=== PATIENT | male | born 1960 | race Caucasian/White ===

== ENCOUNTER 2021-03-20 19:30 | Emergency (ER) | payer OTHER, SELFPAY ==
[2021-03-20 19:39] VITALS: BP 155/90; PULSE 63; RESP 16; TEMP 36.5; O2SAT 99
--- NOTE | 2021-03-20 19:53 | ED.SKABFB ---
HPI - Skin/Abscess/Foreign Bdy General Chief complaint: Skin/Abscess/Foreign Body Stated complaint: RAULITO EYE SWELLING Time Seen by Provider: 03/20/21 19:44 Source: patient and RN notes reviewed Mode of arrival: ambulatory Limitations: no limitations History of Present Illness HPI narrative: Patient presents today complaining of swelling to the left upper eyelid that started 30 minutes prior to exam. He is unsure if it is an insect bite or something more. Denies itching or pain. He has tried no [id number]-[id number] interventions prior to arrival. He was sitting outside on his porch prior to onset of symptoms. Related Data Home Medications Medication Instructions Recorded Confirmed No Home Medications 03/20/21 03/20/21 Allergies Allergy/AdvReac Type Severity Reaction Status Date / Time ciprofloxacin Allergy Intermediate Hives / Verified 03/20/21 19:45 Red Face Sulfa (Sulfonamide Allergy Intermediate Itching Verified 03/20/21 19:45 Antibiotics) Review of Systems Review of Systems: Narrative: CONSTITUTIONAL: Denies body aches, fever, chills, or sweats. EYES: Denies visual changes, redness, or discharge. Swelling to left upper eyelid ENT: Denies rhinorrhea, congestion, sore throat, or otalgia. CARDIOVASCULAR: Denies chest pain, palpitations, or edema. RESPIRATORY: Denies cough or dyspnea. GASTROINTESTINAL: Denies abdominal pain, nausea, vomiting, or diarrhea. GENITOURINARY: Denies dysuria or hematuria. SKIN: Denies rash, itching, or wounds. MUSCULOSKELETAL: Denies back pain, joint pain, or myalgia. NEUROLOGIC: Denies headache, numbness, tingling, or weakness. PSYCH: Denies depression or anxiety. PMFSH Comments At time of signature, I have reviewed and agree with nursing past medical, surgical, social and family history unless otherwise noted. Please see nursing chart for further information. There is no relevant family history pertinent to the presenting complaint Exam Narrative: Exam Narrative: GENERAL: Well-appearing, well-nourished, and in no acute distress. HEAD: Normocephalic, atraumatic. EYES: EOMI. PERRL. No redness or drainage. Conjunctivae normal.1cm area of localized erythema and scant edema to the left lateral upper eyelid. Nontender. ENT: Mucous membranes pink and moist. NECK: Normal AROM. Supple. No lymphadenopathy. CHEST: No respiratory distress. EXTREMITIES: Normal range of motion. No edema. SKIN: Warm, dry, no rash. Capillary refill normal. Normal skin turgor. NEURO: No focal deficits. Alert and oriented x3. Gait steady. PSYCH: Normal affect. No signs of depression or anxiety. Course Vital Signs Vital signs: Vital Signs Temperature 97.7 F 03/20/21 19:39 Pulse Rate 63 03/20/21 19:39 Respiratory Rate 16 03/20/21 19:39 Blood Pressure 155/90 H 03/20/21 19:39 Pulse Oximetry 99 03/20/21 19:39 Temperature 97.7 F 03/20/21 19:39 Pulse Rate 63 03/20/21 19:39 Respiratory Rate 16 03/20/21 19:39 Blood Pressure 155/90 H 03/20/21 19:39 Pulse Oximetry 99 03/20/21 19:39 Reviewed. Pt has been instructed to follow up with his PCP regarding his elevated blood pressure today. MDM - Skin/Abscess/Foreign Bdy Differential Diagnosis Differential diagnosis: Likely abscess of skin or subcutaneous tissue, urticaria, cellulitis, insect bites, impetigo and contact dermatitis Critical Care Time Critical Care Time Critical Care Time: No Discharge Plan Discharge Clinical Impression: Insect bite Qualifiers: Encounter type: initial encounter Site of insect bite: unspecified site Qualified Code(s): W57.XXXA - Bitten or stung by nonvenomous insect and other nonvenomous arthropods, initial encounter Patient Disposition: Home, Self-Care Condition: Stable Instructions: Insect Bite or Sting (ED) Additional Instructions: Your eyelid is likely swollen due to an insect bite. If it is not bothering you, leave it alone. If it starts itching, you may apply some jennifer
== END 2021-03-20 20:03 | disposition home or self-care (01) ==
PROVIDERS: Emergency Provider Nurse Practitioner; PCP Family Medicine Adolescent Medicine
DX: S00.262A Insect bite (nonvenomous) of left eyelid and periocular area, initial encounter (principal); W57.XXXA Bitten or stung by nonvenomous insect and other nonvenomous arthropods, initial encounter; C95.90 Leukemia, unspecified not having achieved remission
CPT/HCPCS: 99211; G0463

== ENCOUNTER 2024-05-06 01:51 | Day surgery (SDC) | payer OTHER, SELFPAY ==
[2024-04-30 11:39] VITALS: BMI 24.4
--- NOTE | 2024-04-30 11:45 | PC.NURSE ---
Report to the Outpatient Waiting Room, entrance under the green pavilion located off [facility], at time _1000_ on date _[id number]_. Planned Procedure Time: _1200_.? Time changes happen often and if your time is changed the preop area will call you the afternoon before. - You and your visitor will be asked to self-screen and do not enter if you have any COVID symptoms. Please call surgeon if you need to reschedule. - A mask is optional within the hospital at this time. Patients may have clear liquids (water, carbonated beverages, clear teas, apple juice) until 3 hours prior to surgery with a maximum of 20 ounces. - No food from midnight until time of surgery and no smoking Take only the following medications with a SIP of water on the morning of surgery: __None DO NOT STOP ANY OF YOUR OTHER PRESCRIPTION MEDICATIONS PRIOR TO SURGERY EXCEPT THE FOLLOWING Medications to discontinue per physician ____None Please no make-up, nail afghan, hairspray, perfume, deodorant, or body powder the day of surgery.? No jewelry (including any body piercings) or valuables the day of surgery, leave them at home.? Please take a shower or bath the night before, or the morning of, surgery with an antibacterial soap.? Wear comfortable, loose fitting clothing.? - Jewelry must be removed prior to entering the operating room.? Rings and piercings that are not removed may be cut off. - The hospital will not accept responsibility for valuables.? - Please leave all valuables, including medications, at home the day of surgery. If you are going home after surgery, a licensed construction driver must drive you home.? - NO public transportation without another adult if you receive anesthesia. - We recommend that an adult stay with you for 24 hours following discharge. - We also recommend that you do not drive, make important decision, drink alcoholic beverages, or take any drugs that were not prescribed by your health care provider for at least 24 hours after your discharge time. Follow any additional instructions given to you from your surgeon. Telephone instructions given to __Khai___and asked if any additional questions and then verbalized understanding. Patient advised to call surgeon office or pre surgery nurse liaison [phone] if any additional questions.
--- NOTE | 2024-05-05 17:58 | PM.SD2 ---
Same Day Admit/Disch: HPI History of Present Illness Chief complaint: Port-A-Cath no longer needed Narrative: Khai Winters is a 64 year old male who had a right internal jugular Port-A-Cath placed in 2019 for chemotherapy. He had been diagnosed with chronic lymphocytic leukemia. He is in remission and no further chemotherapy is planned. He is taken to surgery at this time for removal of his Port-A-Cath. [facility] Past Medical History Medical History CLL (chronic lymphoid leukemia) with failed remission Epidermal cyst Surgical History Surgical History History of vascular access device 10/26/2018 - [id number] placement Hx of excision of epidermal inclusion cyst Excision epidermal inclusion cyst of the left neck - 04/12/2021 Family History Family History Mother CLL (chronic lymphocytic leukemia) Sibling CLL (chronic lymphocytic leukemia) Two brothers with hx of CLL Cerebrovascular accident Other Heart disease Hypertension Kidney disease Social History Social History Smoking status: Never smoker Alcohol intake: current Alcohol use details: Social alcohol use Living arrangements: with family Occupation/Education: retired Spiritual care concerns: No Same Day Admit/Disch: Med Pre-admit Medications Home Medications Medication Instructions Recorded Confirmed Type No Home Medications 04/26/21 04/30/24 History Review of Systems Review of Systems All systems reviewed & are unremarkable except as noted in HPI and below (HPI and those items noted below) Constitutional Constitutional: Denies chills and Denies fever(s) Cardiovascular Cardiovascular: Denies chest pain, Denies diaphoresis, Denies dyspnea and Denies paroxysmal nocturnal dyspnea Respiratory Respiratory: Denies chest congestion, Denies cough and Denies dyspnea Integumentary/Breasts Skin/Breast: Denies lesions and Denies rash Exam Const: General: comfortable, no acute distress, alert and awake HENMT: Head: normocephalic and atraumatic Mouth: Yes Normal oral and palatal mucosa present Eyes: Conjunctivae: conjunctivae normal Pupils: Equal, round and reactive pupils present EOM: EOMs intact bilaterally Neck: Neck: normal visual inspection, no lymphadenopathy and nontender Chest: Chest palpation & inspection: abnormal inspection of the chest (Right internal jugular Port-A-Cath noted) scar; no swelling and no erythema, no tenderness and No rash Resp: Effort & Inspection: normal respiratory effort Auscultation: clear to auscultation bilaterally Cardio: Rate: regular rate Rhythm: regular rhythm Heart sounds: no gallops, no murmurs and no rubs GI: Inspection: non-distended GI Palp: Yes Soft to palpation, No Tenderness to palpation present (GI), No Hepatomegaly present and No Splenomegaly present Skin: Lesions: no lesions Rashes: no rashes Neuro: General: no focal motor deficits and CN's II-XI intact bilaterally Cranial nerves: Yes Equal, round and reactive pupils present, Yes Bilaterally intact EOM present, Yes facial symmetry and Yes Midline tongue present Speech: normal speech Motor exam (neuro): 5/5 motor strength present throughout and Motor abnormalities not present Extrem: General: no clubbing, cyanosis or edema and edema Psych: Affect: normal affect Thought process: Normal thought process present Insight: Good insight present (Psych) DS: Summary Time Spent with Patient Time attestation: Total time spent providing and/or coordinating discharge services: DS: Admitting Diagnosis Discharge Date 05/06/2024 Admitting Diagnosis Chronic lymphocytic leukemia in remission Port-A-Cath no longer needed-plan to remove Port-A-Cath under anesthesia. The procedure, risks, alternativ
[2024-05-06] MEDS: LACTATED RINGERS 1,000 ML 30 ML IV CONT ×2 (10:00→12:52)
[2024-05-06] MEDS: KETOROLAC 15 MG/ML VIAL (*BKC) IV PUSH (10:30)
[2024-05-06 10:38] VITALS: BP 132/87; PULSE 57; RESP 18; TEMP 36.8; O2SAT 99
--- NOTE | 2024-05-06 11:42 | P.PNAN_ITS ---
Anes - Initial Pre Proc Eval Procedure: Operation Date: 05/06/24 12:00 Proposed Procedures p Removal Brian Cath - Usama Brock MD Date/Time: 05/06/24 11:42 Surgeon: Usama Brock MD Pre Op Diagnosis: Port-A-Cath no longer needed Patient Data Age: 64 Gender: M Height: 1.85 m Weight: 85.4 kg Last Vital Signs Temp 36.8 C 05/06/24 10:38 Pulse 57 L 05/06/24 10:38 Resp 18 05/06/24 10:38 BP 132/87 05/06/24 10:38 Pulse Ox 99 05/06/24 10:38 O2 Del Method Room Air 05/06/24 10:38 Allergies Allergy/AdvReac Type Severity Reaction Status Date / Time ciprofloxacin Allergy Intermediate Hives / Verified 05/06/24 10:37 Red Face Sulfa (Sulfonamide Allergy Intermediate Itching Verified 05/06/24 10:37 Antibiotics) Home Medications Medication Instructions Recorded Confirmed Type No Home Medications 04/26/21 04/30/24 History Patient hx anesthesia problems: none Family hx anesthesia problems: none Results Review: All pre-operative results and documents have been reviewed as part of the pre- operative evaluation. [facility] Past Medical History Medical History CLL (chronic lymphoid leukemia) with failed remission Epidermal cyst Surgical History Surgical History History of vascular access device 10/26/2018 - [id number] placement Hx of excision of epidermal inclusion cyst Excision epidermal inclusion cyst of the left neck - 04/12/2021 Family History Family History Mother CLL (chronic lymphocytic leukemia) Sibling CLL (chronic lymphocytic leukemia) Two brothers with hx of CLL Cerebrovascular accident Other Heart disease Hypertension Kidney disease Social History Social History Smoking status: Never smoker Alcohol intake: current Alcohol use details: Social alcohol use Living arrangements: with family Occupation/Education: retired Spiritual care concerns: No Anes - Eval Final PreProcedure Day of Procedure 05/06/24 11:42 Patient weight: normal Heart: regular rate and rhythm Lungs: clear to auscultation Airway: Mallampati scale class II Neurological: alert and oriented Last oral intake: >/= 8 hours ASA classification: III Emergent: no Anesthetic plan: proceed Anesthesia type and monitoring: general GIVS and standard monitoring Results Review: All pre-operative results and documents have been reviewed as part of the pre- operative evaluation. Informed Consent: The patient's anesthetic plan and its attendant risks and benefits were discussed with the patient/family/POA. Questions were solicited and answers provided to the satisfaction of the patient/family/POA.
--- NOTE | 2024-05-06 12:06 | WPDHPUPDATE1 ---
History and Physical Update Update Date/Time: 05/06/24 12:06 History and Physical has been reviewed, including an updated exam of the patient. There are NO changes in the patient's condition. Risks, benefits, and alternatives have been discussed and questions answered. Patient agrees to proceed with procedure.
[2024-05-06] MEDS: BUPIVACAINE/EPINEPHRINE 0.5% 10 ML VIAL 30 ML INFILTRATE (12:15)
[2024-05-06] MEDS: ceFAZolin 2 GM/D5W 50 ML 2 GM/50 ML BAG IVPB (12:15)
[2024-05-06 12:52] VITALS: BP 122/72; PULSE 63; RESP 16
--- NOTE | 2024-05-06 12:55 | P.OP_ITS ---
Procedure Note - Detailed Date of Procedure 05/06/24 Pre-op Diagnosis Port-A-Cath no longer needed, chronic lymphocytic leukemia Post-op Diagnosis Same Procedure Performed Removal right internal jugular Port-A-Cath Surgeon Usama Brock MD Drug Enforcement Administration Agent Jamia MAST Anesthesia General (G IV S) and Local Indications Patient is in remission from CLL and no longer needs his right internal jugular Port-A-Cath. He is taken to surgery now for removal. Findings Intact Port-A-Cath Description of Procedure Patient was taken to surgery and anesthesia was introduced. Prep and drape was carried out. Local was infiltrated over the previous incision as well as in the area of the reservoir. Incision was then made and dissection down to the Port-A-Cath hub in tubing was carried out. I then dissected the fibrous sheath around the Port-A-Cath. I cut the suture that were holding it to the pectoralis major fascia. The Port-A-Cath then came out without difficulty. The tubing was intact without any evidence of having broken off. There was back bleeding through the fibrous canal. A 4-0 Vicryl pursestring suture was placed to achieve hemostasis. I then removed some of the loose fibrous sheath. Additional local was infiltrated into the pocket. Josephine's fascia was closed with interrupted 4-0 Vicryl suture. 4-0 Vicryl subcuticular skin sutures were placed to loosely approximate the skin. Finally a running 4-0 Monocryl skin suture was placed to close the skin. Wound was dressed with Exofin surgical adhesive. Patient was awakened and taken to outpatient step down in good c ondition. Sponge needle counts were correct x2. Estimated Blood Loss -5 Drains No Packing No Pathology None sent Complications None Condition Stable Disposition Same day [facility] Billing Surgery - Charge Forward: Surgery Billing (Removal right internal jugular Port-A-Cath)
[2024-05-06 13:05] VITALS: BP 121/84; PULSE 65; RESP 16
[2024-05-06 13:35] VITALS: BP 124/77; PULSE 58; RESP 18
== END 2024-05-06 13:42 | disposition home or self-care (01) ==
PROVIDERS: PCP Family Medicine Adolescent Medicine; Visit Provider Surgery
PROC: (CPT 36589; principal; 2024-05-06 12:00)
DX: Z45.2 Encounter for adjustment and management of vascular access device (principal); C91.11 Chronic lymphocytic leukemia of B-cell type in remission; Z92.21 Personal history of antineoplastic chemotherapy
CPT/HCPCS: 36590; J0690; J1885; J2250; J2405; J2704; J3010; J7120

== ENCOUNTER 2024-12-08 14:00 | Inpatient (IN) | payer MEDICAID, SELFPAY ==
[2024-12-08] VITALS (9 sets, daily range): BP systolic 127–161; BP diastolic 52–99; PULSE 42–70; RESP 15–16; TEMP 36.7–37; O2SAT 97–99; BMI 25.6
--- NOTE | ~2024-12-08 | CT_ITS ---
EXAMINATION: CTA chest abdomen pelvis DATE: 12/08/2024 15:35 INDICATION: Chest pain and numbness in the arms TECHNIQUE: Computed tomographic angiography (CTA) of the chest, abdomen, and pelvis was performed wit h 100 mL Omnipaque-350 intravenous contrast. Additional 3D reconstructions utilizing coronal maximum intensity projection (MIP) were performed. The dose-length product was 826.31 mGy-cm. COMPARISON: None FINDINGS: CHEST: Mild atelectasis in the dependent lower lobes. No pneumonia, pulmonary edema or pleural effusion. Hea rt size is normal. Atherosclerotic coronary artery calcification is. No pericardial effusion. Thoraci c aorta is normal in caliber with no dissection. No pathologically enlarged thoracic lymphadenopathy. Small sliding-type hiatal hernia. Moderate thoracic spondylosis. Abdomen and pelvis: Liver, gallbladder, spleen, pancreas, left kidney and bilateral adrenal glands are normal. There is s mall region of nonenhancing cortex at the lateral interpolar region of the right kidney suspicious fo r infarct which could be relatively recent as it is without appreciable volume loss to suggest chroni c atrophy. Bowels including the appendix are normal. Bladder is normal. Prostatomegaly. Small fat-con taining right inguinal hernia. No free intraperitoneal gas or fluid. No pathologically enlarged abdom inal or pelvic lymphadenopathy. Small amount of nonhemodynamically significant atherosclerotic plaque along the normal caliber abdominal aorta. No hemodynamically significant stenosis evident along the celiac axis, superior mesenteric, inferior mesenteric and left and right renal arteries. There is add itional small accessory right renal artery which supplies the lower pole of the right kidney. Bilater al common, internal and external iliac arteries are normal in caliber with no hemodynamically signifi cant stenosis. There is a small dissection flap along the proximal most left internal iliac artery. M oderate to severe lumbar spondylosis. IMPRESSION: 1. No acute cardiopulmonary disease. 2. Small region of decreased parenchymal enhancement without evident atrophy at the interpolar region of the right kidney suspicious for a relatively recent infarct. 3. Small dissection flap at the proximal most left internal iliac artery. 4. Small sliding-type hiatal hernia. 5. Small fat-containing right inguinal hernia. Reviewed, dictated and finalized at location A. IMPRESSION: 1. No acute cardiopulmonary disease. 2. Small region of decreased parenchymal enhancement without evident atrophy at the interpolar region of the right kidney suspicious for a relatively recent i nfarct. 3. Small dissection flap at the proximal most left internal iliac artery. 4. Small sliding-type hiatal hernia. 5. Small fat-containing right inguinal hernia.
--- NOTE | 2024-12-08 14:03 | ECG_ITS ---
Test Date: 2024-12-08 14:10:19 Measurements Intervals [place] Rate: 55 P: 56 IA: 167 QRS: -14 QRSD: 103 T: 61 QT: 405 QTc: 389 Interpretive Statements SINUS BRADYCARDIA LOW QRS VOLTAGE IN PRECORDIAL LEADS LEFT VENTRICULAR HYPERTROPHY AND ST-T CHANGE BORDERLINE ECG No previous ECG available for comparison Electronically Signed On 12-08-2024 14:45:06 CDT by Johnny Barnes D.O.
--- NOTE | 2024-12-08 14:22 | ED.CHESTPAIN ---
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 He had some sweating with onset of symptoms but then moved into a cooler room and the sweating has improved. He notes that he had a burger and fries about 45 minutes prior to the onset of symptoms and is concerned that maybe something is stuck in his throat. Took some antacids without improvement. Denies odynophagia or dysphagia, shortness of breath, swelling to his lower extremities, cough or congestion, hemoptysis, fever, abdominal pain, numbness or tingling to his lower extremities. He is not on treatment for CLL. GENERAL: Well-appearing, well-nourished, and in no acute distress. HEAD: Normocephalic, atraumatic. CHEST: Clear to auscultation. ?No respiratory distress. HEART: Regular rate and rhythm.? NEURO: ?Alert and oriented x3. Patient screened in triage and initial orders placed.? ?Additional care and disposition to be based upon?diagnostic testing and treatment. <Era Castorena PA-C - Last Filed: 12/08/24 14:26> History of Present Illness HPI narrative: agree with MSE <Cindy Valdes MD - Last Filed: 12/08/24 20:17> Related Data Home Medications: Home Medications ?Medication ?Instructions ?Recorded ?Confirmed ?Last Taken ?Type No Home Medications 04/26/21 04/30/24 Unknown History <Era Castorena PA-C - Last Filed: 12/08/24 14:26> Allergies/Adverse Reactions: Allergies Allergy/AdvReac Type Severity Reaction Status Date / Time ciprofloxacin Allergy Intermediate Hives / Verified 12/08/24 14:01 Red Face Sulfa (Sulfonamide Allergy Intermediate Itching Verified 12/08/24 14:01 Antibiotics) <Era Castorena PA-C - Last Filed: 12/08/24 14:26> Review of Systems Review of Systems: All systems reviewed & are unremarkable except as noted in HPI and below <Cindy Valdes MD - Last Filed: 12/08/24 20:17> [facility] Past Medical History Medical History: Medical History (Updated 12/08/24 @ 20:17 by Cindy Valdes MD) Thrombocytopenia 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 <Era Castorena PA-C - Last Filed: 12/08/24 14:26> Surgical History Surgical History: Surgical History (Updated 12/08/24 @ 20:10 by Ivana Carlson DO) Hx of excision of epidermal inclusion cyst Excision epidermal inclusion cyst of the left neck - 04/12/2021 History of vascular access device 10/26/2018 - [id number] placement with subsequent removal 04/2024 <Era Castorena PA-C - Last Filed: 12/08/24 14:26> Family History Family History: Family History Mother CLL (chronic lymphocytic leukemia) Sibling CLL (chronic lymphocytic leukemia) Two brothers with hx of CLL Cerebrovascular accident Other Heart disease Hypertension Kidney disease <Era Castorena PA-C - Last Filed: 12/08/24 14:26> Social History Social History: Social History Smoking status: Never smoker Alcohol intake: current Alcohol use details: Social alcohol use Living arrangements: with family Occupation/Education: retired Spiritual care concerns: No <Era Castorena PA-C - Last Filed: 12/08/24 14:26> Exam Narrative: EXAMINATION OF ORGAN SYSTEMS/BODY AREAS: Constitutional: Vital signs per nursing GENERAL:[No acute distress, non-toxic appearing.] HEAD: Normal with no signs of head trauma. EYES: EOMI, conjunctiva normal ENT: Hearing grossly intact LUNGS: Nonlabored breathing. HEART: [Regular rate and rhythm]; normal symmetric bilateral radial and DP pulses ABD: [Soft], [nontender to palpation] EXT: Normal range of motion SKIN: [No rashes or lesions.] NEURO: [Alert and oriented x 3. No gross focal sensory or strength deficits.] PSYCH: Normal affect <Cindy Valdes MD - Last Filed: 12/08/24 20:17> Course Vital Signs Vital signs: Vital Signs Temperature 98.6 F 12/08/24 14:04 Pulse Rate 70 12/08/24 14:04 Respiratory Rate 16 12/08/24 14:04 Blood Pressure 158/93 H 12/08/24 14:04 Pulse Oximetry 99 12/08/24 14:04 Temperature 98.6 F 12/08/24 14:04 Pulse Rate 58 L 12/08/24 20:09 Respiratory Rate 16 12/08/24 20:09 Blood Pressure 158/92 H 12/08/24 20:09 Pulse Oximetry 97 12/08/24 20:09 Oxygen Delivery Room Air 12/08/24 15:14 <Era Castorena PA-C - Last Filed: 12/08/24 14:26> Vital Signs Temperature 98.6 F 12/08/24 14:04 Pulse Rate 70 12/08/24 14:04 Respiratory Rate 16 12/08/24 14:04 Blood Pressure 158/93 H 12/08/24 14:04 Pulse Oximetry 99 12/08/24 14:04 Temperature 98.6 F 12/08/24 14:04 Pulse Rate 58 L 12/08/24 20:09 Respiratory Rate 16 12/08/24 20:09 Blood Pressure 158/92 H 12/08/24 20:09 Pulse Oximetry 97 12/08/24 20:09 Oxygen Delivery Room Air 12/08/24 15:14 <Cindy Valdes MD - Last Filed: 12/08/24 20:17> MDM - Chest Pain MDM Narrative Medical decision making narrative: Patient presenting here with chest pain that started after eating a burger. Hartman like it was going to his arms with some numbness and he got very diaphoretic. Initial triage EKG shows sinus bradycardia rate 55, normal AR, QRS, QTC, no ST elevations or depressions or signs of obvious acute arrhythmia or ischemia. CTA dissection protocol obtained; this shows small hiatal hernia, and a small dissection flap L internal iliac artery. Patient has completely normal equal bilateral radial and DP arteries and no sensory or motor deficits in any extremity. His symptoms have also essentially resolved. Repeat EKG on my independent interpretation shows sinus bradycardia rate 50, normal AR, QRS, QTC, no ST elevations depressions or signs of acute ischemia or arrhythmia Dr Marr vascular surgery at [facility] reviewed imaging and did not feel this required any sort of vascular intervention or transfer. D/w Dr Bell [facility] vascular surgeon who was quite reassuring, agrees no intervention necessary, offered followup if patient desires in the vascular clinic. This will be provided. Repeat troponin unfortunately is now 0.194. I did reassess the patient, he states that his symptoms have mostly resolved and is not having any significant chest pain right now. I did update him that he will have to be admitted for cardiology workup; patient agreeable to plan. Repeat EKG shows sinus bradycardia rate 48, normal AR, QRS, QTC, no significant ST elevations depressions on my independent interpretation Discussed with telecommunications consultant, heparin drip ordered, discussed with hospitalist for admission. <Cindy Valdes MD - Last Filed: 12/08/24 20:17> Lab Data Result diagrams: 12/08/24 19:35 12/08/24 14:19 <Era Castorena PA-C - Last Filed: 12/08/24 14:26> Labs: Lab Results 12/08/24 12/08/24 12/08/24 Range/Units 14:19 17:45 19:35 WBC 12.4 H 13.2 H (4.5-10.0) K/mm3 RBC 5.05 4.96 (4.6-6.20) M/mm3 Hgb 15.4 14.8 (14.0-18.0) g/dL Hct 46.7 45.0 (42.0-52.0) % MCV 92.5 90.7 (80-100) fl MCH 30.5 29.8 (26-34) pg MCHC 33.0 32.9 (32-36) g/dl RDW 12.8 12.9 (11.5-14.5) % Plt Count 140 L 122 L (150-375) k/mm3 MPV 10.3 10.1 (7.4-10.4) fl Immature Gran % (Auto) 0.2 Not Reportable (0-0.5) % Neut % (Auto) 41.3 L Not Reportable (45.5-73.1) % Lymph % (Auto) 42.6 Not Reportable (18.3-44.2) % Jefferson % (Auto) 15.4 H Not Reportable (2.6-8.5) % Eos % (Auto) 0.2 Not Reportable (0-4.4) % Baso % (Auto) 0.3 Not Reportable (0.2-1.2) % Lymph # (Auto) 5.28 H Not Reportable (0.9-3.2) K/mm3 Jefferson # (Auto) 1.9 H Not Reportable (0.1-0.6) K/mm3 Eos # (Auto) 0.0 Not Reportable (0-0.3) K/mm3 Baso # (Auto) 0.0 Not Reportable (0.0-0.1) K/mm3 Abs Immat Gran (auto) 0.03 Not Reportable (0.00-0.031) K/mm3 Absolute Neuts (auto) 5.1 Not Reportable (1.3-6.7) K/mm3 Absolute Nucleated RBC 0.000 Not Reportable (0.0-0.012) K/mm3 Total Counted 100 Neutrophils % (Manual) 78 H (46-73) % Band Neutrophils % 1 (0-6) % Lymphocytes % (Manual) 9.0 L (18-44) % Monocytes % (Manual) 12 H (3-9) % Nucleated RBC % 0.0 Not Reportable (0.0-0.2) % Abs Neuts (Manual) 10.42 H (1.3-6.7) K/mm3 Abs Lymphs (Manual) 1.18 (1.1-4.5) K/mm3 Abs Monocytes (Manual) 1.58 H (0.1-0.90) K/mm3 Platelet Estimate Slightly decreased (Adequate) % Immature Plt Fraction 4.3 (0.9-11.2) % Schistocytes None seen PT 13.2 13.5 (11.1-14.7) Seconds INR 1.0 1.0 APTT 25.9 26.2 (22.3-36.8) Seconds Sodium 140 (137-145) mmol/L Potassium 4.4 (3.4-5.0) mmol/L Chloride 104 (98-107) mmol/L Carbon Dioxide 24 (22-30) mmol/L Anion Gap 12 (4-12) mmol/L BUN 19 (9-20) mg/dL Creatinine 1.36 H (0.7-1.3) mg/dL Estim Creat Clear Calc 56 ml/min Estimated GFR 53 L (59 - ) Glucose 125 H (65-110) mg/dL Calcium 9.0 (8.4-10.2) mg/dL Total Bilirubin 0.9 (0.2-1.3) mg/dL AST 28 (17-59) U/L ALT 30 (6-50) U/L Alkaline Phosphatase 66 (38-126) U/L Troponin I 0.014 0.194 H* D (0.000-0.034) ng/mL Total Protein 7.0 (6.3-8.2) g/dL Albumin 4.7 (3.5-5.1) g/dL Lipase 82 (23-300) U/L /16/ Range/Units 20:06 WBC (4.5-10.0) K/mm3 RBC (4.6-6.20) M/mm3 Hgb (14.0-18.0) g/dL Hct (42.0-52.0) % MCV (80-100) fl MCH (26-34) pg MCHC (32-36) g/dl RDW (11.5-14.5) % Plt Count (150-375) k/mm3 MPV (7.4-10.4) fl Immature Gran % (Auto) (0-0.5) % Neut % (Auto) (45.5-73.1) % Lymph % (Auto) (18.3-44.2) % Jefferson % (Auto) (2.6-8.5) % Eos % (Auto) (0-4.4) % Baso % (Auto) (0.2-1.2) % Lymph # (Auto) (0.9-3.2) K/mm3 Jefferson # (Auto) (0.1-0.6) K/mm3 Eos # (Auto) (0-0.3) K/mm3 Baso # (Auto) (0.0-0.1) K/mm3 Abs Immat Gran (auto) (0.00-0.031) K/mm3 Absolute Neuts (auto) (1.3-6.7) K/mm3 Absolute Nucleated RBC (0.0-0.012) K/mm3 Total Counted Neutrophils % (Manual) (46-73) % Band Neutrophils % (0-6) % Lymphocytes % (Manual) (18-44) % Monocytes % (Manual) (3-9) % Nucleated RBC % (0.0-0.2) % Abs Neuts (Manual) (1.3-6.7) K/mm3 Abs Lymphs (Manual) (1.1-4.5) K/mm3 Abs Monocytes (Manual) (0.1-0.90) K/mm3 Platelet Estimate (Adequate) % Immature Plt Fraction (0.9-11.2) % Schistocytes PT (11.1-14.7) Seconds INR APTT (22.3-36.8) Seconds Sodium (137-145) mmol/L Potassium (3.4-5.0) mmol/L Chloride (98-107) mmol/L Carbon Dioxide (22-30) mmol/L Anion Gap (4-12) mmol/L BUN (9-20) mg/dL Creatinine (0.7-1.3) mg/dL Estim Creat Clear Calc ml/min Estimated GFR (59 - ) Glucose (65-110) mg/dL Calcium (8.4-10.2) mg/dL Total Bilirubin (0.2-1.3) mg/dL AST (17-59) U/L ALT (6-50) U/L Alkaline Phosphatase (38-126) U/L Troponin I Pending (0.000-0.034) ng/mL Total Protein (6.3-8.2) g/dL Albumin (3.5-5.1) g/dL Lipase (23-300) U/L <Era Castorena PA-C - Last Filed: 12/08/24 14:26> Lab Results 12/08/24 12/08/24 12/08/24 Range/Units 14:19 17:45 19:35 WBC 12.4 H 13.2 H (4.5-10.0) K/mm3 RBC 5.05 4.96 (4.6-6.20) M/mm3 Hgb 15.4 14.8 (14.0-18.0) g/dL Hct 46.7 45.0 (42.0-52.0) % MCV 92.5 90.7 (80-100) fl MCH 30.5 29.8 (26-34) pg MCHC 33.0 32.9 (32-36) g/dl RDW 12.8 12.9 (11.5-14.5) % Plt Count 140 L 122 L (150-375) k/mm3 MPV 10.3 10.1 (7.4-10.4) fl Immature Gran % (Auto) 0.2 Not Reportable (0-0.5) % Neut % (Auto) 41.3 L Not Reportable (45.5-73.1) % Lymph % (Auto) 42.6 Not Reportable (18.3-44.2) % Jefferson % (Auto) 15.4 H Not Reportable (2.6-8.5) % Eos % (Auto) 0.2 Not Reportable (0-4.4) % Baso % (Auto) 0.3 Not Reportable (0.2-1.2) % Lymph # (Auto) 5.28 H Not Reportable (0.9-3.2) K/mm3 Jefferson # (Auto) 1.9 H Not Reportable (0.1-0.6) K/mm3 Eos # (Auto) 0.0 Not Reportable (0-0.3) K/mm3 Baso # (Auto) 0.0 Not Reportable (0.0-0.1) K/mm3 Abs Immat Gran (auto) 0.03 Not Reportable (0.00-0.031) K/mm3 Absolute Neuts (auto) 5.1 Not Reportable (1.3-6.7) K/mm3 Absolute Nucleated RBC 0.000 Not Reportable (0.0-0.012) K/mm3 Total Counted 100 Neutrophils % (Manual) 78 H (46-73) % Band Neutrophils % 1 (0-6) % Lymphocytes % (Manual) 9.0 L (18-44) % Monocytes % (Manual) 12 H (3-9) % Nucleated RBC % 0.0 Not Reportable (0.0-0.2) % Abs Neuts (Manual) 10.42 H (1.3-6.7) K/mm3 Abs Lymphs (Manual) 1.18 (1.1-4.5) K/mm3 Abs Monocytes (Manual) 1.58 H (0.1-0.90) K/mm3 Platelet Estimate Slightly decreased (Adequate) % Immature Plt Fraction 4.3 (0.9-11.2) % Schistocytes None seen PT 13.2 13.5 (11.1-14.7) Seconds INR 1.0 1.0 APTT 25.9 26.2 (22.3-36.8) Seconds Sodium 140 (137-145) mmol/L Potassium 4.4 (3.4-5.0) mmol/L Chloride 104 (98-107) mmol/L Carbon Dioxide 24 (22-30) mmol/L Anion Gap 12 (4-12) mmol/L BUN 19 (9-20) mg/dL Creatinine 1.36 H (0.7-1.3) mg/dL Estim Creat Clear Calc 56 ml/min Estimated GFR 53 L (59 - ) Glucose 125 H (65-110) mg/dL Calcium 9.0 (8.4-10.2) mg/dL Total Bilirubin 0.9 (0.2-1.3) mg/dL AST 28 (17-59) U/L ALT 30 (6-50) U/L Alkaline Phosphatase 66 (38-126) U/L Troponin I 0.014 0.194 H* D (0.000-0.034) ng/mL Total Protein 7.0 (6.3-8.2) g/dL Albumin 4.7 (3.5-5.1) g/dL Lipase 82 (23-300) U/L /16/ Range/Units 20:06 WBC (4.5-10.0) K/mm3 RBC (4.6-6.20) M/mm3 Hgb (14.0-18.0) g/dL Hct (42.0-52.0) % MCV (80-100) fl MCH (26-34) pg MCHC (32-36) g/dl RDW (11.5-14.5) % Plt Count (150-375) k/mm3 MPV (7.4-10.4) fl Immature Gran % (Auto) (0-0.5) % Neut % (Auto) (45.5-73.1) % Lymph % (Auto) (18.3-44.2) % Jefferson % (Auto) (2.6-8.5) % Eos % (Auto) (0-4.4) % Baso % (Auto) (0.2-1.2) % Lymph # (Auto) (0.9-3.2) K/mm3 Jefferson # (Auto) (0.1-0.6) K/mm3 Eos # (Auto) (0-0.3) K/mm3 Baso # (Auto) (0.0-0.1) K/mm3 Abs Immat Gran (auto) (0.00-0.031) K/mm3 Absolute Neuts (auto) (1.3-6.7) K/mm3 Absolute Nucleated RBC (0.0-0.012) K/mm3 Total Counted Neutrophils % (Manual) (46-73) % Band Neutrophils % (0-6) % Lymphocytes % (Manual) (18-44) % Monocytes % (Manual) (3-9) % Nucleated RBC % (0.0-0.2) % Abs Neuts (Manual) (1.3-6.7) K/mm3 Abs Lymphs (Manual) (1.1-4.5) K/mm3 Abs Monocytes (Manual) (0.1-0.90) K/mm3 Platelet Estimate (Adequate) % Immature Plt Fraction (0.9-11.2) % Schistocytes PT (11.1-14.7) Seconds INR APTT (22.3-36.8) Seconds Sodium (137-145) mmol/L Potassium (3.4-5.0) mmol/L Chloride (98-107) mmol/L Carbon Dioxide (22-30) mmol/L Anion Gap (4-12) mmol/L BUN (9-20) mg/dL Creatinine (0.7-1.3) mg/dL Estim Creat Clear Calc ml/min Estimated GFR (59 - ) Glucose (65-110) mg/dL Calcium (8.4-10.2) mg/dL Total Bilirubin (0.2-1.3) mg/dL AST (17-59) U/L ALT (6-50) U/L Alkaline Phosphatase (38-126) U/L Troponin I Pending (0.000-0.034) ng/mL Total Protein (6.3-8.2) g/dL Albumin (3.5-5.1) g/dL Lipase (23-300) U/L <Cindy Valdes MD - Last Filed: 12/08/24 20:17> Discharge Plan Discharge Clinical Impression: Non-STEMI (non-ST elevated myocardial infarction), Chest pain <Era Castorena PA-C - Last Filed: 12/08/24 14:26> Patient Disposition: Still a Patient <Era Castorena PA-C - Last Filed: 12/08/24 14:26> Condition: Serious <Era Castorena PA-C - Last Filed: 12/08/24 14:26> Additional Instructions: You can follow up with [facility] Vascular Clinic [phone]. <Era Castorena PA-C - Last Filed: 12/08/24 14:26> Patient Language: Divehi <Era Castorena PA-C - Last Filed: 12/08/24 14:26> Prescriptions: No Action No Home Medications <Era Castorena PA-C - Last Filed: 12/08/24 14:26> Follow-up/Referrals: Guillermo Painting MD [Primary Care Provider] - <Era Castorena PA-C - Last Filed: 12/08/24 14:26>
[2024-12-08 14:27] LABS: Basophils Percent Auto 0.3 % (0.2-1.2); Eosinophils Percent Auto 0.2 % (0-4.4); Hematocrit 46.7 % (42.0-52.0); Hemoglobin 15.4 g/dL (14.0-18.0); Immature Granulocyte Absolute 0.03 K/mm3 (0.00-0.031); Immature Granulocyte Percent A 0.2 % (0-0.5); Immature Platelet Fraction Pct 4.3 % (0.9-11.2); Lymphocytes Absolute Auto 5.28 K/mm3 (0.9-3.2); Lymphocytes Percent Auto 42.6 % (18.3-44.2); Mean Corpuscular Hemoglobin 30.5 pg (26-34); Mean Corpuscular Volume 92.5 fl (80-100); Mean Platelet Volume 10.3 fl (7.4-10.4); Monocytes Absolute Auto 1.9 K/mm3 (0.1-0.6); Monocytes Percent Auto 15.4 % (2.6-8.5); Neutrophils Absolute Auto 5.1 K/mm3 (1.3-6.7); Neutrophils Percent Auto 41.3 % (45.5-73.1); Platelet Count Result 140 k/mm3 (150-375); Red Blood Count 5.05 M/mm3 (4.6-6.20); Red Cell Distribution Width 12.8 % (11.5-14.5); White Blood Count 12.4 K/mm3 (4.5-10.0)
[2024-12-08 14:36] LABS: Alanine Aminotransferase 30 U/L (6-50); Albumin Level 4.7 g/dL (3.5-5.1); Alkaline Phosphatase 66 U/L (38-126); Anion Gap 12 mmol/L (4-12); Aspartate Amino Transferase 28 U/L (17-59); Bilirubin,Total 0.9 mg/dL (0.2-1.3); Blood Urea Nitrogen 19 mg/dL (9-20); Carbon Dioxide 24 mmol/L (22-30); Chloride 104 mmol/L (98-107); Estimated CRCL calculation 56 ml/min; Estimated Glomerular Filt Rate 53; Glucose 125 mg/dL (65-110); Lipase 82 U/L (23-300); Potassium 4.4 mmol/L (3.4-5.0); Sodium 140 mmol/L (137-145)
[2024-12-08 14:40] LABS: Prothrombin Time 13.2 Seconds (11.1-14.7)
[2024-12-08 14:41] LABS: Partial Thromboplastin Time 25.9 Seconds (22.3-36.8)
[2024-12-08 14:48] LABS: Troponin I 0.014 ng/mL (0.000-0.034)
--- OUTSIDE RECORDS SUMMARY | 2024-12-08 15:15 | XMS_ITS | Encounter Summary ---
Author Organization [facility] Address [address] [place] [address] Care Team Providers Care Battery Assembler Dry Cell Name Role Phone Guillermo Painting MD Primary Care Provider [phone]- [phone] Encounter Details Date Type Department Care Team (Late st Contact Info) Description 12/07/2024 External Device Data [facility]CTION Provider, Abstract NO ADDRESS ON FILE Social History Tobacco Use Types Packs/Day Years Used Date Smoking Tobacco: Never Smokeless Tobacco: Never Alcohol Use Standard Drinks/Week Comments No 0 (1 standard drink = 0.6 oz pur e alcohol) Sex and Gender Information Value Date Recorded Sex Assigned at Not on file 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
--- OUTSIDE RECORDS SUMMARY | 2024-12-08 15:15 | XMS_ITS | Clinical Summary ---
Author Organization [facility] Address [address] [place] [address] Care Team Providers Care Forepart Rounder Name Role Phone Guillermo Painting MD Primary Care Provider [phone]- [phone] Allergies No known active allergies Medications No known medications Active Problems Problem Noted Date Diagnosed Date CLL (chronic lymphocytic leukemia) 10/07/2018 Encounters Date Type Department Care Team Description 12/07/2024 External Device Data [facility] ABSTRACTION Provider, Abstract 11/10/2024 External Device Data [facility]CTION Provider, Abstract 10/30/2024 External Device Data [facility]CTION Provider, Abstract 10/29/2024 External Device Data [facility] Provider, Abstract 10/12/2024 External Device Data [facility] Provider, Abstract 09/28/2024 External Device Data [facility] Provider, Abstract 09/21/2024 External Device Data [facility] Provider, Abstract 09/21/2024 External Device Data [facility] Provider, Abstract from Last 3 Months Family History Medical History Relation Name Comments Leukemia Brother 1 Leukemia Brother 2 Leukemia Mother Relation Name Status Comments Brother 1 Alive Brother 2 Alive Father Alive Mother Alive Social History Tobacco Use Types Packs/Day Years Used Date Smoking Tobacco: Never Smokeless Tobacco: Never Tobacco Cessation:Counseling Given: Not Answered Alcohol Use Standard Drinks/Week Comments No 0 (1 standard drink = 0.6 oz pur e alcohol) Sex and Gender Information Value Date Recorded Sex Assigned at Not on file 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 Gender Identity Not on file Sexual Orientation Not on file Last Filed Vital Signs Vital Sign Reading Time Taken Comments Blood Pressure 139/89 07/26/2024 9:12 AM DIVISION MANAGER Pulse 64 07/26/2024 9:12 AM DIVISION MANAGER Temperature 36.5 C (97.7 F) 07/26/2024 9:12 AM DIVISION MANAGER Respiratory Rate 14 07/26/2024 9:12 AM DIVISION MANAGER Oxygen Saturation 98% 07/26/2024 9:12 AM DIVISION MANAGER Inhaled Oxygen Concentration - - Weight 88 kg (194 lb) 07/26/2024 9:12 AM DIVISION MANAGER Height 188 cm (6' 2 ) 01/03/2022 8:52 AM CDT Body Mass Index 24.91 01/03/2022 8:52 AM CDT Plan of Treatment Health Maintenance Due Date Last Done Comments DTAP/TDAP/TD VACCINES (1 - Tdap) 02/15/1979 ZOSTER VACCINE (1 of 2) 02/15/1979 COLORECTAL SCREENING 02/15/2005 Colorectal Cancer Screening 02/15/2005 FIT-DNA Q 3 years 02/15/2005 FIT/FOBT Q 1 year 02/15/2005 Flex Sig/CT Colonography Q 5 years 02/15/2005 RSV VACCINE (60+ or ) (1 - Risk 60-74 years 1-dose series) 2020 INFLUENZA VACCINE (#1) 2024 8, 07/09/2017, 05/29/2016 Insurance Care Teams Forepart Rounder Relationship Specialty Start Date End Date Guillermo Painting MD PCP - General Family Practice 10/07/18
--- OUTSIDE RECORDS SUMMARY | 2024-12-08 15:15 | XMS_ITS | Clinical Summary ---
Author Organization [facility] Address [address] [place] [address] Phone Care Team Providers Care Veneer Department Manager Name Role Phone Guillermo Mcnamara MD Primary Care Provider [phone] Allergies No known active allergies Medications cetirizine (ZyrTEC) 10 MG tablet Take 10 mg by mouth daily. 11/26/2018 Active Patiromer Sorbitex Calcium 8.4 g pack Take 8.4 g by mouth. 09/10/2018 Active raNITIdine (ZANTAC) 150 MG tablet Take 150 mg by mouth 2 times daily. Active aspirin EC 81 MG EC tablet Take 81 mg by mouth daily. Active chlorproMAZINE (THORAZINE) 25 MG tablet Take 25 mg by mouth every 8 hours as needed. 01/07/2019 Active Active Problems Problem Noted Date Diagnosed Date Chronic lymphoid leukemia, disease 10/07/2018 Chronic lymphoid leukemia, disease Hyperkalemia Chronic kidney disease Family History Medical History Relation Comments Leukemia Brother Leukemia Mother Relation Status Comments Brother Mother Social History Tobacco Use Types Packs/Day Years Used Date Smoking Tobacco: Never Smokeless Tobacco: Never Alcohol Use Standard Drinks/Week Comments No 0 (1 standard drink = 0.6 oz pur e alcohol) AUDIT-C Answer Date Recorded Frequency of Alcohol Consumption Never 11/29/2018 Average Number of Drinks Not on file 019 Frequency of Binge Drinking Not on file 02/2019 Sex and Gender Information Value Date Recorded Sex Assigned at Not on file Legal Sex Male 7:52 PM MST Gender Identity Not on file Sexual Orientation Not on file Last Filed Vital Signs Vital Sign Reading Time Taken Comments Blood Pressure 126/70 01/11/2019 10:29 AM CDT Pulse - - Temperature 35.9 C (96.7 F) 01/11/2019 10:29 AM CDT Respiratory Rate - - Oxygen Saturation - - Inhaled Oxygen Concentration - - Weight 93.4 kg (206 lb) 01/11/2019 10:29 AM CDT Height 188 cm (6' 2 ) 01/11/2019 10:29 AM CDT Body Mass Index 26.45 01/11/2019 10:29 AM CDT Plan of Treatment Health Maintenance Due Date Last Done Comments Influenza Vaccine (Season Ended) 2025 Insurance [employer] Care Teams Veneer Department Manager Relationship Specialty Start Date End Date Guillermo Mcnamara MD [address] [address] PCP - General Family Medicine 11/29/18
[2024-12-08] MEDS: ASPIRIN 81 MG CHEWABLE TABLET 324 MG PO (15:21)
[2024-12-08] MEDS: FAMOTIDINE 20 MG/2 ML VIAL IV PUSH (15:21)
[2024-12-08] MEDS: BELLADONNA ALK/PHENOB ELIX 10 ML, MAG HYDROX/ALUMINUM HYD/SIMETH 30 ML, LIDOCAINE 2% VI... PO (15:22)
--- OUTSIDE RECORDS SUMMARY | 2024-12-08 15:49 | XMS_ITS | Clinical Summary ---
Author Organization [facility] Address [address] [place] [address] Care Team Providers Care Business Systems Manager Name Role Phone Guillermo Painting MD Primary Care Provider [phone]- [phone] Allergies No known active allergies Medications No [...] on file Legal Sex Male 10:04 AM CHILD PSYCHOMETRIST Gender Identity Not on file Sexual Orientation Not on file Last Filed Vital Signs Vital Sign Reading Time Taken Comments Blood Pressure 139/89 07/26/2024 9:12 AM CHILD PSYCHOMETRIST Pulse 64 07/26/2024 9:12 AM CHILD PSYCHOMETRIST Temperature 36.5 C (97.7 F) 07/26/2024 9:12 AM CHILD PSYCHOMETRIST Respiratory Rate 14 07/26/2024 9:12 AM CHILD PSYCHOMETRIST Oxygen Saturation 98% 07/26/2024 9:12 AM CHILD PSYCHOMETRIST Inhaled Oxygen Concentration - - Weight 88 kg (194 lb) 07/26/2024 9:12 AM CHILD PSYCHOMETRIST Height 188 cm (6' 2 ) 01/03/2022 [...] 2024 8, 07/09/2017, 05/29/2016 Insurance Care Teams Business Systems Manager Relationship Specialty Start Date End Date Guillermo Painting MD PCP - General Family Practice 10/07/18
--- OUTSIDE RECORDS SUMMARY | 2024-12-08 15:49 | XMS_ITS | Clinical Summary ---
Author Organization [facility] Address [address] [place] [address] Phone Care Team Providers Care Vp Of Product Name Role Phone Guillermo Mcnamara MD Primary Care Provider [phone] Allergies No known active allergies Medications cetirizine [...] Ended) 2025 Insurance [employer] Care Teams Vp Of Product Relationship Specialty Start Date End Date Guillermo Mcnamara MD [address] [address] PCP - General Family Medicine 11/29/18
--- OUTSIDE RECORDS SUMMARY | 2024-12-08 15:49 | XMS_ITS | Encounter Summary ---
Author Organization [facility] Address [address] [place] [address] Care Team Providers Care Apparel Stock Checker Name Role Phone Guillermo Painting MD Primary Care Provider [phone]- [phone] Encounter Details Date Type Department Care Team [...] on file Legal Sex Male 10:04 AM METAL PATTERNMAKER APPRENTICE Gender Identity Not on file Sexual Orientation Not on file documented as of this encounter Plan of Treatment Not on file documented as of this encounter Visit Diagnoses Not on filedocumented in this encounter Care Teams Apparel Stock Checker Relationship Specialty Start Date End Date Guillermo Painting MD PCP - General Family Practice 10/07/18 documented as of this encounter
--- NOTE | 2024-12-08 16:31 | PC.NURSE ---
Dr. Valdes at bedside speaking with pt. and pt. brother in room.
--- NOTE | 2024-12-08 17:17 | ECG_ITS ---
Test Date: 2024-12-08 17:36:15 Measurements Intervals [place] Rate: 50 P: 59 MD: 170 QRS: -4 QRSD: 98 T: 40 QT: 424 QTc: 389 Interpretive Statements SINUS BRADYCARDIA WITH SINUS ARRHYTHMIA CANNOT R/O SEPTAL INFARCT, AGE INDETERMINATE BASELINE ARTIFACT- V3 ABNORMAL ECG Compared to ECG 12/08/2024 14:10:19 NO SIGNIFICANT CHANGE Electronically Signed On 12-08-2024 19:55:25 CDT by Johnny Barnes D.O.
[2024-12-08 18:26] LABS: Troponin I 0.194 ng/mL (0.000-0.034)
--- NOTE | 2024-12-08 18:40 | PC.NURSE ---
Dr. Valdes at bedside updating pt.
[2024-12-08 19:40] LABS: Hemoglobin 14.8 g/dL (14.0-18.0); Mean Corpuscular HGB Conc 32.9 g/dl (32-36); Mean Corpuscular Hemoglobin 29.8 pg (26-34); Mean Corpuscular Volume 90.7 fl (80-100); Mean Platelet Volume 10.1 fl (7.4-10.4); Platelet Count Result 122 k/mm3 (150-375); Red Blood Count 4.96 M/mm3 (4.6-6.20); Red Cell Distribution Width 12.9 % (11.5-14.5); White Blood Count 13.2 K/mm3 (4.5-10.0)
--- NOTE | 2024-12-08 20:04 | ECG_ITS ---
Test Date: 2024-12-08 20:10:39 Measurements Intervals [place] Rate: 48 P: 55 [place]: 165 QRS: -4 QRSD: 95 T: 44 QT: 439 QTc: 393 Interpretive Statements SINUS BRADYCARDIA CANNOT R/O SEPTAL INFARCT, AGE INDETERMINATE ABNORMAL ECG Compared to ECG 12/08/2024 17:36:15 HEART RATE HAS DECREASED Electronically Signed On 12-08-2024 21:45:47 CDT by Johnny Barnes D.O.
[2024-12-08 20:05] LABS: Prothrombin Time 13.5 Seconds (11.1-14.7)
[2024-12-08 20:06] LABS: Partial Thromboplastin Time 26.2 Seconds (22.3-36.8)
--- NOTE | 2024-12-08 20:07 | P.HP_ITS ---
H&P: HPI History of Present Illness Date/Time: 12/08/24 20:07 Chief Complaint: Chest pain Narrative: 64-year-old male with a past medical history of CLL in remission since 1999, chronic thrombocytopenia and chronic kidney disease stage 3 with baseline creatinine of 1.4 who presented to the ER with chest pain. The patient reports that he was helping install some shelves S part of a volunteer project. When he noticed he had some substernal chest pressure fullness. He also had some radiation of the discomfort to the back of his arms in the felt slightly number heavy. He did not have any radiation to his jaw. He did have some associated diaphoresis. He thought that this was due to the temperature in the room and went into the other part of the facility to cool down. However his chest pain did not improve. He did admit to eating a burger and fries about 45 minutes prior to onset of symptoms. He denied any improvement in his discomfort with aspirin. Pain was a 2 or 3/10 in intensity at its worst. He reports that the pain is still present at the same level. His initial troponin was negative but repeat troponin the ER was positive at 0.194. Repeat EKG did demonstrate possible septal changes. However subsequent repeat troponin demonstrated resolution of these changes. Patient was noted to have some moderate elevation in blood pressures and was mildly bradycardic. He denied any dyspnea on exertion orthopnea or paroxysmal nocturnal dyspnea. He does report his used complained of him snoring. He denies any difficulty with sleep and has been for 4 years she was unsure if he still snores. He has lost 35 lb since he was last told that he snored. He states that he has been on a low carb diet. Code status: DNR/DNI (the patient reports that he is willing to suspend is DNR an order to have cardiac catheterization procedure if needed) Review of Systems 2 Review of Systems: 12 systems were reviewed with pertinent positives and negatives per HPI. Except as documented in the HPI, all other systems were reviewed and are negative. 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 Surgical History Surgical History (Updated 12/08/24 @ 20:10 by Ivana Carlson DO) Hx of excision of epidermal inclusion cyst Excision epidermal inclusion cyst of the left neck - 04/12/2021 History of vascular access device 10/26/2018 - [id number]-[id number] placement with subsequent removal 04/2024 Family History Family History Mother CLL (chronic lymphocytic leukemia) Sibling CLL (chronic lymphocytic leukemia) Two brothers with hx of CLL Cerebrovascular accident Other Heart disease Hypertension Kidney disease Social History Social History (Updated 12/09/24 @ 01:31 by Ivana Carlson DO) Social History: The patient has been since 2020. He and his raised 2 daughters. One of his daughters lives locally. 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 Balance tears to stay busy. She he is independent in all activities of daily living. Code status: DNR/DNI (the patient reports that he is willing to suspend is DNR an order to have cardiac catheterization procedure if needed) Surrogate decision maker: Juanita (daughter) however he states his other daughter can not make decisions if lower was unavailable. Smoking status: Never smoker Alcohol intake: never Alcohol use details: Social alcohol use Substance use: never Substance use type: does not use Do You Feel Safe in your Home?: Yes Lack of Transportation: No Lack of Food: Never True Current Housing: I Have Housing Concerned About Future Housing: No Difficulty Paying Gas/Electric Bills: No Difficulty Paying for Meds: No Currently Unemployed: No Education: Decline to Answer Difficulty w/ Childcare or Family Care: No Living arrangements: with family Occupation/Education: retired Spiritual care concerns: No Meds Home Medications and Allergies Home Medications ?Medication ?Instructions ?Recorded ?Confirmed ?Type No Home Medications 04/26/21 12/08/24 History Allergies Allergy/AdvReac Type Severity Reaction Status Date / Time ciprofloxacin Allergy Intermediate Hives / Verified 12/08/24 14:01 Red Face Sulfa (Sulfonamide Allergy Intermediate Itching Verified 12/08/24 14:01 Antibiotics) Vital Signs Vital Signs - 24 hr 12/08/24 14:04 12/08/24 15:14 12/08/24 15:15 Temperature 98.6 F Pulse Rate 70 63 Respiratory Rate 16 15 Blood Pressure 158/93 H 154/99 H Pulse Oximetry 99 99 Oxygen Delivery Room Air 12/08/24 15:59 12/08/24 16:54 12/08/24 19:09 Temperature Pulse Rate 54 L 59 L 48 L Respiratory Rate 16 16 16 Blood Pressure 153/80 H 141/52 H 155/94 H Pulse Oximetry 99 98 99 Oxygen Delivery Exam 2 Narrative: Weight 88.2 kg BMI 25.7 Const: Other: No acute distress, well-developed well-nourished, appears stated age HENMT: Other: Mucous membranes are tacky, no oral pharyngeal erythema, head is normocephalic atraumatic Eyes: Other: Pupils are equal and reactive, no conjunctival pallor, no scleral icterus Neck: Other: No JVD, no lymphadenopathy Resp: Other: Clear to auscultation bilaterally, no increased work of breathing Cardio: Other: Sinus bradycardia, 2+ bilateral radial and pedal pulses, no JVD, no murmur GI: Other: Soft, nontender, nondistended, normoactive bowel sounds Skin: Other: No jaundice, no pallor, no petechia Neuro: Other: Alert oriented, speech is clear, no facial asymmetry, no localizing neurologic deficits noted during the course of conversation Extrem: Other: No clubbing, cyanosis or edema Psych: Other: Appropriate mood and affect, pleasant and cooperative, judgment and insight intact H&P: Results Labs Labs: Laboratory Tests 12/08/24 19:35 12/08/24 14:19 12/08/24 12/08/24 12/08/24 14:19 17:45 19:35 WBC 12.4 H 13.2 H RBC 5.05 4.96 Hgb 15.4 14.8 Hct 46.7 45.0 MCV 92.5 90.7 MCH 30.5 29.8 MCHC 33.0 32.9 RDW 12.8 12.9 Plt Count 140 L 122 L MPV 10.3 10.1 Immature Gran % (Auto) 0.2 Not Reportable Neut % (Auto) 41.3 L Not Reportable Lymph % (Auto) 42.6 Not Reportable Fergus % (Auto) 15.4 H Not Reportable Eos % (Auto) 0.2 Not Reportable Baso % (Auto) 0.3 Not Reportable Lymph # (Auto) 5.28 H Not Reportable Fergus # (Auto) 1.9 H Not Reportable Eos # (Auto) 0.0 Not Reportable Baso # (Auto) 0.0 Not Reportable Abs Immat Gran (auto) 0.03 Not Reportable Absolute Neuts (auto) 5.1 Not Reportable Absolute Nucleated RBC 0.000 Not Reportable Total Counted 100 Neutrophils % (Manual) 78 H Band Neutrophils % 1 Lymphocytes % (Manual) 9.0 L Monocytes % (Manual) 12 H Nucleated RBC % 0.0 Not Reportable Abs Neuts (Manual) 10.42 H Abs Lymphs (Manual) 1.18 Abs Monocytes (Manual) 1.58 H Platelet Estimate Slightly decreased % Immature Plt Fraction 4.3 Schistocytes None seen PT 13.2 13.5 INR 1.0 1.0 APTT 25.9 26.2 Sodium 140 Potassium 4.4 Chloride 104 Carbon Dioxide 24 Anion Gap 12 BUN 19 Creatinine 1.36 H Estim Creat Clear Calc 56 Estimated GFR 53 L Glucose 125 H Calcium 9.0 Total Bilirubin 0.9 AST 28 ALT 30 Alkaline Phosphatase 66 Troponin I 0.014 0.194 H* D Total Protein 7.0 Albumin 4.7 Lipase 82 12/08/24 20:06 WBC RBC Hgb Hct MCV MCH MCHC RDW Plt Count MPV Immature Gran % (Auto) Neut % (Auto) Lymph % (Auto) Fergus % (Auto) Eos % (Auto) Baso % (Auto) Lymph # (Auto) Fergus # (Auto) Eos # (Auto) Baso # (Auto) Abs Immat Gran (auto) Absolute Neuts (auto) Absolute Nucleated RBC Total Counted Neutrophils % (Manual) Band Neutrophils % Lymphocytes % (Manual) Monocytes % (Manual) Nucleated RBC % Abs Neuts (Manual) Abs Lymphs (Manual) Abs Monocytes (Manual) Platelet Estimate % Immature Plt Fraction Schistocytes PT INR APTT Sodium Potassium Chloride Carbon Dioxide Anion Gap BUN Creatinine Estim Creat Clear Calc Estimated GFR Glucose Calcium Total Bilirubin AST ALT Alkaline Phosphatase Troponin I Pending Total Protein Albumin Lipase Impressions Chest/Abdomen/Pelvis CTA 12/08/24 15:40 IMPRESSION: 1. No acute cardiopulmonary disease. 2. Small region of decreased parenchymal enhancement without evident atrophy at the interpolar region of the right kidney suspicious for a relatively recent infarct. 3. Small dissection flap at the proximal most left internal iliac artery. 4. Small sliding-type hiatal hernia. 5. Small fat-containing right inguinal hernia. EK EKGs reviewed all demonstrating sinus bradycardia with rates between 48 and 56 initial EKG demonstrated possible LVH and ST T-wave changes but not redemonstrated on other EKGs. Second EKG demonstrated possible septal infarct age indeterminate with low-voltage QRS possible Q-waves in be [address] depression in be 4. Thirty EKG demonstrated was lesion of these findings but persistent bradycardia All imaging and EKGs personally reviewed and interpreted. And unless stated otherwise agree with radiologic and cardiology interpretation. Assessment and Plan Assessment and plan (1) Non-STEMI (non-ST elevated myocardial infarction): Code(s): I21.4 - Non-ST elevation (NSTEMI) myocardial infarction Status: Acute (2) Thrombocytopenia: Code(s): D69.6 - Thrombocytopenia, unspecified Status: Acute (3) Nonsustained ventricular tachycardia: Code(s): I47.29 - Other ventricular tachycardia Status: Acute Plan Patient presented with somewhat atypical to chest pain but 2nd troponin increased and findings consistent with non STEMI. The patient has been started on heparin drip per protocol for non STEMI. He received full-dose aspirin in the ER. Cardiology has been consulted. Will check lipid panel with a.m. labs. Will need to monitor CBC closely given use of heparin given the patient's baseline chronic thrombocytopenia but platelet count appears stable. Patient also has mild chronic kidney disease and creatinine is around his baseline. Will provide IV fluid hydration as the patient received contrast for CT of the chest abdomen pelvis and may need contrast for cardiac catheterization. Cardiology has been consulted. Patient will be made NPO at midnight. Will provide nitroglycerin as needed for recurrent chest pain. Blood pressures are also moderately elevated. Patient has no documented history of essential hypertension. His blood pressures in April were normal with systolics in the 120s. Could be due to acute stress or newly developing essential hypertension. Will monitor blood pressures closely and provide p.r.n. antihypertensives if systolic blood pressures greater than 160. The patient was still lying having some chest pressure at the time of my evaluation sublingual nitroglycerin did not seem to help this. I did order for 1 in of nitropaste given the patient's elevated blood pressure and relatively significant increase in troponin compared to 3 hour troponin. Repeat troponin is been ordered for a.m.. The patient did have an episode of nonsustained V-tach of only 6 or 7 beats of V-tach while I was evaluating him was asymptomatic. Will continue to monitor on telemetry. Will check BMP and magnesium with a.m. labs. Otherwise the patient has been mildly bradycardic. Will check TSH to rule out underlying metabolic related cause. But also patient is asymptomatic from this as well P Quality VTE Prophylaxis VTE prophylaxis: pharmacologic ordered (Heparin GGT per protocol) Hospitalist MIPS Advance Care Plan I have confirmed that the patient's Advanced Care Plan is present, code status is documented, or surrogate decision maker is listed in patient medical record.: Yes Medication Reconciliation I have utilized all available resources to obtain, update and review the patients current medications (includes all prescriptions, OTC, herbals, cannabis, and nutritional supplements).: Yes
[2024-12-08 20:08] LABS: Band Neutrophils Percent 1 % (0-6); Lymphocytes Absolute Manual 1.18 K/mm3 (1.1-4.5); Monocytes Absolute Manual 1.58 K/mm3 (0.1-0.90); Monocytes Percent Manual 12 % (3-9); Neutrophils Absolute Manual 10.42 K/mm3 (1.3-6.7); Neutrophils Percent Manual 78 % (46-73); Platelet Estimate Slightly Decreased (Adequate); Schistocytes None Seen; Total Cells Counted 100
[2024-12-08] MEDS: HEPARIN SODIUM 5,000 UNITS/ML VIAL 4000 UNITS IV PUSH (20:11)
[2024-12-08] MEDS: HEPARIN SOD/D5W 100 UNITS/ML 25,000 UNITS/250 ML BAG 10 UNITS IV CONT (20:11)
--- NOTE | 2024-12-08 21:24 | ADMGEN ---
2024: This patient, Khai Winters, was admitted to IMU Room 210-01. Patient/family oriented to hospital policies and general routines including ID bracelet, bed and alarms, visiting hours, pain management, procedures, bathroom and other care routines, personal items, smoking policy, room service/diet, and visiting hours. Information on how to activate the Rapid Response Team has been discussed. Patient/Family are encouraged to report perceived risks to care and to ask questions if they do not understand what they are told or what they should do.
[2024-12-08] MEDS: SODIUM CHLORIDE 0.9% IV 1,000 ML 100 ML IV CONT (21:54)
[2024-12-08] MEDS: NITROGLYCERIN SL 0.4 MG TABLET SUBLINGUAL (21:54)
[2024-12-09] VITALS (26 sets, daily range): BP systolic 111–161; BP diastolic 68–92; PULSE 42–62; RESP 14–20; TEMP 36.7–37.2; O2SAT 96–100
[2024-12-09 02:10] LABS: Basophils Percent Auto 0.3 % (0.2-1.2); Eosinophils Percent Auto 0.1 % (0-4.4); Hematocrit 41.8 % (42.0-52.0); Hemoglobin 13.8 g/dL (14.0-18.0); Immature Granulocyte Absolute 0.04 K/mm3 (0.00-0.031); Immature Granulocyte Percent A 0.3 % (0-0.5); Immature Platelet Fraction Pct 4.6 % (0.9-11.2); Lymphocytes Absolute Auto 3.99 K/mm3 (0.9-3.2); Lymphocytes Percent Auto 31.8 % (18.3-44.2); Mean Corpuscular Hemoglobin 30.3 pg (26-34); Mean Corpuscular Volume 91.9 fl (80-100); Mean Platelet Volume 10.8 fl (7.4-10.4); Monocytes Absolute Auto 1.3 K/mm3 (0.1-0.6); Monocytes Percent Auto 10.1 % (2.6-8.5); Neutrophils Absolute Auto 7.2 K/mm3 (1.3-6.7); Neutrophils Percent Auto 57.4 % (45.5-73.1); Platelet Count Result 117 k/mm3 (150-375); Red Blood Count 4.55 M/mm3 (4.6-6.20); Red Cell Distribution Width 12.9 % (11.5-14.5); White Blood Count 12.6 K/mm3 (4.5-10.0)
[2024-12-09 02:28] LABS: Anion Gap 10 mmol/L (4-12); Blood Urea Nitrogen 17 mg/dL (9-20); Calcium 9.2 mg/dL (8.4-10.2); Carbon Dioxide 19 mmol/L (22-30); Chloride 106 mmol/L (98-107); Cholesterol 231 mg/dL (0-200); Estimated CRCL calculation 68 ml/min; Estimated Glomerular Filt Rate > 60; Glucose 120 mg/dL (65-110); HDL Direct 43 mg/dL; Magnesium 2.1 mg/dL (1.6-2.3); Potassium 4.4 mmol/L (3.4-5.0); Sodium 135 mmol/L (137-145); Triglycerides 121 mg/dL (<150)
[2024-12-09] MEDS: HEPARIN SODIUM 5,000 UNITS/ML VIAL 3500 UNITS IV PUSH (02:38)
[2024-12-09 02:39] LABS: LDL Cholesterol Direct 129 mg/dL
--- NOTE | 2024-12-09 02:47 | ECG_ITS ---
Test Date: 2024-12-09 02:58:33 Measurements Intervals [place] Rate: 45 P: 58 NC: 168 QRS: -19 QRSD: 85 T: 11 QT: 470 QTc: 410 Interpretive Statements SINUS BRADYCARDIA CANNOT R/O SEPTAL INFARCT, AGE INDETERMINATE BASELINE WANDER- V2 ABNORMAL ECG Compared to ECG 12/08/2024 20:10:39 No significant changes Electronically Signed On 12-09-2024 06:04:30 CDT by Johnny Barnes D.O.
--- NOTE | 2024-12-09 02:50 | ECG_ITS ---
Test Date: 2024-12-09 03:00:44 Measurements Intervals [place] Rate: 47 P: 58 MO: 168 QRS: -17 QRSD: 83 T: 19 QT: 466 QTc: 412 Interpretive Statements SINUS BRADYCARDIA CANNOT R/O SEPTAL INFARCT, AGE INDETERMINATE ABNORMAL ECG Compared to ECG 12/09/2024 02:58:33 No significant changes Electronically Signed On 12-09-2024 06:04:47 CDT by Johnny Barnes D.O.
[2024-12-09 03:12] LABS: Thyroid Stimulating Hormone Reflex 0.607 uIU/mL (0.465-4.68)
[2024-12-09] MEDS: NITROGLYCERIN OINTMENT 1 INCH DOSE TRANSDERM ×2 (06:33)
[2024-12-09] MEDS: SODIUM CHLORIDE 0.9% IV 1,000 ML 100 ML IV CONT (06:33)
--- NOTE | 2024-12-09 07:12 | PM.CNCAR ---
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 Troponin increased to 12. EKG shows sinus bradycardia with nonspecific T-wave changes in lead 3, possible septal infarct-age indeterminate NSTEMI: -continue aspirin 81 mg daily -continue heparin drip -start atorvastatin 80 mg daily -cardiac catheterization today. 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 His pressure like pain started yesterday afternoon around 2pm with sudden onset after lunch, is located in the left chest with radiation to both his arms, and lasted until he received nitro in the ER. He has some pain of intensity 2/10 this morning. No associated shortness of breath, diaphoresis. No palpitations, dizziness, lightheadedness, presyncope, syncope, leg swelling, recent weight gain, orthopnea, or PND. He is very active and has not had a sister of a heart problem in her 30s. Troponin is elevated from 0.014 to 12. Workup: Creatinine: 1.3 at admission, 1.1 today Hemoglobin: 13.8 WBC: 12.6 Platelet: [id number] Troponin: 0.014--0.194--1.180--12 EKGs: Sinus bradycardia with heart rate of 47, nonspecific T-wave changes in lead III, possible septal infarct-age indeterminate CTA chest/abdomen/pelvis: IMPRESSION: 1. No acute cardiopulmonary disease. 2. Small region of decreased parenchymal enhancement without evident atrophy at the interpolar region of the right kidney suspicious for a relatively recent infarct. 3. Small dissection flap at the proximal most left internal iliac artery. 4. Small sliding-type hiatal hernia. 5. Small fat-containing right inguinal hernia. 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 Surgical History Surgical History (Updated 12/08/24 @ 20:10 by Ivana Carlson DO) Hx of excision of epidermal inclusion cyst Excision epidermal inclusion cyst of the left neck - 04/12/2021 History of vascular access device 10/26/2018 - [id number] placement with subsequent removal 04/2024 Family History Family History Mother CLL (chronic lymphocytic leukemia) Sibling CLL (chronic lymphocytic leukemia) Two brothers with hx of CLL Cerebrovascular accident Other Heart disease Hypertension Kidney disease Social History Social History (Updated 12/09/24 @ 01:31 by Ivana Carlson DO) Social History: The patient has been since 2020. He and his raised 2 daughters. One of his daughters lives locally. 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 Balance tears to stay busy. She he is independent in all activities of daily living. Code status: DNR/DNI (the patient reports that he is willing to suspend is DNR an order to have cardiac catheterization procedure if needed) Surrogate decision maker: Juanita (daughter) however he states his other daughter can not make decisions if lower was unavailable. Smoking status: Never smoker Alcohol intake: never Alcohol use details: Social alcohol use Substance use: never Substance use type: does not use Do You Feel Safe in your Home?: Yes Lack of Transportation: No Lack of Food: Never True Current Housing: I Have Housing Concerned About Future Housing: No Difficulty Paying Gas/Electric Bills: No Difficulty Paying for Meds: No Currently Unemployed: No Education: Decline to Answer Difficulty w/ Childcare or Family Care: No Living arrangements: with family Occupation/Education: retired Spiritual care concerns: No Meds Home Medications and Allergies Home Medications ?Medication ?Instructions ?Recorded ?Confirmed ?Type No Home Medications 04/26/21 12/08/24 History Allergies Allergy/AdvReac Type Severity Reaction Status Date / Time ciprofloxacin Allergy Intermediate Hives / Verified 12/08/24 14:01 Red Face Sulfa (Sulfonamide Allergy Intermediate Itching Verified 12/08/24 14:01 Antibiotics) Vital Signs Vital Signs - 24 hr 12/08/24 14:04 12/08/24 15:14 12/08/24 15:15 Temperature 37.0 C Pulse Rate 70 63 Respiratory Rate 16 15 Blood Pressure 158/93 H 154/99 H Pulse Oximetry 99 99 Oxygen Delivery Room Air 12/08/24 15:59 12/08/24 16:54 12/08/24 19:09 Temperature Pulse Rate 54 L 59 L 48 L Respiratory Rate 16 16 16 Blood Pressure 153/80 H 141/52 H 155/94 H Pulse Oximetry 99 98 99 Oxygen Delivery 12/08/24 20:09 12/08/24 22:00 12/08/24 22:00 Temperature Pulse Rate 58 L 57 L Respiratory Rate 16 Blood Pressure 158/92 H Pulse Oximetry 97 Oxygen Delivery Room Air 12/08/24 22:06 12/08/24 23:26 12/09/24 00:00 Temperature 36.8 C 36.7 C Pulse Rate 55 L 42 L Respiratory Rate 16 16 Blood Pressure 161/98 H 127/75 Pulse Oximetry 99 99 Oxygen Delivery Room Air 12/09/24 00:00 12/09/24 02:00 12/09/24 03:02 Temperature Pulse Rate 44 L 42 L Respiratory Rate Blood Pressure Pulse Oximetry Oxygen Delivery Room Air 12/09/24 03:35 12/09/24 04:00 12/09/24 06:00 Temperature 36.8 C Pulse Rate 49 L 43 L 42 L Respiratory Rate 16 Blood Pressure 115/68 Pulse Oximetry 100 Oxygen Delivery Exam Narrative: General: Alert oriented x3, no acute distress Neck: Supple, no JVD Chest: Bilaterally clear to auscultation, no rales or rhonchi Cardiac: S1, S2 +, regular rate, regular rhythm, no murmurs or rubs Extremities: No pedal edema, no skin rash Neurologic: Alert and oriented x3, no focal neurological deficits Results Labs and Meds 12/09/24 02:00 12/09/24 02:00 Lab results: Cardiac Enzymes 12/08/24 12/08/24 12/08/24 Range/Units 14:19 17:45 20:06 AST 28 (17-59) U/L Troponin I 0.014 0.194 H* D 1.180 H* D (0.000-0.034) ng/mL 12/09/24 Range/Units 02:00 AST (17-59) U/L Troponin I 12.000 H* D (0.000-0.034) ng/mL Coagulation 12/08/24 12/08/24 12/09/24 Range/Units 14:19 19:35 02:00 PT 13.2 13.5 (11.1-14.7) Seconds APTT 25.9 26.2 63.0 H (22.3-36.8) Seconds Lipids 12/09/24 Range/Units 02:00 Triglycerides 121 (<150) mg/dL Cholesterol 231 H (0-200) mg/dL CBC 12/08/24 12/08/24 12/09/24 Range/Units 14:19 19:35 02:00 WBC 12.4 H 13.2 H 12.6 H (4.5-10.0) K/mm3 RBC 5.05 4.96 4.55 L (4.6-6.20) M/mm3 Hgb 15.4 14.8 13.8 L (14.0-18.0) g/dL Hct 46.7 45.0 41.8 L (42.0-52.0) % Plt Count 140 L 122 L 117 L (150-375) k/mm3 Lymph # (Auto) 5.28 H Not Reportable 3.99 H (0.9-3.2) K/mm3 [place] # (Auto) 1.9 H Not Reportable 1.3 H (0.1-0.6) K/mm3 Eos # (Auto) 0.0 Not Reportable 0.0 (0-0.3) K/mm3 Baso # (Auto) 0.0 Not Reportable 0.0 (0.0-0.1) K/mm3 Comprehensive Metabolic Panel 12/08/24 12/09/24 Range/Units 14:19 02:00 Sodium 140 135 L (137-145) mmol/L Potassium 4.4 4.4 (3.4-5.0) mmol/L Chloride 104 106 (98-107) mmol/L Carbon Dioxide 24 19 L (22-30) mmol/L BUN 19 17 (9-20) mg/dL Creatinine 1.36 H 1.10 (0.7-1.3) mg/dL Glucose 125 H 120 H (65-110) mg/dL Calcium 9.0 9.2 (8.4-10.2) mg/dL AST 28 (17-59) U/L ALT 30 (6-50) U/L Alkaline Phosphatase 66 (38-126) U/L Total Protein 7.0 (6.3-8.2) g/dL Albumin 4.7 (3.5-5.1) g/dL Intake and Output 12/08/24 12/08/24 12/09/24 15:59 23:59 07:59 Intake Total 929.3 Balance 929.3 Intake: IV 929.3 Heparin Sod/D5w 100 Units/ml 25 64.3 ,000 units In 250 ml @ 1,200 UNITS/HR 12 mls/hr IV CONT . [id number] [facility] Rx#:[id number] Sodium Chloride 0.9% IV 1,000 865 ml @ 100 mls/hr IV CONT .Q10H [facility] Rx#:[id number] Other: Intake, Other Source NPO Patient Weight 12/09/24 23:59 Weight 88.2 kg
[2024-12-09] MEDS: ASPIRIN 81 MG ENTERIC TABLET PO (08:19)
[2024-12-09] MEDS: ACETAMINOPHEN 325 MG TABLET 650 MG PO (08:19)
--- NOTE | 2024-12-09 09:00 | WPDMODSED ---
Moderate Sedation Note-Pt Data Patient Data Allergies Allergy/AdvReac Type Severity Reaction Status Date / Time ciprofloxacin Allergy Intermediate Hives / Verified 12/08/24 14:01 Red Face Sulfa (Sulfonamide Allergy Intermediate Itching Verified 12/08/24 14:01 Antibiotics) Home Medications ?Medication ?Instructions ?Recorded ?Confirmed ?Type No Home Medications 04/26/21 12/08/24 History Current Medications: Active Medications Acetaminophen (Acetaminophen 325 Mg Tablet) 650 mg PO Q6H PRN PRN Reason: Mild Pain (1-3) or Fever Last Admin: 12/09/24 08:19 Dose: 650 mg Aspirin (Aspirin 81 Mg Enteric Tablet) 81 mg PO QAM [facility] Last Admin: 12/09/24 08:19 Dose: 81 mg Heparin Sodium (Porcine) (Heparin Sodium 5,000 Units/Ml Vial) 4,000 units IV PUSH PRN PRN PRN Reason: aPTT less than 55 seconds Heparin Sodium (Porcine) (Heparin Sodium 5,000 Units/Ml Vial) 3,500 units IV PUSH PRN PRN PRN Reason: aPTT 55 - 70 seconds Last Admin: 12/09/24 02:38 Dose: 3,500 units Hydralazine HCl (Hydralazine Hcl 20 Mg/Ml Vial) 10 mg IV PUSH Q4H PRN PRN Reason: SBP greater than 160 Heparin Sodium/Dextrose (Heparin Sodium/D5w 100 Units/Ml) 25,000 units in 250 mls @ 12 mls/hr IV CONT .[id number] [facility]; Protocol Last Titration: 12/09/24 02:37 Dose: 1,200 units/hr, 12 mls/hr Sodium Chloride (Normal Saline Iv) 1,000 mls @ 100 mls/hr IV CONT .Q10H [facility] Last Admin: 12/09/24 06:33 Dose: 100 mls/hr Nitroglycerin (Nitroglycerin Sl 0.4 Mg Tablet) 0.4 mg SUBLINGUAL Q5MIN PRN PRN Reason: Chest Pain Nitroglycerin (Nitroglycerin Ointment 1 Inch Dose) 1 inch TRANSDERM Q6HR [facility] Last Admin: 12/09/24 06:33 Dose: 1 inch Sedation/Anesthesia: No previous sedation/anesthesia problems (including family history). 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 Surgical History Surgical History (Updated 12/08/24 @ 20:10 by Ivana Carlson DO) Hx of excision of epidermal inclusion cyst Excision epidermal inclusion cyst of the left neck - 04/12/2021 History of vascular access device 10/26/2018 - [id number]-[id number] placement with subsequent removal 04/2024 Family History Family History Mother CLL (chronic lymphocytic leukemia) Sibling CLL (chronic lymphocytic leukemia) Two brothers with hx of CLL Cerebrovascular accident Other Heart disease Hypertension Kidney disease Social History Social History (Updated 12/09/24 @ 01:31 by Ivana Carlson DO) Social History: The patient has been since 2020. He and his raised 2 daughters. One of his daughters lives locally. 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 Balance tears to stay busy. She he is independent in all activities of daily living. Code status: DNR/DNI (the patient reports that he is willing to suspend is DNR an order to have cardiac catheterization procedure if needed) Surrogate decision maker: Juanita (daughter) however he states his other daughter can not make decisions if lower was unavailable. Smoking status: Never smoker Alcohol intake: never Alcohol use details: Social alcohol use Substance use: never Substance use type: does not use Do You Feel Safe in your Home?: Yes Lack of Transportation: No Lack of Food: Never True Current Housing: I Have Housing Concerned About Future Housing: No Difficulty Paying Gas/Electric Bills: No Difficulty Paying for Meds: No Currently Unemployed: No Education: Decline to Answer Difficulty w/ Childcare or Family Care: No Living arrangements: with family Occupation/Education: retired Spiritual care concerns: No Mod Sed Physical Exam Physical Exam Pre Procedural Exam: Normal: Lungs, Heart Rate and Heart Rhythm Hours since solid foods: 12 Hours since liquid intake: 12 Mallampati Classification: class II Internal Medicine - PN: Obj Da Vital Signs Vital Signs: Vital Signs - 24 hr 12/08/24 14:04 12/08/24 15:14 12/08/24 15:15 Temperature 37.0 C Pulse Rate 70 63 Respiratory Rate 16 15 Blood Pressure 158/93 H 154/99 H Pulse Oximetry 99 99 Oxygen Delivery Room Air 12/08/24 15:59 12/08/24 16:54 12/08/24 19:09 Temperature Pulse Rate 54 L 59 L 48 L Respiratory Rate 16 16 16 Blood Pressure 153/80 H 141/52 H 155/94 H Pulse Oximetry 99 98 99 Oxygen Delivery 12/08/24 20:09 12/08/24 22:00 12/08/24 22:00 Temperature Pulse Rate 58 L 57 L Respiratory Rate 16 Blood Pressure 158/92 H Pulse Oximetry 97 Oxygen Delivery Room Air 12/08/24 22:06 12/08/24 23:26 12/09/24 00:00 Temperature 36.8 C 36.7 C Pulse Rate 55 L 42 L Respiratory Rate 16 16 Blood Pressure 161/98 H 127/75 Pulse Oximetry 99 99 Oxygen Delivery Room Air 12/09/24 00:00 12/09/24 02:00 12/09/24 03:02 Temperature Pulse Rate 44 L 42 L Respiratory Rate Blood Pressure Pulse Oximetry Oxygen Delivery Room Air 12/09/24 03:35 12/09/24 04:00 12/09/24 06:00 Temperature 36.8 C Pulse Rate 49 L 43 L 42 L Respiratory Rate 16 Blood Pressure 115/68 Pulse Oximetry 100 Oxygen Delivery 12/09/24 07:58 Temperature 37.0 C Pulse Rate 46 L Respiratory Rate 20 Blood Pressure 114/75 Pulse Oximetry 97 Oxygen Delivery Intake/Output Intake/Output: Intake & Output 12/06/24 12/07/24 12/08/24 12/09/24 23:59 23:59 23:59 23:59 Intake Total 929.3 Output Total 200 Balance 729.3 Meds/Results Medications: Active Medications Generic Name Dose Route Start Last Admin Trade Name Freq PRN Reason Stop Dose Admin Acetaminophen 650 mg 12/08/24 22:29 12/09/24 08:19 Acetaminophen 325 Mg Tablet PO 650 mg Q6H PRN Administration Mild Pain (1-3) or Fever Aspirin 81 mg 12/09/24 09:00 12/09/24 08:19 Aspirin 81 Mg Enteric Tablet PO 81 mg QAM GREGG Administration Heparin Sodium (Porcine) 4,000 units 12/08/24 19:18 Heparin Sodium 5,000 Units/Ml Vial IV PUSH PRN PRN aPTT less than 55 seconds Heparin Sodium (Porcine) 3,500 units 12/08/24 19:18 12/09/24 02:38 Heparin Sodium 5,000 Units/Ml Vial IV PUSH 3,500 units PRN PRN Administration aPTT 55 - 70 seconds Hydralazine HCl 10 mg 12/08/24 20:30 Hydralazine Hcl 20 Mg/Ml Vial IV PUSH Q4H PRN SBP greater than 160 Heparin Sodium/Dextrose 25,000 units in 250 mls @ 12 mls/hr 12/08/24 19:20 12/09/24 02:37 Heparin Sodium/D5w 100 Units/Ml IV CONT 1,200 units/hr .[id number] GREGG 12 mls/hr Titration Protocol 1,200 UNITS/HR Sodium Chloride 1,000 mls @ 100 mls/hr 12/08/24 20:30 12/09/24 06:33 Normal Saline Iv IV CONT 100 mls/hr .Q10H GREGG Administration Nitroglycerin 0.4 mg 12/08/24 21:48 Nitroglycerin Sl 0.4 Mg Tablet SUBLINGUAL Q5MIN PRN Chest Pain Nitroglycerin 1 inch 12/09/24 00:00 12/09/24 06:33 Nitroglycerin Ointment 1 Inch Dose TRANSDERM 1 inch Q6HR GREGG Administration Radiology Results: ITS Impressions Chest/Abdomen/Pelvis CTA 12/08/24 15:40 IMPRESSION: 1. No acute cardiopulmonary disease. 2. Small region of decreased parenchymal enhancement without evident atrophy at the interpolar region of the right kidney suspicious for a relatively recent infarct. 3. Small dissection flap at the proximal most left internal iliac artery. 4. Small sliding-type hiatal hernia. 5. Small fat-containing right inguinal hernia. Labs 12/09/24 02:00 12/09/24 02:00 Labs: Laboratory Results - last 24 hr 12/08/24 12/08/24 12/08/24 14:19 17:45 19:35 WBC 12.4 H 13.2 H RBC 5.05 4.96 Hgb 15.4 14.8 Hct 46.7 45.0 MCV 92.5 90.7 MCH 30.5 29.8 MCHC 33.0 32.9 RDW 12.8 12.9 Plt Count 140 L 122 L MPV 10.3 10.1 Immature Gran % (Auto) 0.2 Not Reportable Neut % (Auto) 41.3 L Not Reportable Lymph % (Auto) 42.6 Not Reportable [place] % (Auto) 15.4 H Not Reportable Eos % (Auto) 0.2 Not Reportable Baso % (Auto) 0.3 Not Reportable Lymph # (Auto) 5.28 H Not Reportable [place] # (Auto) 1.9 H Not Reportable Eos # (Auto) 0.0 Not Reportable Baso # (Auto) 0.0 Not Reportable Abs Immat Gran (auto) 0.03 Not Reportable Absolute Neuts (auto) 5.1 Not Reportable Absolute Nucleated RBC 0.000 Not Reportable Total Counted 100 Neutrophils % (Manual) 78 H Band Neutrophils % 1 Lymphocytes % (Manual) 9.0 L Monocytes % (Manual) 12 H Nucleated RBC % 0.0 Not Reportable Abs Neuts (Manual) 10.42 H Abs Lymphs (Manual) 1.18 Abs Monocytes (Manual) 1.58 H Platelet Estimate Slightly decreased % Immature Plt Fraction 4.3 Schistocytes None seen PT 13.2 13.5 INR 1.0 1.0 APTT 25.9 26.2 Sodium 140 Potassium 4.4 Chloride 104 Carbon Dioxide 24 Anion Gap 12 BUN 19 Creatinine 1.36 H Estim Creat Clear Calc 56 Estimated GFR 53 L Glucose 125 H Calcium 9.0 Magnesium Total Bilirubin 0.9 AST 28 ALT 30 Alkaline Phosphatase 66 Troponin I 0.014 0.194 H* D Total Protein 7.0 Albumin 4.7 Triglycerides Cholesterol LDL Cholesterol Direct HDL Direct Lipase 82 TSH (Reflex) 12/08/24 12/09/24 20:06 02:00 WBC 12.6 H RBC 4.55 L Hgb 13.8 L Hct 41.8 L MCV 91.9 MCH 30.3 MCHC 33.0 RDW 12.9 Plt Count 117 L MPV 10.8 H Immature Gran % (Auto) 0.3 Neut % (Auto) 57.4 Lymph % (Auto) 31.8 [place] % (Auto) 10.1 H Eos % (Auto) 0.1 Baso % (Auto) 0.3 Lymph # (Auto) 3.99 H [place] # (Auto) 1.3 H Eos # (Auto) 0.0 Baso # (Auto) 0.0 Abs Immat Gran (auto) 0.04 H Absolute Neuts (auto) 7.2 H Absolute Nucleated RBC 0.000 Total Counted Neutrophils % (Manual) Band Neutrophils % Lymphocytes % (Manual) Monocytes % (Manual) Nucleated RBC % 0.0 Abs Neuts (Manual) Abs Lymphs (Manual) Abs Monocytes (Manual) Platelet Estimate % Immature Plt Fraction 4.6 Schistocytes PT INR APTT 63.0 H Sodium 135 L Potassium 4.4 Chloride 106 Carbon Dioxide 19 L Anion Gap 10 BUN 17 Creatinine 1.10 Estim Creat Clear Calc 68 Estimated GFR > 60 Glucose 120 H Calcium 9.2 Magnesium 2.1 Total Bilirubin AST ALT Alkaline Phosphatase Troponin I 1.180 H* D 12.000 H* D Total Protein Albumin Triglycerides 121 Cholesterol 231 H LDL Cholesterol Direct 129 HDL Direct 43 Lipase TSH (Reflex) 0.607 ASA Classification/Sedation ASA Classification/Sedation ASA Class: III Emergent: No Risks: Risks, benefits and alternatives explained and patient/family accepted plan for sedation. Patient re-evaluated immediately prior to sedation.
--- NOTE | 2024-12-09 09:00 | WPDHPUPDATE1 ---
History and Physical Update Update Date/Time: 12/09/24 09:00 History and Physical has been reviewed, including an updated exam of the patient. There are NO changes in the patient's condition. Risks, benefits, and alternatives have been discussed and questions answered. Patient agrees to proceed with procedure.
[2024-12-09 09:25] LABS: Partial Thromboplastin Time 88.6 Seconds (22.3-36.8)
--- NOTE | 2024-12-09 10:15 | PC.NURSE ---
On 12/09/24, the student, [Kip Jimenez], provided care and completed [facility] documentation on this patient. I have reviewed the student's documentation and agree with the findings.
[2024-12-09 10:45] LABS: Activated Clotting Time 279 SEC (74-137)
--- NOTE | 2024-12-09 11:19 | P.PCNCC_ITS ---
Cardiac Cath Procedure Note Date of procedure:: 12/09/24 Performing physician:: Peggy Huitron MD Indication:: NSTEMI Brief clinical history:: 64-year-old male with history of CLL in remission presented with chief complaints of chest pain and noted to have troponin elevation to 12. Procedure Procedure performed:: 1. Right radial access 2. Left heart catheterization 3. Selective left and right coronary angiography 4. IVUS of left main coronary artery Sedation/Medication given:: Versed and Fentanyl were ordered and given in my presence at 9:52 a.m., procedure ended at 10:36 a.m. Supervision of nurse monitored moderate sedation with Versed and Fentanyl was provided for 44 minutes. Fentanyl: 100 mcg Versed: 1 mg Access site:: Right radial artery Hemostasis: TR band Estimated blood loss:: 20 mL Procedure note:: All risks, benefits and alternatives to left heart catheterization with or without percutaneous coronary intervention was discussed at length with the patient. Risk of complications including but not limited to bleeding, infection, arrhythmia, stroke, worsening kidney function, blood loss, groin hematoma, limb loss, emergency coronary artery bypass grafting, and even were discussed with the patient and all questions were answered. The patient understood and wished to proceed. Time out called, patient name, date of , medical record number, allergies, procedure performed, identify Laser Beam Trim Operator, patient and staff member concurred with accurate data, procedure carried on. Informed consent signed and placed in the chart. Patient transferred to biology laboratory assistant room. Prepped and draped in usual sterile fashion. 2% lidocaine injected subcutaneously in right wrist area. 22-gauge venipuncture catheter used to access the right radial artery with the Seldinger technique. 6-FR slender sheath placed in right radial artery. Nitroglycerin 200mcg and Heparin 5000U was given intraarterial through the sheath. J wire advanced under fluoroscopy 5 Fijian JL 3.5 diagnostic catheter engaged Left Main Coronary Artery. 5 Fijian JR4 diagnostic catheter engaged Right Coronary Artery Multiple orthogonal angiogram obtained and reviewed 5 Fijian JR4 diagnostic catheter crossed aortic valve to obtain LVEDP, LV angiogram deferred. Findings: LM: The left main is short with 40% ostial and distal stenosis. It trifurcates into LAD, RI, and LCX. LAD: The proximal LAD has 50% diffuse stenosis. There are two serial 50% mid LAD stenoses. There is proximal 70% stenosis in a large 1st diagonal. The 2nd diagonal is a small vessel and is angiographically free of disease. RI: There is a large ramus intermedius with 40-50% diffuse proximal stenosis. LCX: The proximal LCX has 40% stenosis. The AV groove LCX is a tiny vessel. There is a large OM 1 with 90% proximal stenosis and staining with PAXTON 1-2 flow. This is the culprit lesion. Decision was made to proceed with IVUS of LM to evaluate MLA. Procedure Description for PCI: Heparin was used for anticoagulation (ACT maintained above 250) Patient loaded with heparin at 70 units/kg. 6 F EBU 3.5 guide catheter was used to intubate the left main coronary artery 0.014 runthrough coronary wire was passed in to the ramus intermedius artery A 2nd 0.014 runthrough coronary wire was passed in to the OM1 artery IVUS was advanced over the runthrough wire in ramus intermedius and pullback was performed. MLA of ramus intermedius <4 mm, and MLA of distal LM 4.7 mm2 Patient did not have any chest pain, vitals were stable, there was no electrical instability, and pt has significant obstructive CAD including distal LM and proximal RCA stenosis. Decision was made to transfer patient for CABG surgery. IVUS, coronary wire and guide-catheter were removed No angiographic complications identified. Patient transferred to recovery in stable condition. Post Operative Condition: Stable Disposition: Floor Findings:: LM: The left main is short with 40% ostial and distal stenosis. It trifurcates into LAD, RI, and LCX. LAD: The proximal LAD has 50% diffuse stenosis. There are two serial 50% mid LAD stenoses. There is proximal 70% stenosis in a large 1st diagonal. The 2nd diagonal is a small vessel and is angiographically free of disease. RI: There is a large ramus intermedius with 40-50% diffuse proximal stenosis. LCX: The proximal LCX has 40% stenosis. The AV groove LCX is a tiny vessel. There is a large OM 1 with 90% proximal stenosis and staining with PAXTON 1-2 flow. This is the culprit lesion. Opening aortic pressure: 112/76/93 mm Hg Closing aortic pressure: 118/66/85 mm Hg Elevated left-sided pressures with LVEDP: 28 mm Hg IVUS of LM: MLA of distal LM lesion 4.7mm2 Conclusion:: -Multivessel obstructive CAD with 90% stenosis of proximal RCA, 50% stenosis of distal left main with MLA 4.7mm2, 90% stenosis of OM1 with PAXTON 2 flow (culprit vessel), 50% stenosis of proximal ramus intermedius with MLA <4mm2, diffuse 50% stenosis of proximal LAD, 50% serial stenosis of mid LAD, 70% stenosis of proximal large diagonal -Transfer initiated to [facility] for CABG; CT surgery informed Assessment and Plan Assessment and plan (1) Non-STEMI (non-ST elevated myocardial infarction): Code(s): I21.4 - Non-ST elevation (NSTEMI) myocardial infarction Status: Acute (2) Chronic lymphocytic leukemia remission: Code(s): C91.11 - Chronic lymphocytic leukemia of B-cell type in remission Status: Acute (3) Thrombocytopenia: Code(s): D69.6 - Thrombocytopenia, unspecified Status: Acute Plan -transfer initiated to [facility] for CABG -IV fluids normal saline 1 L at 125 cc/hour -TR band removal per protocol -monitor on telemetry -continue aspirin 81 mg daily -atorvastatin 80 mg daily -resume heparin drip 30 minutes after TR band removal -p.r.n. sublingual nitro for chest pain -continue aggressive risk factor modification -no 2nd antiplatelet agent given patient going for CABG
--- NOTE | 2024-12-09 15:30 | PM.TDS ---
Transfer Discharge Sum: Prov Provider Date of admission: 12/08/24 20:02 Primary care physician: Guillermo Painting MD Admitting clinician: Gómez José MD Consults: 12/08/24 20:04 Consult to Physician Routine Comment: Consulting Provider: Gregg Lopez Reason for consultation: elevated trop, chest pain Has provider been notified: Yes DS: Admitting Diagnosis Discharge Date 12/09/24 Admitting Diagnosis Chest pain DS: Discharge Diagnosis Discharge Diagnosis (1) Non-STEMI (non-ST elevated myocardial infarction): Code(s): I21.4 - Non-ST elevation (NSTEMI) myocardial infarction Status: Acute (2) Thrombocytopenia: Code(s): D69.6 - Thrombocytopenia, unspecified Status: Acute (3) Nonsustained ventricular tachycardia: Code(s): I47.29 - Other ventricular tachycardia Status: Acute Plan Patient presented with somewhat atypical to chest pain but 2nd troponin increased and findings consistent with non STEMI. The patient has been started on heparin drip per protocol for non STEMI. He received full-dose aspirin in the ER. Cardiology has been consulted. Will check lipid panel with a.m. labs. Will need to monitor CBC closely given use of heparin given the patient's baseline chronic thrombocytopenia but platelet count appears stable. Patient also has mild chronic kidney disease and creatinine is around his baseline. Will provide IV fluid hydration as the patient received contrast for CT of the chest abdomen pelvis and may need contrast for cardiac catheterization. Cardiology has been consulted. Patient will be made NPO at midnight. Will provide nitroglycerin as needed for recurrent chest pain. Blood pressures are also moderately elevated. Patient has no documented history of essential hypertension. His blood pressures in April were normal with systolics in the 120s. Could be due to acute stress or newly developing essential hypertension. Will monitor blood pressures closely and provide p.r.n. antihypertensives if systolic blood pressures greater than 160. The patient was still lying having some chest pressure at the time of my evaluation sublingual nitroglycerin did not seem to help this. I did order for 1 in of nitropaste given the patient's elevated blood pressure and relatively significant increase in troponin compared to 3 hour troponin. Repeat troponin is been ordered for a.m.. The patient did have an episode of nonsustained V-tach of only 6 or 7 beats of V-tach while I was evaluating him was asymptomatic. Will continue to monitor on telemetry. Will check BMP and magnesium with a.m. labs. Otherwise the patient has been mildly bradycardic. Will check TSH to rule out underlying metabolic related cause. But also patient is asymptomatic from this as well P Transfer Discharge Sum: Med Medications Active and Home Medications: Home Medications No Home Medications 04/26/21 [History Confirmed 12/08/24] Active Medications Acetaminophen (Acetaminophen 325 Mg Tablet) 650 mg PO Q6H PRN PRN Reason: Mild Pain (1-3) or Fever Last Admin: 12/09/24 08:19 Dose: 650 mg Aspirin (Aspirin 81 Mg Enteric Tablet) 81 mg PO QAM [facility] Last Admin: 12/09/24 08:19 Dose: 81 mg Heparin Sodium (Porcine) (Heparin Sodium 5,000 Units/Ml Vial) 4,000 units IV PUSH PRN PRN PRN Reason: aPTT less than 55 seconds Heparin Sodium (Porcine) (Heparin Sodium 5,000 Units/Ml Vial) 3,500 units IV PUSH PRN PRN PRN Reason: aPTT 55 - 70 seconds Last Admin: 12/09/24 02:38 Dose: 3,500 units Hydralazine HCl (Hydralazine Hcl 20 Mg/Ml Vial) 10 mg IV PUSH Q4H PRN PRN Reason: SBP greater than 160 Heparin Sodium/Dextrose (Heparin Sodium/D5w 100 Units/Ml) 25,000 units in 250 mls @ 12 mls/hr IV CONT .[id number] [facility]; Protocol Last Titration: 12/09/24 15:21 Dose: 1,200 units/hr, 12 mls/hr Sodium Chloride (Normal Saline Iv) 1,000 mls @ 100 mls/hr IV CONT .Q10H [facility] Last Admin: 12/09/24 06:33 Dose: 100 mls/hr Nitroglycerin (Nitroglycerin Sl 0.4 Mg Tablet) 0.4 mg SUBLINGUAL Q5MIN PRN PRN Reason: Chest Pain Nitroglycerin (Nitroglycerin Ointment 1 Inch Dose) 1 inch TRANSDERM Q6HR [facility] Last Admin: 12/09/24 06:33 Dose: 1 inch Transfer Discharge Sum: Hosp Hospital Course Hospital course: Khai Winters is a 64 year old male 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 waiting for the bed, patient is clinically stable at the time of the discharge. Time Spent with Patient Time attestation: Total time spent providing and/or coordinating transfer services: Exam Narrative: Patient is comfortable, NAD HEENT: eyes are clear and none icteric LUNGS:CTA HEART: RR S1S2 ABD: BS+, Soft and nontender Lower extremities: no edema SKIN: nonjaundiced Neuro: grossly intact. DS: Data Data Completed and Pending Labs on day of discharge: Labs from last 24 hours 12/09/24 12/09/24 12/09/24 10:28 08:39 02:00 WBC 12.6 H RBC 4.55 L Hgb 13.8 L Hct 41.8 L MCV 91.9 MCH 30.3 MCHC 33.0 RDW 12.9 Plt Count 117 L MPV 10.8 H Immature Gran % (Auto) 0.3 Neut % (Auto) 57.4 Lymph % (Auto) 31.8 [place] % (Auto) 10.1 H Eos % (Auto) 0.1 Baso % (Auto) 0.3 Lymph # (Auto) 3.99 H [place] # (Auto) 1.3 H Eos # (Auto) 0.0 Baso # (Auto) 0.0 Abs Immat Gran (auto) 0.04 H Absolute Neuts (auto) 7.2 H Absolute Nucleated RBC 0.000 Total Counted Neutrophils % (Manual) Band Neutrophils % Lymphocytes % (Manual) Monocytes % (Manual) Nucleated RBC % 0.0 Abs Neuts (Manual) Abs Lymphs (Manual) Abs Monocytes (Manual) Platelet Estimate % Immature Plt Fraction 4.6 Schistocytes PT INR APTT 88.6 H 63.0 H Activ Coag Time Kaolin 279 H Sodium 135 L Potassium 4.4 Chloride 106 Carbon Dioxide 19 L Anion Gap 10 BUN 17 Creatinine 1.10 Estim Creat Clear Calc 68 Estimated GFR > 60 Glucose 120 H Calcium 9.2 Magnesium 2.1 Troponin I 12.000 H* D Triglycerides 121 Cholesterol 231 H LDL Cholesterol Direct 129 HDL Direct 43 TSH (Reflex) 0.607 12/08/24 12/08/24 12/08/24 20:06 19:35 17:45 WBC 13.2 H RBC 4.96 Hgb 14.8 Hct 45.0 MCV 90.7 MCH 29.8 MCHC 32.9 RDW 12.9 Plt Count 122 L MPV 10.1 Immature Gran % (Auto) Not Reportable Neut % (Auto) Not Reportable Lymph % (Auto) Not Reportable [place] % (Auto) Not Reportable Eos % (Auto) Not Reportable Baso % (Auto) Not Reportable Lymph # (Auto) Not Reportable [place] # (Auto) Not Reportable Eos # (Auto) Not Reportable Baso # (Auto) Not Reportable Abs Immat Gran (auto) Not Reportable Absolute Neuts (auto) Not Reportable Absolute Nucleated RBC Not Reportable Total Counted 100 Neutrophils % (Manual) 78 H Band Neutrophils % 1 Lymphocytes % (Manual) 9.0 L Monocytes % (Manual) 12 H Nucleated RBC % Not Reportable Abs Neuts (Manual) 10.42 H Abs Lymphs (Manual) 1.18 Abs Monocytes (Manual) 1.58 H Platelet Estimate Slightly decreased % Immature Plt Fraction Schistocytes None seen PT 13.5 INR 1.0 APTT 26.2 Activ Coag Time Kaolin Sodium Potassium Chloride Carbon Dioxide Anion Gap BUN Creatinine Estim Creat Clear Calc Estimated GFR Glucose Calcium Magnesium Troponin I 1.180 H* D 0.194 H* D Triglycerides Cholesterol LDL Cholesterol Direct HDL Direct TSH (Reflex)
== END 2024-12-09 17:05 | disposition short-term general hospital (02) | DRG 190 ==
LOC: ANHED 20:17 → ANHIMU 20:35
PROVIDERS: Internal Medicine; Internal Medicine Interventional Cardiology; Admitting Provider Family Medicine; Emergency Provider Emergency Medicine; PCP Family Medicine Adolescent Medicine; Visit Provider Family Medicine
PROC: 4A023N7 Measurement of Cardiac Sampling and Pressure, Left Heart, Percutaneous Approach (ICD-10-PCS; CPT 93452; principal; 2024-12-09 08:15)
PROC: 4A023N7 Measurement of Cardiac Sampling and Pressure, Left Heart, Percutaneous Approach (ICD-10-PCS; 2024-12-09 08:15)
DX: I21.4 Non-ST elevation (NSTEMI) myocardial infarction (principal); I47.29 Other ventricular tachycardia; D69.6 Thrombocytopenia, unspecified; I25.10 Atherosclerotic heart disease of native coronary artery without angina pectoris; C91.11 Chronic lymphocytic leukemia of B-cell type in remission; N18.30 Chronic kidney disease, stage 3 unspecified
CPT/HCPCS: 36415; 71275; 74174; 80048; 80053; 80061; 83690; 83735; 84443; 84484; 85025; 85055; 85610; 85730; 92978; 93005; 93458; 96374; 96375; 99285; A9270; C1753; C1769; C1887; C1894; J1644; J2003; J2250; J2305; J3010; J7030; J7040; Q9967

== ENCOUNTER 2025-01-30 18:28 | Emergency (ER) | payer MEDICARE, SELFPAY ==
[2025-01-30] VITALS (7 sets, daily range): BP systolic 112–134; BP diastolic 79–85; PULSE 65–84; RESP 14–17; TEMP 36.9–37.6; O2SAT 97–100
--- NOTE | ~2025-01-30 | XR_ITS ---
EXAMINATION: XR chest 1V portable Exam Date/Time: 01/30/2025 21:01 CDT HISTORY: FEVER Comparison: 06/09/2019. RESULT: Lines, tubes, and devices: Intact sternotomy wires and sternal screw and plate fixation. Mediastinal surgical clips and ostial marker. Lungs and pleura: Clear. Cardiomediastinal silhouette: Stable. Other: No acute osseous or upper abdominal finding. IMPRESSION: No acute cardiopulmonary process. Reviewed, dictated and finalized at location K.
--- OUTSIDE RECORDS SUMMARY | 2025-01-30 18:29 | XMS_ITS | Clinical Summary ---
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 Name Role Phone Guillermo Painting MD Primary Care Provider [phone] Allergies No known active allergies Medications No known medications Active Problems Problem Noted Date Diagnosed Date CLL (chronic lymphocytic leukemia) 10/07/2018 Encounters Date Type Department Care Team Description 01/18/2025 External Device Data [facility] ABSTRACTION Provider, Abstract 01/13/2025 External Device Data [facility]STRACTION Provider, Abstract 12/21/2024 External Device Data [facility]STRACTION Provider, Abstract 12/07/2024 External Device Data [facility]STRACTION Provider, [...] on file Legal Sex Male 10:04 AM ONCOLOGY ADMIN Gender Identity Not on file Sexual Orientation Not on file Last Filed Vital Signs Vital Sign Reading Time Taken Comments Blood Pressure 139/89 07/26/2024 9:12 AM ONCOLOGY ADMIN Pulse 64 07/26/2024 9:12 AM ONCOLOGY ADMIN Temperature 36.5 C (97.7 F) 07/26/2024 9:12 AM ONCOLOGY ADMIN Respiratory Rate 14 07/26/2024 9:12 AM ONCOLOGY ADMIN Oxygen Saturation 98% 07/26/2024 9:12 AM ONCOLOGY ADMIN Inhaled Oxygen Concentration - - Weight 88 kg (194 lb) 07/26/2024 9:12 AM ONCOLOGY ADMIN Height 188 cm (6' 2) 01/03/2022 8:52 AM CDT Body Mass Index [...] 2024 8, 07/09/2017, 05/29/2016 Insurance Care Teams Planting Machine Crewman Relationship Specialty Start Date End Date Guillermo Painting MD PCP - General Family Practice 10/07/18
--- OUTSIDE RECORDS SUMMARY | 2025-01-30 18:29 | XMS_ITS | Encounter Summary ---
Author Organization [facility] Healthcare Address [address] [place] [address] Care Team Providers Care Clinical Engineer Name Role Phone Guillermo Painting MD Primary Care Prov ider Cj Holloway MD Unavailable [phone] Paula Reno MD Unavailable [phone] Miscellaneous, Not In File Unavailable Unava ilable Encounter Details Date Type Department Care Team (Late st Contact Info) Description 12/28/2024 [facility] Post Discharge Follow up phone call [facility] [address] [place] [address] Nafisa Patterson Social History Tobacco Use Types Packs/Day Years Used Date Smoking Tobacco: Never Smokeless Tobacco: Never Alcohol Use Standard Drinks/Week Comments No 0 (1 standard drink = 0.6 oz pur e alcohol) OASIS D0700: Social Isolation Answer Da te Recorded Frequency of experiencing loneliness or isolatio n Never 12/17/2024 OASIS A1250: Transportation Answer Date Recorded Lack of Transportation (Medical) No 12/17/2024 Lack of Transportation (Non-Medical) No 12/17/2024 Patient Unable or Declines to Respond No 12/17/2024 OASIS B1300: Health Literacy Answer Israel e Recorded Frequency of needing help to read materials from doctor or pharmacy Never 12/17/2024 [facility] Utilities Answer Date Recorded In the past 12 months has th e electric, gas, oil, or water company threatened to shut off services in your home? No 12/14/2024 Social Connection and Isolat ion Panel [NHANES] Answer Date Recorded In a typical week, how many times do you talk on the phone with family, friends, or neighbors? More than three times a week 12/14/2024 How often do you get togethe r with friends or relatives? More than three times a week 12/14/2024 How often do you attend chur ch or worship services? Never 12/14/2024 Do you belong to any clubs o r organizations such as episcopalian groups, unions, fraternal or athletic groups, or school groups? No 12/14/2024 How often do you attend meet ings of the clubs or organizations you belong to? Never 12/14/2024 Are you , , di vorced, , never , or living with a partner? 12/14/2024 AUDIT-C Answer Date Recorded Q1: How often do you have a drink containing alc ohol? Monthly or less 12/09/2024 Average Number of Drinks Not on file 025 Frequency of Binge Drinking Not on file 11/23 Overall Financial Resource Strain (CARDIA) Answe r Date Recorded How hard is it for you to pa y for the very basics like food, housing, medical care, and heating? Not hard at all 12/14/2024 Hunger Vital Sign Answer Date Recorded Within the past 12 months, y ou worried that your food would run out before you got the money to buy more. Never true 12/15/19 25 Within the past 12 months, t he food you bought just didn't last and you didn't have money to get more. Never true 12/14/2024 PRAPARE - Transportation Answer Date Re corded In the past 12 months, has l ack of transportation kept you from medical appointments or from getting medications? No 11/24 In the past 12 months, has l ack of transportation kept you from meetings, work, or from getting things needed for daily living? No 12/14/2024 Housing Stability Vital Sign Answer Israel e Recorded In the last 12 months, was t here a time when you were not able to pay the mortgage or rent on time? No 12/14/2024 In the past 12 months, how m any times have you moved where you were living? 0 12/14/2024 At any time in the past 12 m [facility], were you homeless or living in a senior care (including now)? No 12/14/2024 Personal Safety Answer Date Recorded Have you ever been in or are you currently in a harmful physical or emotional relationship or is someone making you feel afraid or unsafe? 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 Gender Identity Male 06/24/2018 12:51 PM CDT Sexual Orientation Not on file documented as of this encounter Plan of Treatment Not on file documented as of this encounter Visit Diagnoses Not on filedocumented in this encounter Care Teams Clinical Engineer Relationship Specialty Start Date End Date Guillermo Painting MD [address] [place] [address] PCP - General 11/05/17 Cj Holloway MD [address] [place] [address] Medical Oncologist/Hematologis t Hematology and Oncology 04/17/18 Paula eRno MD [id number] [place] [address] Surgeon Cardiothoracic Surgery 12/15/24 Miscellaneous, Not In File 12/15/24 documented as of this encounter
--- OUTSIDE RECORDS SUMMARY | 2025-01-30 18:29 | XMS_ITS | Referral Summary ---
Author Organization [facility] Address [address] [place] [address] Care Team Providers Care Aircraft Mechanic Name Role Phone Guillermo Painting MD Primary Care Prov ider Cj Holloway MD Unavailable [phone] Paula Reno MD Unavailable [phone] Miscellaneous, Not In File Unavailable Unava ilable Encounters Date Type Department Care Team Description 01/14/2025 4:00 PM CDT Home Care Visit [address] [address] [address] [place] [address] Leonora Borjas RN SN OASIS DISCHARGE 01/13/2025 11:30 AM CDT Office Visit [facility] Surgery [address] [facility] [address] [place] [address] Paula Reno MD Coronary artery disease involving [place] coronary artery of [place] heart with unstable angina pectoris (HCC) (Primary Dx) 01/11/2025 Telephone [facility] Medical [facility] Cardiology [address] [place] [address] Cookie Sykes NP 01/07/2025 1:00 PM CDT Home Care Visit [address] [place] [address] Kayleigh Gay RN SN HOME VISIT 01/07/2025 10:30 AM CDT Office Visit [facility] Cardiology [address] [place] [phone] Cookie Sykes NP Postoperative atrial fibrillation (HCC) (Primary Dx); Coronary artery disease involving [place] coronary artery of [place] heart without angina pectoris; Hx of CABG; Hospital discharge follow-up 01/03/2025 12:00 PM CDT Home Care Visit [address] [place] [address] Kayleigh Gay RN SN HOME VISIT 12/30/2024 12:15 PM CDT Home Care Visit [address] [place] [address] Noris Hicks RN SN HOME VISIT 12/28/2024 [facility] Post Discharge Follow up phone call [facility] [address] [place] [address] Nafisa Patterson 12/27/2024 10:00 AM CDT Home Care Visit [address] [place] [address] Kayleigh Gay RN SN HOME VISIT 12/24/2024 11:00 AM CDT Home Care Visit [address] [place] [address] Kayleigh Gay RN SN HOME VISIT 12/22/2024 Home Care Visit [address] [place] [address] Kayleigh Gay RN CARE CONFERENCE 12/21/2024 Documentation [facility] Surgery [address] [facility] [address] [place] [address] Rai Reddy NP 12/21/2024 11:38 AM CDT - 12/21/2024 11:59 PM CDT Hospital Encounter [facility] [address] [place] [address] Discharge Disposition: Discharge to home or self care 12/21/2024 12:00 PM CDT Home Care Visit [address] [place] [address] Kayleigh Gay RN SN HOME VISIT 12/20/2024 Home Care Visit [address] [place] [address] Nicky Brown RN SN TRIAGE ENCOUNTER 12/19/2024 Plan of Care Documentation [address] [place] [address] 12/17/2024 10:00 AM CDT Home Care Visit [address] [place] [address] Tori Gee RN SN OASIS START OF CARE 12/15/2024 Telephone [facility] Home Care Services [address] [place] [address] Gene Hayden MA 12/15/2024 Telephone [facility] Cardiology [address] [facility] [address], [place] [phone] Shazia Amaya NP 12/15/2024 Orders Only [facility] Cardiology [address] [place] [phone] Peggy Huitron MD 12/09/2024 5:41 PM CDT - 12/15/2024 5:02 PM CDT Hospital Encounter [address] [address] Isra Romero MD Myla, Lathamanjari, MD Ray, Shuddhadeb, MD CAD, multiple vessel (Primary Dx); Coronary artery disease involving [place] coronary artery of [place] heart without angina pectoris Discharge Disposition: Discharge to home, home health skilled care 12/10/2024 9:15 AM CDT Anesthesia Event [facility] Operating Room [address] [place] [address] Primitivo Horne MD 12/10/2024 8:30 AM CDT - 12/10/2024 2:40 PM CDT Surgery [facility] Operating Room [address] [place] [address] Paula Reno MD CORONARY ARTERY BYPASS GRAFT x 4, [place], MARTINEZ AND LEFT RADIAL EVH from Last 3 Months Allergies Active Allergy Reactions Criticality Noted Date Comments Ciprofloxacin Hives Medium 12/09/2024 Sulfa Itching Low 12/09/2024 Medications acetaminophen 500 mg capsuleIndicatio ns:Pain Take 2 capsules (1,000 mg total) by mouth every 6 (six) hours 56 tablet 12/16/19 Active Additional Information Patient not taking.Reported on 01/13/2025 amiodarone (PACERONE) 200 mg tablet Take 2 tablets (400 mg total) by mouth 3 (three) times a day for 5 days, THEN 2 tablets (400 mg total) daily. 90 tablet 12/16/19 Active Additional Information Patient not taking.Reason: therapy completed, Reported on 01/13/2025 apixaban (ELIQUIS) 5 mg tabletIndication s:atrial fibrillation Take 1 tablet (5 mg total) by mouth every 12 (twelve) hours 60 tablet 12/16/19 Active Additional Information Patient not taking.Reason: therapy completed, Reported on 01/13/2025 methocarbamoL (ROBAXIN) 500 mg tablet Take 1 tablet (500 mg total) by mouth 3 (three) times a day as needed for muscle spasms 21 tablet 12/16/19 Active Additional Information Patient not taking.Reason: therapy completed, Reported on 01/13/2025 polyethylene glycol (MIRALAX) 17 gram/dose bulk powderIndication s:constipation Take 17 g by mouth daily 116 g 12/16/19 Active Additional Information Patient not taking.Reason: therapy completed, Reported on 01/13/2025 clopidogreL (PLAVIX) 75 mg tablet Take 1 tablet (75 mg total) by mouth daily 30 tablet 01/12/20 026 Active atorvastatin (LIPITOR) 20 mg tablet Take 1 tablet (20 mg total) by mouth nightly 30 tablet 01/12/20 026 Active metoprolol tartrate (LOPRESSOR) 25 mg immediate release tabletIndication s:hypertension Take 0.5 tablets (12.5 mg total) by mouth 2 (two) times a day 30 tablet 11 01/12/20 25 026 Active atorvastatin (LIPITOR) 20 mg tablet Take 1 tablet (20 mg total) by mouth nightly 30 tablet 12/16/19 25 025 Discontin ued(Reord er) clopidogreL (PLAVIX) 75 mg tablet Take 1 tablet (75 mg total) by mouth daily 30 tablet 12/17/19 25 025 Discontin ued(Reord er) furosemide (LASIX) 40 mg tablet Take 1 tablet (40 mg total) by mouth daily for 5 days 5 tablet 12/17/19 25 025 Discontin ued(Thera py completed ) metoprolol tartrate (LOPRESSOR) 25 mg immediate release tablet Take 0.5 tablets (12.5 mg total) by mouth 2 (two) times a day 30 tablet 12/16/19 25 025 Discontin ued(Reord er) potassium chloride ER (KLOR-CON) 20 mEq CR tablet Take 1 tablet (20 mEq total) by mouth daily for 5 days With Lasix 5 tablet 12/17/19 25 025 Discontin ued(Thera py completed ) Active Problems Problem Noted Date Diagnosed Date Coronary artery disease invo lving [place] coronary artery of [place] heart without angina pectoris 12/10/2024 CAD, multiple vessel 12/09/2024 CKD stage 3a, GFR 45-59 ml/min 12/09/2024 Renal infarct 12/09/2024 Septal myocardial infarction 12/09/2024 Chronic lymphocytic leukemia 04/20/2018 Hyperkalemia 03/18/2018 Resolved Problems Problem Noted Date Diagnosed Date Resolved Date Chronic kidney disease, stage 2 (mild) 03/18/2018 12/09/2024 Immunizations Immunization Administration Dates Next Due Influenza, Quadrivalent, Frances l Culture-based MDCK, Preservative Free, Antibiotic Free, Intramuscular 06/24/2018 Influenza, Trivalent, Preservative Free, Intramu scular 07/09/2017,05/29/2016 Social History Tobacco Use Types Packs/Day Years Used Date Smoking Tobacco: Never Smokeless Tobacco: Never Tobacco Cessation:Counseling Given: Not Answered Alcohol Use Standard Drinks/Week Comments No 0 (1 standard drink = 0.6 oz pur e alcohol) OASIS D0700: Social Isolation Answer Da te Recorded Frequency of experiencing loneliness or isolatio n Never 01/14/2025 OASIS A1250: Transportation Answer Date Recorded Lack of Transportation (Medical) No 01/14/2025 Lack of Transportation (Non-Medical) No 01/14/2025 Patient Unable or Declines to Respond No 01/14/2025 OASIS B1300: Health Literacy Answer Israel e Recorded Frequency of needing help to read materials from doctor or pharmacy Never 01/14/2025 [facility] Utilities Answer Date Recorded In the past 12 months has th e [employer], gas, oil, or water [employer] threatened to shut off services in your [...] often do you attend chur ch or baptism services? Never 12/14/2024 Do you belong to any clubs o r organizations such as holiness groups, unions, fraternal or athletic groups, or [...] any time in the past 12 m [facility], were you homeless or living in a intermediate (including now)? No 12/14/2024 Personal Safety Answer Date Recorded Have you ever been in or are you currently in a harmful physical or emotional relationship or is someone making you feel afraid or unsafe? Denies 12/09/2024 Sex and Gender Information Value Date Recorded Sex Assigned at Not on file Legal Sex Male 8:38 AM [employer] Gender Identity Male 06/24/2018 12:51 PM CDT Sexual Orientation Not on file Last Filed Vital Signs Vital Sign Reading Time Taken Comments Blood Pressure 120/70 01/14/2025 6:09 PM CDT Pulse 60 01/14/2025 6:09 PM CDT Temperature 36.5 C (97.7 F) 01/14/2025 6:09 PM CDT Respiratory Rate 18 01/14/2025 6:09 PM CDT Oxygen Saturation 97% 01/14/2025 6:09 PM CDT Inhaled Oxygen Concentration - - Weight 83 kg (183 lb) 01/14/2025 6:09 PM CDT Height 185.4 cm (6' 1) 01/13/2025 12:45 PM CDT Body Mass Index 24.14 01/13/2025 12:45 PM CDT Plan of Treatment Not on file Medical Devices Implanted Type Area Bobbin Doffer Device Identifier Shelf Expiration Date Model / Serial / Lot [employer] Plate Bone Low Profile 6 Hole O Shape Sternum Ti 115.104.06 - [id number] Implanted:Qty: 1 on 12/10/2024 by Paula Reno MD at [facility] N/A: Chest Wall [employer] 115.104.06 / / [employer] Plate Bone Low Profile 4 Hole Box Sternum Ti 115.103.04 - [id number] Implanted:Qty: 1 on 12/10/2024 by Paula Reno MD at [facility] N/A: Chest Wall [employer] 115.103.04 / / [employer] Plate Bone Low Profile 6 Hole H Shape Sternum Ti 115.102.06 - [id number] Implanted:Qty: 1 on 12/10/2024 by Paula Reno MD at [facility] N/A: Chest Wall [employer] 115.102.06 / / [employer] Screw Bone Slf Drl Full Thread Locking 3.5x20mm Ti 100.035.20 - [id number] Implanted:Qty: 6 on 12/10/2024 by Paula Reno MD at [facility] N/A: Chest Wall [employer] 100.035.20 / / [employer] Screw Bone Slf Drl Full Thread Locking 3.5x18mm Ti 100.035.18 - [id number] Implanted:Qty: 10 on 12/10/2024 by Paula Reno MD at [facility] N/A: Chest Wall [employer] 100.035.18 / / Procedures Procedure Name Priority Date/Time Associated Diagnosis Comments MANUAL DIFFERENTIAL Routine 12/21/2024 1 1:38 AM CDT EGFR Routine 12/21/2024 11:38 AM CDT CBC WITH AUTO DIFFERENTIAL Routine 12/21/2024 11:38 AM CDT COMPREHENSIVE METABOLIC PANEL Routine 12/21/2024 11:38 AM CDT XR CHEST 1 VIEW IP Routine 12/15/2024 8:55 AM CDT EGFR Routine 12/15/2024 5:53 AM CDT HEPATIC FUNCTION PANEL Routine 12/15/2024 5:53 AM CDT CBC WITHOUT DIFFERENTIAL Routine 12/15/2024 5:53 AM CDT BASIC METABOLIC PANEL Routine 12/15/2024 5:53 AM CDT XR CHEST PA LATERAL 2 VIEWS IP Routine 12/14/2024 8:28 AM CDT EGFR Routine 12/14/2024 4:36 AM CDT APTT Routine 12/14/2024 4:36 AM CDT PROTIME-INR Routine 12/14/2024 4:36 AM CDT CBC WITHOUT DIFFERENTIAL Routine 12/14/2024 4:36 AM CDT BASIC METABOLIC PANEL Routine 12/14/2024 4:36 AM CDT POCT GLUCOSE DEVICE Routine 12/13/2024 7 :37 AM CDT EGFR Routine 12/13/2024 7:27 AM CDT CBC WITHOUT DIFFERENTIAL Routine 12/13/2024 7:27 AM CDT BASIC METABOLIC PANEL Routine 12/13/2024 7:27 AM CDT XR CHEST 1 VIEW IP Routine 12/13/2024 6:13 AM CDT POCT GLUCOSE DEVICE Routine 12/12/2024 8 :37 PM CDT POCT GLUCOSE DEVICE Routine 12/12/2024 5 :10 PM CDT POCT GLUCOSE DEVICE Routine 12/12/2024 1 2:56 PM CDT POCT GLUCOSE DEVICE Routine 12/12/2024 7 :48 AM CDT XR CHEST 1 VIEW IP Routine 12/12/2024 5:54 AM CDT EGFR Routine 12/12/2024 3:10 AM CDT OXYHEMOGLOBIN, CENTRAL VENOUS Timed 12/12/2024 3:10 AM CDT CALCIUM,IONIZED, WHOLE BLOOD Routine 12/12/2024 3:10 AM CDT CBC WITHOUT DIFFERENTIAL Routine 12/12/2024 3:10 AM CDT BASIC METABOLIC PANEL Routine 12/12/2024 3:10 AM CDT MAGNESIUM Routine 12/12/2024 3:10 AM CDT POCT GLUCOSE DEVICE Routine 12/12/2024 3 :09 AM CDT POCT GLUCOSE DEVICE Routine 12/11/2024 1 1:09 PM CDT POCT GLUCOSE DEVICE Routine 12/11/2024 8 :34 PM CDT POCT GLUCOSE DEVICE Routine 12/11/2024 5 :08 PM CDT EGFR Timed 12/11/2024 2:30 PM CDT CALCIUM,IONIZED, WHOLE BLOOD Timed 12/11/2024 2:30 PM CDT CBC WITHOUT DIFFERENTIAL Timed 12/11/2024 2:30 PM CDT MAGNESIUM Timed 12/11/2024 2:30 PM CDT BASIC METABOLIC PANEL Timed 12/11/2024 2:30 PM CDT POCT GLUCOSE DEVICE Routine 12/11/2024 1 1:42 AM CDT ECG 12-LEAD Routine 12/11/2024 9:31 AM CDT CRITICAL CARE Routine 12/11/2024 8:33 AM CDT CAD, multiple vessel Coronary artery disease involving [place] coronary artery of [place] heart without angina pectoris POCT GLUCOSE DEVICE Routine 12/11/2024 7 :32 AM CDT XR CHEST 1 VIEW IP Routine 12/11/2024 6:10 AM CDT EGFR Routine 12/11/2024 3:21 AM CDT DIFFERENTIAL AUTO Routine 12/11/2024 3:2 1 AM CDT MAGNESIUM Routine 12/11/2024 3:21 AM CDT BASIC METABOLIC PANEL Routine 12/11/2024 3:21 AM CDT CBC WITH AUTO DIFFERENTIAL Routine 12/11/2024 3:21 AM CDT CALCIUM,IONIZED, WHOLE BLOOD Routine 12/11/2024 3:20 AM CDT TRANSFUSE PLATELETS Timed 12/11/2024 1 2:15 AM CDT BLOOD GAS, ARTERIAL STAT 12/11/2024 1 2:06 AM CDT TRANSFUSE PLATELETS Timed 12/10/2024 1 0:40 PM CDT PREPARE PLATELETS STAT 12/10/2024 8:2 9 PM CDT POCT GLUCOSE DEVICE Routine 12/10/2024 8 :01 PM CDT POCT GLUCOSE DEVICE Routine 12/10/2024 7 :02 PM CDT EGFR STAT 12/10/2024 6:58 PM CDT DIFFERENTIAL AUTO STAT 12/10/2024 6:5 8 PM CDT MAGNESIUM STAT 12/10/2024 6:58 PM CDT BLOOD GAS, ARTERIAL STAT 12/10/2024 6 :58 PM CDT CALCIUM,IONIZED, WHOLE BLOOD STAT 12/10/2024 6:58 PM CDT BASIC METABOLIC PANEL STAT 12/10/2024 6:58 PM CDT CBC WITH AUTO DIFFERENTIAL STAT 12/10/2024 6:58 PM CDT POCT GLUCOSE DEVICE Routine 12/10/2024 5 :55 PM CDT TRANSFUSE PLATELETS Timed 12/10/2024 5 :05 PM CDT POCT GLUCOSE DEVICE Routine 12/10/2024 4 :50 PM CDT XR CHEST 1 VIEW Critical/Life-T hreatening 12/10/2024 3:51 PM CDT EGFR STAT 12/10/2024 3:38 PM CDT MAGNESIUM STAT 12/10/2024 3:38 PM CDT CALCIUM,IONIZED, WHOLE BLOOD STAT 12/10/2024 3:38 PM CDT APTT STAT 12/10/2024 3:38 PM CDT PROTIME-INR STAT 12/10/2024 3:38 PM CDT CBC WITHOUT DIFFERENTIAL Timed 12/10/2024 3:38 PM CDT BLOOD GAS, ARTERIAL Timed 12/10/2024 3 :38 PM CDT BASIC METABOLIC PANEL STAT 12/10/2024 3:38 PM CDT CRITICAL CARE Routine 12/10/2024 3:30 PM CDT Coronary artery disease involving [place] coronary artery of [place] heart without angina pectoris POCT GLUCOSE DEVICE Routine 12/10/2024 3 :14 PM CDT POC BLOOD GAS AND CHEMISTRIES, ARTERIAL Routine 12/10/2024 2:13 PM CDT POCT ACTIVATED CLOTTING TIME, HIGH RANGE Routine 12/10/2024 2:10 PM CDT TRANSFUSE PLATELETS Routine 12/10/2024 2 :00 PM CDT PLATELET COUNT STAT 12/10/2024 1:23 PM CDT POC BLOOD GAS AND CHEMISTRIES, ARTERIAL Routine 12/10/2024 1:13 PM CDT POCT ACTIVATED CLOTTING TIME, HIGH RANGE Routine 12/10/2024 1:11 PM CDT POC BLOOD GAS AND CHEMISTRIES, ARTERIAL Routine 12/10/2024 12:23 PM CDT POCT ACTIVATED CLOTTING TIME, HIGH RANGE Routine 12/10/2024 12:20 PM CDT POCT ACTIVATED CLOTTING TIME, HIGH RANGE Routine 12/10/2024 11:29 AM CDT ANESTHESIA CENTRAL VENOUS LINE PLACEMENT Routine 12/10/2024 9:59 AM CDT ANESTHESIA CENTRAL VENOUS LINE PLACEMENT Routine 12/10/2024 9:59 AM CDT PERIPHERAL LINE Routine 12/10/2024 9:59 AM CDT ANESTHESIA ARTERIAL LINE PLACEMENT Routine 12/10/2024 9:56 AM CDT MN AN ELECTIVE ENDOTRACHEAL AIRWAY Routine 12/10/2024 9:55 AM CDT ANESTHESIA CAROL Routine 12/10/2024 9:54 AM CDT POC BLOOD GAS AND CHEMISTRIES, ARTERIAL Routine 12/10/2024 9:51 AM CDT POCT ACTIVATED CLOTTING TIME, HIGH RANGE Routine 12/10/2024 9:48 AM CDT CORONARY ARTERY BYPASS GRAFT - INTERNAL MAMMARY ARTERY/RADIAL ARTERY 12/10/2024 9:15 AM CDT Coronary artery disease involving [place] coronary artery of [place] heart without angina pectoris CORONARY ARTERY BYPASS GRAFT 12/10/2024 9:15 AM CDT Coronary artery disease involving [place] coronary artery of [place] heart without angina pectoris TRANSTHORACIC ECHO (TTE) COMPLETE W DOPPLER/CF WO CONTRAST STAT 12/10/2024 9:08 AM CDT TYPE AND SCREEN STAT 12/10/2024 8:18 AM CDT XR CHEST 1 VIEW Critical/Life-T hreatening 12/10/2024 8:15 AM CDT PREPARE PLATELETS STAT 12/10/2024 8:0 0 AM CDT PREPARE RBC STAT 12/10/2024 8:00 AM CDT APTT Timed 12/10/2024 6:40 AM CDT EGFR Routine 12/10/2024 12:12 AM CDT DIFFERENTIAL AUTO Routine 12/10/2024 12: 12 AM CDT HEMOGLOBIN A1C Routine 12/10/2024 12:12 AM CDT APTT Timed 12/10/2024 12:12 AM CDT BASIC METABOLIC PANEL Routine 12/10/2024 12:12 AM CDT MAGNESIUM Routine 12/10/2024 12:12 AM CDT CBC WITH AUTO DIFFERENTIAL Routine 12/10/2024 12:12 AM CDT PROTIME-INR Routine 12/09/2024 6:40 PM CDT EGFR STAT 12/09/2024 6:03 PM CDT DIFFERENTIAL AUTO STAT 12/09/2024 6:0 3 PM CDT APTT Routine 12/09/2024 6:03 PM CDT CBC WITH AUTO DIFFERENTIAL STAT 12/09/2024 6:03 PM CDT MAGNESIUM STAT 12/09/2024 6:03 PM CDT COMPREHENSIVE METABOLIC PANEL STAT 12/09/2024 6:03 PM CDT PROTIME-INR STAT 12/09/2024 6:03 PM CDT CALCIUM,IONIZED, WHOLE BLOOD Routine 12/09/2024 5:57 PM CDT CARDIOLOGY DOCUMENT SCAN Routine 12/09/2024 11:37 AM CDT CARDIOLOGY DOCUMENT SCAN Routine 12/09/2024 11:31 AM CDT from Last 3 Months Results * (ABNORMAL) eGFR (12/21/2024 11:38 AM CDT) [facility] Signature eGFR 50(L) >=60 mL/min/1. 73 m2 Comment: Interpretive Data Reference Interval Normal >/= 90 mL/min/1.73m2 Mildly decreased* 60 - 89 mL/min/1.73m2 Mildly to moderately decreased 45 - 59 mL/min/1.73m2 Moderately to severely decreased 30 - 44 mL/min/1.73m2 Severely decreased 15 - 29 mL/min/1.73m2 Kidney Failure < 15 mL/min/1.73m2 *Relative to young adult level Estimated glomerular filtration rate is determined by the 2020 CKD-EPI equation recommended by the National Kidney Foundation (A Unifying Approach to GFR Estimation: Recommendations of the NKF-ASK Task Force on Reassessing the Inclusion of Race in Diagnosing Kidney Disease, JASN 2020). The CKD-EPI equation should not be used for patients with unstable renal function and has not been validated in children and those over 70. Current interpretive data was last reviewed 2021. Blood 12/21/2024 11:3 8 AM CDT 12/21/2024 1:00 PM CDT Paula Reno MD LAB BLOOD ORDERABLES Final Res ult Performing Organization Address [facility]/ZIP Co de Phone Number [facility] Department [place] [address] * (ABNORMAL) CBC with auto differential (12/21/2024 11:38 AM CDT) WBC 10.95(H) 3.80 - 9.90 K/cumm Hgb 12.1(L) 13.0 - 17.5 g/dL [facility] Hct 35.8(L) 38.9 - 50.3 % [facility] Plt 310 150 - 400 K/cumm [facility] MPV 9.9 9.1 - 12.3 fL [facility] RBC 4.01(L) 4.30 - 5.80 M/cumm [facility] MCV 89.3 81.3 - 96.4 fL [facility] MCH 30.2 27.1 - 33.3 pg [facility] MCHC 33.8 32.3 - 35.7 g/dL [facility] RDW CV 13.2 11.1 - 14.9 % [facility] RDW SD 43.3 35.7 - 48.1 fL [facility] NRBC abs 0.00 0.00 - 0.01 K/cumm [facility] Morphologic Screen Results confirmed by manual morphology review. [facility] Blood 12/21/2024 11:3 8 AM CDT 12/21/2024 12:54 PM CDT Paula Reno MD LAB BLOOD ORDERABLES Edited Re sult - Final Performing Organization Address City/[facility]/ZIP Co de Phone Number [facility] Department [place] [address] * (ABNORMAL) Manual Differential (12/21/2024 11:38 AM CDT) Differential Manual Cells Counted 120 [facility] Neutrophil abs 7.12(H) 1.50 - 6.50 K/cumm [facility] Imm gran abs 0.19(H) 0.00 - 0.10 K/cumm [facility] Lymphocyte abs 3.29 0.80 - 3.30 K/cumm [facility] Monocyte abs 0.36 0.20 - 0.80 K/cumm [facility] Neutrophil pct 65.0 % [facility] Comment: Interpretive Data Percent cell count reference ranges are not reported, since discordance with absolute values may lead to misinterpretation of CBC data. Current Interpretive Data was last revised on 2017. Lymphocyte pct 29.2 % [facility] Comment: Interpretive Data Percent cell count reference ranges are not reported, since discordance with absolute values may lead to misinterpretation of CBC data. Current Interpretive Data was last revised on 2017. Monocyte pct 3.3 % [facility] Comment: Interpretive Data Percent cell count reference ranges are not reported, since discordance with absolute values may lead to misinterpretation of CBC data. Current Interpretive Data was last revised on 2017. Myelocyte pct 1.7(H) 0.0 - 0.0 % [facility] Variant lymph pct 0.8(H) 0.0 - 0.0 % [facility] Blood 12/21/2024 11:3 8 AM CDT 12/21/2024 1:05 PM CDT us Paula Reno MD LAB BLOOD ORDERABLES Final Res ult [facility] Department [place] [address] * (ABNORMAL) Comprehensive metabolic panel (12/21/2024 11:38 AM CDT) Pathologist [facility] Sodium 137 135 - 145 mmol/L Potassium, pl 4.1 3.3 - 4.9 mmol/L [facility] Chloride 101 97 - 110 mmol/L [facility] CO2 23 22 - 32 mmol/L [facility] Anion gap 13 2 - 15 mmol/L [facility] BUN 38(H) 6 - 25 mg/dL [facility] Creatinine 1.54(H) 0.80 - 1.30 mg/dL [facility] Glucose 100 70 - 199 mg/dL [facility] Comment: Interpretive Data Fasting glucose >/= 126 mg/dl is diagnostic for diabetes. Fasting is defined as no caloric intake for at least 8 hours. Fasting glucose between 100 mg/dl to 125 mg/dl is diagnostic of prediabetes. In a patient with classic symptoms of hyperglycemia or hyperglycemic crisis, a random glucose >/= 200 mg/dl is diagnostic for diabetes. In the absence of unequivocal hyperglycemia, results should be confirmed by repeat testing. The classification and Diagnosis of Diabetes Diabetes Care 2021; 46: S19-S40. Current interpretive data was last revised 2022. Calcium 9.4 8.5 - 10.3 mg/dL [facility] Bilirubin, total 0.3 0.1 - 1.2 mg/dL [facility] Protein, pl 7.3 6.5 - 8.5 g/dL [facility] Albumin 4.1 3.5 - 5.0 g/dL [facility] Alk phos 123 40 - 130 Units/L [facility] ALT 22 7 - 55 Units/L [facility] AST 20 10 - 50 Units/L [facility] Blood 12/21/2024 11:3 8 AM CDT 12/21/2024 12:54 PM CDT us Paula Reno MD LAB BLOOD ORDERABLES Final Res ult [facility] [place] [address] * XR Chest 1 View (12/15/2024 8:55 AM CDT) Anatomical Region Laterality Modality Body, Chest N/A Computed Radiogr aphy 12/15/2024 8:56 AM CDT Impressions 12/15/2024 8:56 AM CDT No active disease. Electronically signed by: Christian Ann M.D. Narrative 12/15/2024 8:56 AM CDT EXAMINATION: XR CHEST 1 VIEW HISTORY: The patient is a 64-year-old male who has had bypass surgery. Comparison is made with the previous study dated 12/14/2024. TECHNIQUE: AP portable view of the chest. FINDINGS: Lungs clear. Cardiovascular structures unremarkable. Procedure Note Christian Ann MD - 12/15/2024 EXAMINATION: XR CHEST 1 VIEW HISTORY: The patient is a 64-year-old male who has had bypass surgery. Comparison is made with the previous study dated 12/14/2024. TECHNIQUE: AP portable view of the chest. FINDINGS: Lungs clear. Cardiovascular structures unremarkable. IMPRESSION: No active disease. Electronically signed by: Christian Ann M.D. Nicolle Oswald FORGE HELPER IMG XR PROCEDURES Final Re sult * eGFR (12/15/2024 5:53 AM CDT) eGFR 64 >=60 mL/min/1. 73 m2 Comment: Interpretive Data Reference Interval Normal >/= 90 mL/min/1.73m2 Mildly decreased* 60 - 89 mL/min/1.73m2 Mildly to moderately decreased 45 - 59 mL/min/1.73m2 Moderately to severely decreased 30 - 44 mL/min/1.73m2 Severely decreased 15 - 29 mL/min/1.73m2 Kidney Failure < 15 mL/min/1.73m2 *Relative to young adult level Estimated glomerular filtration rate is determined by the 2020 CKD-EPI equation recommended by the National Kidney Foundation (A Unifying Approach to GFR Estimation: Recommendations of the NKF-ASK Task Force on Reassessing the Inclusion of Race in Diagnosing Kidney Disease, JASN 2020). The CKD-EPI equation should not be used for patients with unstable renal function and has not been validated in children and those over 70. Current interpretive data was last reviewed 2021. Blood 12/15/2024 5:53 AM CDT 12/15/2024 6:27 AM CDT Rai Reddy FORGE HELPER LAB BLOOD ORDERABLES Final Result Performing Organization Address [facility] Co de Phone Number CLARA GRAJEDA [address] Department [place] [facility] [address] * (ABNORMAL) CBC without differential (12/15/2024 5:53 AM CDT) WBC 9.79 3.80 - 9.90 K/cumm Hgb 11.4(L) 13.0 - 17.5 g/dL [facility] Hct 34.5(L) 38.9 - 50.3 % [facility] Plt 155 150 - 400 K/cumm [facility] MPV 10.5 9.1 - 12.3 fL [facility] RBC 3.80(L) 4.30 - 5.80 M/cumm [facility] MCV 90.8 81.3 - 96.4 fL [facility] MCH 30.0 27.1 - 33.3 pg [facility] MCHC 33.0 32.3 - 35.7 g/dL [facility] RDW CV 13.1 11.1 - 14.9 % [facility] RDW SD 43.6 35.7 - 48.1 fL [facility] NRBC abs 0.00 0.00 - 0.01 K/cumm [facility] Blood 12/15/2024 5:53 AM CDT 12/15/2024 6:28 AM CDT Rai Reddy FORGE HELPER LAB BLOOD ORDERABLES Final Result Performing Organization Address City/[facility]/ZIP Co de Phone Number LCARA GRAJEDA [address] Department [place] [address] * (ABNORMAL) Hepatic function panel (12/15/2024 5:53 AM CDT) Bilirubin, total 0.5 0.1 - 1.2 mg/dL Bilirubin, direct 0.1 0.1 - 0.3 mg/dL [facility] Protein, pl 6.4(L) 6.5 - 8.5 g/dL [facility] Albumin 3.5 3.5 - 5.0 g/dL [facility] Alk phos 108 40 - 130 Units/L [facility] ALT 36 7 - 55 Units/L [facility] AST 26 10 - 50 Units/L [facility] Blood 12/15/2024 5:53 AM CDT 12/15/2024 6:27 AM CDT Narrative [facility] - 12/15/2024 7:06 AM CDT Baseline prior to apixaban initiation. us Rai Reddy NP LAB [place]LOOD [place] [address] Department [place] [address] * (ABNORMAL) Basic metabolic panel (12/15/2024 5:53 AM CDT) Sodium 137 135 - 145 mmol/L Potassium, pl 4.0 3.3 - 4.9 mmol/L [facility] Chloride 102 97 - 110 mmol/L [facility] CO2 23 22 - 32 mmol/L [facility] Anion gap 12 2 - 15 mmol/L [facility] BUN 26(H) 6 - 25 mg/dL [facility] Creatinine 1.25 0.80 - 1.30 mg/dL [facility] Glucose 104 70 - 199 mg/dL [facility] Comment: Interpretive Data Fasting glucose >/= 126 mg/dl is diagnostic for diabetes. Fasting is defined as no caloric intake for at least 8 hours. Fasting glucose between 100 mg/dl to 125 mg/dl is diagnostic of prediabetes. In a patient with classic symptoms of hyperglycemia or hyperglycemic crisis, a random glucose >/= 200 mg/dl is diagnostic for diabetes. In the absence of unequivocal hyperglycemia, results should be confirmed by repeat testing. The classification and Diagnosis of Diabetes Diabetes Care 2021; 46: S19-S40. Current interpretive data was last revised 2022. Calcium 8.9 8.5 - 10.3 mg/dL [facility] Blood 12/15/2024 5:53 AM CDT 12/15/2024 6:27 AM CDT Rai Reddy NP LAB BLOOD ORDERABLES Final Result CLARA GRAJEDA [address] [facility] Department [place] [address] * XR Chest PA Lateral 2 Views (12/14/2024 8:28 AM CDT) Anatomical Region Laterality Modality Body, Chest N/A Computed Radiogr aphy 12/14/2024 8:32 AM CDT Impressions 12/14/2024 8:32 AM CDT SMALL EFFUSIONS. ATELECTASIS RIGHT BASE. NO FAILURE OR PNEUMOTHORAX Electronically signed by: Todd Falcon M.D. Narrative 12/14/2024 8:32 AM CDT EXAMINATION: XR CHEST PA LATERAL 2 VIEWS HISTORY: Cardiac surgery follow-up FINDINGS: Compared with study of the prior day, postsurgical changes in the heart and mediastinum. Normal heart size without failure or infiltrates. Lateral views demonstrate small effusions posteriorly. Atelectasis right base. Procedure Note Todd Falcon MD - 12/14/2024 EXAMINATION: XR CHEST PA LATERAL 2 VIEWS HISTORY: Cardiac surgery follow-up FINDINGS: Compared with study of the prior day, postsurgical changes in the heart and mediastinum. Normal heart size without failure or infiltrates. Lateral views demonstrate small effusions posteriorly. Atelectasis right base. IMPRESSION: SMALL EFFUSIONS. ATELECTASIS RIGHT BASE. NO FAILURE OR PNEUMOTHORAX Electronically signed by: Todd Falcon M.D. Rai Reddy FORGE HELPER IMG XR PROCEDURES Final Res ult * eGFR (12/14/2024 4:36 AM CDT) eGFR 70 >=60 mL/min/1. 73 m2 Comment: Interpretive Data Reference Interval Normal >/= 90 mL/min/1.73m2 Mildly decreased* 60 - 89 mL/min/1.73m2 Mildly to moderately decreased 45 - 59 mL/min/1.73m2 Moderately to severely decreased 30 - 44 mL/min/1.73m2 Severely decreased 15 - 29 mL/min/1.73m2 Kidney Failure < 15 mL/min/1.73m2 *Relative to young adult level Estimated glomerular filtration rate is determined by the 2020 CKD-EPI equation recommended by the National Kidney Foundation (A Unifying Approach to GFR Estimation: Recommendations of the NKF-ASK Task Force on Reassessing the Inclusion of Race in Diagnosing Kidney Disease, JASN 2020). The CKD-EPI equation should not be used for patients with unstable renal function and has not been validated in children and those over 70. Current interpretive data was last reviewed 2021. Blood 12/14/2024 4:36 AM CDT 12/14/2024 5:14 AM CDT Rai Reddy NP LAB BLOOD ORDERABLES Final Result Performing Organization Address [facility] Co de Phone Number CLARA [address] [place], [place] [id number] * (ABNORMAL) aPTT (12/14/2024 4:36 AM CDT) aPTT 26(L) 28 - 38 sec Comment: Interpretive Data Heparin therapeutic range: 66.0 - 100.0 seconds. Range based on correlation with therapeutic heparin activity range of 0.3 - 0.7 Units/mL. Current interpretive data was last revised on 2023. Blood 12/14/2024 4:36 AM CDT 12/14/2024 5:10 AM CDT Rai Reddy NP LAB BLOOD ORDERABLES Final Result Performing Organization Address [facility] Co de Phone Number CLARA [address] Department [facility] [place], [place] [id number] * Protime-INR (12/14/2024 4:36 AM CDT) PT 12.0 9.7 - 13.0 sec INR 1.11 0.90 - 1.20 CLARA GRAJEDA Comment: Interpretive data Oral anticoagulant therapeutic ranges: Venous thromboembolism prophylaxis or treatment: 2.0-3.0 CARDIOLOGY Standard range: 2.0-3.0 High-intensity range: 2.5-3.5 Refer to indication-specific guidelines for appropriate target ranges for prosthetic heart valve replacement. Current interpretive data was last revised on 2019. Blood 12/14/2024 4:36 AM CDT 12/14/2024 5:10 AM CDT Rai eRddy FORGE HELPER LAB BLOOD ORDERABLES Final Result Performing Organization Address City/[facility]/ZIP Co de Phone Number CLARA GRAJEDA [address] [place] [address] * (ABNORMAL) CBC without differential (12/14/2024 4:36 AM CDT) WBC 9.99(H) 3.80 - 9.90 K/cumm Hgb 11.3(L) 13.0 - 17.5 g/dL [facility] Hct 34.7(L) 38.9 - 50.3 % [facility] Plt 130(L) 150 - 400 K/cumm [facility] MPV 11.1 9.1 - 12.3 fL [facility] RBC 3.78(L) 4.30 - 5.80 M/cumm [facility] MCV 91.8 81.3 - 96.4 fL [facility] MCH 29.9 27.1 - 33.3 pg [facility] MCHC 32.6 32.3 - 35.7 g/dL [facility] RDW CV 13.3 11.1 - 14.9 % [facility] RDW SD 45.1 35.7 - 48.1 fL [facility] NRBC abs 0.00 0.00 - 0.01 K/cumm [facility] Blood 12/14/2024 4:36 AM CDT 12/14/2024 5:10 AM CDT Rai Reddy NP LAB BLOOD ORDERABLES Final Result Performing Organization Address City/[facility]/ZIP Co de Phone Number CLARA GRAJEDA [address] [place] [address] * Basic metabolic panel (12/14/2024 4:36 AM CDT) Sodium 137 135 - 145 mmol/L Potassium, pl 3.9 3.3 - 4.9 mmol/L [facility] Chloride 102 97 - 110 mmol/L [facility] CO2 23 22 - 32 mmol/L [facility] Anion gap 12 2 - 15 mmol/L [facility] BUN 24 6 - 25 mg/dL [facility] Creatinine 1.16 0.80 - 1.30 mg/dL [facility] Glucose 109 70 - 199 mg/dL [facility] Comment: Interpretive Data Fasting glucose >/= 126 mg/dl is diagnostic for diabetes. Fasting is defined as no caloric intake for at least 8 hours. Fasting glucose between 100 mg/dl to 125 mg/dl is diagnostic of prediabetes. In a patient with classic symptoms of hyperglycemia or hyperglycemic crisis, a random glucose >/= 200 mg/dl is diagnostic for diabetes. In the absence of unequivocal hyperglycemia, results should be confirmed by repeat testing. The classification and Diagnosis of Diabetes Diabetes Care 2021; 46: S19-S40. Current interpretive data was last revised 2022. Calcium 9.1 8.5 - 10.3 mg/dL [facility] Blood 12/14/2024 4:36 AM CDT 12/14/2024 5:14 AM CDT us Rai Reddy FORGE HELPER LAB BLOOD ORDERABLES Final Result Performing Organization Address City/[facility]/ZIP Co de Phone Number [facility] [address] Department [place] [address] * POCT glucose (12/13/2024 7:37 AM CDT) Glucose, POC 114 70 - 199 mg/dL POC Performer [id number] [facility] Blood 12/13/2024 7:37 AM CDT 12/13/2024 7:37 AM CDT Paula Reno MD LAB POCT ORDERABLES - DEVICE F inal Result CLARA GRAJEDA [address] Department [place] [address] * eGFR (12/13/2024 7:27 AM CDT) Pathologist [facility] eGFR 81 >=60 mL/min/1. 73 m2 Comment: Interpretive Data Reference Interval Normal >/= 90 mL/min/1.73m2 Mildly decreased* 60 - 89 mL/min/1.73m2 Mildly to moderately decreased 45 - 59 mL/min/1.73m2 Moderately to severely decreased 30 - 44 mL/min/1.73m2 Severely decreased 15 - 29 mL/min/1.73m2 Kidney Failure < 15 mL/min/1.73m2 *Relative to young adult level Estimated glomerular filtration rate is determined by the 2020 CKD-EPI equation recommended by the National Kidney Foundation (A Unifying Approach to GFR Estimation: Recommendations of the NKF-ASK Task Force on Reassessing the Inclusion of Race in Diagnosing Kidney Disease, JASN 2020). The CKD-EPI equation should not be used for patients with unstable renal function and has not been validated in children and those over 70. Current interpretive data was last reviewed 2021. Blood 12/13/2024 7:27 AM CDT 12/13/2024 7:48 AM CDT Rai Reddy NP LAB BLOOD ORDERABLES Final Result CLARA GRAJEDA [address] Department [place] [address] * (ABNORMAL) CBC without differential (12/13/2024 7:27 AM CDT) Pathologist [facility] WBC 9.11 3.80 - 9.90 K/cumm Hgb 10.6(L) 13.0 - 17.5 g/dL [facility] Hct 31.5(L) 38.9 - 50.3 % [facility] Plt 96(L) 150 - 400 K/cumm [facility] MPV 11.4 9.1 - 12.3 fL [facility] RBC 3.41(L) 4.30 - 5.80 M/cumm [facility] MCV 92.4 81.3 - 96.4 fL [facility] MCH 31.1 27.1 - 33.3 pg [facility] MCHC 33.7 32.3 - 35.7 g/dL [facility] RDW CV 13.1 11.1 - 14.9 % [facility] RDW SD 43.4 35.7 - 48.1 fL [facility] NRBC abs 0.00 0.00 - 0.01 K/cumm [facility] Blood 12/13/2024 7:27 AM CDT 12/13/2024 7:48 AM CDT us Rai Reddy NP LAB BLOOD ORDERABLES Final Result [facility] [address] Department [place] [address] * Basic metabolic panel (12/13/2024 7:27 AM CDT) Sodium 139 135 - 145 mmol/L Potassium, pl 4.1 3.3 - 4.9 mmol/L [facility] Chloride 103 97 - 110 mmol/L [facility] CO2 24 22 - 32 mmol/L [facility] Anion gap 12 2 - 15 mmol/L [facility] BUN 18 6 - 25 mg/dL [facility] Creatinine 1.03 0.80 - 1.30 mg/dL [facility] Glucose 102 70 - 199 mg/dL [facility] Comment: Interpretive Data Fasting glucose >/= 126 mg/dl is diagnostic for diabetes. Fasting is defined as no caloric intake for at least 8 hours. Fasting glucose between 100 mg/dl to 125 mg/dl is diagnostic of prediabetes. In a patient with classic symptoms of hyperglycemia or hyperglycemic crisis, a random glucose >/= 200 mg/dl is diagnostic for diabetes. In the absence of unequivocal hyperglycemia, results should be confirmed by repeat testing. The classification and Diagnosis of Diabetes Diabetes Care 2021; 46: S19-S40. Current interpretive data was last revised 2022. Calcium 8.7 8.5 - 10.3 mg/dL [facility] Blood 12/13/2024 7:27 AM CDT 12/13/2024 7:48 AM CDT Rai Reddy FORGE HELPER LAB BLOOD ORDERABLES Final Result CLARA GRAJEDA [address] Department [place] [address] * XR Chest 1 View - Portable - in AM (12/13/2024 6:13 AM CDT) Anatomical Region Laterality Modality Body, Chest N/A Computed Radiogr aphy 12/13/2024 6:15 AM CDT Impressions 12/13/2024 6:15 AM CDT No failure Electronically signed by: Christian Ann M.D. Narrative 12/13/2024 6:15 AM CDT EXAMINATION: XR CHEST 1 VIEW HISTORY: The patient is a 64-year-old male who has had cardiac surgery. Comparison made with the previous study dated 12/12/2024 TECHNIQUE: AP portable view of the chest. FINDINGS: Cardiomegaly with aortic atherosclerosis. No failure. No active infiltrate. The tip of a retracted [place]-Diane catheter is at the cavoatrial junction. Procedure Note Christian Ann MD - 12/13/2024 EXAMINATION: XR CHEST 1 VIEW HISTORY: The patient is a 64-year-old male who has had cardiac surgery. Comparison made with the previous study dated 12/12/2024 TECHNIQUE: AP portable view of the chest. FINDINGS: Cardiomegaly with aortic atherosclerosis. No failure. No active infiltrate. The tip of a retracted [place]-Diane catheter is at the cavoatrial junction. IMPRESSION: No failure Electronically signed by: Christian Ann M.D. Paula Reno MD IMG XR PROCEDURES Final Result * POCT glucose (12/12/2024 8:37 PM CDT) Glucose, POC 142 70 - 199 mg/dL POC Performer [id number] CLARA GRAJEDA Blood 12/12/2024 8:37 PM CDT 12/12/2024 8:37 PM CDT Paula Reno MD LAB POCT ORDERABLES - DEVICE F inal Result Performing Organization Address [facility] Co de Phone Number CLARA GRAJEDA [address] [facility] [place] [address] * POCT glucose (12/12/2024 5:10 PM CDT) Glucose, POC 135 70 - 199 mg/dL POC Performer [id number] [facility] Blood 12/12/2024 5:10 PM CDT 12/12/2024 5:10 PM CDT Paula Reno MD LAB POCT ORDERABLES - DEVICE F inal Result Performing Organization Address [facility] Co de Phone Number CLARA GRAJEDA [address] [facility] [place] [address] * POCT glucose (12/12/2024 12:56 PM CDT) Glucose, POC 134 70 - 199 mg/dL POC Performer [id number] [facility] Blood 12/12/2024 12:5 6 PM CDT 12/12/2024 12:56 PM CDT Paula Reno MD LAB POCT ORDERABLES - DEVICE F inal Result Performing Organization Address [facility] Co de Phone Number CLARA GRAJEDA [address] [facility] [place] [address] * POCT glucose (12/12/2024 7:48 AM CDT) Glucose, POC 136 70 - 199 mg/dL POC Performer [id number] [facility] Blood 12/12/2024 7:48 AM CDT 12/12/2024 7:48 AM CDT Paula Reno MD LAB POCT ORDERABLES - DEVICE F inal Result CLARA [address] Department [place] [address] * XR Chest 1 View - Portable - in AM (12/12/2024 5:54 AM CDT) Anatomical Region Laterality Modality Body, Chest N/A Computed Radiogr aphy 12/12/2024 7:48 AM CDT Impressions 12/12/2024 7:48 AM CDT [place]-Diane tip location is difficult to assess secondary to multiple wires superimpose in the patient. Left thoracotomy tube and right thoracotomy tube again seen. Median sternotomy wires. Mild cardiomegaly, pulmonary vascular congestion, bilateral basilar infiltrates versus atelectasis. No pleural effusion or pneumothorax. Bony structures are unremarkable. Electronically signed by: Ofelia Roland M.D. Narrative 12/12/2024 7:48 AM CDT EXAMINATION: XR CHEST 1 VIEW DATE: 12/12/2024 5:15 AM HISTORY: s/p cardiac surg COMPARISON: 12/11/2024. Procedure Note Ofelia Roland MD - 12/12/2024 EXAMINATION: XR CHEST 1 VIEW DATE: 12/12/2024 5:15 AM HISTORY: s/p cardiac surg COMPARISON: 12/11/2024. IMPRESSION: [place]-Diane tip location is difficult to assess secondary to multiple wires superimpose in the patient. Left thoracotomy tube and right thoracotomy tube again seen. Median sternotomy wires. Mild cardiomegaly, pulmonary vascular congestion, bilateral basilar infiltrates versus atelectasis. No pleural effusion or pneumothorax. Bony structures are unremarkable. Electronically signed by: Ofelia Roland M.D. Paula Reno MD IMG XR PROCEDURES Final Result * Oxyhemoglobin, central venous (12/12/2024 3:10 AM CDT) Oxyhemoglobin, CV 56.0 % Comment: Interpretive Data No reference range established. Current interpretive data was last revised 2019. Blood 12/12/2024 3:10 AM CDT 12/12/2024 3:15 AM CDT Paula Reno MD LAB BLOOD ORDERABLES Final Res ult Performing Organization Address City/[facility]/ZIP Co de Phone Number CLARA GRAJEDA [address] Department [place] [address] * Calcium, ionized, whole blood (12/12/2024 3:10 AM CDT) Ca, ionized, bld 4.77 4.50 - 5.10 mg/dL Blood 12/12/2024 3:10 AM CDT 12/12/2024 3:15 AM CDT Rai Reddy NP LAB BLOOD ORDERABLES Final Result Performing Organization Address [facility] Co de Phone Number CLARA GRAJEDA [address] Department [place] [address] * eGFR (12/12/2024 3:10 AM CDT) eGFR 82 >=60 mL/min/1. 73 m2 Comment: Interpretive Data Reference Interval Normal >/= 90 mL/min/1.73m2 Mildly decreased* 60 - 89 mL/min/1.73m2 Mildly to moderately decreased 45 - 59 mL/min/1.73m2 Moderately to severely decreased 30 - 44 mL/min/1.73m2 Severely decreased 15 - 29 mL/min/1.73m2 Kidney Failure < 15 mL/min/1.73m2 *Relative to young adult level Estimated glomerular filtration rate is determined by the 2020 CKD-EPI equation recommended by the National Kidney Foundation (A Unifying Approach to GFR Estimation: Recommendations of the NKF-ASK Task Force on Reassessing the Inclusion of Race in Diagnosing Kidney Disease, JASN 2020). The CKD-EPI equation should not be used for patients with unstable renal function and has not been validated in children and those over 70. Current interpretive data was last reviewed 2021. Blood 12/12/2024 3:10 AM CDT 12/12/2024 3:17 AM CDT Rai Reddy FORGE HELPER LAB BLOOD ORDERABLES Final Result Performing Organization Address City/[facility]/ZIP Co de Phone Number CLARA [address] Department [place] [address] * (ABNORMAL) CBC without differential (12/12/2024 3:10 AM CDT) WBC 7.65 3.80 - 9.90 K/cumm Hgb 9.9(L) 13.0 - 17.5 g/dL [facility] Hct 30.2(L) 38.9 - 50.3 % [facility] Plt 74(L) 150 - 400 K/cumm [facility] MPV 10.6 9.1 - 12.3 fL [facility] RBC 3.26(L) 4.30 - 5.80 M/cumm [facility] MCV 92.6 81.3 - 96.4 fL [facility] MCH 30.4 27.1 - 33.3 pg [facility] MCHC 32.8 32.3 - 35.7 g/dL [facility] RDW CV 13.2 11.1 - 14.9 % [facility] RDW SD 44.9 35.7 - 48.1 fL [facility] NRBC abs 0.00 0.00 - 0.01 K/cumm [facility] Blood 12/12/2024 3:10 AM CDT 12/12/2024 3:17 AM CDT Rai Reddy FORGE HELPER LAB BLOOD ORDERABLES Final Result CLARA GRAJEDA [address] Department [place] [address] * Magnesium (12/12/2024 3:10 AM CDT) Magnesium 2.0 1.4 - 2.5 mg/dL Blood 12/12/2024 3:10 AM CDT 12/12/2024 3:17 AM CDT us Fred Kaur MD LAB BLOOD ORDERABLES Fin al Result CLARA GRAJEDA [address] Department [place] [address] * (ABNORMAL) Basic metabolic panel (12/12/2024 3:10 AM CDT) Sodium 138 135 - 145 mmol/L Potassium, pl 3.8 3.3 - 4.9 mmol/L [facility] Chloride 104 97 - 110 mmol/L [facility] CO2 24 22 - 32 mmol/L [facility] Anion gap 10 2 - 15 mmol/L [facility] BUN 16 6 - 25 mg/dL [facility] Creatinine 1.02 0.80 - 1.30 mg/dL [facility] Glucose 138 70 - 199 mg/dL [facility] Comment: Interpretive Data Fasting glucose >/= 126 mg/dl is diagnostic for diabetes. Fasting is defined as no caloric intake for at least 8 hours. Fasting glucose between 100 mg/dl to 125 mg/dl is diagnostic of prediabetes. In a patient with classic symptoms of hyperglycemia or hyperglycemic crisis, a random glucose >/= 200 mg/dl is diagnostic for diabetes. In the absence of unequivocal hyperglycemia, results should be confirmed by repeat testing. The classification and Diagnosis of Diabetes Diabetes Care 2021; 46: S19-S40. Current interpretive data was last revised 2022. Calcium 8.4(L) 8.5 - 10.3 mg/dL [facility] Blood 12/12/2024 3:10 AM CDT 12/12/2024 3:17 AM CDT us Rai Reddy NP LAB BLOOD ORDERABLES Final Result CLARA GRJAEDA [address] Department [place] [address] * POCT glucose (12/12/2024 3:09 AM CDT) Glucose, POC 136 70 - 199 mg/dL POC Performer [id number] [facility] Blood 12/12/2024 3:09 AM CDT 12/12/2024 3:09 AM CDT Paula Reno MD LAB POCT ORDERABLES - DEVICE F inal Result Performing Organization Address City/[facility]/ZIP Co de Phone Number DONALDODEYSI GRAJEDA [address] [facility] [place], [place] [id number] * POCT glucose (12/11/2024 11:09 PM CDT) Glucose, POC 149 70 - 199 mg/dL POC Performer [id number] [facility] Blood 12/11/2024 11:0 9 PM CDT 12/11/2024 11:09 PM CDT Paula Reno MD LAB POCT ORDERABLES - DEVICE F inal Result Performing Organization Address [facility] Co de Phone Number DONALDODEYSI GRAJEDA [address] Department [place] [address] * POCT glucose (12/11/2024 8:34 PM CDT) Glucose, POC 142 70 - 199 mg/dL POC Performer [id number] [facility] Blood 12/11/2024 8:34 PM CDT 12/11/2024 8:34 PM CDT Paula Reno MD LAB POCT ORDERABLES - DEVICE F inal Result Performing Organization Address City/[facility]/ZIP Co de Phone Number DONALDODEYSI GRAJEDA [address] [facility] [place], [place] [id number] * Transfuse platelets (12/11/2024 6:05 PM CDT) Blood Paula Reno MD BLOOD TRANSFUSION ORDERABLES F inal Result Performing Organization Address City/[facility]/ZIP Co de Phone Number CLARA TARAS [address] [place] [address] * POCT glucose (12/11/2024 5:08 PM CDT) Glucose, POC 132 70 - 199 mg/dL POC Performer [id number] CLARA GRAJEDA Blood 12/11/2024 5:08 PM CDT 12/11/2024 5:08 PM CDT Paula Reno MD LAB POCT ORDERABLES - DEVICE F inal Result [facility] [address] Department [place] [address] * Calcium, ionized, whole blood (12/11/2024 2:30 PM CDT) Ca, ionized, bld 4.51 4.50 - 5.10 mg/dL Blood 12/11/2024 2:30 PM CDT 12/11/2024 2:47 PM CDT Rai Reddy NP LAB BLOOD ORDERABLES Final Result [facility] [address] [facility] [place] [address] * eGFR (12/11/2024 2:30 PM CDT) eGFR 79 >=60 mL/min/1. 73 m2 Comment: Interpretive Data Reference Interval Normal >/= 90 mL/min/1.73m2 Mildly decreased* 60 - 89 mL/min/1.73m2 Mildly to moderately decreased 45 - 59 mL/min/1.73m2 Moderately to severely decreased 30 - 44 mL/min/1.73m2 Severely decreased 15 - 29 mL/min/1.73m2 Kidney Failure < 15 mL/min/1.73m2 *Relative to young adult level Estimated glomerular filtration rate is determined by the 2020 CKD-EPI equation recommended by the National Kidney Foundation (A Unifying Approach to GFR Estimation: Recommendations of the NKF-ASK Task Force on Reassessing the Inclusion of Race in Diagnosing Kidney Disease, JESUSSMukul 2020). The CKD-EPI equation should not be used for patients with unstable renal function and has not been validated in children and those over 70. Current interpretive data was last reviewed 2021. Blood 12/11/2024 2:30 PM CDT 12/11/2024 3:42 PM CDT Rai Reddy FORGE HELPER LAB BLOOD ORDERABLES Final Result Performing Organization Address City/[facility] Co de Phone Number CLARA GRAJEDA [address] [place] [address] * (ABNORMAL) CBC without differential (12/11/2024 2:30 PM CDT) WBC 8.61 3.80 - 9.90 K/cumm Hgb 10.4(L) 13.0 - 17.5 g/dL [facility] Hct 31.1(L) 38.9 - 50.3 % [facility] Plt 94(L) 150 - 400 K/cumm [facility] MPV 10.7 9.1 - 12.3 fL [facility] RBC 3.44(L) 4.30 - 5.80 M/cumm [facility] MCV 90.4 81.3 - 96.4 fL [facility] MCH 30.2 27.1 - 33.3 pg [facility] MCHC 33.4 32.3 - 35.7 g/dL [facility] RDW CV 13.2 11.1 - 14.9 % [facility] RDW SD 43.2 35.7 - 48.1 fL [facility] NRBC abs 0.00 0.00 - 0.01 K/cumm [facility] Blood 12/11/2024 2:30 PM CDT 12/11/2024 2:40 PM CDT Rai Reddy NP LAB BLOOD ORDERABLES Final Result Performing Organization Address [facility]/ZIP Co de Phone Number CLARA TARAS [address] [place] [address] * Magnesium (12/11/2024 2:30 PM CDT) Magnesium 2.1 1.4 - 2.5 mg/dL Blood 12/11/2024 2:30 PM CDT 12/11/2024 3:42 PM CDT Rai Reddy NP LAB BLOOD ORDERABLES Final Result [facility] [address] Department [place] [address] * (ABNORMAL) Basic metabolic panel (12/11/2024 2:30 PM CDT) Sodium 137 135 - 145 mmol/L Potassium, pl 3.9 3.3 - 4.9 mmol/L [facility] Chloride 104 97 - 110 mmol/L [facility] CO2 24 22 - 32 mmol/L [facility] Anion gap 9 2 - 15 mmol/L [facility] BUN 20 6 - 25 mg/dL [facility] Creatinine 1.05 0.80 - 1.30 mg/dL [facility] Glucose 149 70 - 199 mg/dL [facility] Comment: Interpretive Data Fasting glucose >/= 126 mg/dl is diagnostic for diabetes. Fasting is defined as no caloric intake for at least 8 hours. Fasting glucose between 100 mg/dl to 125 mg/dl is diagnostic of prediabetes. In a patient with classic symptoms of hyperglycemia or hyperglycemic crisis, a random glucose >/= 200 mg/dl is diagnostic for diabetes. In the absence of unequivocal hyperglycemia, results should be confirmed by repeat testing. The classification and Diagnosis of Diabetes Diabetes Care 2021; 46: S19-S40. Current interpretive data was last revised 2022. Calcium 8.4(L) 8.5 - 10.3 mg/dL [facility] Blood 12/11/2024 2:30 PM CDT 12/11/2024 3:42 PM CDT Rai Reddy NP LAB BLOOD ORDERABLES Final Result Performing Organization Address City/[facility]/ZIP Co de Phone Number [facility] [address] [place] [address] * POCT glucose (12/11/2024 11:42 AM CDT) Glucose, POC 135 70 - 199 mg/dL POC Performer [id number] CLARA GRAJEDA Blood 12/11/2024 11:4 2 AM CDT 12/11/2024 11:42 AM CDT Paula Reno MD LAB POCT ORDERABLES - DEVICE F inal Result Performing Organization Address [facility] de Phone Number [facility] [address] [place] [address] * ECG 12 lead (12/11/2024 9:31 AM CDT) 12/11/2024 9:31 AM CDT Narrative [facility] - 12/12/2024 10:11 AM CDT Vent Rate: 78 bpm RR Interval: 765 msec MN Interval: 163 msec QRS Duration: 91 msec QT Interval: 374 msec QTC Interval: 407 msec P-R-T [place]: 36 - -10 - -52 degrees IMPRESSION: SINUS RHYTHM MODERATE T-WAVE ABNORMALITY, CONSIDER INFERIOR ISCHEMIA [-0.1+ mV T-WAVE IN II/aVF] ABNORMAL ECG Electronically Signed By: Elke Sosa MD Paula Reno MD ECG ORDERABLES Final Result Performing Organization Address [facility] de Phone Number [facility] [employer] [facility] * Critical Care (12/11/2024 8:33 AM CDT) Narrative Rita Ta MD - 12/11/2024 8:33 AM CDT Rita Ta MD 12/11/2024 3:23 PM Critical Care Performed by: Rita Ta MD Authorized by: Rita Ta MD CRITICAL CARE: Team: LOCO Shift: AM Level of Billing: Critical Care My time spent with this patient was 35 minutes: Critical Provider Statement: I have seen and examined the patient on this day of service. I have reviewed and confirmed the history, physical exam, laboratory and radiologic data as documented in the signed ICU note. I have reviewed and discussed my treatment plan with the ICU team and other medical/behavioral health consultant staff, making frequent assessments and decisions regarding this patient's complex medical care. Critical Care time was exclusive of time spent performing separately billed procedures, treating other patients, and teaching. This time was in addition to and separate from critical care provided by other practitioners in my group on this day of service. Critical Care was necessary to treat or prevent imminent or life-threatening deterioration of the following conditions: Acute pain/acute postoperative pain S/p CABG Acute respiratory insufficiency This time was spent by me doing the following: Acute pain control Active and frequent reassessment of respiratory status and oxygen requirements Active and frequent monitoring of intake/output and volumen status and Glycemic control I spent time reviewing and interpreting data from bedside monitors, laboratory results, and imaging, I spent time discussing the management of this critically ill patient with consultants and the medical staff and I spent time documenting in the medical record Rita Ta MD IN CLINIC/BEDSIDE ORDERAB LES Final Result * POCT glucose (12/11/2024 7:32 AM CDT) Glucose, POC 134 70 - 199 mg/dL POC Performer [id number] CLARA GRAJEDA Blood 12/11/2024 7:32 AM CDT 12/11/2024 7:32 AM CDT Paula Reno MD LAB POCT ORDERABLES - DEVICE F inal Result CLARA [address] Department [place] [address] * XR Chest 1 View - Portable - in AM (12/11/2024 6:10 AM CDT) Anatomical Region Laterality Modality Body, Chest N/A Computed Radiogr aphy 12/11/2024 7:05 AM CDT Impressions 12/11/2024 7:05 AM CDT The heart is normal in size. There are median sternotomy wires. Left thoracotomy tube. [place]Diane catheter tip is in the right main pulmonary artery region. Tubing superimposing the lower right hemithorax may represent a thoracostomy tube versus mediastinal drain. There is mild pulmonary vascular congestion. Right basilar infiltrate versus atelectasis. Electronically signed by: Ofelia Roland M.D. Narrative 12/11/2024 7:05 AM CDT EXAMINATION: XR CHEST 1 VIEW DATE: 12/11/2024 5:40 AM HISTORY: s/p cardiac surg COMPARISON: 12/10/2024. Procedure Note Ofelia Roland MD - 12/11/2024 EXAMINATION: XR CHEST 1 VIEW DATE: 12/11/2024 5:40 AM HISTORY: s/p cardiac surg COMPARISON: 12/10/2024. IMPRESSION: The heart is normal in size. There are median sternotomy wires. Left thoracotomy tube. [place]-Diane catheter tip is in the right main pulmonary artery region. Tubing superimposing the lower right hemithorax may represent a thoracostomy tube versus mediastinal drain. There is mild pulmonary vascular congestion. Right basilar infiltrate versus atelectasis. Electronically signed by: Ofelia Roland M.D. Paula Reno MD IMG XR PROCEDURES Final Result * eGFR (12/11/2024 3:21 AM CDT) eGFR 76 >=60 mL/min/1. 73 m2 Comment: Interpretive Data Reference Interval Normal >/= 90 mL/min/1.73m2 Mildly decreased* 60 - 89 mL/min/1.73m2 Mildly to moderately decreased 45 - 59 mL/min/1.73m2 Moderately to severely decreased 30 - 44 mL/min/1.73m2 Severely decreased 15 - 29 mL/min/1.73m2 Kidney Failure < 15 mL/min/1.73m2 *Relative to young adult level Estimated glomerular filtration rate is determined by the 2020 CKD-EPI equation recommended by the National Kidney Foundation (A Unifying Approach to GFR Estimation: Recommendations of the NKF-ASK Task Force on Reassessing the Inclusion of Race in Diagnosing Kidney Disease, JASN 2020). The CKD-EPI equation should not be used for patients with unstable renal function and has not been validated in children and those over 70. Current interpretive data was last reviewed 2021. Blood 12/11/2024 3:21 AM CDT 12/11/2024 3:41 AM CDT us Paula Reno MD LAB BLOOD ORDERABLES Final Res ult [facility] [address] Department [place] [address] * (ABNORMAL) Differential, auto (12/11/2024 3:21 AM CDT) Neutrophil abs 6.47 1.50 - 6.50 K/cumm Imm gran abs 0.02 0.00 - 0.10 K/cumm [facility] Lymphocyte abs 2.27 0.80 - 3.30 K/cumm [facility] Monocyte abs 0.83(H) 0.20 - 0.80 K/cumm [facility] Eosinophil abs 0.00 0.00 - 0.50 K/cumm [facility] Basophil abs 0.01 0.00 - 0.10 K/cumm [facility] Neutrophil pct 67.5 % [facility] Comment: Interpretive Data Percent cell count reference ranges are not reported, since discordance with absolute values may lead to misinterpretation of CBC data. Current Interpretive Data was last revised on 2017. Imm gran pct 0.2 % [facility] Comment: Interpretive Data Percent cell count reference ranges are not reported, since discordance with absolute values may lead to misinterpretation of CBC data. Current Interpretive Data was last revised on 2017. Lymphocyte pct 23.6 % [facility] Comment: Interpretive Data Percent cell count reference ranges are not reported, since discordance with absolute values may lead to misinterpretation of CBC data. Current Interpretive Data was last revised on 2017. Monocyte pct 8.6 % [facility] Comment: Interpretive Data Percent cell count reference ranges are not reported, since discordance with absolute values may lead to misinterpretation of CBC data. Current Interpretive Data was last revised on 2017. Eosinophil pct 0.0 % [facility] Comment: Interpretive Data Percent cell count reference ranges are not reported, since discordance with absolute values may lead to misinterpretation of CBC data. Current Interpretive Data was last revised on 2017. Basophil pct 0.1 % [facility] Comment: Interpretive Data Percent cell count reference ranges are not reported, since discordance with absolute values may lead to misinterpretation of CBC data. Current Interpretive Data was last revised on 2017. Blood 12/11/2024 3:21 AM CDT 12/11/2024 3:27 AM CDT Paula Reno MD LAB BLOOD ORDERABLES Final Res ult CLARA GRAJEDA [address] Department [place] [address] * (ABNORMAL) CBC with auto differential (12/11/2024 3:21 AM CDT) WBC 9.60 3.80 - 9.90 K/cumm Hgb 10.5(L) 13.0 - 17.5 g/dL [facility] Hct 31.6(L) 38.9 - 50.3 % [facility] Plt 103(L) 150 - 400 K/cumm [facility] MPV 10.8 9.1 - 12.3 fL [facility] RBC 3.46(L) 4.30 - 5.80 M/cumm [facility] MCV 91.3 81.3 - 96.4 fL [facility] MCH 30.3 27.1 - 33.3 pg [facility] MCHC 33.2 32.3 - 35.7 g/dL [facility] RDW CV 13.2 11.1 - 14.9 % [facility] RDW SD 42.7 35.7 - 48.1 fL [facility] NRBC abs 0.00 0.00 - 0.01 K/cumm [facility] Blood 12/11/2024 3:21 AM CDT 12/11/2024 3:27 AM CDT Paula Reno MD LAB BLOOD ORDERABLES Final Res ult CLARA GRAJEDA [address] Department [place] [address] * Magnesium (12/11/2024 3:21 AM CDT) Magnesium 2.2 1.4 - 2.5 mg/dL Blood 12/11/2024 3:21 AM CDT 12/11/2024 3:27 AM CDT Fred Kaur MD LAB BLOOD ORDERABLES Fin al Result CLARA GRAJEDA [address] [place] [address] * (ABNORMAL) Basic metabolic panel (12/11/2024 3:21 AM CDT) Pathologist [facility] Sodium 137 135 - 145 mmol/L Potassium, pl 4.2 3.3 - 4.9 mmol/L [facility] Chloride 105 97 - 110 mmol/L [facility] CO2 22 22 - 32 mmol/L [facility] Anion gap 10 2 - 15 mmol/L [facility] BUN 14 6 - 25 mg/dL [facility] Creatinine 1.09 0.80 - 1.30 mg/dL [facility] Glucose 143 70 - 199 mg/dL [facility] Comment: Interpretive Data Fasting glucose >/= 126 mg/dl is diagnostic for diabetes. Fasting is defined as no caloric intake for at least 8 hours. Fasting glucose between 100 mg/dl to 125 mg/dl is diagnostic of prediabetes. In a patient with classic symptoms of hyperglycemia or hyperglycemic crisis, a random glucose >/= 200 mg/dl is diagnostic for diabetes. In the absence of unequivocal hyperglycemia, results should be confirmed by repeat testing. The classification and Diagnosis of Diabetes Diabetes Care 2021; 46: S19-S40. Current interpretive data was last revised 2022. Calcium 8.0(L) 8.5 - 10.3 mg/dL [facility] Blood 12/11/2024 3:21 AM CDT 12/11/2024 3:27 AM CDT Paula Reno MD LAB BLOOD ORDERABLES Final Res ult Performing Organization Address [facility] Co de Phone Number CLARA GRAJEDA [address] [place] [address] * (ABNORMAL) Calcium, ionized, whole blood (12/11/2024 3:20 AM CDT) Ca, ionized, bld 4.47(L) 4.50 - 5.10 mg/dL Blood 12/11/2024 3:20 AM CDT 12/11/2024 3:34 AM CDT us Paula Reno MD LAB BLOOD ORDERABLES Final Res ult Performing Organization Address [facility] Co de Phone Number CLARA GRAJEDA [address] [facility] [place] [address] * Transfuse platelets (12/11/2024 1:25 AM CDT) Blood Ronaldo Nguyen MD BLOOD TRANSFUSION ORDERABLES Final Result Performing Organization Address [facility] Co de Phone Number DONALDODEYSI [address] Department [place] [address] * Transfuse platelets (12/11/2024 12:16 AM CDT) Blood Ronaldo Nguyen MD BLOOD TRANSFUSION ORDERABLES Final Result Performing Organization Address [facility] Co de Phone Number CLARA GRAJEDA [address] [place] [address] * (ABNORMAL) Blood gas, arterial (12/11/2024 12:06 AM CDT) pH, Art 7.42 7.35 - 7.45 PCO2, Arterial 38 35 - 45 mmHg [facility] PO2, Arterial 170(H) 83 - 108 mmHg [facility] HCO3 Art (Calculated) 25 20 - 30 mmol/L [facility] BE, art 0 mmol/L [facility] Comment: Interpretive Data No Reference Range Established Current Interpretive Data was last revised on 2017 O2 Sat Art (Measured) 97(H) 90 - 95 % [facility] Blood 12/11/2024 12:0 6 AM CDT 12/11/2024 12:17 AM CDT Paula Reno MD LAB BLOOD ORDERABLES Final Res ult Performing Organization Address [facility] Co de Phone Number CLARA GRAJEDA [address] [place] [address] * Prepare platelets: 2 Units (12/10/2024 8:29 PM CDT) Product code [id number] Unit Number [id number] [facility] Product Blood Type OPOS [facility] Dispense Status PRESUMED TRANSFUSED [facility] Product code [id number] [facility] Unit Number [id number] [facility] Product Blood Type OPOS [facility] Dispense Status PRESUMED TRANSFUSED [facility] Blood Venous blood specimen / Unknown 12/10/2024 8:29 PM CDT Narrative [facility] - 12/12/2024 10:15 AM CDT 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 (all products are leukoreduced)->No Date required:-[id number] PLT # of Units:-2-Units Reasons:-Other (Specify)} Ronaldo Nguyen MD BLOOD BANK PRODUCT ORDERABLE S Final Result Performing Organization Address [facility] Co de Phone Number CLARA GRAJEDA [address] Department [place] [address] * POCT glucose (12/10/2024 8:01 PM CDT) Glucose, POC 110 70 - 199 mg/dL POC Performer [id number] [facility] Blood 12/10/2024 8:01 PM CDT 12/10/2024 8:01 PM CDT Paula Reno MD LAB POCT ORDERABLES - DEVICE F inal Result Performing Organization Address [facility] Co de Phone Number CLARA GRAJEDA [address] [facility] [place], [place] [address] * POCT glucose (12/10/2024 7:02 PM CDT) Glucose, POC 124 70 - 199 mg/dL POC Performer [id number] [facility] Blood 12/10/2024 7:02 PM CDT 12/10/2024 7:02 PM CDT Paula Reno MD LAB POCT ORDERABLES - DEVICE F inal Result Performing Organization Address [facility] Co de Phone Number CLARA [address] [place] [address] * (ABNORMAL) Calcium, ionized, whole blood (12/10/2024 6:58 PM CDT) Pathologist [facility] Ca, ionized, bld 4.48(L) 4.50 - 5.10 mg/dL Blood 12/10/2024 6:58 PM CDT 12/10/2024 7:22 PM CDT Paula Reno MD LAB BLOOD ORDERABLES Final Res ult Performing Organization Address [facility] Co de Phone Number CLARA GRAJEDA [address] Department of [facility] [place], [place] [id number] * eGFR (12/10/2024 6:58 PM CDT) eGFR 87 >=60 mL/min/1. 73 m2 Comment: Interpretive Data Reference Interval Normal >/= 90 mL/min/1.73m2 Mildly decreased* 60 - 89 mL/min/1.73m2 Mildly to moderately decreased 45 - 59 mL/min/1.73m2 Moderately to severely decreased 30 - 44 mL/min/1.73m2 Severely decreased 15 - 29 mL/min/1.73m2 Kidney Failure < 15 mL/min/1.73m2 *Relative to young adult level Estimated glomerular filtration rate is determined by the 2020 CKD-EPI equation recommended by the National Kidney Foundation (A Unifying Approach to GFR Estimation: Recommendations of the NKF-ASK Task Force on Reassessing the Inclusion of Race in Diagnosing Kidney Disease, JASN 2020). The CKD-EPI equation should not be used for patients with unstable renal function and has not been validated in children and those over 70. Current interpretive data was last reviewed 2021. Blood 12/10/2024 6:58 PM CDT 12/10/2024 7:25 PM CDT us Paula Reno MD LAB BLOOD ORDERABLES Final Res ult [facility] [address] Department [place] [address] * (ABNORMAL) Differential, auto (12/10/2024 6:58 PM CDT) Neutrophil abs 6.73(H) 1.50 - 6.50 K/cumm Imm gran abs 0.05 0.00 - 0.10 K/cumm [facility] Lymphocyte abs 2.48 0.80 - 3.30 K/cumm [facility] Monocyte abs 0.81(H) 0.20 - 0.80 K/cumm [facility] Eosinophil abs 0.00 0.00 - 0.50 K/cumm [facility] Basophil abs 0.01 0.00 - 0.10 K/cumm [facility] Neutrophil pct 66.8 % [facility] Comment: Interpretive Data Percent cell count reference ranges are not reported, since discordance with absolute values may lead to misinterpretation of CBC data. Current Interpretive Data was last revised on 2017. Imm gran pct 0.5 % CLARA Comment: Interpretive Data Percent cell count reference ranges are not reported, since discordance with absolute values may lead to misinterpretation of CBC data. Current Interpretive Data was last revised on 2017. Lymphocyte pct 24.6 % [facility] Comment: Interpretive Data Percent cell count reference ranges are not reported, since discordance with absolute values may lead to misinterpretation of CBC data. Current Interpretive Data was last revised on 2017. Monocyte pct 8.0 % [facility] Comment: Interpretive Data Percent cell count reference ranges are not reported, since discordance with absolute values may lead to misinterpretation of CBC data. Current Interpretive Data was last revised on 2017. Eosinophil pct 0.0 % [facility] Comment: Interpretive Data Percent cell count reference ranges are not reported, since discordance with absolute values may lead to misinterpretation of CBC data. Current Interpretive Data was last revised on 2017. Basophil pct 0.1 % [facility] Comment: Interpretive Data Percent cell count reference ranges are not reported, since discordance with absolute values may lead to misinterpretation of CBC data. Current Interpretive Data was last revised on 2017. Blood 12/10/2024 6:58 PM CDT 12/10/2024 7:23 PM CDT Paula Reno MD LAB BLOOD ORDERABLES Final Res ult [facility] [address] Department [place] [address] * (ABNORMAL) CBC with auto differential (12/10/2024 6:58 PM CDT) WBC 10.08(H) 3.80 - 9.90 K/cumm Hgb 10.8(L) 13.0 - 17.5 g/dL [facility] Hct 32.8(L) 38.9 - 50.3 % [facility] Plt 77(L) 150 - 400 K/cumm [facility] Comment:No clot detected in sample. MPV 11.5 9.1 - 12.3 fL [facility] RBC 3.64(L) 4.30 - 5.80 M/cumm [facility] MCV 90.1 81.3 - 96.4 fL [facility] MCH 29.7 27.1 - 33.3 pg [facility] MCHC 32.9 32.3 - 35.7 g/dL [facility] RDW CV 12.9 11.1 - 14.9 % [facility] RDW SD 42.3 35.7 - 48.1 fL [facility] NRBC abs 0.00 0.00 - 0.01 K/cumm [facility] Blood 12/10/2024 6:58 PM CDT 12/10/2024 7:23 PM CDT Paula Reno MD LAB BLOOD ORDERABLES Final Res ult Performing Organization Address [facility] de Phone Number DONALDODEYSI GRAJEDA [address] [facility] [place] [address] * Magnesium (12/10/2024 6:58 PM CDT) Magnesium 2.2 1.4 - 2.5 mg/dL Blood 12/10/2024 6:58 PM CDT 12/10/2024 7:21 PM CDT Paula Reno MD LAB BLOOD ORDERABLES Final Res ult Performing Organization Address [facility] de Phone Number DONALDODEYSI GRAJEDA [address] [place] [address] * (ABNORMAL) Blood gas, arterial (12/10/2024 6:58 PM CDT) pH, Art 7.38 7.35 - 7.45 PCO2, Arterial 41 35 - 45 mmHg [facility] PO2, Arterial 139(H) 83 - 108 mmHg [facility] HCO3 Art (Calculated) 24 20 - 30 mmol/L [facility] BE, art -1 mmol/L [facility] Comment: Interpretive Data No Reference Range Established Current Interpretive Data was last revised on 2017 O2 Sat Art (Measured) 98(H) 90 - 95 % [facility] Blood 12/10/2024 6:58 PM CDT 12/10/2024 7:22 PM CDT Paula Reno MD LAB BLOOD ORDERABLES Final Res ult Performing Organization Address [facility] Co de Phone Number DONALDODEYSI GRAJEDA [address] [facility] [place] [address] * (ABNORMAL) Basic metabolic panel (12/10/2024 6:58 PM CDT) Sodium 137 135 - 145 mmol/L Potassium, pl 4.4 3.3 - 4.9 mmol/L [facility] Chloride 104 97 - 110 mmol/L [facility] CO2 22 22 - 32 mmol/L [facility] Anion gap 11 2 - 15 mmol/L [facility] BUN 13 6 - 25 mg/dL [facility] Creatinine 0.97 0.80 - 1.30 mg/dL [facility] Glucose 121 70 - 199 mg/dL [facility] Comment: Interpretive Data Fasting glucose >/= 126 mg/dl is diagnostic for diabetes. Fasting is defined as no caloric intake for at least 8 hours. Fasting glucose between 100 mg/dl to 125 mg/dl is diagnostic of prediabetes. In a patient with classic symptoms of hyperglycemia or hyperglycemic crisis, a random glucose >/= 200 mg/dl is diagnostic for diabetes. In the absence of unequivocal hyperglycemia, results should be confirmed by repeat testing. The classification and Diagnosis of Diabetes Diabetes Care 2021; 46: S19-S40. Current interpretive data was last revised 2022. Calcium 8.1(L) 8.5 - 10.3 mg/dL [facility] Blood 12/10/2024 6:58 PM CDT 12/10/2024 7:21 PM CDT Paula Reno MD LAB BLOOD ORDERABLES Final Res ult CLARA [address] Department [place] [address] * POCT glucose (12/10/2024 5:55 PM CDT) Glucose, POC 89 70 - 199 mg/dL POC Performer [id number] [facility] Blood 12/10/2024 5:55 PM CDT 12/10/2024 5:55 PM CDT Paula Reno MD LAB POCT ORDERABLES - DEVICE F inal Result Performing Organization Address City/[facility] Co de Phone Number CLARA GRAJEDA [address] Department [place] [address] * POCT glucose (12/10/2024 4:50 PM CDT) Glucose, POC 97 70 - 199 mg/dL POC Performer [id number] CLARA Blood 12/10/2024 4:50 PM CDT 12/10/2024 4:50 PM CDT [facility] LAB POCT ORDERABLES - DEVICE F inal Result Performing Organization Address [facility] Co de Phone Number CLARA GRAJEDA [address] Department [place] [address] * XR Chest 1 View - Portable (12/10/2024 3:51 PM CDT) Anatomical Region Laterality Modality Body, Chest N/A Computed Radiogr aphy 12/10/2024 3:59 PM CDT Impressions 12/10/2024 3:59 PM CDT Findings as described above. Electronically signed by: Christian Ann M.D. Narrative 12/10/2024 3:59 PM CDT EXAMINATION: XR CHEST 1 VIEW HISTORY: The patient is a 64-year-old male who has had cardiac surgery. Comparison made with the previous study done earlier in the day. TECHNIQUE: AP portable view of the chest. FINDINGS: Bilateral thoracostomy tubes and mediastinal drain in place. The tip of the Attica-Diane catheter is in the proximal right main pulmonary artery. The distal tip of the endotracheal tube is approximately 5 cm above the level of rukhsana. Cardiomegaly with aortic atherosclerosis. No failure. No active infiltrate. Procedure Note Christian Ann MD - 12/10/2024 EXAMINATION: XR CHEST 1 VIEW HISTORY: The patient is a 64-year-old male who has had cardiac surgery. Comparison made with the previous study done earlier in the day. TECHNIQUE: AP portable view of the chest. FINDINGS: Bilateral thoracostomy tubes and mediastinal drain in place. The tip of the Attica-Diane catheter is in the proximal right main pulmonary artery. The distal tip of the endotracheal tube is approximately 5 cm above the level of rukhsana. Cardiomegaly with aortic atherosclerosis. No failure. No active infiltrate. IMPRESSION: Findings as described above. Electronically signed by: Christian Ann M.D. Paula Reno MD IMG XR PROCEDURES Final Result * Calcium, ionized, whole blood (12/10/2024 3:38 PM CDT) Ca, ionized, bld 4.65 4.50 - 5.10 mg/dL Blood 12/10/2024 3:38 PM CDT 12/10/2024 3:44 PM CDT Paula Reno MD LAB BLOOD ORDERABLES Final Res ult CLARA [address] [facility] Department [place] [address] * eGFR (12/10/2024 3:38 PM CDT) eGFR 85 >=60 mL/min/1. 73 m2 Comment: Interpretive Data Reference Interval Normal >/= 90 mL/min/1.73m2 Mildly decreased* 60 - 89 mL/min/1.73m2 Mildly to moderately decreased 45 - 59 mL/min/1.73m2 Moderately to severely decreased 30 - 44 mL/min/1.73m2 Severely decreased 15 - 29 mL/min/1.73m2 Kidney Failure < 15 mL/min/1.73m2 *Relative to young adult level Estimated glomerular filtration rate is determined by the 2020 CKD-EPI equation recommended by the National Kid[employer] (A Unifying Approach to GFR Estimation: Recommendations of the NKF-ASK Task Force on Reassessing the Inclusion of Race in Diagnosing Kidney Disease, JASN 2020). The CKD-EPI equation should not be used for patients with unstable renal function and has not been validated in children and those over 70. Current interpretive data was last reviewed 2021. Blood 12/10/2024 3:38 PM CDT 12/10/2024 3:44 PM CDT Paula Reno MD LAB BLOOD ORDERABLES Final Res ult Performing Organization Address [facility] Co de Phone Number CLARA [address] [facility] [place] [address] * (ABNORMAL) aPTT (12/10/2024 3:38 PM CDT) aPTT 23(L) 28 - 38 sec Comment: Interpretive Data Heparin therapeutic range: 66.0 - 100.0 seconds. Range based on correlation with therapeutic heparin activity range of 0.3 - 0.7 Units/mL. Current interpretive data was last revised on 2023. Blood 12/10/2024 3:38 PM CDT 12/10/2024 3:46 PM CDT Paula Reno MD LAB BLOOD ORDERABLES Final Res ult Performing Organization Address [facility] de Phone Number CLARA [phone] [facility] [place] [address] * (ABNORMAL) Protime-INR (12/10/2024 3:38 PM CDT) PT 13.6(H) 9.7 - 13.0 sec INR 1.25(H) 0.90 - 1.20 CLARA Comment: Interpretive data Oral anticoagulant therapeutic ranges: Venous thromboembolism prophylaxis or treatment: 2.0-3.0 CARDIOLOGY Standard range: 2.0-3.0 High-intensity range: 2.5-3.5 Refer to indication-specific guidelines for appropriate target ranges for prosthetic heart valve replacement. Current interpretive data was last revised on 2019. Blood 12/10/2024 3:38 PM CDT 12/10/2024 3:46 PM CDT Paula Reno MD LAB BLOOD ORDERABLES Final Res ult Performing Organization Address [facility] Co de Phone Number CLARA GRAJEDA [address] Department of Laboratories [place], [place] [id number] * (ABNORMAL) CBC without differential (12/10/2024 3:38 PM CDT) WBC 12.69(H) 3.80 - 9.90 K/cumm Hgb 11.6(L) 13.0 - 17.5 g/dL [facility] Hct 34.7(L) 38.9 - 50.3 % [facility] Plt 71(L) 150 - 400 K/cumm [facility] Comment:No clot detected in sample. MPV 10.9 9.1 - 12.3 fL [facility] RBC 3.87(L) 4.30 - 5.80 M/cumm [facility] MCV 89.7 81.3 - 96.4 fL [facility] MCH 30.0 27.1 - 33.3 pg [facility] MCHC 33.4 32.3 - 35.7 g/dL [facility] RDW CV 12.8 11.1 - 14.9 % [facility] RDW SD 42.0 35.7 - 48.1 fL [facility] NRBC abs 0.00 0.00 - 0.01 K/cumm [facility] Blood 12/10/2024 3:38 PM CDT 12/10/2024 3:46 PM CDT us Paula Reno MD LAB BLOOD ORDERABLES Final Res ult Performing Organization Address [facility] Co de Phone Number CLARA GRAJEDA [address] Department [place] [address] * Magnesium (12/10/2024 3:38 PM CDT) Magnesium 2.4 1.4 - 2.5 mg/dL Blood 12/10/2024 3:38 PM CDT 12/10/2024 3:44 PM CDT Paula Reno MD LAB BLOOD ORDERABLES Final Res ult Performing Organization Address [facility] de Phone Number CLARA GRAJEDA [address] Department [place] [address] * (ABNORMAL) Blood gas, arterial (12/10/2024 3:38 PM CDT) pH, Art 7.39 7.35 - 7.45 PCO2, Arterial 37 35 - 45 mmHg [facility] PO2, Arterial 275(H) 83 - 108 mmHg [facility] HCO3 Art (Calculated) 22 20 - 30 mmol/L [facility] BE, art -2 mmol/L [facility] Comment: Interpretive Data No Reference Range Established Current Interpretive Data was last revised on 2017 O2 Sat Art (Measured) 100(H) 90 - 95 % [facility] Blood 12/10/2024 3:38 PM CDT 12/10/2024 3:44 PM CDT Paula Reno MD LAB BLOOD ORDERABLES Final Res ult Performing Organization Address [facility] de Phone Number CLRAA GRAJEDA [address] Department [place] [address] * (ABNORMAL) Basic metabolic panel (12/10/2024 3:38 PM CDT) Pathologist [facility] Sodium 138 135 - 145 mmol/L Potassium, pl 4.2 3.3 - 4.9 mmol/L [facility] Chloride 106 97 - 110 mmol/L [facility] CO2 22 22 - 32 mmol/L [facility] Anion gap 10 2 - 15 mmol/L [facility] BUN 14 6 - 25 mg/dL [facility] Creatinine 0.99 0.80 - 1.30 mg/dL [facility] Glucose 129 70 - 199 mg/dL [facility] Comment: Interpretive Data Fasting glucose >/= 126 mg/dl is diagnostic for diabetes. Fasting is defined as no caloric intake for at least 8 hours. Fasting glucose between 100 mg/dl to 125 mg/dl is diagnostic of prediabetes. In a patient with classic symptoms of hyperglycemia or hyperglycemic crisis, a random glucose >/= 200 mg/dl is diagnostic for diabetes. In the absence of unequivocal hyperglycemia, results should be confirmed by repeat testing. The classification and Diagnosis of Diabetes Diabetes Care 2021; 46: S19-S40. Current interpretive data was last revised 2022. Calcium 8.3(L) 8.5 - 10.3 mg/dL CLARA GRAJEDA Blood 12/10/2024 3:38 PM CDT 12/10/2024 3:44 PM CDT Paula Reno MD LAB BLOOD ORDERABLES Final Res ult CLARA GRAJEDA [address] Department [place] [address] * Critical Care (12/10/2024 3:30 PM CDT) Narrative Fred Kaur MD - 12/10/2024 3:30 PM CDT Fred Kaur MD 12/11/2024 6:14 AM Critical Care Performed by: Fred Kaur MD Authorized by: Fred Kaur MD CRITICAL CARE: Team: LOCO Shift: AM Level of Billing: Critical Care My time spent with this patient was 60 minutes: Critical Provider Statement: I have seen and examined the patient on this day of service. I have reviewed and confirmed the history, physical exam, laboratory and radiologic data as documented in the signed ICU note. I have reviewed and discussed my treatment plan with the ICU team and other medical/behavioral health consultant staff, making frequent assessments and decisions regarding this patient's complex medical care. Critical Care time was exclusive of time spent performing separately billed procedures, treating other patients, and teaching. This time was in addition to and separate from critical care provided by other practitioners in my group on this day of service. Critical Care was necessary to treat or prevent imminent or life-threatening deterioration of the following conditions: CABG This time was spent by me doing the following: Serial bedside patient exams Active titration of continuous sedation Initiation/active titration of vasoactive medications Active and frequent reassessment of respiratory status and oxygen requirements and Invasive ventilator management, reassessment, and titration Active and frequent monitoring of intake/output and volumen status and Glycemic control I spent time reviewing and interpreting data from bedside monitors, laboratory results, and imaging, I spent time discussing the management of this critically ill patient with consultants and the medical staff and I spent time documenting in the medical record Fred Kaur MD IN CLINIC/BEDSIDE ORDERA BLES Final Result * POCT glucose (12/10/2024 3:14 PM CDT) Glucose, POC 129 70 - 199 mg/dL POC Performer [id number] [facility] Blood 12/10/2024 3:14 PM CDT 12/10/2024 3:14 PM CDT Paula Reno MD LAB POCT ORDERABLES - [place] [address] [address] Department [place] [address] * (ABNORMAL) POC Blood Gas and Chemistries, Arterial - (12/10/2024 2:13 PM CDT) pH, Art POC 7.44 7.35 - 7.45 pCO2, Art POC 32(L) 35 - 45 mmHg [facility] pO2, Art POC 219(H) 83 - 108 mmHg [facility] Na, POC 135 135 - 145 mmol/L [facility] K POC 4.8 3.3 - 4.9 mmol/L [facility] Comment: Interpretive Data This method is not able to assess for hemolysis, which may falsely increase potassium concentrations. If further testing is needed to evaluate this result, consider in-laboratory plasma potassium. Current Interpretive Data was last revised on 2022. Ionized Ca, POC 5.21(H) 4.50 - 5.10 mg/dL [facility] Glucose, POC 158 70 - 199 mg/dL [facility] Lactate POC 1.8 0.7 - 2.0 mmol/L [facility] O2Hb, Art POC 97.7(H) 90.0 - 95.0 % [facility] SO2 (jony) arterial 100(H) 90 - 95 % [facility] Total CO2, Art POC 23 21 - 30 mmol/L [facility] BE, art, POC -2 mmol/L [facility] Hct, POC 28.0(L) 38.9 - 50.3 % [facility] Total Hb, POC 9.4(L) 13.0 - 17.5 g/dL [facility] Blood 12/10/2024 2:13 PM CDT 12/10/2024 2:13 PM CDT Keyla Basurto MD LAB POCT ORDERABLES - DEVIC E Final Result Performing Organization Address [facility] Co de Phone Number CLARA GRAJEDA [address] Department [place] [address] * POC Activated Clotting Time, High Range (12/10/2024 2:10 PM CDT) ACT 137 87 - 138 sec POC Performer [id number] [facility] Blood 12/10/2024 2:10 PM CDT 12/10/2024 2:10 PM CDT Keyla Basurto MD LAB BLOOD ORDERABLES Final Result Performing Organization Address [facility] Co de Phone Number CLARA [address] Department of [facility] [place], [place] [id number] * Transfuse platelets (12/10/2024 2:00 PM CDT) Blood Primitivo Horne MD BLOOD TRANSFUSION ORDERABLES Fin al Result Performing Organization Address [facility] Co de Phone Number CLARA [address] [address] Department [place] [address] * (ABNORMAL) Platelet count (12/10/2024 1:23 PM CDT) Plt 131(L) 150 - 400 K/cumm Blood 12/10/2024 1:23 PM CDT 12/10/2024 1:30 PM CDT Narrative CLARA - 12/10/2024 1:38 PM CDT Please call ext. [phone] with results Paula Reno MD LAB BLOOD ORDERABLES Final Res ult Performing Organization Address City/[facility]/ZIP Co de Phone Number CLARA GRAJEDA [address] Department [place] [address] * (ABNORMAL) POC Blood Gas and Chemistries, Arterial - (12/10/2024 1:13 PM CDT) pH, Art POC 7.36 7.35 - 7.45 pCO2, Art POC 38 35 - 45 mmHg [facility] pO2, Art POC 269(H) 83 - 108 mmHg [facility] Na, POC 131(L) 135 - 145 mmol/L [facility] K POC 5.2(H) 3.3 - 4.9 mmol/L [facility] Comment: Interpretive Data This method is not able to assess for hemolysis, which may falsely increase potassium concentrations. If further testing is needed to evaluate this result, consider in-laboratory plasma potassium. Current Interpretive Data was last revised on 2022. Ionized Ca, POC 4.47(L) 4.50 - 5.10 mg/dL [facility] Glucose, POC 198 70 - 199 mg/dL [facility] Lactate POC 1.3 0.7 - 2.0 mmol/L [facility] O2Hb, Art POC 97.7(H) 90.0 - 95.0 % [facility] SO2 (jony) arterial 100(H) 90 - 95 % [facility] Total CO2, Art POC 23 21 - 30 mmol/L [facility] BE, art, POC -4 mmol/L [facility] Hct, POC 32.0(L) 38.9 - 50.3 % [facility] Total Hb, POC 10.5(L) 13.0 - 17.5 g/dL [facility] Blood 12/10/2024 1:13 PM CDT 12/10/2024 1:13 PM CDT Keyla Basurto MD LAB POCT ORDERABLES - DEVIC E Final Result CLARA GRAJEDA [address] Department [place] [address] * (ABNORMAL) POC Activated Clotting Time, High Range (12/10/2024 1:11 PM CDT) ACT 475(H) 87 - 138 sec POC Performer [id number] [facility] Blood 12/10/2024 1:11 PM CDT 12/10/2024 1:11 PM CDT Keyla Basurto MD LAB [place]LOOD [place] [address] [address] Department [place] [address] * (ABNORMAL) POC Blood Gas and Chemistries, Arterial - (12/10/2024 12:23 PM CDT) pH, Art POC 7.39 7.35 - 7.45 pCO2, Art POC 38 35 - 45 mmHg [facility] pO2, Art POC 251(H) 83 - 108 mmHg [facility] Na, POC 133(L) 135 - 145 mmol/L [facility] K POC 5.1(H) 3.3 - 4.9 mmol/L [facility] Comment: Interpretive Data This method is not able to assess for hemolysis, which may falsely increase potassium concentrations. If further testing is needed to evaluate this result, consider in-laboratory plasma potassium. Current Interpretive Data was last revised on 2022. Ionized Ca, POC 4.40(L) 4.50 - 5.10 mg/dL [facility] Glucose, POC 122 70 - 199 mg/dL [facility] Lactate POC 0.9 0.7 - 2.0 mmol/L [facility] O2Hb, Art POC 98.0(H) 90.0 - 95.0 % [facility] SO2 (jony) arterial 100(H) 90 - 95 % [facility] Total CO2, Art POC 24 21 - 30 mmol/L [facility] BE, art, POC -2 mmol/L [facility] Hct, POC 32.0(L) 38.9 - 50.3 % [facility] Total Hb, POC 10.6(L) 13.0 - 17.5 g/dL [facility] Blood 12/10/2024 12:2 3 PM CDT 12/10/2024 12:23 PM CDT Keyla Basurto MD LAB POCT ORDERABLES - DEVIC E Final Result Performing Organization Address [facility] Co de Phone Number CLARA GRAJEDA [address] [facility] [place] [address] * (ABNORMAL) POC Activated Clotting Time, High Range (12/10/2024 12:20 PM CDT) ACT 530(H) 87 - 138 sec POC Performer [id number] [facility] Blood 12/10/2024 12:2 0 PM CDT 12/10/2024 12:20 PM CDT Keyla Basurto MD LAB BLOOD ORDERABLES Final Result Performing Organization Address [facility] de Phone Number CLARA GRAJEDA [address] [address] Department [place] [address] * (ABNORMAL) POC Activated Clotting Time, High Range (12/10/2024 11:29 AM CDT) ACT 579(H) 87 - 138 sec POC Performer [id number] [facility] Blood 12/10/2024 11:2 9 AM CDT 12/10/2024 11:29 AM CDT Keyla Basurto MD LAB BLOOD ORDERABLES Final Result Performing Organization Address [facility] Co de Phone Number CLARA GRAJEDA [address] [place] [address] * BW AN SHEATH INTRODUCER PERFORMABLE, PULMONARY ARTERY CATH (12/10/2024 9:59 AM CDT) Narrative Vivek Arce AA - 12/10/2024 9:59 AM CDT Vivek Arce AA 12/10/2024 10:00 AM Central Venous Line Patient location: OR Indication: central venous access and CVP monitoring Staff: Supervising provider: Primitivo Horne MD Placed by: AA: Vivek Arce AA Procedure prep: Patient position: Trendelenburg. PPE: provider hat/mask, sterile gloves, sterile gown, provider hand hygiene and full body drape. Prep solution: chlorhexadine/alcohol was applied to area. Ultrasound Evaluation: Ultrasound was used prior to prep and prepped into field. Ultrasound image(s) saved to archive. Prior to the procedure, the cannulated vein was evaluated by ultrasound and deemed suitably patent for access.This vessel was accessed using real-time ultrasound guidance and an image was placed in the patient's medical record Central line: Laterality: right Site: internal jugular Catheter type: multi-lumen access catheter (MAC) Oximetric catheter: yes Catheter size: 9 Fr. Catheter length: 11.5 cm Additional catheter placed through introducer: double lumen infusion catheter (DLIC) Catheter length at skin: 12 cm Technique: anatomy identified with ultrasound, vein located with finder needle, Seldinger technique, wire threaded easily and wire removed intact Venous verification: pressure transduced Post insertion: all ports aspirated, all ports flushed easily, line sutured in place and occlusive dressing applied Chlorhexidine patch applied: yes Number of attempts: 1 PA catheter placement: PA catheter type: oximetric PA catheter size: 8 Fr PA catheter laterality: right PA catheter site: internal jugular Placement guided by: pressure tracing changes and verified by CAROL PA catheter depth 48 cmNo Assessment: Events: patient tolerated procedure well with no complications us Primitivo Horne MD ANESTHESIA ORDERABLES Final Resu lt * Peripheral IV Catheter (12/10/2024 9:59 AM CDT) Narrative Vivek Arce AA - 12/10/2024 9:59 AM CDT Vivek Arce AA 12/10/2024 9:59 AM Peripheral IV Catheter Patient location: OR Staff: Placed by: Anesthesiologist: Primitivo Horne MD Preprocedure prep: Prep solution: alcohol PPE: gloves and provider hat/mask PIV line: Laterality: right Site: hand Catheter size: 20 g Technique: anatomical landmarks and direct visualization Procedure details: good blood return Number of attempts: 1 Assessment: Events: patient tolerated procedure well with no complications us Primitivo Horne MD ANESTHESIA ORDERABLES Final Resu lt * Arterial Line (12/10/2024 9:56 AM CDT) Narrative Vivek Arce AA - 12/10/2024 9:56 AM CDT Vivek Arce AA 12/10/2024 9:56 AM Arterial Line Patient location: pre-op holding Indication: continuous blood pressure monitoring and blood sampling needed Staff: Supervising provider: Primitivo Horne MD Placed by: AA: Vivek Arce AA Procedure prep: Prep solution: chlorhexadine/alcohol Prep: provider hat/mask and sterile gloves Skin infiltrated with lidocaine 1%: yes Arterial line: Catheter size: 20 gauge Catheter length: 1 and 3/4 inch Catheter type: wire-guided catheter Seldinger technique: yes Laterality: right Site: radial artery Line secured: Tegaderm and tape Results: good waveform and good blood return Number of attempts: 1 Assessment: Events: patient tolerated procedure well with no complications us Primitivo Horne MD ANESTHESIA ORDERABLES Final Resu lt * MN AN ELECTIVE ENDOTRACHEAL AIRWAY (12/10/2024 9:55 AM CDT) Narrative Vivek Arce AA - 12/10/2024 9:55 AM CDT Vivek Arce AA 12/10/2024 9:56 AM Airway Patient location: OR Urgency: elective Date/time: 12/10/2024 9:27 AM Indications for airway management: anesthesia Difficult airway: no Staff: Supervising provider: Primitivo Horne MD Placed by: AA: Vivek Arce AA Emergent airway documentation: Risks and benefits discussed: yes Consent obtained: yes Consent given by: patient Airway prep: Preoxygenated: yes Patient position: sniffing Mask difficulty assessment: 2 - vent by mask + OA or adjuvant Spontaneous ventilation during airway: absent Sedation level during airway: GA Final airway details: Final airway type: endotracheal airway Tube type: ETT ETT size: 8.0 mm Cuffed: yes Technique used for successful ETT placement: video laryngoscopy Insertion site: oral Blade type: Terrance Video blade type: Flowers Blade size: 4 Cormack-Lehane (video): grade I - full view of glottis Cuff inflated with: air ETT to lips: 22 cm Placement verified by: auscultation and CO2 detection Airway secured with: silk tape Number of attempts: 1 Additional comments: Atraumatic. Teeth as before. us Primitivo Horne MD ANESTHESIA ORDERABLES Final Resu lt * CAROL (12/10/2024 9:54 AM CDT) Anatomical Region Laterality Modality Other Narrative 12/10/2024 9:54 AM CDT Primitivo Horne MD 12/10/2024 2:01 PM CAROL Date/time: 12/10/2024 9:54 AM Staff: Supervising anesthesiologist: Primitivo Horne MD Performed by: Anesthesiologist: Primitivo Horne MD Preprocedure checklist: patient identified, procedure contraindications assessed and CAROL probe inserted into esophagus using lubricating jelly General procedure Information: Reason for procedure/indications: assessment of surgical repair and hemodynamic monitoring Procedure performed at surgeon's request: yes Results discussed with surgeon: yes Images submitted to archive: no Patient location: OR Intubated: yes Bite blocked placed: yes Probe Insertion: easy Complications: no Probe type: adult Modalities: 2D imaging, continuous wave Doppler, pulsed wave Doppler and color Doppler Echocardiographic and doppler measurements: Ventricles: Left ventricle: Cavity size: normal Hypertrophy: No Thrombus: No Global function: normal LVEF%: 50-60 Right ventricle: Cavity size: normal Hypertrophy: no Thrombus: No Global function: normal RVEF%: normal Interventricular septum: normal Regional function: 1- Basal anteroseptal: normal 2- Basal anterior: normal 3- Basal anterolateral: normal 4- Basal inferolateral: normal 5- Basal inferior: normal 6- Basal inferoseptal: normal 7- Mid anteroseptal: normal 8- Mid anterior: normal 9- Mid anterolateral: normal 10- Mid inferolateral: normal 11- Mid inferior: normal 12- Mid inferoseptal: normal 13- Apical anterior: normal 14- Apical lateral: normal 15- Apical inferior: normal 16- Apical septal: normal 17- Duncan: normal Valves: Aortic Valve: Annulus: normal Leaflet morphology: normal Leaflet motion: normal Stenosis: none Regurgitation: none Mitral valve: Annulus: normal Leaflet morphology anterior: normal Leaflet morphology posterior: normal Leaflet motion anterior: normal Leaflet motion posterior: normal Stenosis: none Regurgitation: mild Tricuspid valve: Annulus: normal Leaflet morphology: normal Leaflet motion: normal Stenosis: none Regurgitation: trace Aorta: Ascending aorta: Size: normal Dissection: no Plaque mobile: no Descending aorta: Size: normal Dissection: no Plaque mobile: no Atria: Right atrium: Size: normal Spontaneous echo contrast: No Thrombus: no Mass: No Left atrium: Size: normal (normal) Spontaneous echo contrast: No Thrombus: no Mass: No Left atrial appendage: normal Interatrial septum: normal Diastolic function and other findings: Diastolic function: normal Pericardium: normal Left pleural effusion: none Right pleural effusion: normal Pulmonary venous flow: normal Postprocedure (follow-up) CAROL exam: LV: unchanged RV: unchanged Interventricular septum: unchanged Aortic valve: unchanged Mitral valve: unchanged Pulmonic valve: unchanged Tricuspid valve: unchanged Atria: unchanged Aorta: unchanged Pericardium: unchanged Left pleural: unchanged Right pleural: unchanged Attestation Statement: By signing this report the attending anesthesiologist certifies that he or she has personally reviewed and interpreted the echocardiogram and has reviewed and or edited and agrees with the written comments contained within the report. us Primitivo Horne MD ANESTHESIA ORDERABLES Edited Res ult - Final * (ABNORMAL) POC Blood Gas and Chemistries, Arterial - (12/10/2024 9:51 AM CDT) pH, Art POC 7.47(H) 7.35 - 7.45 pCO2, Art POC 34(L) 35 - 45 mmHg [facility]ER CH pO2, Art POC 368(H) 83 - 108 mmHg [facility]ERNER CH Na, POC 132(L) 135 - 145 mmol/L [facility] K POC 4.4 3.3 - 4.9 mmol/L [facility] Comment: Interpretive Data This method is not able to assess for hemolysis, which may falsely increase potassium concentrations. If further testing is needed to evaluate this result, consider in-laboratory plasma potassium. Current Interpretive Data was last revised on 2022. Ionized Ca, POC 4.80 4.50 - 5.10 mg/dL [facility] Glucose, POC 109 70 - 199 mg/dL [facility] Lactate POC 1.2 0.7 - 2.0 mmol/L [facility] O2Hb, Art POC 96.8(H) 90.0 - 95.0 % [facility] SO2 (jony) arterial 100(H) 90 - 95 % [facility] Total CO2, Art POC 26 21 - 30 mmol/L [facility] BE, art, POC 2 mmol/L [facility] Hct, POC 41.0 38.9 - 50.3 % [facility] Total Hb, POC 13.7 13.0 - 17.5 g/dL [facility] Blood 12/10/2024 9:51 AM CDT 12/10/2024 9:51 AM CDT Keyla Basurto MD LAB POCT ORDERABLES - DEVIC E Final Result Performing Organization Address City/[facility]/ZIP Co de Phone Number DONALDODEYSI TARAS [address] [address] Department of Laboratories [place] [phone] * POC Activated Clotting Time, High Range (12/10/2024 9:48 AM CDT) ACT 98 87 - 138 sec POC Performer [id number] [facility] Blood 12/10/2024 9:48 AM CDT 12/10/2024 9:48 AM CDT Keyla Basurto MD LAB BLOOD ORDERABLES Final Result Performing Organization Address [facility] Co de Phone Number CLARA GRAJEDA [address] [address] Department of Laboratories [place] [phone] * TRANSTHORACIC ECHO (TTE) COMPLETE W DOPPLER/CF WO CONTRAST (12/10/2024 9:08 AM CDT) Pathologist [facility] LV EF 60 % CONS SCIMAGE Anatomical Region Laterality Modality Ultrasound 12/10/2024 8:26 AM CDT Narrative 12/10/2024 12:32 PM CDT [facility] [id number] [place] [id number] Echocardiogram Report Patient Name: KHAI MONAE : 1960 Study Date: 12/10/2024 8:26:19 AM Gender: M Tech: Location: [facility] Ref Provider: RAI REDDY Height(Cm): 188 BSA: 2.14 Weight(Kg): 88 Heart Rate: 64 BP: 137 / 84 Quality: Good Order Provider: RAI REDDY PROCEDURES: Echocardiographic Report: Transthoracic echocardiogram with complete 2D, M-Mode, and color Doppler examination. INDICATIONS: Pre Op Evaluation. MEASUREMENTS: 2D/MM Value Range Doppler Value Range Estimated EF 60 % ALIDA Vmax 2.84 cm2 LVIDd 2D 4.67 cm [ 4.20 - 5.80 ] AV Mean PG 2 mmHg LVIDs 2D 3.40 cm [ 2.50 - 4.00 ] AV Peak Matt 1.09 m/s [ 1.00 - 1.70 ] LVPWd 2D 1.03 cm [ 0.60 - 1.00 ] AV VTI 23.37 cm IVSd 2D 1.05 cm [ 0.60 - 1.00 ] LVOT Diam 2.13 cm LA Dimension 2D 2.79 cm [ 3.00 - 4.00 ] LVOT Peak Matt 0.87 m/s [ 0.70 - 1.10 ] LA Dimension MM 3.78 cm [ 3.00 - 4.00 ] LVOT VTI 18.78 cm AoR Diam 2D 3.76 cm [ 3.10 - 3.70 ] SI LVOT 31.1 ml/m2 [ >= 35.0 ] AoR Diam MM 3.11 cm [ 3.10 - 3.70 ] MV E Peak Matt 0.66 m/s [ 0.60 - 1.30 ] LA Volume Index 17.21 cc/m2 [ 16.00 - 34.00 ] MV A Peak Matt 0.78 m/s [ 1.00 - 1.20 ] ACS MM 1.96 cm [ 1.50 - 2.60 ] MV Mean PG 1 mmHg MV Decel Time 196 msec [ 104 - 258 ] PV Peak Matt 0.81 m/s [ 0.40 - 0.80 ] TR Peak Matt 1.32 m/s [ 1.00 - 2.80 ] TR Peak PG 7 mmHg E` 0.08 m/s E/E` 8.12 2D/MM Value Range Doppler Value Range - FINDINGS: Atrial Septum: Normal atrial septum. Left Ventricle: Impaired diastolic relaxation Grade I. Ejection Fraction is visually estimated to be 60 %. Left Atrium: The left atrium is normal in size. Right Ventricle: Normal right ventricular size. Normal right ventricular systolic function. Right Atrium: The right atrium is normal in size. Aortic Valve: Normal structure of the aortic valve. Mitral Valve: Normal structure of the mitral valve. Pulmonic Valve: Normal structure of the pulmonic valve. Tricuspid Valve: Estimated peak RVSP is 15 mmHg. Trivial regurgitation in the tricuspid valve. Pericardium: Normal pericardium with no significant pericardial effusion. Aorta: Ascending aorta is dilated. Ascending Aorta 3.8 cm. IVC: Normal size and normal respiratory collapse consistent with normal right atrial pressure (<5 mmHg). Pulmonary Artery: Normal pulmonary artery size. CONCLUSIONS: Impaired diastolic relaxation Grade I. Ejection Fraction is visually estimated to be 60 %. Estimated peak RVSP is 15 mmHg. Trivial regurgitation in the tricuspid valve. Ascending aorta is dilated. Ascending Aorta 3.8 cm. Electronically Signed By: Jaquan Rahman MD 12/10/2024 12:31:21 PM CDT Procedure Note Jaida Rahman MD - 12/10/2024 [place] [address] Echocardiogram Report Patient Name: KHAI MONAE : 1960 Study Date: 12/10/2024 8:26:19 AM Gender: M Tech: Location: [facility] Provider: RAI REDDY Height(Cm): 188 BSA: 2.14 Weight(Kg): 88 Heart Rate: 64 BP: 137 / 84 Quality: Good Order Provider: RAI REDDY PROCEDURES: Echocardiographic Report: Transthoracic echocardiogram with complete 2D, M-Mode, and color Dopplerexamination. INDICATIONS: Pre Op Evaluation. MEASUREMENTS: 2D/MM Value Range DopplerValue Range Estimated EF 60 % ALIDA Vmax2.84 cm2 LVIDd 2D 4.67 cm [ 4.20 - 5.80 ] AV Mean PG 2mmHg LVIDs 2D 3.40 cm [ 2.50 - 4.00 ] AV Peak Vel1.09 m/s [ 1.00 - 1.70 ] LVPWd 2D 1.03 cm [ 0.60 - 1.00 ] AV VTI23.37 cm IVSd 2D 1.05 cm [ 0.60 - 1.00 ] LVOT Diam2.13 cm LA Dimension 2D 2.79 cm [ 3.00 - 4.00 ] LVOT Peak Vel0.87 m/s [ 0.70 - 1.10 ] LA Dimension MM 3.78 cm [ 3.00 - 4.00 ] LVOT VTI18.78 cm AoR Diam 2D 3.76 cm [ 3.10 - 3.70 ] SI LVOT31.1 ml/m2 [ >= 35.0 ] AoR Diam MM 3.11 cm [ 3.10 - 3.70 ] MV E Peak Vel0.66 m/s [ 0.60 - 1.30 ] LA Volume Index 17.21 cc/m2 [ 16.00 - 34.00 ] MV A Peak Vel0.78 m/s [ 1.00 - 1.20 ] ACS MM 1.96 cm [ 1.50 - 2.60 ] MV Mean PG 1mmHg MV Decel Time 196 msec [ 104 - 258 ] PV Peak Matt 0.81 m/s [ 0.40 - 0.80 ] TR Peak Matt 1.32 m/s [ 1.00 - 2.80 ] TR Peak PG 7 mmHg E` 0.08 m/s E/E` 8.12 2D/MM Value Range DopplerValue Range - FINDINGS: Atrial Septum: Normal atrial septum. Left Ventricle: Impaired diastolic relaxation Grade I. Ejection Fraction is visuallyestimated to be 60 %. Left Atrium: The left atrium is normal in size. Right Ventricle: Normal right ventricular size. Normal right ventricular systolicfunction. Right Atrium: The right atrium is normal in size. Aortic Valve: Normal structure of the aortic valve. Mitral Valve: Normal structure of the mitral valve. Pulmonic Valve: Normal structure of the pulmonic valve. Tricuspid Valve: Estimated peak RVSP is 15 mmHg. Trivial regurgitation in the tricuspidvalve. Pericardium: Normal pericardium with no significant pericardial effusion. Aorta: Ascending aorta is dilated. Ascending Aorta 3.8 cm. IVC: Normal size and normal respiratory collapse consistent with normal rightatrial pressure (<5 mmHg). Pulmonary Artery: Normal pulmonary artery size. CONCLUSIONS: Impaired diastolic relaxation Grade I. Ejection Fraction is visuallyestimated to be 60 %. Estimated peak RVSP is 15 mmHg. Trivial regurgitation in the tricuspidvalve. Ascending aorta is dilated. Ascending Aorta 3.8 cm. Electronically Signed By: Jaquan Rahman MD 12/10/2024 12:31:21 PM CDT Rai Reddy NP CV ECHO PROCEDURES Final Re sult * Type and screen (12/10/2024 8:18 AM CDT) ABO Rh O Positive Raegan, indirect Negative CLARA GRAJEDA Blood 12/10/2024 8:18 AM CDT 12/10/2024 8:26 AM CDT Narrative CLARA GRAJEDA - 12/10/2024 9:07 AM CDT Has the patient had Daratumumab or Isatuximab in the past 6 months?->Unknown Rai Reddy NP LAB BLOOD BANK TEST ORDERAB LES Final Result CLARA GRAJEDA [address] [address] Department [place] [address] * XR Chest 1 Vw Portable (12/10/2024 8:15 AM CDT) Anatomical Region Laterality Modality Body, Chest N/A Computed Radiogr aphy 12/10/2024 9:05 AM CDT Impressions 12/10/2024 9:05 AM CDT No active disease. Electronically signed by: Christian Ann M.D. Narrative 12/10/2024 9:05 AM CDT EXAMINATION: XR CHEST 1 VIEW HISTORY: The patient is a 64-year-old male who has had bypass surgery. TECHNIQUE: AP portable view of the chest. FINDINGS: Lungs clear. Cardiovascular structures unremarkable. Procedure Note Christian Ann MD - 12/10/2024 EXAMINATION: XR CHEST 1 VIEW HISTORY: The patient is a 64-year-old male who has had bypass surgery. TECHNIQUE: AP portable view of the chest. FINDINGS: Lungs clear. Cardiovascular structures unremarkable. IMPRESSION: No active disease. Electronically signed by: Christian Ann M.D. us Rai Reddy NP IMG XR PROCEDURES Final Res ult * Prepare platelets: 4 Units (12/10/2024 8:00 AM CDT) Product code [id number] CERNER CH Unit Number [id number] [facility]ER CH Product Blood Type OPOS CERNER CH Dispense Status PRESUMED TRANSFUSED [facility]ERNER CH Product code [id number] Unit Number [id number] [facility]ERNER CH Product Blood Type OPOS CERNER CH Dispense Status RETURNED [facility]ERNER CH Product code [id number] CERNER CH Unit Number [id number] [facility]ER CH Product Blood Type OPOS CERNER CH Dispense Status PRESUMED TRANSFUSED [facility] Blood Venous blood specimen / Unknown 12/10/2024 8:00 AM CDT Narrative [facility]ERNER CH - 12/12/2024 10:15 AM CDT Specify Procedure:->CABG Are special requirements needed? (all products are leukoreduced)->No Date required:-[id number] PLT # of Units:-4-Units Reasons:-Hold for procedure (specify procedure)} Rai Reddy NP BLOOD BANK PRODUCT ORDERABL ES Final Result CLARA GRAJEDA [address] [address] Department [place] [address] * Prepare RBC: 4 Units (12/10/2024 8:00 AM CDT) Product code [id number] [facility]ERNER CH Unit Number [id number] 2-7 [facility]ERNER CH Product Blood Type OPOS CERNER CH Dispense Status RETURNED [facility]ERNER CH Product code [id number] CERNER CH Unit Number [id number] 2-B CERNER CH Product Blood Type OPOS CERNER CH Dispense Status RETURNED CERNER CH Product code [id number] Unit Number [id number] 1-2 CERNER CH Product Blood Type OPOS CERNER CH Dispense Status RETURNED [facility]ERNER CH Product code [id number] CERNER CH Unit Number [id number] 2-F [facility]ERNER CH Product Blood Type OPOS CERNER CH Dispense Status RETURNED [facility]ERN[facility] CH Blood 12/10/2024 8:00 AM CDT [facility]ative [facility] - 12/14/2024 12:29 AM CDT Specify Procedure:->CABG Are special requirements needed? (All products are leukoreduced and CMV- safe)- >No Date required:-[id number] LRRBC # of [id number] Reasons:-Hold for procedure (specify procedure)} Rai Reddy NP BLOOD BANK PRODUCT ORDERABL ES Final Result [facility] [address] [address] Department [place] [address] * (ABNORMAL) aPTT (12/10/2024 6:40 AM CDT) Pathologist [facility] aPTT 71(H) 28 - 38 sec Comment: Interpretive Data Heparin therapeutic range: 66.0 - 100.0 seconds. Range based on correlation with therapeutic heparin activity range of 0.3 - 0.7 Units/mL. Current interpretive data was last revised on 2023. Blood 12/10/2024 6:40 AM CDT 12/10/2024 6:47 AM CDT Isra Romero MD LAB BLOOD ORDERABLES Final R esult Performing Organization Address [facility] Co de Phone Number CLARA GRAJEDA [address] Department [place] [address] * eGFR (12/10/2024 12:12 AM CDT) eGFR 65 >=60 mL/min/1. 73 m2 Comment: Interpretive Data Reference Interval Normal >/= 90 mL/min/1.73m2 Mildly decreased* 60 - 89 mL/min/1.73m2 Mildly to moderately decreased 45 - 59 mL/min/1.73m2 Moderately to severely decreased 30 - 44 mL/min/1.73m2 Severely decreased 15 - 29 mL/min/1.73m2 Kidney Failure < 15 mL/min/1.73m2 *Relative to young adult level Estimated glomerular filtration rate is determined by the 2020 CKD-EPI equation recommended by the National Kidney Foundation (A Unifying Approach to GFR Estimation: Recommendations of the NKF-ASK Task Force on Reassessing the Inclusion of Race in Diagnosing Kidney Disease, JASN 2020). The CKD-EPI equation should not be used for patients with unstable renal function and has not been validated in children and those over 70. Current interpretive data was last reviewed 2021. Blood 12/10/2024 12:1 2 AM CDT 12/10/2024 12:22 AM CDT us Shannan Segundo NP LAB BLOOD ORDERABLES Final Res ult Performing Organization Address [facility] Co de Phone Number CLARA GRAJEDA [address] Department [place] [address] * (ABNORMAL) Differential, auto (12/10/2024 12:12 AM CDT) Neutrophil abs 4.77 1.50 - 6.50 K/cumm Imm gran abs 0.02 0.00 - 0.10 K/cumm CERNER Lymphocyte abs 3.28 0.80 - 3.30 K/cumm [facility] Monocyte abs 1.38(H) 0.20 - 0.80 K/cumm [facility] Eosinophil abs 0.03 0.00 - 0.50 K/cumm [facility] Basophil abs 0.03 0.00 - 0.10 K/cumm [facility] Neutrophil pct 50.2 % [facility] Comment: Interpretive Data Percent cell count reference ranges are not reported, since discordance with absolute values may lead to misinterpretation of CBC data. Current Interpretive Data was last revised on 2017. Imm gran pct 0.2 % CLARA Comment: Interpretive Data Percent cell count reference ranges are not reported, since discordance with absolute values may lead to misinterpretation of CBC data. Current Interpretive Data was last revised on 2017. Lymphocyte pct 34.5 % [facility] Comment: Interpretive Data Percent cell count reference ranges are not reported, since discordance with absolute values may lead to misinterpretation of CBC data. Current Interpretive Data was last revised on 2017. Monocyte pct 14.5 % [facility] Comment: Interpretive Data Percent cell count reference ranges are not reported, since discordance with absolute values may lead to misinterpretation of CBC data. Current Interpretive Data was last revised on 2017. Eosinophil pct 0.3 % [facility] Comment: Interpretive Data Percent cell count reference ranges are not reported, since discordance with absolute values may lead to misinterpretation of CBC data. Current Interpretive Data was last revised on 2017. Basophil pct 0.3 % [facility] Comment: Interpretive Data Percent cell count reference ranges are not reported, since discordance with absolute values may lead to misinterpretation of CBC data. Current Interpretive Data was last revised on 2017. Blood 12/10/2024 12:1 2 AM CDT 12/10/2024 12:22 AM CDT us Shannan Segundo NP LAB BLOOD ORDERABLES Final Res ult CLARA GRAJEDA [address] [address] Department [place] [address] * (ABNORMAL) CBC with auto differential (12/10/2024 12:12 AM CDT) WBC 9.51 3.80 - 9.90 K/cumm Hgb 13.4 13.0 - 17.5 g/dL [facility] Hct 40.9 38.9 - 50.3 % [facility] Plt 89(L) 150 - 400 K/cumm [facility] MPV 10.8 9.1 - 12.3 fL [facility] RBC 4.52 4.30 - 5.80 M/cumm [facility] MCV 90.5 81.3 - 96.4 fL [facility] MCH 29.6 27.1 - 33.3 pg [facility] MCHC 32.8 32.3 - 35.7 g/dL [facility] RDW CV 13.0 11.1 - 14.9 % [facility] RDW SD 42.6 35.7 - 48.1 fL [facility] NRBC abs 0.00 0.00 - 0.01 K/cumm [facility] Morphologic Screen Results confirmed by manual morphology review. [facility] Blood 12/10/2024 12:1 2 AM CDT 12/10/2024 12:22 AM CDT Shannan Segundo NP LAB BLOOD ORDERABLES Final Res ult Performing Organization Address [facility] de Phone Number CLARA GRAJEDA [address] [place] [address] * (ABNORMAL) aPTT (12/10/2024 12:12 AM CDT) aPTT 70(H) 28 - 38 sec Comment: Interpretive Data Heparin therapeutic range: 66.0 - 100.0 seconds. Range based on correlation with therapeutic heparin activity range of 0.3 - 0.7 Units/mL. Current interpretive data was last revised on 2023. Blood 12/10/2024 12:1 2 AM CDT 12/10/2024 12:22 AM CDT Isra Romero MD LAB BLOOD ORDERABLES Final R esult Performing Organization Address [facility] Co de Phone Number CLARA GRAJEDA [address] Department [place] [address] * Magnesium (12/10/2024 12:12 AM CDT) Magnesium 2.0 1.4 - 2.5 mg/dL Blood 12/10/2024 12:1 2 AM CDT 12/10/2024 12:22 AM CDT Shannan Segundo NP LAB BLOOD ORDERABLES Final Res ult Performing Organization Address [facility] de Phone Number [facility] [address] [address] Department [place] [address] * Hemoglobin A1c (12/10/2024 12:12 AM CDT) Hgb A1C 5.4 4.0 - 5.6 % Estimated Average Glucose 108 mg/dL [facility] Comment: The ADA recommends reporting an estimated Average Glucose (eAG) with all Hemoglobin A1c results using the equation derived from a study of 507 normal and diabetic adults. Minority populations were underrepresented and children were not included. (Diabetes Care 31:1132-5202, 2008). The eAG is not equivalent to a fasting glucose. Blood 12/10/2024 12:1 2 AM CDT 12/10/2024 12:22 AM CDT Paula Reno MD LAB BLOOD ORDERABLES Final Res ult Performing Organization Address [facility] de Phone Number CLARA TARAS [address] [address] Department [place] [address] * Basic metabolic panel (12/10/2024 12:12 AM CDT) Sodium 139 135 - 145 mmol/L Potassium, pl 4.4 3.3 - 4.9 mmol/L [facility] Chloride 106 97 - 110 mmol/L [facility] CO2 23 22 - 32 mmol/L [facility] Anion gap 10 2 - 15 mmol/L [facility] BUN 18 6 - 25 mg/dL [facility] Creatinine 1.24 0.80 - 1.30 mg/dL [facility] Glucose 115 70 - 199 mg/dL [facility] Comment: Interpretive Data Fasting glucose >/= 126 mg/dl is diagnostic for diabetes. Fasting is defined as no caloric intake for at least 8 hours. Fasting glucose between 100 mg/dl to 125 mg/dl is diagnostic of prediabetes. In a patient with classic symptoms of hyperglycemia or hyperglycemic crisis, a random glucose >/= 200 mg/dl is diagnostic for diabetes. In the absence of unequivocal hyperglycemia, results should be confirmed by repeat testing. The classification and Diagnosis of Diabetes Diabetes Care 2021; 46: S19-S40. Current interpretive data was last revised 2022. Calcium 9.2 8.5 - 10.3 mg/dL [facility] Blood 12/10/2024 12:1 2 AM CDT 12/10/2024 12:22 AM CDT Shannan Segundo NP LAB BLOOD ORDERABLES Final Res ult Performing Organization Address [facility] de Phone Number [facility] [address] [place] [address] * Protime-INR (12/09/2024 6:40 PM CDT) PT 11.5 9.7 - 13.0 sec INR 1.06 0.90 - 1.20 [facility] Comment: Interpretive data Oral anticoagulant therapeutic ranges: Venous thromboembolism prophylaxis or treatment: 2.0-3.0 CARDIOLOGY Standard range: 2.0-3.0 High-intensity range: 2.5-3.5 Refer to indication-specific guidelines for appropriate target ranges for prosthetic heart valve replacement. Current interpretive data was last revised on 2019. Blood 12/09/2024 6:40 PM CDT 12/09/2024 6:40 PM CDT Shannan Segundo NP LAB BLOOD ORDERABLES Final Res ult Performing Organization Address [facility] de Phone Number [facility] [address] [facility] [place], [place] [id number] * eGFR (12/09/2024 6:03 PM CDT) eGFR 68 >=60 mL/min/1. 73 m2 Comment: Interpretive Data Reference Interval Normal >/= 90 mL/min/1.73m2 Mildly decreased* 60 - 89 mL/min/1.73m2 Mildly to moderately decreased 45 - 59 mL/min/1.73m2 Moderately to severely decreased 30 - 44 mL/min/1.73m2 Severely decreased 15 - 29 mL/min/1.73m2 Kidney Failure < 15 mL/min/1.73m2 *Relative to young adult level Estimated glomerular filtration rate is determined by the 2020 CKD-EPI equation recommended by the National Kidney Foundation (A Unifying Approach to GFR Estimation: Recommendations of the NKF-ASK Task Force on Reassessing the Inclusion of Race in Diagnosing Kidney Disease, JASN 2020). The CKD-EPI equation should not be used for patients with unstable renal function and has not been validated in children and those over 70. Current interpretive data was last reviewed 2021. Blood 12/09/2024 6:03 PM CDT 12/09/2024 6:40 PM CDT us Shannan Segundo NP LAB BLOOD ORDERABLES Final Res ult [facility] [address] [address] Department [place] [address] * (ABNORMAL) Differential, auto (12/09/2024 6:03 PM CDT) Neutrophil abs 5.76 1.50 - 6.50 K/cumm Imm gran abs 0.02 0.00 - 0.10 K/cumm [facility] Lymphocyte abs 4.92(H) 0.80 - 3.30 K/cumm [facility] Monocyte abs 1.76(H) 0.20 - 0.80 K/cumm [facility] Eosinophil abs 0.05 0.00 - 0.50 K/cumm [facility] Basophil abs 0.03 0.00 - 0.10 K/cumm [facility] Neutrophil pct 46.0 % [facility] Comment: Interpretive Data Percent cell count reference ranges are not reported, since discordance with absolute values may lead to misinterpretation of CBC data. Current Interpretive Data was last revised on 2017. Imm gran pct 0.2 % [facility] Comment: Interpretive Data Percent cell count reference ranges are not reported, since discordance with absolute values may lead to misinterpretation of CBC data. Current Interpretive Data was last revised on 2017. Lymphocyte pct 39.2 % [facility] Comment: Interpretive Data Percent cell count reference ranges are not reported, since discordance with absolute values may lead to misinterpretation of CBC data. Current Interpretive Data was last revised on 2017. Monocyte pct 14.0 % [facility] Comment: Interpretive Data Percent cell count reference ranges are not reported, since discordance with absolute values may lead to misinterpretation of CBC data. Current Interpretive Data was last revised on 2017. Eosinophil pct 0.4 % [facility] Comment: Interpretive Data Percent cell count reference ranges are not reported, since discordance with absolute values may lead to misinterpretation of CBC data. Current Interpretive Data was last revised on 2017. Basophil pct 0.2 % [facility] Comment: Interpretive Data Percent cell count reference ranges are not reported, since discordance with absolute values may lead to misinterpretation of CBC data. Current Interpretive Data was last revised on 2017. Blood 12/09/2024 6:03 PM CDT 12/09/2024 6:41 PM CDT us Shannan Segundo [employer] LAB BLOOD ORDERABLES Final Res ult [facility] [id number] Department [place] [address] * (ABNORMAL) CBC with auto differential (12/09/2024 6:03 PM CDT) WBC 12.54(H) 3.80 - 9.90 K/cumm Hgb 13.9 13.0 - 17.5 g/dL [facility] Hct 41.5 38.9 - 50.3 % [facility] Plt 101(L) 150 - 400 K/cumm [facility] Comment:No clot detected in sample. MPV 11.1 9.1 - 12.3 fL [facility] RBC 4.58 4.30 - 5.80 M/cumm [facility] MCV 90.6 81.3 - 96.4 fL [facility] MCH 30.3 27.1 - 33.3 pg [facility] MCHC 33.5 32.3 - 35.7 g/dL [facility] RDW CV 13.2 11.1 - 14.9 % [facility] RDW SD 43.7 35.7 - 48.1 fL [facility] NRBC abs 0.00 0.00 - 0.01 K/cumm [facility] Morphologic Screen Results confirmed by manual morphology review. [facility] Blood 12/09/2024 6:03 PM CDT 12/09/2024 6:41 PM CDT Shannan Segundo [employer] LAB BLOOD ORDERABLES Final Res ult Performing Organization Address [facility] de Phone Number [facility] [address] [place] [address] * (ABNORMAL) aPTT (12/09/2024 6:03 PM CDT) aPTT 53(H) 28 - 38 sec Comment: Interpretive Data Heparin therapeutic range: 66.0 - 100.0 seconds. Range based on correlation with therapeutic heparin activity range of 0.3 - 0.7 Units/mL. Current interpretive data was last revised on 2023. Blood 12/09/2024 6:03 PM CDT 12/09/2024 6:40 PM CDT us Shannan Segundo [employer] LAB BLOOD ORDERABLES Final Res ult Performing Organization Address [facility] de Phone Number [facility] [address] [facility] [place] [address] * Protime-INR (12/09/2024 6:03 PM CDT) PT 11.6 9.7 - 13.0 sec INR 1.07 0.90 - 1.20 [facility] Comment: Interpretive data Oral anticoagulant therapeutic ranges: Venous thromboembolism prophylaxis or treatment: 2.0-3.0 CARDIOLOGY Standard range: 2.0-3.0 High-intensity range: 2.5-3.5 Refer to indication-specific guidelines for appropriate target ranges for prosthetic heart valve replacement. Current interpretive data was last revised on 2019. Blood 12/09/2024 6:03 PM CDT 12/09/2024 6:40 PM CDT Narrative [facility] - 12/09/2024 6:54 PM CDT Baseline prior to heparin initiation Shannan Segundo [employer] LAB BLOOD ORDERABLES Final Res ult Performing Organization Address [facility] de Phone Number DONALDODEYSI GRAJEDA [address] [facility] [place], [place] [id number] * Magnesium (12/09/2024 6:03 PM CDT) Pathologist [facility] Magnesium 2.0 1.4 - 2.5 mg/dL Blood 12/09/2024 6:03 PM CDT 12/09/2024 6:40 PM CDT Shannan Segundo [employer] LAB BLOOD ORDERABLES Final Res ult Performing Organization Address [facility] de Phone Number [facility] [address] [place], [place] [id number] * (ABNORMAL) Comprehensive metabolic panel (12/09/2024 6:03 PM CDT) Pathologist [facility] Sodium 137 135 - 145 mmol/L Potassium, pl 4.4 3.3 - 4.9 mmol/L [facility] Chloride 104 97 - 110 mmol/L [facility] CO2 21(L) 22 - 32 mmol/L [facility] Anion gap 12 2 - 15 mmol/L [facility] BUN 15 6 - 25 mg/dL [facility] Creatinine 1.20 0.80 - 1.30 mg/dL [facility] Glucose 99 70 - 199 mg/dL [facility] Comment: Interpretive Data Fasting glucose >/= 126 mg/dl is diagnostic for diabetes. Fasting is defined as no caloric intake for at least 8 hours. Fasting glucose between 100 mg/dl to 125 mg/dl is diagnostic of prediabetes. In a patient with classic symptoms of hyperglycemia or hyperglycemic crisis, a random glucose >/= 200 mg/dl is diagnostic for diabetes. In the absence of unequivocal hyperglycemia, results should be confirmed by repeat testing. The classification and Diagnosis of Diabetes Diabetes Care 2021; 46: S19-S40. Current interpretive data was last revised 2022. Calcium 9.1 8.5 - 10.3 mg/dL [facility] Bilirubin, total 0.6 0.1 - 1.2 mg/dL [facility] Protein, pl 6.5 6.5 - 8.5 g/dL [facility] Albumin 4.2 3.5 - 5.0 g/dL [facility] Alk phos 77 40 - 130 Units/L [facility] ALT 37 7 - 55 Units/L [facility] AST 171(H) 10 - 50 Units/L [facility] Blood 12/09/2024 6:03 PM CDT 12/09/2024 6:40 PM CDT Shannan Segundo NP LAB BLOOD ORDERABLES Final Res ult Performing Organization Address City/[facility]/ZIP Co de Phone Number CLARA GRAJEDA [address] [place], [place] [phone] * Calcium, ionized, whole blood (12/09/2024 5:57 PM CDT) Ca, ionized, bld 4.64 4.50 - 5.10 mg/dL Blood 12/09/2024 5:57 PM CDT 12/09/2024 6:52 PM CDT Shannan Segundo NP LAB BLOOD ORDERABLES Final Res ult Performing Organization Address City/[facility]/ZIP Co de Phone Number CLARA GRAJEDA [address] [place], [place] [phone] * Cardiology Document Scan (12/09/2024 11:37 AM CDT) Anatomical Region Laterality Modality Other Peggy Huitron MD [facility] PROCEDU RES Final Result * Cardiology Document Scan (12/09/2024 11:31 AM CDT) Anatomical Region Laterality Modality Other Peggy Huitron MD CV CARDIAC SERVICES PROCEDU RES Final Result from Last 3 Months Insurance [facility] MEDICAID [facility] Advance Directives For more information, please contact: [phone] * Full Code (Latest Code Status on File) Date Activated Date Inactivated Comments 12/09/2024 5:47 PM 12/15/2024 9:07 PM Care Teams Aircraft Mechanic Relationship Specialty Start Date End Date Guillermo Painting MD [facility] [place] [address] PCP - General 11/05/17 Cj Holloway MD [address] [place] [address] Medical Oncologist/Hematologis t Hematology and Oncology 04/17/18 Paula Reno MD [address] [facility] [id number] [place] [address] Surgeon Cardiothoracic Surgery 12/15/24 Miscellaneous, Not In File 12/15/24
--- OUTSIDE RECORDS SUMMARY | 2025-01-30 18:30 | XMS_ITS | Clinical Summary ---
Author Organization [facility] Address [address] [place] [address] Care Team Providers Care Curriculum Manager Name Role Phone Guillermo Painting MD Primary Care Prov ider Cj Holloway MD Unavailable [phone] Paula Reno MD Unavailable [phone] Miscellaneous, Not In File Unavailable Unava ilable Allergies Active Allergy Reactions Criticality Noted Date Comments Ciprofloxacin Hives Medium 12/09/2024 Sulfa Itching Low 12/09/2024 Medications acetaminophen 500 mg capsuleIndicatio ns:Pain Take 2 capsules (1,000 mg total) by mouth every 6 (six) hours 56 tablet 12/16/19 25 Active Additional Information Patient not taking.Reported on 01/13/2025 amiodarone (PACERONE) 200 mg tablet Take 2 tablets (400 mg total) by mouth 3 (three) times a day for 5 days, THEN 2 tablets (400 mg total) daily. 90 tablet 12/16/19 25 Active Additional Information Patient not taking.Reason: therapy completed, Reported on 01/13/2025 apixaban (ELIQUIS) 5 mg tabletIndication s:atrial fibrillation Take 1 tablet (5 mg total) by mouth every 12 (twelve) hours 60 tablet 12/16/19 25 Active Additional Information Patient not taking.Reason: therapy [...] mg total) by mouth daily 30 tablet 11 01/12/20 026 Active atorvastatin (LIPITOR) 20 mg tablet Take 1 tablet (20 mg total) by mouth nightly 30 tablet 01/12/20 026 Active metoprolol tartrate (LOPRESSOR) 25 mg immediate release tabletIndication s:hypertension Take 0.5 tablets (12.5 mg total) by mouth 2 (two) times a day 30 tablet 01/12/20 026 Active atorvastatin (LIPITOR) 20 mg tablet Take 1 tablet (20 mg total) by mouth nightly 30 tablet 12/16/19 025 Discontin ued(Reord er) clopidogreL (PLAVIX) 75 mg tablet Take 1 tablet (75 mg total) by mouth daily 30 tablet 12/17/19 025 Discontin ued(Reord er) furosemide (LASIX) 40 mg tablet Take 1 tablet (40 mg total) by mouth daily for 5 days 5 tablet 12/17/19 025 Discontin ued(Thera py completed ) metoprolol tartrate (LOPRESSOR) 25 mg immediate release tablet Take 0.5 tablets (12.5 mg total) by mouth 2 (two) times a day 30 tablet 12/16/19 025 Discontin ued(Reord er) potassium chloride ER (KLOR-CON) 20 mEq CR tablet Take 1 tablet (20 mEq total) by mouth daily for 5 days With Lasix 5 tablet 12/17/19 25 025 Discontin ued(Thera py completed ) Active Problems Problem Noted Date Diagnosed Date Coronary artery disease invo lving cocopah coronary artery of cocopah heart without angina pectoris 12/10/2024 CAD, multiple vessel 12/09/2024 CKD stage 3a, GFR 45-59 ml/min 12/09/2024 Renal infarct 12/09/2024 Septal myocardial infarction 12/09/2024 Chronic lymphocytic leukemia 04/20/2018 Hyperkalemia 03/18/2018 Resolved Problems Problem Noted Date Diagnosed Date Resolved Date Chronic kidney disease, stage 2 (mild) 03/18/2018 12/09/2024 Encounters Date Type Department Care Team Description 01/14/2025 4:00 PM CDT Home Care Visit [address] [address] [address] [place] [address] Leonora Borjas RN SN OASIS DISCHARGE 01/13/2025 11:30 AM CDT Office Visit [facility] [address] [place] [phone] Paula Reno MD Coronary artery disease involving cocopah coronary artery of cocopah heart with unstable angina pectoris (HCC) (Primary Dx) 01/11/[address] [facility] Cardiology [address] [place] [address] [place] [phone] Cookie Sykes NP 01/07/2025 1:00 PM CDT Home Care Visit [address] [address] [address] [place] [address] Kayleigh Gay RN SN HOME VISIT 01/07/2025 10:30 AM CDT Office Visit [facility] Cardiology [address] [place] [address] [place] [phone] Cookie Sykes NP Postoperative atrial fibrillation (HCC) (Primary Dx); Coronary artery disease involving cocopah coronary artery of cocopah heart without angina pectoris; Hx of CABG; Hospital discharge follow-up 01/03/2025 12:00 PM CDT Home Care Visit [address] [place] [address] Kayleigh Gay RN SN HOME VISIT 12/30/2024 12:15 PM CDT Home Care Visit [address] [place] [address] Noris Hicks RN SN HOME VISIT 12/28/2024 [facility] Post Discharge Follow up phone call [facility] [address] [place] [address] Leonardo Nafisafrancia Tate 12/27/2024 10:00 AM CDT Home Care Visit [address] [place] [address] Kayleigh Gay RN SN HOME VISIT 12/24/2024 11:00 AM CDT Home Care Visit [address] [place] [address] Kayleigh Gay RN SN HOME VISIT 12/22/2024 Home Care Visit [address] [place] [address] Kayleigh Gay RN CARE CONFERENCE 12/21/2024 12:00 PM CDT Home Care Visit [address] [place] [address] Kayleigh Gay RN SN HOME VISIT 12/21/2024 11:38 AM CDT - 12/21/2024 11:59 PM CDT Hospital Encounter [facility] [address] [place], [place] [id number] Discharge Disposition: Discharge to home or self care 12/21/2024 Documentation [facility] [address] [facility] [address] [place] [phone] Rai Reddy NP 12/20/2024 Home Care Visit [address] [place] [address] Nicky Brown, NILES SN TRIAGE ENCOUNTER 12/19/2024 Plan of Care Documentation [address] [place] [address] 12/17/2024 10:00 AM CDT Home Care Visit [address] [place] [address] Tori Gee RN SN OASIS START OF CARE 12/15/[address] [facility] Home Care Services [address] [place] [address] Gene Hayden MA 12/15/[address] [facility] Medical Group Cardiology [address] [facility] [address] [place] [address] Shazia Amaya NP 12/15/[address] [facility] Cardiology [address] [place] [address] Peggy Huitron MD 12/10/2024 9:15 AM CDT Anesthesia Event [facility] Operating Room [address] [place] [address] Primitivo Horne MD 12/10/2024 8:30 AM CDT - 12/10/2024 2:40 PM CDT Surgery [facility] Operating Room [id number] [place] [address] Paula Reno MD CORONARY ARTERY BYPASS GRAFT x 4, HIG[place]OTH[place], MARTINEZ AND LEFT RADIAL EVH 12/09/2024 5:41 PM CDT - 12/15/2024 5:02 PM CDT Hospital Encounter [address] [address] Isra Romero MD Myla, Lathamanjari, MD Ray, Shuddhadeb, MD CAD, multiple vessel (Primary Dx); Coronary artery disease involving cocopah coronary artery of cocopah heart without angina pectoris Discharge Disposition: Discharge to home, home health skilled care from Last 3 Months Immunizations Immunization Administration Dates Next Due Influenza, Quadrivalent, Frances l Culture-based MDCK, Preservative Free, Antibiotic Free, Intramuscular 06/24/2018 Influenza, Trivalent, Preservative Free, Intramu scular 07/09/2017,05/29/2016 Surgical History Surgery Date Site/Laterality Comments CYST REMOVAL 04/12/2021 epidermal PORTACATH PLACEMENT 10/26/2018 removed 04/2024 Medical History Medical History Date Comments CLL (chronic lymphocytic leukemia) (HCC) 2019 Chronic idiopathic thrombocytopenia (HCC) CKD (chronic kidney disease) stage 3, GFR 30-59 ml/min (HCC) Family History Medical History Relation Name Comments Cancer Brother 1 cll Brother 1 Cancer Brother 2 chronic lymphocytic leukemia Brother 2 Heart disease Father Family history of cardiac disorder - (Added by TW Conv) Valvular heart disease Father Cancer Mother Family history of malignant neoplasm - (Added by TW Conv) Kidney disease Mother Family histor y of kidney disease - (Added by TW Conv) cll Mother Heart disease Other Hypertension Other Kidney disease Other Relation Name Status Comments Brother 1 Brother 2 Alive Father Mother Other Social History Tobacco Use Types Packs/Day Years [...] materials from doctor or pharmacy Never 01/14/2025 [facility] Utilities Answer Date Recorded In the past 12 months has th e DGSE, gas, oil, or water [employer] threatened to shut off services in your [...] often do you attend chur ch or rastafarian services? Never 12/14/2024 Do you belong to any clubs o r organizations such as gnosticism groups, unions, fraternal or athletic groups, or [...] any time in the past [address] [facility], were you homeless or living in a fpc (including now)? No 12/14/2024 Personal Safety Answer Date Recorded Have you ever been in or are you currently in a harmful physical or emotional relationship or is someone making you feel afraid or unsafe? Denies 12/09/2024 Sex and Gender Information Value Date Recorded Sex Assigned at Not on file Legal Sex Male 8:38 AM [employer] Gender Identity Male 06/24/2018 12:51 PM CDT Sexual Orientation Not on file Obstetrics History Last Filed Vital Signs Vital Sign Reading [...] 01/13/2025 12:45 PM CDT Plan of Treatment Health Maintenance Due Date Last Done Comments Colon Cancer Screening-Colonoscopy 1960 Depression Screening 1960 Hepatitis C Screening 1960 Prostate Cancer Screening-PSA 1960 DTaP/Tdap/Td Vaccine (1 - Tdap) 02/15/1971 Hepatitis B Screening 02/15/1978 Regular Well Visit/Exam 18-64 02/15/1978 Pneumococcal vaccine <65 (1 of 2 - PCV) 02/15/1979 Covid-19 Vaccine (4 - 2023-2 5 season) 2024 08/15/2021, 11/15/2020, 10/24/2020 Influenza Vaccine (Season Ended) 2025 08/28/2023, 10/18/2022, 06/24/2018, Additional history exists Zoster Vaccine Completed 05/25/2021, 03/14/2021 Medical Devices Implanted Type Area [employer] Finisher Device Identifier Shelf Expiration Date Model / Serial / Lot [employer] Plate Bone Low Profile 6 Hole O Shape Sternum Ti 115.104.06 - [id number] Implanted:Qty: 1 on 12/10/2024 by Paula Reno MD at [facility] N/A: Chest Wall [employer] 115.104.06 / / [employer] Plate Bone Low Profile 4 Hole Box Sternum Ti 115.103.04 - [id number] Implanted:Qty: 1 on 12/10/2024 by Paula Reno MD at [facility] N/A: Chest Wall [employer] 115.103.04 / / [employer] Plate Bone Low Profile 6 Hole H Shape Sternum Ti 115.102.06 - [id number] Implanted:Qty: 1 on 12/10/2024 by Paula Reno MD at [facility] N/A: Chest Wall [employer] 115.102.06 / / [employer] Screw Bone Slf Drl Full Thread Locking 3.5x20mm Ti 100.035.20 - [id number] Implanted:Qty: 6 on 12/10/2024 by Paula Reno MD at [facility] N/A: Chest Wall [employer] 100.035.20 / / [employer] Screw Bone Slf Drl Full Thread Locking 3.5x18mm Ti 100.035.18 - [id number] Implanted:Qty: 10 on 12/10/2024 by Paula Reno MD at [facility] N/A: Chest Wall [employer] 100.035.18 [...] CAD, multiple vessel Coronary artery disease involving cocopah coronary artery of cocopah heart without angina pectoris POCT GLUCOSE DEVICE [...] 3:30 PM CDT Coronary artery disease involving cocopah coronary artery of cocopah heart without angina pectoris POCT GLUCOSE DEVICE [...] LINE PLACEMENT Routine 12/10/2024 9:56 AM CDT OR AN ELECTIVE ENDOTRACHEAL AIRWAY Routine 12/10/2024 9:55 AM CDT ANESTHESIA CAROL Routine 12/10/2024 9:54 AM CDT POC BLOOD GAS AND CHEMISTRIES, ARTERIAL Routine 12/10/2024 9:51 AM CDT POCT ACTIVATED CLOTTING TIME, HIGH RANGE Routine 12/10/2024 9:48 AM CDT CORONARY ARTERY BYPASS GRAFT - INTERNAL MAMMARY ARTERY/RADIAL ARTERY 12/10/2024 9:15 AM CDT Coronary artery disease involving cocopah coronary artery of cocopah heart without angina pectoris CORONARY ARTERY BYPASS GRAFT 12/10/2024 9:15 AM CDT Coronary artery disease involving cocopah coronary artery of cocopah heart without angina pectoris TRANSTHORACIC ECHO (TTE) [...] * (ABNORMAL) eGFR (12/21/2024 11:38 AM CDT) eGFR 50(L) >=60 mL/min/1. 73 m2 Comment: [...] 8 AM CDT 12/21/2024 1:00 PM CDT us Paula Reno MD LAB BLOOD ORDERABLES Final Res ult [facility]ARA [facility] Department [place] [address] * (ABNORMAL) CBC with auto differential (12/21/2024 11:38 AM CDT) Pathologist [facility] WBC 10.95(H) 3.80 - 9.90 K/cumm Hgb 12.1(L) 13.0 - 17.5 g/dL [facility] Hct 35.8(L) 38.9 - 50.3 % [facility] Plt 310 150 - 400 K/cumm [facility] MPV 9.9 9.1 - 12.3 fL [facility] RBC 4.01(L) 4.30 - 5.80 M/cumm [facility] MCV 89.3 81.3 - 96.4 fL [facility] MCH 30.2 27.1 - 33.3 pg [facility] MCHC 33.8 32.3 - 35.7 g/dL [facility] RDW CV 13.2 11.1 - 14.9 % [facility] RDW SD 43.3 35.7 - 48.1 fL [facility] NRBC abs 0.00 0.00 - 0.01 K/cumm [facility] Morphologic Screen Results confirmed by manual morphology review. [facility] Blood 12/21/2024 11:3 8 AM CDT 12/21/2024 12:54 PM CDT us Paula Reno MD LAB BLOOD ORDERABLES Edited Re sult - Final [facility] Department [place] [address] * (ABNORMAL) Manual Differential (12/21/2024 11:38 AM CDT) Pathologist [facility] Differential Manual Cells Counted 120 [facility] Neutrophil abs 7.12(H) 1.50 - 6.50 K/cumm [facility] Imm gran abs 0.19(H) 0.00 - 0.10 K/cumm [facility] Lymphocyte abs 3.29 0.80 - 3.30 K/cumm [facility] Monocyte abs 0.36 0.20 - 0.80 K/cumm [facility] Neutrophil pct 65.0 % [facility] Comment: Interpretive Data Percent cell count reference ranges are not reported, since discordance with absolute values may lead to misinterpretation of CBC data. Current Interpretive Data was last revised on 2017. Lymphocyte pct 29.2 % [facility] Comment: Interpretive Data Percent cell count reference ranges are not reported, since discordance with absolute values may lead to misinterpretation of CBC data. Current Interpretive Data was last revised on 2017. Monocyte pct 3.3 % [facility] Comment: Interpretive Data Percent cell count reference ranges are not reported, since discordance with absolute values may lead to misinterpretation of CBC data. Current Interpretive Data was last revised on 2017. Myelocyte pct 1.7(H) 0.0 - 0.0 % [facility] Variant lymph pct 0.8(H) 0.0 - 0.0 % [facility] Blood 12/21/2024 11:3 8 AM CDT 12/21/2024 1:05 PM CDT us Paula Reno MD LAB BLOOD ORDERABLES Final Res ult [facility] Department [place] [address] * (ABNORMAL) Comprehensive metabolic panel (12/21/2024 11:38 AM CDT) Sodium 137 135 - 145 mmol/L Potassium, pl 4.1 3.3 - 4.9 mmol/L [facility] Chloride 101 97 - 110 mmol/L [facility] CO2 23 22 - 32 mmol/L [facility] Anion gap 13 2 - 15 mmol/L [facility] BUN 38(H) 6 - 25 mg/dL [facility] Creatinine 1.54(H) 0.80 - 1.30 mg/dL [facility] Glucose 100 70 - 199 mg/dL [facility] Comment: Interpretive Data Fasting glucose >/= 126 [...] 2022. Calcium 9.4 8.5 - 10.3 mg/dL [facility] Bilirubin, total 0.3 0.1 - 1.2 mg/dL [facility] Protein, pl 7.3 6.5 - 8.5 g/dL [facility] Albumin 4.1 3.5 - 5.0 g/dL [facility] Alk phos 123 40 - 130 Units/L [facility] ALT 22 7 - 55 Units/L [facility] AST 20 10 - 50 Units/L [facility] Blood 12/21/2024 11:3 8 AM CDT 12/21/2024 12:54 PM CDT us Paula Reno MD LAB BLOOD ORDERABLES Final Res ult [facility] Department [place] [address] * XR Chest 1 View (12/15/2024 8:55 [...] Electronically signed by: Christian Ann M.D. us Nicolle Oswald MACHINE CONTAINER WASHER IMG XR PROCEDURES Final Re sult * [...] 5:53 AM CDT 12/15/2024 6:27 AM CDT us Rai Reddy MACHINE CONTAINER WASHER LAB BLOOD ORDERABLES Final Result [facility] [address] Department [place] [address] * (ABNORMAL) CBC without differential [...] 0.00 - 0.01 K/cumm [facility] Blood 12/15/2024 5:53 AM CDT 12/15/2024 6:28 AM CDT Rai Reddy MACHINE CONTAINER WASHER LAB BLOOD ORDERABLES Final Result [facility] [address] [address] Department of Laboratories [place] [phone] * (ABNORMAL) Hepatic function panel (12/15/2024 5:53 AM CDT) Bilirubin, total 0.5 0.1 - 1.2 mg/dL Bilirubin, direct 0.1 0.1 - 0.3 mg/dL [facility] Protein, pl 6.4(L) 6.5 - 8.5 g/dL [...] AM CDT Baseline prior to apixaban initiation. Rai Reddy NP LAB BLOOD ORDERABLES Final Result [facility] [address] [address] [address] Department [place] [address] * (ABNORMAL) Basic metabolic panel (12/15/2024 5:53 AM CDT) Sodium 137 135 - 145 mmol/L Potassium, pl 4.0 3.3 - 4.9 mmol/L [facility] Chloride 102 97 - 110 mmol/L [facility] [...] 2022. Calcium 8.9 8.5 - 10.3 mg/dL [facility] Blood 12/15/2024 5:53 AM CDT 12/15/2024 6:27 AM CDT Rai Reddy NP LAB BLOOD ORDERABLES Final Result [facility] [place] [address] [address] Department [place] [address] * XR Chest PA Lateral 2 Views [...] Electronically signed by: Todd Falcon M.D. Rai eRddy MACHINE CONTAINER WASHER IMG XR PROCEDURES Final Res ult * [...] CDT 12/14/2024 5:14 AM CDT Rai Reddy MACHINE CONTAINER WASHER LAB BLOOD ORDERABLES Final Result Performing Organization Address [facility] Co de Phone Number [facility] [place] [address] [address] [facility] [place] [address] * (ABNORMAL) aPTT (12/14/2024 4:36 AM CDT) aPTT 26(L) 28 - 38 sec Comment: Interpretive Data Heparin therapeutic range: 66.0 - 100.0 seconds. Range based on correlation with therapeutic heparin activity range of 0.3 - 0.7 Units/mL. Current interpretive data was last revised on 2023. Blood 12/14/2024 4:36 AM CDT 12/14/2024 5:10 AM CDT Rai Reddy MACHINE CONTAINER WASHER LAB BLOOD ORDERABLES Final Result Performing Organization Address [facility] de Phone Number [facility] [place] [address] [address] [facility] [place] [address] * Protime-INR (12/14/2024 4:36 AM CDT) PT 12.0 9.7 - 13.0 sec INR 1.11 0.90 - 1.20 [facility]ARA Comment: Interpretive data [...] BLOOD ORDERABLES Final Result Performing Organization Address [facility] Co de Phone Number [facility] [place] [address] [place] [address] * (ABNORMAL) CBC without differential (12/14/2024 4:36 AM CDT) Pathologist [facility] WBC 9.99(H) 3.80 - 9.90 K/cumm Hgb 11.3(L) 13.0 - 17.5 g/dL [facility] Hct 34.7(L) 38.9 - 50.3 % [facility] Plt 130(L) 150 - 400 K/cumm [facility] MPV 11.1 9.1 - 12.3 fL [facility] RBC 3.78(L) 4.30 - 5.80 M/cumm [facility] MCV 91.8 81.3 - 96.4 fL [facility] MCH 29.9 27.1 - 33.3 pg [facility] MCHC 32.6 32.3 - 35.7 g/dL [facility] RDW CV 13.3 11.1 - 14.9 % [facility] CH RDW SD 45.1 35.7 - 48.1 fL [facility] NRBC abs 0.00 0.00 - 0.01 K/cumm [facility] Blood 12/14/2024 4:36 AM CDT 12/14/2024 5:10 AM CDT Rai Reddy NP LAB BLOOD ORDERABLES Final Result [facility] [address] [address] Department [place] [address] * Basic metabolic panel (12/14/2024 4:36 AM CDT) Pathologist [facility] Sodium 137 135 - 145 mmol/L Potassium, pl 3.9 3.3 - 4.9 mmol/L [facility] Chloride 102 97 - 110 mmol/L [facility] CO2 23 22 - 32 mmol/L [facility] Anion gap 12 2 - 15 mmol/L [facility] BUN 24 6 - 25 mg/dL [facility] Creatinine 1.16 0.80 - 1.30 mg/dL [facility] Glucose 109 70 - 199 mg/dL [facility] Comment: Interpretive Data Fasting glucose >/= 126 [...] 2022. Calcium 9.1 8.5 - 10.3 mg/dL [facility] Blood 12/14/2024 4:36 AM CDT 12/14/2024 5:14 AM CDT Rai Reddy NP LAB BLOOD ORDERABLES Final Result Performing Organization Address [facility] Co de Phone Number [facility]ARA [place] [address] [address] Department [employer] [place] [address] * POCT glucose (12/13/2024 7:37 AM CDT) Glucose, POC 114 70 - 199 mg/dL POC Performer [id number] [facility] Blood 12/13/2024 7:37 AM CDT 12/13/2024 7:37 AM CDT Paula Reno MD LAB POCT ORDERABLES - DEVICE F inal Result Performing Organization Address City/[facility] Co de Phone Number [facility] [address] [address] Department [employer] [place] [address] * eGFR (12/13/2024 7:27 AM CDT) eGFR 81 >=60 mL/min/1. 73 m2 Comment: [...] Reddy NP LAB BLOOD ORDERABLES Final Result [facility] [address] [address] Department [place] [address] * (ABNORMAL) CBC without differential (12/13/2024 7:27 AM CDT) WBC 9.11 3.80 - 9.90 K/cumm Hgb 10.6(L) 13.0 - 17.5 g/dL [facility] Hct 31.5(L) 38.9 - 50.3 % [facility] Plt 96(L) 150 - 400 K/cumm [facility] MPV 11.4 9.1 - 12.3 fL [facility] RBC 3.41(L) 4.30 - 5.80 M/cumm [facility] MCV 92.4 81.3 - 96.4 fL [facility] MCH 31.1 27.1 - 33.3 pg [facility] MCHC 33.7 32.3 - 35.7 g/dL [facility] RDW CV 13.1 11.1 - 14.9 % [facility] RDW SD 43.4 35.7 - 48.1 fL [facility] NRBC abs 0.00 0.00 - 0.01 K/cumm [facility] Blood 12/13/2024 7:27 AM CDT 12/13/2024 7:48 AM CDT Rai Reddy MACHINE CONTAINER WASHER LAB BLOOD ORDERABLES Final Result [facility] [address] [address] Department [place] [address] * Basic metabolic panel (12/13/2024 7:27 AM CDT) Sodium 139 135 - 145 mmol/L Potassium, pl 4.1 3.3 - 4.9 mmol/L [facility] Chloride 103 97 - 110 mmol/L [facility] CO2 24 22 - 32 mmol/L [facility] Anion gap 12 2 - 15 mmol/L [facility] BUN 18 6 - 25 mg/dL [facility] Creatinine 1.03 0.80 - 1.30 mg/dL [facility] Glucose 102 70 - 199 mg/dL [facility] Comment: Interpretive Data Fasting glucose >/= 126 [...] classification and Diagnosis of Diabetes Diabetes Care 202; 46: S19-S40. Current interpretive data was last revised 2022. Calcium 8.7 8.5 - 10.3 mg/dL [facility] Blood 12/13/2024 7:27 AM CDT 12/13/2024 7:48 AM CDT us Rai Reddy NP LAB BLOOD ORDERABLES Final Result [facility] [address] Department [place] [address] * XR Chest 1 View - Portable [...] active infiltrate. The tip of a retracted Hastings-Diane catheter is at the cavoatrial junction. Procedure Note Christian Ann MD - 12/13/2024 EXAMINATION: XR CHEST 1 VIEW HISTORY: The patient is a 64-year-old male who has had cardiac surgery. Comparison made with the previous study dated 12/12/2024 TECHNIQUE: AP portable view of the chest. FINDINGS: Cardiomegaly with aortic atherosclerosis. No failure. No active infiltrate. The tip of a retracted Hastings-Diane catheter is at the cavoatrial junction. IMPRESSION: No failure Electronically signed by: Christian Ann M.D. Paula Reno MD IMG XR PROCEDURES Final Result * POCT glucose (12/12/2024 8:37 PM CDT) Glucose, POC 142 70 - 199 mg/dL POC Performer [id number] [facility] Blood 12/12/2024 8:37 PM CDT 12/12/2024 8:37 PM CDT Paula Reno MD LAB POCT ORDERABLES - DEVICE F inal Result [facility] [address] [address] Department [place] [address] * POCT glucose (12/12/2024 5:10 PM CDT) Glucose, POC 135 70 - 199 mg/dL POC Performer [id number] [facility] Blood 12/12/2024 5:10 PM CDT 12/12/2024 5:10 PM CDT Paula Reno MD LAB POCT ORDERABLES - DEVICE F inal Result Performing Organization Address [facility] Co de Phone Number CLARA GRAJEDA [address] [facility] [place] [address] * POCT glucose (12/12/2024 12:56 PM CDT) Glucose, POC 134 70 - 199 mg/dL POC Performer [id number] [facility] Blood 12/12/2024 12:5 6 PM CDT 12/12/2024 12:56 PM CDT Paula Reno MD LAB POCT ORDERABLES - DEVICE F inal Result Performing Organization Address [facility] Co de Phone Number CLARA GRAJEDA [address] Department [place] [address] * POCT glucose (12/12/2024 7:48 AM CDT) Glucose, POC 136 70 - 199 mg/dL POC Performer [phone] [facility] Blood 12/12/2024 7:48 AM CDT 12/12/2024 7:48 AM CDT Paula Reno MD LAB POCT ORDERABLES - DEVICE F inal Result Performing Organization Address [facility] Co de Phone Number CLARA GRAJEDA [address] [address] [facility] [place] [address] * XR Chest 1 View - Portable - in AM (12/12/2024 5:54 AM CDT) Anatomical Region Laterality Modality Body, Chest N/A Computed Radiogr aphy 12/12/2024 7:48 AM CDT Impressions 12/12/2024 7:48 AM CDT [place]-Diane tip location is difficult to assess secondary [...] HISTORY: s/p cardiac surg COMPARISON: 12/11/2024. IMPRESSION: [place] tip location is difficult to assess secondary [...] BLOOD ORDERABLES Final Res ult CLARA GRAJEDA [address] [place] [address] * Calcium, ionized, whole blood (12/12/2024 3:10 AM CDT) Ca, ionized, bld 4.77 4.50 - 5.10 mg/dL Blood 12/12/2024 3:10 AM CDT 12/12/2024 3:15 AM CDT Rai Reddy MACHINE CONTAINER WASHER LAB BLOOD ORDERABLES Final Result Performing Organization Address City/[facility] Co de Phone Number CLARA GRAJEDA [address] Department [place] [address] * eGFR (12/12/2024 3:10 AM CDT) eGFR [...] CDT 12/12/2024 3:17 AM CDT Rai Reddy MACHINE CONTAINER WASHER LAB BLOOD ORDERABLES Final Result Performing Organization Address City/[facility]/ZIP Co de Phone Number CLARA GRAJEDA [address] Department of Facile System [place], [place] [id number] * (ABNORMAL) CBC without differential (12/12/2024 3:10 AM CDT) WBC 7.65 3.80 - 9.90 K/cumm Hgb 9.9(L) 13.0 - 17.5 g/dL [facility] Hct 30.2(L) 38.9 - 50.3 % [facility] CH Plt 74(L) 150 - 400 K/cumm [facility] MPV 10.6 9.1 - 12.3 fL [facility] RBC 3.26(L) 4.30 - 5.80 M/cumm [facility] MCV 92.6 81.3 - 96.4 fL [facility] MCH 30.4 27.1 - 33.3 pg [facility] MCHC 32.8 32.3 - 35.7 g/dL [facility] RDW CV 13.2 11.1 - 14.9 % [facility] RDW SD 44.9 35.7 - 48.1 fL [facility] NRBC abs 0.00 0.00 - 0.01 K/cumm [facility] Blood 12/12/2024 3:10 AM CDT 12/12/2024 3:17 AM CDT Rai Reddy NP LAB BLOOD ORDERABLES Final Result Performing Organization Address [facility] Co de Phone Number [facility] [address] Department [employer] [place], [place] [id number] * Magnesium (12/12/2024 3:10 AM CDT) [facility] Magnesium 2.0 1.4 - 2.5 mg/dL Blood 12/12/2024 3:10 AM CDT 12/12/2024 3:17 AM CDT Fred Kaur MD LAB BLOOD ORDERABLES Fin al Result Performing Organization Address City/[facility]/ZIP Co de Phone Number [facility] [address] Department of [employer]ile System [place], [place] [id number] * (ABNORMAL) Basic metabolic panel (12/12/2024 3:10 AM CDT) Sodium 138 135 - 145 mmol/L Potassium, pl 3.8 3.3 - 4.9 mmol/L [facility] Chloride 104 97 - 110 mmol/L [facility] CO2 24 22 - 32 mmol/L [facility] Anion gap 10 2 - 15 mmol/L [facility] BUN 16 6 - 25 mg/dL [facility] Creatinine 1.02 0.80 - 1.30 mg/dL [facility] Glucose 138 70 - 199 mg/dL [facility] Comment: Interpretive Data Fasting glucose >/= 126 [...] 2022. Calcium 8.4(L) 8.5 - 10.3 mg/dL [facility] Blood 12/12/2024 3:10 AM CDT 12/12/2024 3:17 AM CDT Rai Reddy MACHINE CONTAINER WASHER LAB BLOOD ORDERABLES Final Result Performing Organization Address City/[facility]/ZIP Co de Phone Number CLARA GRAJEDA [address] Department [employer] [place], [place] [id number] * POCT glucose (12/12/2024 3:09 AM CDT) Glucose, POC 136 70 - 199 mg/dL POC Performer [phone] [facility] Blood 12/12/2024 3:09 AM CDT 12/12/2024 3:09 AM CDT Paula Reno MD LAB POCT ORDERABLES - DEVICE F inal Result Performing Organization Address City/[facility]/ZIP Co de Phone Number CLARA GRAJEDA [address] Department [place] [address] * POCT glucose (12/11/2024 11:09 PM CDT) Glucose, POC 149 70 - 199 mg/dL POC Performer [phone] CLARA Blood 12/11/2024 11:0 9 PM CDT 12/11/2024 11:09 PM CDT Paula Reno MD LAB POCT ORDERABLES - DEVICE F inal Result Performing Organization Address [facility]/ZIP Co de Phone Number DONALDODEYSI [address] Department [place] [address] * POCT glucose (12/11/2024 8:34 PM CDT) Glucose, POC 142 70 - 199 mg/dL POC Performer [phone] [facility] Blood 12/11/2024 8:34 PM CDT 12/11/2024 8:34 PM CDT Paula Reno MD LAB POCT ORDERABLES - DEVICE F inal Result Performing Organization Address [facility] Co de Phone Number DONALDODEYSI [address] Department [place] [address] * Transfuse platelets (12/11/2024 6:05 PM CDT) Blood Paula Reno MD BLOOD TRANSFUSION ORDERABLES F inal Result Performing Organization Address [facility] Co de Phone Number DONALDODEYSI [address] [address] Department [place] [address] * POCT glucose (12/11/2024 5:08 PM CDT) Glucose, POC 132 70 - 199 mg/dL POC Performer [id number] [facility] Blood 12/11/2024 5:08 PM CDT 12/11/2024 5:08 PM CDT Paula Reno MD LAB POCT ORDERABLES - DEVICE F inal Result Performing Organization Address City/[facility]/ZIP Co de Phone Number CLARA GRAJEDA [address] Department [employer] [place] [address] * Calcium, ionized, whole blood (12/11/2024 2:30 PM CDT) Ca, ionized, bld 4.51 4.50 - 5.10 mg/dL Blood 12/11/2024 2:30 PM CDT 12/11/2024 2:47 PM CDT Rai Reddy NP LAB BLOOD ORDERABLES Final Result Performing Organization Address [facility] Co de Phone Number CLARA GRAJEDA [address] [facility] [place] [address] * eGFR (12/11/2024 2:30 PM CDT) eGFR [...] BLOOD ORDERABLES Final Result Performing Organization Address City/[facility]/ZIP Co de Phone Number CLARA GRAJEDA [address] Department [place] [address] * (ABNORMAL) CBC without differential (12/11/2024 2:30 PM CDT) Pathologist [facility] WBC 8.61 3.80 - 9.90 K/cumm Hgb 10.4(L) 13.0 - 17.5 g/dL [facility] Hct 31.1(L) 38.9 - 50.3 % [facility] Plt 94(L) 150 - 400 K/cumm [facility] CH MPV 10.7 9.1 - 12.3 fL [facility] RBC 3.44(L) 4.30 - 5.80 M/cumm [facility] CH MCV 90.4 81.3 - 96.4 fL [facility] CH MCH 30.2 27.1 - 33.3 pg [facility] MCHC 33.4 32.3 - 35.7 g/dL [facility] CH RDW CV 13.2 11.1 - 14.9 % [facility] RDW SD 43.2 35.7 - 48.1 fL [facility] NRBC abs 0.00 0.00 - 0.01 K/cumm [facility] CH Blood 12/11/2024 2:30 PM CDT 12/11/2024 2:40 PM CDT Rai Reddy NP LAB BLOOD ORDERABLES Final Result Performing Organization Address [facility] Co de Phone Number [facility] [address] [facility] [place] [address] * Magnesium (12/11/2024 2:30 PM CDT) [facility] Magnesium 2.1 1.4 - 2.5 mg/dL Blood 12/11/2024 2:30 PM CDT 12/11/2024 3:42 PM CDT Rai Reddy NP LAB BLOOD ORDERABLES Final Result Performing Organization Address [facility] Co de Phone Number [facility] [address] [address] [facility] [place] [address] * (ABNORMAL) Basic metabolic panel (12/11/2024 2:30 PM CDT) Sodium 137 135 - 145 mmol/L Potassium, pl 3.9 3.3 - 4.9 mmol/L [facility] Chloride 104 97 - 110 mmol/L [facility] CO2 24 22 - 32 mmol/L [facility] Anion gap 9 2 - 15 mmol/L [facility] BUN 20 6 - 25 mg/dL [facility] Creatinine 1.05 0.80 - 1.30 mg/dL [facility] Glucose 149 70 - 199 mg/dL [facility] Comment: [...] 2022. Calcium 8.4(L) 8.5 - 10.3 mg/dL [facility] Blood 12/11/2024 2:30 PM CDT 12/11/2024 3:42 PM CDT us Rai Reddy MACHINE CONTAINER WASHER LAB BLOOD ORDERABLES Final Result Performing Organization Address [facility]/ZIP Co de Phone Number [facility] [address] [address] Department [place] [address] * POCT glucose (12/11/2024 11:42 AM CDT) Glucose, POC 135 70 - 199 mg/dL POC Performer [phone] [facility] Blood 12/11/2024 11:4 2 AM CDT 12/11/2024 11:42 AM CDT Paula Reno MD LAB POCT ORDERABLES - DEVICE F inal Result Performing Organization Address City/[facility] Co de Phone Number CLARA GRAJEDA [address] Department [place] [address] * ECG 12 lead (12/11/2024 9:31 AM CDT) 12/11/2024 9:31 AM CDT Narrative [facility] - 12/12/2024 10:11 AM CDT Vent Rate: 78 bpm RR Interval: 765 msec OR Interval: 163 msec QRS Duration: 91 msec QT Interval: 374 msec QTC Interval: 407 msec P-R-T [place]: 36 - -10 - -52 degrees IMPRESSION: SINUS RHYTHM MODERATE T-WAVE ABNORMALITY, CONSIDER INFERIOR ISCHEMIA [-0.1+ mV T-WAVE IN II/aVF] ABNORMAL ECG Electronically Signed By: Elke Sosa MD us Paula Reno MD ECG ORDERABLES Final Result [facility] * Critical Care (12/11/2024 8:33 AM CDT) [...] plan with the ICU team and other medical/taxation consultant staff, making frequent assessments and decisions [...] spent time documenting in the medical record us Rita Ta MD IN CLINIC/BEDSIDE ORDERAB LES Final Result * POCT glucose (12/11/2024 7:32 AM CDT) Glucose, POC 134 70 - 199 mg/dL POC Performer [phone] CLARA GRAJEDA Blood 12/11/2024 7:32 AM CDT 12/11/2024 7:32 AM CDT us Paula Reno MD LAB POCT ORDERABLES - DEVICE F inal Result CLARA [address] [address] Department [place] [address] * XR Chest 1 View - Portable - in AM (12/11/2024 6:10 AM CDT) Anatomical Region Laterality Modality Body, Chest N/A Computed Radiogr aphy 12/11/2024 7:05 AM CDT Impressions 12/11/2024 7:05 AM CDT The heart is normal in size. There are median sternotomy wires. Left thoracotomy tube. Hastings-Diane catheter tip is in the right main [...] are median sternotomy wires. Left thoracotomy tube. Hastings-Diane catheter tip is in the right main [...] 3:21 AM CDT 12/11/2024 3:41 AM CDT Paula Reno MD LAB BLOOD ORDERABLES Final Res ult CLARA GRAJEDA [address] [address] Department [place] [address] * (ABNORMAL) Differential, auto (12/11/2024 3:21 AM CDT) Neutrophil abs 6.47 1.50 - 6.50 K/cumm Imm gran abs 0.02 0.00 - 0.10 K/cumm [facility] Lymphocyte abs 2.27 0.80 - 3.30 K/cumm [facility] Monocyte abs 0.83(H) 0.20 - 0.80 K/cumm [facility] Eosinophil abs 0.00 0.00 - 0.50 K/cumm [facility] Basophil abs 0.01 0.00 - 0.10 K/cumm [facility] Neutrophil pct 67.5 % [facility] Comment: Interpretive Data Percent cell count reference ranges are not reported, since discordance with absolute values may lead to misinterpretation of CBC data. Current Interpretive Data was last revised on 2017. Imm gran pct 0.2 % [facility] Comment: Interpretive Data Percent cell count reference ranges are not reported, since discordance with absolute values may lead to misinterpretation of CBC data. Current Interpretive Data was last revised on 2017. Lymphocyte pct 23.6 % [facility] Comment: Interpretive Data Percent cell count reference ranges are not reported, since discordance with absolute values may lead to misinterpretation of CBC data. Current Interpretive Data was last revised on 2017. Monocyte pct 8.6 % [facility] Comment: Interpretive Data Percent cell count reference ranges are not reported, since discordance with absolute values may lead to misinterpretation of CBC data. Current Interpretive Data was last revised on 2017. Eosinophil pct 0.0 % [facility] Comment: Interpretive Data Percent cell count reference ranges are not reported, since discordance with absolute values may lead to misinterpretation of CBC data. Current Interpretive Data was last revised on 2017. Basophil pct 0.1 % [facility] Comment: Interpretive Data Percent cell count reference ranges are not reported, since discordance with absolute values may lead to misinterpretation of CBC data. Current Interpretive Data was last revised on 2017. Blood 12/11/2024 3:21 AM CDT 12/11/2024 3:27 AM CDT us Paula Reno MD LAB BLOOD ORDERABLES Final Res ult Performing Organization Address [facility] Co de Phone Number CLARA GRAJEDA [address] [address] Department [place] [address] * (ABNORMAL) CBC with auto differential (12/11/2024 3:21 AM CDT) WBC 9.60 3.80 - 9.90 K/cumm Hgb 10.5(L) 13.0 - 17.5 g/dL [facility] Hct 31.6(L) 38.9 - 50.3 % [facility] Plt 103(L) 150 - 400 K/cumm [facility] MPV 10.8 9.1 - 12.3 fL [facility] RBC 3.46(L) 4.30 - 5.80 M/cumm [facility] MCV 91.3 81.3 - 96.4 fL [facility] MCH 30.3 27.1 - 33.3 pg [facility] MCHC 33.2 32.3 - 35.7 g/dL [facility] RDW CV 13.2 11.1 - 14.9 % [facility] RDW SD 42.7 35.7 - 48.1 fL [facility] NRBC abs 0.00 0.00 - 0.01 K/cumm [facility] Blood 12/11/2024 3:21 AM CDT 12/11/2024 3:27 AM CDT us Paula Reno MD LAB BLOOD ORDERABLES Final Res ult Performing Organization Address [facility] Co de Phone Number CLARA GRAJEDA [address] [address] Department [place] [address] * Magnesium (12/11/2024 3:21 AM CDT) Magnesium 2.2 1.4 - 2.5 mg/dL Blood 12/11/2024 3:21 AM CDT 12/11/2024 3:27 AM CDT Fred Kaur MD LAB BLOOD ORDERABLES Fin al Result Performing Organization Address [facility] Co de Phone Number CLARA GRAJEDA [address] [address] Department [place] [address] * (ABNORMAL) Basic metabolic panel (12/11/2024 3:21 AM CDT) Sodium 137 135 - 145 mmol/L Potassium, pl 4.2 3.3 - 4.9 mmol/L [facility] Chloride 105 97 - 110 mmol/L [facility] CO2 22 22 - 32 mmol/L [facility] Anion gap 10 2 - 15 mmol/L [facility] BUN 14 6 - 25 mg/dL [facility] Creatinine 1.09 0.80 - 1.30 mg/dL [facility] Glucose 143 70 - 199 mg/dL [facility] Comment: Interpretive Data Fasting glucose >/= 126 [...] 2022. Calcium 8.0(L) 8.5 - 10.3 mg/dL [facility] Blood 12/11/2024 3:21 AM CDT 12/11/2024 3:27 AM CDT Paula Reno MD LAB BLOOD ORDERABLES Final Res ult CLARA GRAJEDA [address] Department [place] [address] * (ABNORMAL) Calcium, ionized, whole blood (12/11/2024 3:20 AM CDT) Pathologist [facility] Ca, ionized, bld 4.47(L) 4.50 - 5.10 mg/dL Blood 12/11/2024 3:20 AM CDT 12/11/2024 3:34 AM CDT Paula Reno MD LAB BLOOD ORDERABLES Final Res ult Performing Organization Address [facility] Co de Phone Number CLARA GRAJEDA [address] [address] [facility] [place] [address] * Transfuse platelets (12/11/2024 1:25 AM CDT) Blood Ronaldo Nguyen MD BLOOD TRANSFUSION ORDERABLES Final Result Performing Organization Address [facility] de Phone Number DONALDODEYSI GRAJEDA [address] [address] [facility] [place] [address] * Transfuse platelets (12/11/2024 12:16 AM CDT) Blood Ronaldo Nguyen MD BLOOD TRANSFUSION ORDERABLES Final Result Performing Organization Address [facility] Phone Number CLARA TARAS [address] [address] Department [place] [address] * (ABNORMAL) Blood gas, arterial (12/11/2024 12:06 AM CDT) pH, Art 7.42 7.35 - 7.45 PCO2, Arterial 38 35 - 45 mmHg [facility] PO2, Arterial 170(H) 83 - 108 mmHg [facility] HCO3 Art (Calculated) 25 20 - 30 mmol/L [facility] BE, art 0 mmol/L [facility] Comment: Interpretive Data No Reference Range Established Current Interpretive Data was last revised on 2017 O2 Sat Art (Measured) 97(H) 90 - 95 % [facility] Blood 12/11/2024 12:0 6 AM CDT 12/11/2024 12:17 AM CDT Paula Reno MD LAB BLOOD ORDERABLES Final Res ult Performing Organization Address [facility] Co de Phone Number DONALDODEYSI GRAJEDA [address] [address] [facility] [place] [address] * Prepare platelets: 2 Units (12/10/2024 8:29 PM CDT) Product code [id number] Unit Number [id number] [facility] Product Blood Type OPOS [facility] Dispense Status PRESUMED TRANSFUSED [facility] Product code [id number] [facility] Unit Number [id number] [facility] Product Blood Type OPOS [facility] Dispense Status PRESUMED TRANSFUSED [facility] Blood Venous blood specimen / Unknown 12/10/2024 8:29 PM CDT Narrative [facility] - 12/12/2024 10:15 AM CDT 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 (all products are leukoreduced)->No Date required:-[id number] PLT # of Units:-2-Units Reasons:-Other (Specify)} Ronaldo Nguyen MD BLOOD BANK PRODUCT ORDERABLE S Final Result Performing Organization Address [facility]/ZIP Co de Phone Number CLARA GRAJEDA [address] [employer] [place], [place] [id number] * POCT glucose (12/10/2024 8:01 PM CDT) Glucose, POC 110 70 - 199 mg/dL POC Performer [id number] [facility] CH Blood 12/10/2024 8:01 PM CDT 12/10/2024 8:01 PM CDT us Paula Reno MD LAB POCT ORDERABLES - DEVICE F inal Result CLARA [address] Department [employer] [place], [place] [id number] * POCT glucose (12/10/2024 7:02 PM CDT) Glucose, POC 124 70 - 199 mg/dL POC Performer [id number] [facility] Blood 12/10/2024 7:02 PM CDT 12/10/2024 7:02 PM CDT Paula Reno MD LAB POCT ORDERABLES - DEVICE F inal Result Performing Organization Address City/[facility]/ZIP Co de Phone Number CLARA GRAJEDA [address] Department [place] [address] * (ABNORMAL) Calcium, ionized, whole blood (12/10/2024 6:58 PM CDT) Ca, ionized, bld 4.48(L) 4.50 - 5.10 mg/dL Blood 12/10/2024 6:58 PM CDT 12/10/2024 7:22 PM CDT Paula Reno MD LAB BLOOD ORDERABLES Final Res ult Performing Organization Address [facility] de Phone Number CLARA GRAJEDA [address] [address] Department [place] [address] * eGFR (12/10/2024 6:58 PM CDT) eGFR [...] MD LAB BLOOD ORDERABLES Final Res ult [facility] [address] Department [place] [address] * (ABNORMAL) Differential, auto (12/10/2024 6:58 PM CDT) Neutrophil abs 6.73(H) 1.50 - 6.50 K/cumm Imm gran abs 0.05 0.00 - 0.10 K/cumm [facility] Lymphocyte abs 2.48 0.80 - 3.30 K/cumm [facility] Monocyte abs 0.81(H) 0.20 - 0.80 K/cumm [facility] Eosinophil abs 0.00 0.00 - 0.50 K/cumm [facility] Basophil abs 0.01 0.00 - 0.10 K/cumm [facility] Neutrophil pct 66.8 % [facility] Comment: Interpretive Data Percent cell count reference ranges are not reported, since discordance with absolute values may lead to misinterpretation of CBC data. Current Interpretive Data was last revised on 2017. Imm gran pct 0.5 % [facility] Comment: Interpretive Data Percent cell count reference ranges are not reported, since discordance with absolute values may lead to misinterpretation of CBC data. Current Interpretive Data was last revised on 2017. Lymphocyte pct 24.6 % [facility] Comment: Interpretive Data Percent cell count reference ranges are not reported, since discordance with absolute values may lead to misinterpretation of CBC data. Current Interpretive Data was last revised on 2017. Monocyte pct 8.0 % [facility] Comment: Interpretive Data Percent cell count reference ranges are not reported, since discordance with absolute values may lead to misinterpretation of CBC data. Current Interpretive Data was last revised on 2017. Eosinophil pct 0.0 % [facility] Comment: Interpretive Data Percent cell count reference ranges are not reported, since discordance with absolute values may lead to misinterpretation of CBC data. Current Interpretive Data was last revised on 2017. Basophil pct 0.1 % [facility] Comment: Interpretive Data Percent cell count reference ranges are not reported, since discordance with absolute values may lead to misinterpretation of CBC data. Current Interpretive Data was last revised on 2017. Blood 12/10/2024 6:58 PM CDT 12/10/2024 7:23 PM CDT Paula Reno MD LAB BLOOD ORDERABLES Final Res ult Performing Organization Address [facility]/ZIP Co de Phone Number CLARA GRAJEDA [address] [place] [address] * (ABNORMAL) CBC with auto differential (12/10/2024 6:58 PM CDT) WBC 10.08(H) 3.80 - 9.90 K/cumm Hgb 10.8(L) 13.0 - 17.5 g/dL [facility] Hct 32.8(L) 38.9 - 50.3 % [facility] Plt 77(L) 150 - 400 K/cumm [facility] Comment:No clot detected in sample. MPV 11.5 9.1 - 12.3 fL [facility] RBC 3.64(L) 4.30 - 5.80 M/cumm [facility] MCV 90.1 81.3 - 96.4 fL [facility] MCH 29.7 27.1 - 33.3 pg [facility] MCHC 32.9 32.3 - 35.7 g/dL [facility] RDW CV 12.9 11.1 - 14.9 % [facility] RDW SD 42.3 35.7 - 48.1 fL [facility] NRBC abs 0.00 0.00 - 0.01 K/cumm [facility] Blood 12/10/2024 6:58 PM CDT 12/10/2024 7:23 PM CDT Paula Reno MD LAB BLOOD ORDERABLES Final Res ult Performing Organization Address City/[facility]/ZIP Co de Phone Number CLARA GRAJEDA [address] Department [place] [address] * Magnesium (12/10/2024 6:58 PM CDT) Magnesium 2.2 1.4 - 2.5 mg/dL Blood 12/10/2024 6:58 PM CDT 12/10/2024 7:21 PM CDT Paula Reno MD LAB BLOOD ORDERABLES Final Res ult Performing Organization Address [facility] de Phone Number CLARA [address] [address] Department [place] [address] * (ABNORMAL) Blood gas, arterial (12/10/2024 6:58 [...] ORDERABLES Final Res ult Performing Organization Address [facility] de Phone Number CLARA [address] [address] [place] Department [employer] [place] [address] * (ABNORMAL) Basic metabolic panel (12/10/2024 6:58 PM CDT) Sodium 137 135 - 145 mmol/L Potassium, pl 4.4 3.3 - 4.9 mmol/L [facility] Chloride 104 97 - 110 mmol/L CERNER [...] 2022. Calcium 8.1(L) 8.5 - 10.3 mg/dL [facility] Blood 12/10/2024 6:58 PM CDT 12/10/2024 7:21 PM CDT Paula Reno MD LAB BLOOD ORDERABLES Final Res ult Performing Organization Address [facility] Co de Phone Number DONALDODEYSI [address] [address] Department [employer] [place] [address] * POCT glucose (12/10/2024 5:55 PM CDT) Glucose, POC 89 70 - 199 mg/dL POC Performer [id number] [facility] Blood 12/10/2024 5:55 PM CDT 12/10/2024 5:55 PM CDT Paula Rneo MD LAB POCT ORDERABLES - DEVICE F inal Result Performing Organization Address City/[facility] Co de Phone Number [facility] [address] [address] Department [place] [address] * POCT glucose (12/10/2024 4:50 PM CDT) Glucose, POC 97 70 - 199 mg/dL POC Performer [id number] [facility] Blood 12/10/2024 4:50 PM CDT 12/10/2024 4:50 PM CDT Paula Reno MD LAB POCT ORDERABLES - DEVICE F inal Result CLARA [address] [facility] Department [place] [address] * XR Chest 1 View - Portable [...] drain in place. The tip of the Hastings-Diane catheter is in the proximal right main [...] drain in place. The tip of the Hastings-Diane catheter is in the proximal right main [...] BLOOD ORDERABLES Final Res ult CLARA GRAJEDA [address] [place] [address] * eGFR (12/10/2024 3:38 PM [...] BLOOD ORDERABLES Final Res ult CLARA GRAJEDA [address] [address] Department [employer] [place], [place] [id number] * (ABNORMAL) aPTT (12/10/2024 3:38 PM CDT) [...] ORDERABLES Final Res ult Performing Organization Address City/[facility] Co de Phone Number [facility] [address] [address] Department [place] [address] * (ABNORMAL) Protime-INR (12/10/2024 3:38 PM CDT) [...] ORDERABLES Final Res ult Performing Organization Address City/[facility]/ZIP Co de Phone Number CLARA [address] [address] Department [place] [address] * (ABNORMAL) CBC without differential (12/10/2024 3:38 PM CDT) WBC 12.69(H) 3.80 - 9.90 K/cumm Hgb 11.6(L) 13.0 - 17.5 g/dL CLARA Hct 34.7(L) 38.9 - 50.3 % CLARA Plt 71(L) 150 - 400 K/cumm [facility] CH Comment:No clot detected in sample. MPV 10.9 9.1 - 12.3 fL CERNER RBC 3.87(L) 4.30 - 5.80 M/cumm [facility] CH MCV 89.7 81.3 - 96.4 fL [facility]ERNER CH MCH 30.0 27.1 - 33.3 pg CERNER MCHC 33.4 32.3 - 35.7 g/dL [facility] CH RDW CV 12.8 11.1 - 14.9 % [facility]ERNER CH RDW SD 42.0 35.7 - 48.1 fL [facility] NRBC abs 0.00 0.00 - 0.01 K/cumm [facility] Blood 12/10/2024 3:38 PM CDT 12/10/2024 3:46 PM CDT Paula Reno MD LAB BLOOD ORDERABLES Final Res ult Performing Organization Address [facility] de Phone Number [facility] [address] [address] Department [employer] [place] [address] * Magnesium (12/10/2024 3:38 PM CDT) Pathologist [facility] Magnesium 2.4 1.4 - 2.5 mg/dL Blood 12/10/2024 3:38 PM CDT 12/10/2024 3:44 PM CDT Paula Reno MD LAB BLOOD ORDERABLES Final Res ult Performing Organization Address [facility] de Phone Number [facility] [address] [address] Department [employer] [place] [address] * (ABNORMAL) Blood gas, arterial (12/10/2024 3:38 PM CDT) pH, Art 7.39 7.35 - 7.45 PCO2, Arterial 37 35 - 45 mmHg [facility] PO2, Arterial 275(H) 83 - 108 mmHg [facility] HCO3 Art (Calculated) 22 20 - 30 mmol/L [facility] BE, art -2 mmol/L [facility] Comment: Interpretive Data No Reference Range Established Current Interpretive Data was last revised on 2017 O2 Sat Art (Measured) 100(H) 90 - 95 % [facility] Blood 12/10/2024 3:38 PM CDT 12/10/2024 3:44 PM CDT Paula Reno MD LAB BLOOD ORDERABLES Final Res ult Performing Organization Address City/[facility] Co de Phone Number [facility] [address] [address] Department [place] [address] * (ABNORMAL) Basic metabolic panel (12/10/2024 3:38 PM CDT) Sodium 138 135 - 145 mmol/L Potassium, pl 4.2 3.3 - 4.9 mmol/L [facility] Chloride 106 97 - 110 mmol/L [facility] CO2 22 22 - 32 mmol/L [facility] Anion gap 10 2 - 15 mmol/L [facility] BUN 14 6 - 25 mg/dL CERNER Creatinine 0.99 0.80 - 1.30 mg/dL [facility] CH Glucose 129 70 - 199 mg/dL CERNER Comment: Interpretive [...] 2022. Calcium 8.3(L) 8.5 - 10.3 mg/dL [facility] Blood 12/10/2024 3:38 PM CDT 12/10/2024 3:44 PM CDT Paula Reno MD LAB BLOOD ORDERABLES Final Res ult Performing Organization Address City/[facility]/ZIP Co de Phone Number [facility] [address] [address] Department [place] [address] * Critical Care (12/10/2024 3:30 PM CDT) Narrative Fred Kaur MD - 12/10/2024 3:30 PM CDT Fred Kaur MD 12/11/2024 6:14 AM Critical Care Performed by: Fred Kaur MD Authorized by: Fred Kaur MD CRITICAL CARE: Team: NE Shift: AM Level of Billing: Critical Care [...] plan with the ICU team and other medical/taxation consultant staff, making frequent assessments and decisions [...] spent time documenting in the medical record us Fred Kaur MD IN CLINIC/BEDSIDE ORDERA BLES Final Result * POCT glucose (12/10/2024 3:14 PM CDT) [facility] Glucose, POC 129 70 - 199 mg/dL POC Performer [id number] [facility] Blood 12/10/2024 3:14 PM CDT 12/10/2024 3:14 PM CDT us Paula Reno MD LAB POCT ORDERABLES - DEVICE F inal Result Performing Organization Address City/[facility]/ZIP Co de Phone Number CLARA GRAJEDA [address] [address] Department [place] [address] * (ABNORMAL) POC Blood Gas and Chemistries, [...] Hb, POC 9.4(L) 13.0 - 17.5 g/dL [facility] Blood 12/10/2024 2:13 PM CDT 12/10/2024 2:13 PM CDT Keyla Basurto MD LAB POCT ORDERABLES - DEVIC E Final Result Performing Organization Address City/[facility]/ZIP Co de Phone Number CLARA GRAJEDA [address] [address] [place] Department [place] [address] * POC Activated Clotting Time, High Range (12/10/2024 2:10 PM CDT) ACT 137 87 - 138 sec POC Performer [id number] CERNER Blood 12/10/2024 2:10 PM CDT 12/10/2024 2:10 PM CDT Keyla Basurto MD LAB BLOOD ORDERABLES Final Result Performing Organization Address [facility] Co de Phone Number [facility] [address] [address] Department [place] [address] * Transfuse platelets (12/10/2024 2:00 PM CDT) Blood Primitivo Horne MD BLOOD TRANSFUSION ORDERABLES Fin al Result Performing Organization Address [facility] Co de Phone Number [facility] [address] [address] Department [place] [address] * (ABNORMAL) Platelet count (12/10/2024 1:23 PM CDT) Pathologist [facility] Plt 131(L) 150 - 400 K/cumm Blood 12/10/2024 1:23 PM CDT 12/10/2024 1:30 PM CDT Narrative [facility] - 12/10/2024 1:38 PM CDT Please call ext. [phone] with results Paula Reno MD LAB BLOOD ORDERABLES Final Res ult Performing Organization Address [facility] Co de Phone Number [facility] [address] [address] Department [place] [address] * (ABNORMAL) POC Blood Gas and Chemistries, [...] DEVIC E Final Result Performing Organization Address City/[facility]/ZIP Co de Phone Number CLARA GRAJEDA [address] [place] [address] * (ABNORMAL) POC Activated Clotting Time, High Range (12/10/2024 1:11 PM CDT) ACT 475(H) 87 - 138 sec POC Performer [id number] [facility] Blood 12/10/2024 1:11 PM CDT 12/10/2024 1:11 PM CDT Keyla Basurto MD LAB BLOOD ORDERABLES Final Result CLARA GRAJEDA [address] [address] [place] Department [employer] [place] [address] * (ABNORMAL) POC Blood Gas and Chemistries, [...] 3 PM CDT 12/10/2024 12:23 PM CDT us Keyla Basurto MD LAB POCT ORDERABLES - DEVIC E Final Result CLARA GRAJEDA [address] [address] Department [place] [address] * (ABNORMAL) POC Activated Clotting Time, High Range (12/10/2024 12:20 PM CDT) ACT 530(H) 87 - 138 sec POC Performer [id number] [facility] Blood 12/10/2024 12:2 0 PM CDT 12/10/2024 12:20 PM CDT Keyla Basurto MD LAB BLOOD ORDERABLES Final Result Performing Organization Address [facility] Co de Phone Number CLARA GRAJEDA [address] [address] [facility] [place] [address] * (ABNORMAL) POC Activated Clotting Time, High Range (12/10/2024 11:29 AM CDT) ACT 579(H) 87 - 138 sec POC Performer [id number] [facility] Blood 12/10/2024 11:2 9 AM CDT 12/10/2024 11:29 AM CDT Result [facility] Keyla Basurto MD LAB BLOOD ORDERABLES Final Result Performing Organization Address [facility] de Phone Number CLARA [address] [address] [facility] [place] [address] * BW AN SHEATH INTRODUCER PERFORMABLE, PULMONARY [...] Peripheral IV Catheter (12/10/2024 9:59 AM CDT) Vivek Eldridge AA - 12/10/2024 9:59 AM CDT Vivek [...] patient tolerated procedure well with no complications Primitivo Horne MD ANESTHESIA ORDERABLES Final Resu lt * Arterial Line (12/10/2024 9:56 AM CDT) Vivek Eldridge AA - 12/10/2024 9:56 AM CDT Vivek [...] MD ANESTHESIA ORDERABLES Final Resu lt * OR AN ELECTIVE ENDOTRACHEAL AIRWAY (12/10/2024 9:55 AM [...] inferior: normal 16- Apical septal: normal 17- [place]: normal Valves: Aortic Valve: Annulus: normal Leaflet [...] Hct, POC 41.0 38.9 - 50.3 % [facility] Total Hb, POC 13.7 13.0 - 17.5 g/dL [facility] Blood 12/10/2024 9:51 AM CDT 12/10/2024 9:51 AM CDT Keyla Basurto MD LAB POCT ORDERABLES - [place] [address] [address] [place] [address] * POC Activated Clotting Time, High Range (12/10/2024 9:48 AM CDT) ACT 98 87 - 138 sec POC Performer [id number] CLARA TARAS Blood 12/10/2024 9:48 AM CDT 12/10/2024 9:48 AM CDT us Keyla Basurto MD LAB BLOOD ORDERABLES Final Result CLARA GRAJEDA [id number] [place] [address] [place] [address] * TRANSTHORACIC ECHO (TTE) COMPLETE W DOPPLER/CF WO CONTRAST (12/10/2024 9:08 AM CDT) Pathologist [facility] LV EF 60 % CONS SCIMAGE Anatomical Region Laterality Modality Ultrasound 12/10/2024 8:26 AM CDT Narrative 12/10/2024 12:32 PM CDT [place] [id number] Echocardiogram Report Patient Name: KHAI MONAE : 1960 Study Date: 12/10/2024 8:26:19 AM Gender: M Tech: Location: 3527 Ref Provider: RAI REDDY Height(Cm): 188 BSA: [...] Procedure Note Jaida Rahman MD - 12/10/2024 [place] [address] Echocardiogram Report Patient Name: KHAI MONAE : 1960 Study Date: 12/10/2024 8:26:19 AM Gender: M Tech: RF Location: 3527 Ref Provider: RAI REDDY Height(Cm): 188 BSA: [...] ABO Rh O Positive Raegan, indirect Negative [facility] Blood 12/10/2024 8:18 AM CDT 12/10/2024 8:26 AM CDT Narrative CLARA CH - 12/10/2024 9:07 AM CDT Has the patient had Daratumumab or Isatuximab in the past 6 months?->Unknown Rai Reddy NP LAB BLOOD BANK TEST ORDERAB LES Final Result [facility] [address] [address] Department of Laboratories [place] [phone] * XR Chest 1 Vw Portable (12/10/2024 [...] Units (12/10/2024 8:00 AM CDT) Product code [id number] [facility] Unit Number [id number] [facility] Product Blood Type OPOS [facility]ER CH Dispense Status PRESUMED TRANSFUSED [facility] Product code C1238D74 Unit Number [id number] [facility] CH Product Blood Type OPOS CERNER CH Dispense Status RETURNED [facility] CH Product code [id number] [facility] CH Unit Number [id number] [facility] CH Product Blood Type OPOS CERNER CH Dispense Status PRESUMED TRANSFUSED [facility] CH Blood Venous blood specimen / Unknown 12/10/2024 8:00 AM CDT Narrative [facility] - 12/12/2024 10:15 AM CDT Specify Procedure:->CABG Are special requirements needed? (all products are leukoreduced)->No Date required:-20241210 PLT # of Units:-4-Units Reasons:-Hold for procedure (specify procedure)} us Rai Reddy NP BLOOD BANK PRODUCT ORDERABL ES Final Result [facility] [address] [address] Department [place] [address] * Prepare RBC: 4 Units (12/10/2024 8:00 AM CDT) Product code [id number] [facility] CH Unit Number [id number] 2-7 [facility] CH Product Blood Type OPOS [facility]ER CH Dispense Status RETURNED [facility]ER CH Product code [id number] [facility]ER CH Unit Number [id number] 2-B [facility]ER CH Product Blood Type OPOS CERNER CH Dispense Status RETURNED [facility]ERNER CH Product code M0144R12 Unit Number [id number] 1-2 [facility]ER CH Product Blood Type OPOS CERNER CH Dispense Status RETURNED [facility]ERNER CH Product code H4759P11 [facility]ER CH Unit Number [id number] 2-F [facility]ER CH Product Blood Type OPOS CERNER CH Dispense Status RETURNED [facility] CH Blood 12/10/2024 8:00 AM CDT Narrative [facility] - 12/14/2024 12:29 AM CDT Specify Procedure:->CABG Are special requirements needed? (All products are leukoreduced and CMV- safe)- >No Date required:-20241210 LRRBC # of [id number] Reasons:-Hold for procedure (specify procedure)} Rai Reddy NP BLOOD BANK PRODUCT ORDERABL ES Final Result Performing Organization Address [facility] Co de Phone Number CLARA GRAJEDA [address] [address] [place] Department [employer] [place], [place] [address] * (ABNORMAL) aPTT (12/10/2024 6:40 AM CDT) aPTT 71(H) 28 - 38 sec Comment: Interpretive Data Heparin therapeutic range: 66.0 - 100.0 seconds. Range based on correlation with therapeutic heparin activity range of 0.3 - 0.7 Units/mL. Current interpretive data was last revised on 2023. Blood 12/10/2024 6:40 AM CDT 12/10/2024 6:47 AM CDT Isra Romero MD LAB BLOOD ORDERABLES Final R esult CLARA GRAJEDA [address] [address] Department [place] [address] * eGFR (12/10/2024 12:12 AM CDT) Pathologist [facility] eGFR 65 >=60 mL/min/1. 73 m2 Comment: [...] 12/10/2024 12:22 AM CDT us Shannan Segundo MACHINE CONTAINER WASHER LAB BLOOD ORDERABLES Final Res ult [facility] [address] [address] Department [place] [address] * (ABNORMAL) Differential, auto (12/10/2024 12:12 AM CDT) Neutrophil abs 4.77 1.50 - 6.50 K/cumm Imm gran abs 0.02 0.00 - 0.10 K/cumm [facility] Lymphocyte abs 3.28 0.80 - 3.30 K/cumm [facility] Monocyte abs 1.38(H) 0.20 - 0.80 K/cumm [facility] Eosinophil abs 0.03 0.00 - 0.50 K/cumm [facility] Basophil abs 0.03 0.00 - 0.10 K/cumm [facility] Neutrophil pct 50.2 % [facility] Comment: Interpretive Data Percent cell count reference ranges are not reported, since discordance with absolute values may lead to misinterpretation of CBC data. Current Interpretive Data was last revised on 2017. Imm gran pct 0.2 % [facility] Comment: Interpretive Data Percent cell count reference ranges are not reported, since discordance with absolute values may lead to misinterpretation of CBC data. Current Interpretive Data was last revised on 2017. Lymphocyte pct 34.5 % [facility] Comment: Interpretive Data Percent cell count reference ranges are not reported, since discordance with absolute values may lead to misinterpretation of CBC data. Current Interpretive Data was last revised on 2017. Monocyte pct 14.5 % [facility] Comment: Interpretive Data Percent cell count reference ranges are not reported, since discordance with absolute values may lead to misinterpretation of CBC data. Current Interpretive Data was last revised on 2017. Eosinophil pct 0.3 % [facility] Comment: Interpretive Data Percent cell count reference ranges are not reported, since discordance with absolute values may lead to misinterpretation of CBC data. Current Interpretive Data was last revised on 2017. Basophil pct 0.3 % [facility] Comment: Interpretive Data Percent cell count reference ranges are not reported, since discordance with absolute values may lead to misinterpretation of CBC data. Current Interpretive Data was last revised on 2017. Blood 12/10/2024 12:1 2 AM CDT 12/10/2024 12:22 AM CDT us Shannan Segundo MACHINE CONTAINER WASHER LAB BLOOD ORDERABLES Final Res ult [facility] [address] [address] Department [place] [address] * (ABNORMAL) CBC with auto differential (12/10/2024 12:12 AM CDT) WBC 9.51 3.80 - 9.90 K/cumm Hgb 13.4 13.0 - 17.5 g/dL [facility] Hct 40.9 38.9 - 50.3 % [facility] Plt 89(L) 150 - 400 K/cumm [facility] MPV 10.8 9.1 - 12.3 fL [facility] RBC 4.52 4.30 - 5.80 M/cumm [facility] MCV 90.5 81.3 - 96.4 fL [facility] MCH 29.6 27.1 - 33.3 pg [facility] MCHC 32.8 32.3 - 35.7 g/dL [facility] RDW CV 13.0 11.1 - 14.9 % [facility] RDW SD 42.6 35.7 - 48.1 fL [facility] NRBC abs 0.00 0.00 - 0.01 K/cumm [facility] Morphologic Screen Results confirmed by manual morphology review. [facility] Blood 12/10/2024 12:1 2 AM CDT 12/10/2024 12:22 AM CDT Shannan Segundo MACHINE CONTAINER WASHER LAB BLOOD ORDERABLES Final Res ult Performing Organization Address [facility] de Phone Number CLARA [address] [address] Department [place] [address] * (ABNORMAL) aPTT (12/10/2024 12:12 AM CDT) aPTT 70(H) 28 - 38 sec Comment: Interpretive Data Heparin therapeutic range: 66.0 - 100.0 seconds. Range based on correlation with therapeutic heparin activity range of 0.3 - 0.7 Units/mL. Current interpretive data was last revised on 2023. Blood 12/10/2024 12:1 2 AM CDT 12/10/2024 12:22 AM CDT Result [facility] Isra Romero MD LAB BLOOD ORDERABLES Final R esult Performing Organization Address [facility] de Phone Number [facility] [address] [address] Department [place] [address] * Magnesium (12/10/2024 12:12 AM CDT) Magnesium 2.0 1.4 - 2.5 mg/dL Blood 12/10/2024 12:1 2 AM CDT 12/10/2024 12:22 AM CDT Shannan Segundo MACHINE CONTAINER WASHER LAB BLOOD ORDERABLES Final Res ult Performing Organization Address [facility] de Phone Number CLARA [address] [address] Department [place] [address] * Hemoglobin A1c (12/10/2024 12:12 AM CDT) Hgb A1C 5.4 4.0 - 5.6 % Estimated Average Glucose 108 mg/dL [facility] Comment: The ADA recommends reporting an estimated Average Glucose (eAG) with all Hemoglobin A1c results using the equation derived from a study of 507 normal and diabetic adults. Minority populations were underrepresented and children were not included. (Diabetes Care 31:1215-9939, 2008). The eAG is not equivalent to a fasting glucose. Blood 12/10/2024 12:1 2 AM CDT 12/10/2024 12:22 AM CDT Paula Reno MD LAB BLOOD ORDERABLES Final Res ult [facility] [address] [address] Department of Laboratories [place] [phone] * Basic metabolic panel (12/10/2024 12:12 AM CDT) Sodium 139 135 - 145 mmol/L Potassium, pl 4.4 3.3 - 4.9 mmol/L [facility] Chloride 106 97 - 110 mmol/L [facility] CO2 23 22 - 32 mmol/L [facility] Anion gap 10 2 - 15 mmol/L [facility] BUN 18 6 - 25 mg/dL [facility] Creatinine 1.24 0.80 - 1.30 mg/dL [facility] Glucose 115 70 - 199 mg/dL [facility] Comment: Interpretive Data Fasting glucose >/= 126 [...] 2022. Calcium 9.2 8.5 - 10.3 mg/dL [facility] Blood 12/10/2024 12:1 2 AM CDT 12/10/2024 12:22 AM CDT Shannan Segundo MACHINE CONTAINER WASHER LAB BLOOD ORDERABLES Final Res ult Performing Organization Address [facility] de Phone Number CLARA GRAJEDA [address] [address] [facility] [place] [address] * Protime-INR (12/09/2024 6:40 PM CDT) PT [...] 6:40 PM CDT 12/09/2024 6:40 PM CDT us Shannan Segundo NP LAB BLOOD ORDERABLES Final Res ult Performing Organization Address [facility] de Phone Number CLARA GRAJEDA [address] [place] [address] * eGFR (12/09/2024 6:03 PM CDT) eGFR [...] 12/09/2024 6:40 PM CDT us Shannan Segundo MACHINE CONTAINER WASHER LAB BLOOD ORDERABLES Final Res ult [facility] [address] [address] Department [place] [address] * (ABNORMAL) Differential, auto (12/09/2024 6:03 PM CDT) Neutrophil abs 5.76 1.50 - 6.50 K/cumm Imm gran abs 0.02 0.00 - 0.10 K/cumm [facility] Lymphocyte abs 4.92(H) 0.80 - 3.30 K/cumm [facility] Monocyte abs 1.76(H) 0.20 - 0.80 K/cumm [facility] Eosinophil abs 0.05 0.00 - 0.50 K/cumm [facility] Basophil abs 0.03 0.00 - 0.10 K/cumm [facility] Neutrophil pct 46.0 % [facility] Comment: Interpretive Data Percent cell count reference ranges are not reported, since discordance with absolute values may lead to misinterpretation of CBC data. Current Interpretive Data was last revised on 2017. Imm gran pct 0.2 % [facility] Comment: Interpretive Data Percent cell count reference ranges are not reported, since discordance with absolute values may lead to misinterpretation of CBC data. Current Interpretive Data was last revised on 2017. Lymphocyte pct 39.2 % [facility] Comment: Interpretive Data Percent cell count reference ranges are not reported, since discordance with absolute values may lead to misinterpretation of CBC data. Current Interpretive Data was last revised on 2017. Monocyte pct 14.0 % [facility] Comment: Interpretive Data Percent cell count reference ranges are not reported, since discordance with absolute values may lead to misinterpretation of CBC data. Current Interpretive Data was last revised on 2017. Eosinophil pct 0.4 % [facility] Comment: Interpretive Data Percent cell count reference ranges are not reported, since discordance with absolute values may lead to misinterpretation of CBC data. Current Interpretive Data was last revised on 2017. Basophil pct 0.2 % [facility] Comment: Interpretive Data Percent cell count reference ranges are not reported, since discordance with absolute values may lead to misinterpretation of CBC data. Current Interpretive Data was last revised on 2017. Blood 12/09/2024 6:03 PM CDT 12/09/2024 6:41 PM CDT us Shannan Segundo MACHINE CONTAINER WASHER LAB BLOOD ORDERABLES Final Res ult [facility] [address] [address] Department [place] [address] * (ABNORMAL) CBC with auto differential (12/09/2024 6:03 PM CDT) WBC 12.54(H) 3.80 - 9.90 K/cumm Hgb 13.9 13.0 - 17.5 g/dL [facility] Hct 41.5 38.9 - 50.3 % [facility] Plt 101(L) 150 - 400 K/cumm [facility] Comment:No clot detected in sample. MPV 11.1 9.1 - 12.3 fL [facility] RBC 4.58 4.30 - 5.80 M/cumm [facility] MCV 90.6 81.3 - 96.4 fL [facility] MCH 30.3 27.1 - 33.3 pg [facility] MCHC 33.5 32.3 - 35.7 g/dL [facility] RDW CV 13.2 11.1 - 14.9 % [facility] RDW SD 43.7 35.7 - 48.1 fL [facility] NRBC abs 0.00 0.00 - 0.01 K/cumm [facility] Morphologic Screen Results confirmed by manual morphology review. [facility] Blood 12/09/2024 6:03 PM CDT 12/09/2024 6:41 PM CDT us Shannan Segundo NP LAB BLOOD ORDERABLES Final Res ult Performing Organization Address [facility] de Phone Number CLARA GRAJEDA [address] [facility] [place] [address] * (ABNORMAL) aPTT (12/09/2024 6:03 PM CDT) [...] Res ult Performing Organization Address [facility] de Phone Number DONALDODEYSI [address] [address] [facility] [place] [address] * Protime-INR (12/09/2024 6:03 PM CDT) PT 11.6 9.7 - 13.0 sec INR 1.07 0.90 - 1.20 CLARA GRAJEDA Comment: Interpretive data Oral anticoagulant therapeutic ranges: Venous thromboembolism prophylaxis or treatment: 2.0-3.0 CARDIOLOGY Standard range: 2.0-3.0 High-intensity range: 2.5-3.5 Refer to indication-specific guidelines for appropriate target ranges for prosthetic heart valve replacement. Current interpretive data was last revised on 2019. Blood 12/09/2024 6:03 PM CDT 12/09/2024 6:40 PM CDT Narrative CLARA GRAJEDA - 12/09/2024 6:54 PM CDT Baseline prior to heparin initiation us Shannan Segundo MACHINE CONTAINER WASHER LAB BLOOD ORDERABLES Final Res ult Performing Organization Address [facility] de Phone Number CLARA GRAJEDA [address] [address] Department [place] [address] * Magnesium (12/09/2024 6:03 PM CDT) Pathologist [facility] Magnesium 2.0 1.4 - 2.5 mg/dL Blood 12/09/2024 6:03 PM CDT 12/09/2024 6:40 PM CDT Shannan Segundo NP LAB BLOOD ORDERABLES Final Res ult Performing Organization Address [facility] Co de Phone Number CLARA GRAJEDA [address] [address] Department [place] [address] * (ABNORMAL) Comprehensive metabolic panel (12/09/2024 6:03 PM CDT) Pathologist [facility] Sodium 137 135 - 145 mmol/L Potassium, pl 4.4 3.3 - 4.9 mmol/L [facility] Chloride 104 97 - 110 mmol/L [facility] CO2 21(L) 22 - 32 mmol/L [facility] Anion gap 12 2 - 15 mmol/L [facility] BUN 15 6 - 25 mg/dL [facility] Creatinine 1.20 0.80 - 1.30 mg/dL [facility] Glucose 99 70 - 199 mg/dL [facility] Comment: Interpretive Data Fasting glucose >/= 126 [...] classification and Diagnosis of Diabetes Diabetes Care 202; 46: S19-S40. Current interpretive data was last [...] CDT 12/09/2024 6:40 PM CDT Shannan Segundo MACHINE CONTAINER WASHER LAB BLOOD ORDERABLES Final Res ult CLARA GRAJEDA [address] [address] Department [place] [address] * Calcium, ionized, whole blood (12/09/2024 5:57 PM CDT) Ca, ionized, bld 4.64 4.50 - 5.10 mg/dL Blood 12/09/2024 5:57 PM CDT 12/09/2024 6:52 PM CDT Shannan Segundo MACHINE CONTAINER WASHER LAB BLOOD ORDERABLES Final Res ult Performing Organization Address [facility] Co de Phone Number CLARA GRAJEDA [address] [address] Department [place] [address] * Cardiology Document Scan (12/09/2024 11:37 AM CDT) Anatomical Region Laterality Modality Other us Peggy Huitron MD [facility] PROCEDU RES Final Result * Cardiology Document Scan (12/09/2024 11:31 AM CDT) Anatomical Region Laterality Modality Other us Peggy Huitron MD CV CARDIAC SERVICES PROCEDU RES Final Result from Last 3 Months Insurance [facility] MEDICAID [facility] IDAR [facility] MEDICAID [facility] IDPA Advance Directives For more information, please contact: [phone] * Full Code (Latest Code Status on File) Date Activated Date Inactivated Comments 12/09/2024 5:47 PM 12/15/2024 9:07 PM Care Teams Curriculum Manager Relationship Specialty Start Date End Date Guillermo Painting MD [address] [place] [address] PCP - General 11/05/17 Cj Holloway MD [address] [place] [address] Medical Oncologist/Hematologis t Hematology and Oncology 04/17/18 Paula Reno MD [id number] [place] [address] Surgeon Cardiothoracic Surgery 12/15/24 Miscellaneous, Not In File 12/15/24
--- OUTSIDE RECORDS SUMMARY | 2025-01-30 18:30 | XMS_ITS | Clinical Summary ---
Author Organization [facility] Address [address] [place] [address] Phone Care Team Providers Care Window Glazier Name Role Phone Guillermo Mcnamara MD Primary Care Provider [phone] Allergies No known active allergies Medications cetirizine [...] 10:29 AM CDT Height 188 cm (6' 2) 01/11/2019 10:29 AM CDT Body Mass Index 26.45 01/11/2019 10:29 AM CDT Plan of Treatment Health Maintenance Due Date Last Done Comments Influenza Vaccine (Season Ended) 2025 Insurance [employer] Care Teams Window Glazier Relationship Specialty Start Date End Date Guillermo Mcnamara MD [address] [address] PCP - General Family Medicine 11/29/18
[2025-01-30] MEDS: ACETAMINOPHEN 325 MG TABLET 650 MG PO (21:04)
[2025-01-30 21:09] LABS: Basophils Absolute Auto 0.1 K/mm3 (0.0-0.1); Basophils Percent Auto 0.4 % (0.2-1.2); Hematocrit 42.8 % (42.0-52.0); Hemoglobin 13.4 g/dL (14.0-18.0); Immature Granulocyte Absolute 0.09 K/mm3 (0.00-0.031); Immature Granulocyte Percent A 0.5 % (0-0.5); Lymphocytes Percent Auto 30.8 % (18.3-44.2); Mean Corpuscular HGB Conc 31.3 g/dl (32-36); Mean Corpuscular Hemoglobin 30.6 pg (26-34); Mean Corpuscular Volume 97.7 fl (80-100); Mean Platelet Volume 10.3 fl (7.4-10.4); Monocytes Percent Auto 5.5 % (2.6-8.5); Neutrophils Absolute Auto 11.9 K/mm3 (1.3-6.7); Neutrophils Percent Auto 62.8 % (45.5-73.1); Platelet Count Result 116 k/mm3 (150-375); Red Blood Count 4.38 M/mm3 (4.6-6.20); Red Cell Distribution Width 14.8 % (11.5-14.5); White Blood Count 18.9 K/mm3 (4.5-10.0)
[2025-01-30 21:18] LABS: Lactic Acid Reflex 1.3 mmol/L (0.7-2.0)
[2025-01-30 21:19] LABS: Alanine Aminotransferase 28 U/L (6-50); Albumin Level 4.2 g/dL (3.5-5.1); Alkaline Phosphatase 78 U/L (38-126); Anion Gap 10 mmol/L (4-12); Aspartate Amino Transferase 30 U/L (17-59); Bilirubin,Total 1.2 mg/dL (0.2-1.3); Blood Urea Nitrogen 20 mg/dL (9-20); Calcium 9.2 mg/dL (8.4-10.2); Carbon Dioxide 18 mmol/L (22-30); Chloride 106 mmol/L (98-107); Estimated CRCL calculation 62 ml/min; Estimated Glomerular Filt Rate 60; Glucose 121 mg/dL (65-110); Magnesium 1.9 mg/dL (1.6-2.3); Potassium 4.5 mmol/L (3.4-5.0); Sodium 134 mmol/L (137-145); Total Protein 6.9 g/dL (6.3-8.2)
--- OUTSIDE RECORDS SUMMARY | 2025-01-30 21:21 | XMS_ITS | Encounter Summary ---
Author Organization [facility] Healthcare Address [address] [place] [address] Care Team Providers Care Community Reinvestment Act Officer Name Role Phone Guillermo Painting MD Primary Care Prov ider Cj Holloway MD Unavailable [phone] Paula Reno MD Unavailable [phone] Miscellaneous, Not In File Unavailable Unava ilable Encounter Details Date Type Department Care Team (Late st Contact Info) Description 12/28/2024 [facility] Post Discharge Follow up phone call [facility] [address] [place] [address] Nafisa Patterson Social History Tobacco [...] materials from doctor or pharmacy Never 12/17/2024 [facility] Utilities Answer Date Recorded In the [...] often do you attend chur ch or restorationism services? Never 12/14/2024 Do you belong to any clubs o r organizations such as anglican groups, unions, fraternal or athletic groups, or [...] any time in the past 12 m [facility], were you homeless or living in a care home (including now)? No 12/14/2024 Personal Safety Answer Date Recorded Have you ever been in or are you currently in a harmful physical or emotional relationship or is someone making you feel afraid or unsafe? 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 Gender Identity Male 06/24/2018 12:51 PM CDT Sexual Orientation Not on file documented as of this encounter Plan of Treatment Not on file documented as of this encounter Visit Diagnoses Not on filedocumented in this encounter Care Teams Community Reinvestment Act Officer Relationship Specialty Start Date End Date Guillermo Painting MD [address] [place] [address] PCP - General 11/05/17 Cj Holloway MD [address] [place] [address] Medical Oncologist/Hematologis t Hematology and Oncology 04/17/18 Paula Reno MD [id number] [place] [address] Surgeon Cardiothoracic Surgery 12/15/24 Miscellaneous, Not In File 12/15/24 documented as of this encounter
--- OUTSIDE RECORDS SUMMARY | 2025-01-30 21:21 | XMS_ITS | Clinical Summary ---
Author Organization [facility] Address [address] [place] [address] Care Team Providers Care Wave Soldering Machine Operator Name Role Phone Guillermo Painting MD Primary Care Provider [phone] Allergies No known active allergies Medications No [...] on file Legal Sex Male 10:04 AM RN POOL Gender Identity Not on file Sexual Orientation Not on file Last Filed Vital Signs Vital Sign [place] Time Taken Comments Blood Pressure 139/89 07/26/2024 9:12 AM RN POOL Pulse 64 07/26/2024 9:12 AM RN POOL Temperature 36.5 C (97.7 F) 07/26/2024 9:12 AM RN POOL Respiratory Rate 14 07/26/2024 9:12 AM RN POOL Oxygen Saturation 98% 07/26/2024 9:12 AM RN POOL Inhaled Oxygen Concentration - - Weight 88 kg (194 lb) 07/26/2024 9:12 AM RN POOL Height 188 cm (6' 2) 01/03/2022 8:52 [...] VACCINE (#1) 2024 8, 07/09/2017, 05/29/2016 Insurance [id number] [facility] [place] [id number] [facility] MEDICAID Care Teams Wave Soldering Machine Operator Relationship Specialty Start Date End Date Guillermo Painting MD PCP - General Family Practice 10/07/18
--- OUTSIDE RECORDS SUMMARY | 2025-01-30 21:21 | XMS_ITS | Referral Summary ---
Author Organization [facility] Address [address] [place] [address] Care Team Providers Care Machine Operations Supervisor Name Role Phone Guillermo Painting MD Primary Care Prov ider Cj Holloway MD Unavailable [phone] Paula Reno MD Unavailable Miscellaneous, Not In File Unavailable Unava ilable Encounters Date Type Department Care Team Description 01/14/2025 4:00 PM CDT Home Care Visit [address] [address] [address] [place] [address] Leonora Borjas RN SN OASIS DISCHARGE 01/13/2025 11:30 AM CDT Office Visit [facility] Surgery [address] [facility] [facility] [address] [place] [address] Paula Reno MD 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 (HCC) (Primary Dx) 01/11/2025 Telephone [facility] Cardiology [address] [facility] [place] [address] Cookie Sykes NP 01/07/2025 1:00 PM CDT Home Care Visit [address] [place] [address] Kayleigh Gay RN SN HOME VISIT 01/07/2025 10:30 AM CDT Office Visit [facility] Cardiology [address] [place] [phone] Cookie Sykes NP Postoperative atrial fibrillation (HCC) (Primary Dx); Coronary artery disease involving yocha dehe coronary artery of yocha dehe heart without angina pectoris; Hx of CABG; Hospital discharge follow-up 01/03/2025 12:00 PM CDT Home Care Visit [address] [place] [address] Kayleigh Gay RN SN HOME VISIT 12/30/2024 12:15 PM CDT Home Care Visit [address] [place] [address] Noris Hicks RN SN HOME VISIT 12/28/2024 [facility] Post Discharge Follow up phone call [facility] [address] [place] [address] Nafisa Patterson 12/27/2024 10:00 AM CDT Home Care Visit [address] [place] [address] Kayleigh Gay RN SN HOME VISIT 12/24/2024 11:00 AM CDT Home Care Visit [address] [place] [address] Kayleigh Gay RN SN HOME VISIT 12/22/2024 Home Care Visit [address] [place] [address] Kayleigh Gay RN CARE CONFERENCE 12/21/2024 Documentation [facility] Surgery [address] [place] [address] Rai Reddy NP 12/21/2024 11:38 AM CDT - 12/21/2024 11:59 PM CDT Hospital Encounter [facility] [address] [place] [address] Discharge Disposition: Discharge to home or self care 12/21/2024 12:00 PM CDT Home Care Visit [address] [place] [address] Kayleigh Gay RN SN HOME VISIT 12/20/2024 Home Care Visit [address] [place] [address] Nicky Brown RN SN TRIAGE ENCOUNTER 12/19/2024 Plan of Care Documentation [address] [place] [address] 12/17/2024 10:00 AM CDT Home Care Visit [address] [place] [address] Tori Gee RN SN OASIS START OF CARE 12/15/2024 Telephone [facility] Home Care Services [address] [place] [address] Gene Hayden MA 12/15/2024 Telephone [facility] Cardiology [address] [facility] [address], [place] [phone] Shazia Amaya NP 12/15/2024 Orders Only [facility] Cardiology [address] [place] [phone] Peggy Huitron MD 12/09/2024 5:41 PM CDT - 12/15/2024 5:02 PM CDT Hospital Encounter [address] [address] Isra Romero MD Myla, Lathamanjari, MD Ray, Shuddhadeb, MD CAD, multiple vessel (Primary Dx); Coronary artery disease involving yocha dehe coronary artery of yocha dehe heart without angina pectoris Discharge Disposition: Discharge to home, home health skilled care 12/10/2024 9:15 AM CDT Anesthesia Event [facility] Operating Room [address] [place] [address] Primitivo Horne MD 12/10/2024 8:30 AM CDT - 12/10/2024 2:40 PM CDT Surgery [facility] Operating Room [address] [place] [address] Paula Reno MD CORONARY ARTERY BYPASS GRAFT [...] Diagnosed Date Coronary artery disease invo lving yocha dehe coronary artery of yocha dehe heart without angina pectoris 12/10/2024 CAD, multiple [...] materials from doctor or pharmacy Never 01/14/2025 [facility] Utilities Answer Date Recorded In the past 12 months has th e [employer], gas, oil, or water [employer] threatened to shut off services in your [...] often do you attend chur ch or yazdanism services? Never 12/14/2024 Do you belong to any clubs o r organizations such as mandaen groups, unions, fraternal or athletic groups, or [...] any time in the past 12 m [facility], were you homeless or living in a nursing home (including now)? No 12/14/2024 Personal Safety Answer Date Recorded Have you ever been in or are you currently in a harmful physical or emotional relationship or is someone making you feel afraid or unsafe? Denies 12/09/2024 Sex and Gender Information Value Date Recorded Sex Assigned at Not on file Legal Sex Male 8:38 AM [employer] Gender Identity Male 06/24/2018 12:51 PM CDT [...] on file Medical Devices Implanted Type Area Tail Edger Device Identifier Shelf Expiration Date Model / Serial / Lot [employer] Plate Bone Low Profile 6 Hole O Shape Sternum Ti 115.104.06 - [id number] Implanted:Qty: 1 on 12/10/2024 by Paula Reno MD at [facility] N/A: Chest Wall [employer] 115.104.06 / / [employer] Plate Bone Low Profile 4 Hole Box Sternum Ti 115.103.04 - [id number] Implanted:Qty: 1 on 12/10/2024 by Paula Reno MD at [facility] N/A: Chest Wall [employer] 115.103.04 / / [employer] Plate Bone Low Profile 6 Hole H Shape Sternum Ti 115.102.06 - [id number] Implanted:Qty: 1 on 12/10/2024 by Paula Reno MD at [facility] N/A: Chest Wall [employer] 115.102.06 / / [employer] Screw Bone Slf Drl Full Thread Locking 3.5x20mm Ti 100.035.20 - [id number] Implanted:Qty: 6 on 12/10/2024 by Paula Reno MD at [facility] N/A: Chest Wall [employer] 100.035.20 / / [employer] Screw Bone Slf Drl Full Thread Locking 3.5x18mm Ti 100.035.18 - [id number] Implanted:Qty: 10 on 12/10/2024 by Paula Reno MD at [facility] N/A: Chest Wall [employer] 100.035.18 [...] CAD, multiple vessel Coronary artery disease involving yocha dehe coronary artery of yocha dehe heart without angina pectoris POCT GLUCOSE DEVICE [...] 3:30 PM CDT Coronary artery disease involving yocha dehe coronary artery of yocha dehe heart without angina pectoris POCT GLUCOSE DEVICE [...] LINE PLACEMENT Routine 12/10/2024 9:56 AM CDT TX AN ELECTIVE ENDOTRACHEAL AIRWAY Routine 12/10/2024 9:55 AM CDT ANESTHESIA CAROL Routine 12/10/2024 9:54 AM CDT POC BLOOD GAS AND CHEMISTRIES, ARTERIAL Routine 12/10/2024 9:51 AM CDT POCT ACTIVATED CLOTTING TIME, HIGH RANGE Routine 12/10/2024 9:48 AM CDT CORONARY ARTERY BYPASS GRAFT - INTERNAL MAMMARY ARTERY/RADIAL ARTERY 12/10/2024 9:15 AM CDT Coronary artery disease involving yocha dehe coronary artery of yocha dehe heart without angina pectoris CORONARY ARTERY BYPASS GRAFT 12/10/2024 9:15 AM CDT Coronary artery disease involving yocha dehe coronary artery of yocha dehe heart without angina pectoris TRANSTHORACIC ECHO (TTE) [...] * (ABNORMAL) eGFR (12/21/2024 11:38 AM CDT) [facility] Signature eGFR 50(L) >=60 mL/min/1. 73 m2 [...] ORDERABLES Final Res ult Performing Organization Address [facility]/ZIP Co de Phone Number [facility] Department [place] [address] * (ABNORMAL) CBC with auto differential (12/21/2024 11:38 AM CDT) WBC 10.95(H) 3.80 - 9.90 K/cumm Hgb 12.1(L) 13.0 - 17.5 g/dL [facility] Hct 35.8(L) 38.9 - 50.3 % [facility] Plt 310 150 - 400 K/cumm [facility] MPV 9.9 9.1 - 12.3 fL [facility] RBC 4.01(L) 4.30 - 5.80 M/cumm [facility] MCV 89.3 81.3 - 96.4 fL [facility] MCH 30.2 27.1 - 33.3 pg [facility] MCHC 33.8 32.3 - 35.7 g/dL [facility] RDW CV 13.2 11.1 - 14.9 % [facility] RDW SD 43.3 35.7 - 48.1 fL [facility] NRBC abs 0.00 0.00 - 0.01 K/cumm [facility] Morphologic Screen Results confirmed by manual morphology review. [facility] Blood 12/21/2024 11:3 8 AM CDT 12/21/2024 12:54 PM CDT Paula Reno MD LAB BLOOD ORDERABLES Edited Re sult - Final Performing Organization Address City/[facility]/ZIP Co de Phone Number [facility] Department [place] [address] * (ABNORMAL) Manual Differential (12/21/2024 11:38 AM CDT) Differential Manual Cells Counted 120 [facility] Neutrophil abs 7.12(H) 1.50 - 6.50 K/cumm [facility] Imm gran abs 0.19(H) 0.00 - 0.10 K/cumm [facility] Lymphocyte abs 3.29 0.80 - 3.30 K/cumm [facility] Monocyte abs 0.36 0.20 - 0.80 K/cumm [facility] Neutrophil pct 65.0 % [facility] Comment: Interpretive Data Percent cell count reference ranges are not reported, since discordance with absolute values may lead to misinterpretation of CBC data. Current Interpretive Data was last revised on 2017. Lymphocyte pct 29.2 % [facility] Comment: Interpretive Data Percent cell count reference ranges are not reported, since discordance with absolute values may lead to misinterpretation of CBC data. Current Interpretive Data was last revised on 2017. Monocyte pct 3.3 % [facility] Comment: Interpretive Data Percent cell count reference ranges are not reported, since discordance with absolute values may lead to misinterpretation of CBC data. Current Interpretive Data was last revised on 2017. Myelocyte pct 1.7(H) 0.0 - 0.0 % [facility] Variant lymph pct 0.8(H) 0.0 - 0.0 % [facility] Blood 12/21/2024 11:3 8 AM CDT 12/21/2024 1:05 PM CDT us Paula Reno MD LAB BLOOD ORDERABLES Final Res ult [facility] Department [place] [address] * (ABNORMAL) Comprehensive metabolic panel (12/21/2024 11:38 AM CDT) Pathologist [facility] Sodium 137 135 - 145 mmol/L Potassium, pl 4.1 3.3 - 4.9 mmol/L [facility] Chloride 101 97 - 110 mmol/L [facility] CO2 23 22 - 32 mmol/L [facility] Anion gap 13 2 - 15 mmol/L [facility] BUN 38(H) 6 - 25 mg/dL [facility] Creatinine 1.54(H) 0.80 - 1.30 mg/dL [facility] Glucose 100 70 - 199 mg/dL [facility] Comment: Interpretive Data Fasting glucose >/= [...] 2022. Calcium 9.4 8.5 - 10.3 mg/dL [facility] Bilirubin, total 0.3 0.1 - 1.2 mg/dL [facility] Protein, pl 7.3 6.5 - 8.5 g/dL [facility] Albumin 4.1 3.5 - 5.0 g/dL [facility] Alk phos 123 40 - 130 Units/L [facility] ALT 22 7 - 55 Units/L [facility] AST 20 10 - 50 Units/L [facility] Blood 12/21/2024 11:3 8 AM CDT 12/21/2024 12:54 PM CDT us Paula Reno MD LAB BLOOD ORDERABLES Final Res ult [facility] Department [place] [address] * XR Chest 1 View (12/15/2024 8:55 AM CDT) Anatomical Region Laterality Modality Body, Chest N/A Computed Radiogr aphy 12/15/2024 8:56 AM CDT Impressions 12/15/2024 8:56 AM CDT No active disease. Electronically signed by: Christain Ann M.D. Narrative 12/15/2024 8:56 AM CDT [...] signed by: Christian Ann M.D. Nicolle Oswald MERCERIZING RANGE CONTROLLER IMG XR PROCEDURES Final Re sult * [...] CDT 12/15/2024 6:27 AM CDT Rai Reddy MER[employer]ING [employer]ANGE CONTROLLER LAB BLOOD ORDERABLES Final Result Performing Organization Address [facility] Co de Phone Number CLARA GRAJEDA [address] Department of [employer] [place] [address] * (ABNORMAL) CBC without differential [...] NRBC abs 0.00 0.00 - 0.01 K/cumm [facility] Blood 12/15/2024 5:53 AM CDT 12/15/2024 6:28 AM CDT Rai Reddy [employer]ING [employer]ANGE CONTROLLER LAB BLOOD ORDERABLES Final Result Performing Organization Address City/[facility]/ZIP Co de Phone Number CLARA GRAJEDA [address] Department of [employer] [place] [address] * (ABNORMAL) Hepatic function panel (12/15/2024 5:53 AM CDT) Bilirubin, total 0.5 0.1 - 1.2 mg/dL Bilirubin, direct 0.1 0.1 - 0.3 mg/dL [facility] Protein, pl 6.4(L) 6.5 - 8.5 [...] LAB [place] [address] [address] Department [place] [address] * (ABNORMAL) Basic metabolic panel [...] LAB BLOOD ORDERABLES Final Result [facility]ARA GRAJEDA [address] [facility] Department [place] [address] * XR Chest PA Lateral 2 Views [...] signed by: Todd Falcon M.D. Rai Reddy MERCER[employer]ING RANGE CONTROLLER IMG XR PROCEDURES Final Res ult * [...] BLOOD ORDERABLES Final Result Performing Organization Address [facility] Co de Phone Number CLARA [address] [employer] [place], [place] [id number] * (ABNORMAL) aPTT (12/14/2024 4:36 AM CDT) [...] BLOOD ORDERABLES Final Result Performing Organization Address [facility] Co de Phone Number CLARA [address] [employer] [place], [place] [id number] * Protime-INR (12/14/2024 4:36 AM CDT) PT [...] CDT 12/14/2024 5:10 AM CDT Rai Reddy MERC[employer]ING RANGE CONTROLLER LAB BLOOD ORDERABLES Final Result Performing Organization Address City/[facility]/ZIP Co de Phone Number CLARA GRAJEDA [address] [place] [address] * (ABNORMAL) CBC without differential (12/14/2024 4:36 AM CDT) WBC 9.99(H) 3.80 - 9.90 K/cumm Hgb 11.3(L) 13.0 - 17.5 g/dL [facility] Hct 34.7(L) 38.9 - 50.3 % [facility] Plt 130(L) 150 - 400 K/cumm [facility] MPV 11.1 9.1 - 12.3 fL [facility] RBC 3.78(L) 4.30 - 5.80 M/cumm [facility] MCV 91.8 81.3 - 96.4 fL [facility] MCH 29.9 27.1 - 33.3 pg [facility] MCHC 32.6 32.3 - 35.7 g/dL [facility] RDW CV 13.3 11.1 - 14.9 % [facility] RDW SD 45.1 35.7 - 48.1 fL [facility] NRBC abs 0.00 0.00 - 0.01 K/cumm [facility] Blood 12/14/2024 4:36 AM CDT 12/14/2024 5:10 AM CDT Rai Reddy NP LAB BLOOD ORDERABLES Final Result Performing Organization Address City/[facility]/ZIP Co de Phone Number CLARA GRAJEDA [address] Department [place] [address] * Basic metabolic panel (12/14/2024 [...] 2022. Calcium 9.1 8.5 - 10.3 mg/dL [facility] Blood 12/14/2024 4:36 AM CDT 12/14/2024 5:14 AM CDT us Rai Reddy [employer] CONTROLLER LAB BLOOD ORDERABLES Final Result Performing Organization Address City/[facility]/ZIP Co de Phone Number [facility] [address] Department [place] [address] * POCT glucose (12/13/2024 7:37 AM CDT) Glucose, POC 114 70 - 199 mg/dL POC Performer [id number] [facility] Blood 12/13/2024 7:37 AM CDT 12/13/2024 7:37 AM CDT Paula Reno MD LAB POCT ORDERABLES - DEVICE F inal Result [facility]ARA GRAJED[place] [address] Department [place] [address] * eGFR (12/13/2024 7:27 AM CDT) Pathologist [facility] eGFR 81 >=60 mL/min/1. 73 m2 Comment: [...] LAB BLOOD ORDERABLES Final Result CLARA GRAJEDA [address] Department [place] [address] * (ABNORMAL) CBC without differential (12/13/2024 7:27 AM CDT) Pathologist [facility] WBC 9.11 3.80 - 9.90 K/cumm Hgb 10.6(L) 13.0 - 17.5 g/dL [facility] Hct 31.5(L) 38.9 - 50.3 % [facility] Plt 96(L) 150 - 400 K/cumm [facility] MPV 11.4 9.1 - 12.3 fL [facility] RBC 3.41(L) 4.30 - 5.80 M/cumm [...] Reddy NP LAB BLOOD ORDERABLES Final Result [facility] [address] Department [place] [address] * Basic metabolic panel (12/13/2024 7:27 AM [...] [facility] Glucose 102 70 - 199 mg/dL [facility] Comment: Interpretive Data Fasting glucose >/= 126 [...] CDT 12/13/2024 7:48 AM CDT Rai Reddy MERC[employer]ING RANGE CONTROLLER LAB BLOOD ORDERABLES Final Result [facility]ARA GRAJED[facility] [address] Department [place] [address] * XR Chest 1 View - Portable [...] active infiltrate. The tip of a retracted [place]-Diane catheter is at the cavoatrial junction. Procedure Note Christian Ann MD - 12/13/2024 EXAMINATION: XR CHEST 1 VIEW HISTORY: The patient is a 64-year-old male who has had cardiac surgery. Comparison made with the previous study dated 12/12/2024 TECHNIQUE: AP portable view of the chest. FINDINGS: Cardiomegaly with aortic atherosclerosis. No failure. No active infiltrate. The tip of a retracted [place]-Diane catheter is at the cavoatrial junction. IMPRESSION: No failure Electronically signed by: Christian Ann M.D. Paula Reno MD IMG XR PROCEDURES Final Result * POCT glucose (12/12/2024 8:37 PM CDT) Glucose, POC 142 70 - 199 mg/dL POC Performer [id number] CLARA G[facility]JEDA Blood 12/12/2024 8:37 PM CDT 12/12/2024 8:37 PM CDT Paula Reno MD LAB POCT ORDERABLES - DEVICE F inal Result Performing Organization Address [facility] Co de Phone Number CLARA GRAJEDA [address] [address] [facility] [employer] [place] [address] * POCT glucose (12/12/2024 5:10 PM CDT) Glucose, POC 135 70 - 199 mg/dL POC Performer [id number] [facility] Blood 12/12/2024 5:10 PM CDT 12/12/2024 5:10 PM CDT Paula Reno MD LAB POCT ORDERABLES - DEVICE F inal Result Performing Organization Address [facility] Co de Phone Number CLARA GRAJEDA [address] [address] [facility] [employer] [place] [address] * POCT glucose (12/12/2024 12:56 PM CDT) Glucose, POC 134 70 - 199 mg/dL POC Performer [id number] [facility] Blood 12/12/2024 12:5 6 PM CDT 12/12/2024 12:56 PM CDT Paula Reno MD LAB POCT ORDERABLES - DEVICE F inal Result Performing Organization Address [facility] Co de Phone Number CLARA GRAJEDA [address] [address] [facility] [employer] [place] [address] * POCT glucose (12/12/2024 7:48 AM CDT) Glucose, POC 136 70 - 199 mg/dL POC Performer [id number] [facility] Blood 12/12/2024 7:48 AM CDT 12/12/2024 7:48 AM CDT Paula Reno MD LAB POCT ORDERABLES - DEVICE F inal Result CLARA [address] Department [place] [address] * XR Chest 1 View - Portable - in AM (12/12/2024 5:54 AM CDT) Anatomical Region Laterality Modality Body, Chest N/A Computed Radiogr aphy 12/12/2024 7:48 AM CDT Impressions 12/12/2024 7:48 AM CDT [place] tip location is difficult to assess secondary [...] HISTORY: s/p cardiac surg COMPARISON: 12/11/2024. IMPRESSION: [place] tip location is difficult to assess secondary [...] ORDERABLES Final Res ult Performing Organization Address City/[facility]/ZIP Co de Phone Number CLARA GRAJEDA [address] Department of [employer] [place] [address] * Calcium, ionized, whole blood (12/12/2024 3:10 AM CDT) Ca, ionized, bld 4.77 4.50 - 5.10 mg/dL Blood 12/12/2024 3:10 AM CDT 12/12/2024 3:15 AM CDT Rai Reddy NP LAB BLOOD ORDERABLES Final Result Performing Organization Address [facility] Co de Phone Number CLARA GRAJEDA [address] Department of [employer] [place] [address] * eGFR (12/12/2024 3:10 AM CDT) eGFR [...] CDT 12/12/2024 3:17 AM CDT Rai Reddy MER[employer]ING [employer] CONTROLLER LAB BLOOD ORDERABLES Final Result Performing Organization Address City/[facility]/ZIP Co de Phone Number CLARA [address] Department [employer] [place] [address] * (ABNORMAL) CBC without differential (12/12/2024 3:10 AM CDT) WBC 7.65 3.80 - 9.90 K/cumm Hgb 9.9(L) 13.0 - 17.5 g/dL [facility] Hct 30.2(L) 38.9 - 50.3 % [facility] Plt 74(L) 150 - 400 K/cumm [facility] MPV 10.6 9.1 - 12.3 fL [facility] RBC 3.26(L) 4.30 - 5.80 M/cumm [facility] MCV 92.6 81.3 - 96.4 fL [facility] MCH 30.4 27.1 - 33.3 pg [facility] MCHC 32.8 32.3 - 35.7 g/dL [facility] RDW CV 13.2 11.1 - 14.9 % [facility] RDW SD 44.9 35.7 - 48.1 fL [facility] CH NRBC abs 0.00 0.00 - 0.01 K/cumm [facility] Blood 12/12/2024 3:10 AM CDT 12/12/2024 3:17 AM CDT Rai Reddy [employer]ER LAB BLOOD ORDERABLES Final Result CLARA GRAJEDA [address] Department of [employer] [place] [address] * Magnesium (12/12/2024 3:10 AM CDT) Magnesium 2.0 1.4 - 2.5 mg/dL Blood 12/12/2024 3:10 AM CDT 12/12/2024 3:17 AM CDT us Fred Kaur MD LAB BLOOD ORDERABLES Fin al Result CLARA GRAJEDA [address] Department [place] [address] * (ABNORMAL) Basic metabolic panel (12/12/2024 3:10 AM CDT) Sodium 138 135 - 145 mmol/L Potassium, pl 3.8 3.3 - 4.9 mmol/L [facility] Chloride 104 97 - 110 mmol/L [facility] CO2 24 22 - 32 mmol/L [facility] Anion gap 10 2 - 15 mmol/L [facility] BUN 16 6 - 25 mg/dL [facility] Creatinine 1.02 0.80 - 1.30 mg/dL [facility] Glucose 138 70 - 199 mg/dL [facility] Comment: Interpretive Data Fasting glucose >/= [...] 2022. Calcium 8.4(L) 8.5 - 10.3 mg/dL [facility] Blood 12/12/2024 3:10 AM CDT 12/12/2024 3:17 AM CDT us Rai Reddy NP LAB BLOOD ORDERABLES Final Result CLARA GRAJEDA [address] Department [place] [address] * POCT glucose (12/12/2024 3:09 AM CDT) Glucose, POC 136 70 - 199 mg/dL POC Performer [id number] [facility] Blood 12/12/2024 3:09 AM CDT 12/12/2024 3:09 AM CDT Paula Reno MD LAB POCT ORDERABLES - DEVICE F inal Result Performing Organization Address City/[facility]/ZIP Co de Phone Number DONALDODEYSI GRAJEDA [address] [address] [facility] [employer] [place], [place] [id number] * POCT glucose (12/11/2024 11:09 PM CDT) Glucose, POC 149 70 - 199 mg/dL POC Performer [id number] [facility] Blood 12/11/2024 11:0 9 PM CDT 12/11/2024 11:09 PM CDT Paula Reno MD LAB POCT ORDERABLES - DEVICE F inal Result Performing Organization Address [facility] Co de Phone Number DONALDODEYSI GRAJEDA [address] Department [employer] [place] [address] * POCT glucose (12/11/2024 8:34 PM CDT) Glucose, POC 142 70 - 199 mg/dL POC Performer [id number] [facility] Blood 12/11/2024 8:34 PM CDT 12/11/2024 8:34 PM CDT Paula Reno MD LAB POCT ORDERABLES - DEVICE F inal Result Performing Organization Address City/[facility]/ZIP Co de Phone Number DONALDODEYSI GRAJEDA [address] [facility] [employer] [place], [place] [id number] * Transfuse platelets (12/11/2024 6:05 PM CDT) Blood Paula Reno MD BLOOD TRANSFUSION ORDERABLES F inal Result Performing Organization Address City/[facility]/ZIP Co de Phone Number CLARA TARAS [address] Department [place] [address] * POCT glucose (12/11/2024 5:08 PM CDT) Glucose, POC 132 70 - 199 mg/dL POC Performer [id number] CLARA GRAJEDA Blood 12/11/2024 5:08 PM CDT 12/11/2024 5:08 PM CDT Paula Reno MD LAB POCT ORDERABLES - DEVICE F inal Result [facility] [address] [place] [address] * Calcium, ionized, whole blood (12/11/2024 2:30 PM CDT) Ca, ionized, bld 4.51 4.50 - 5.10 mg/dL Blood 12/11/2024 2:30 PM CDT 12/11/2024 2:47 PM CDT Rai Reddy NP LAB BLOOD ORDERABLES Final Result [facility] [address] [address] [facility] [employer] [place] [address] * eGFR (12/11/2024 2:30 PM CDT) eGFR [...] CDT 12/11/2024 3:42 PM CDT Rai Reddy [employer]ING [employer]OLLER LAB BLOOD ORDERABLES Final Result Performing Organization Address [facility] Co de Phone Number CLARA GRAJEDA [address] [place] [address] * (ABNORMAL) CBC without differential [...] BLOOD ORDERABLES Final Result Performing Organization Address [facility]/ZIP Co de Phone Number CLARA TARAS [address] Department [place] [address] * Magnesium (12/11/2024 2:30 PM CDT) Magnesium 2.1 1.4 - 2.5 mg/dL Blood 12/11/2024 2:30 PM CDT 12/11/2024 3:42 PM CDT Rai Reddy NP LAB BLOOD ORDERABLES Final Result [facility] [address] Department of [employer] [place] [address] * (ABNORMAL) Basic metabolic panel (12/11/2024 2:30 PM CDT) Sodium 137 135 - 145 mmol/L Potassium, pl 3.9 3.3 - 4.9 mmol/L [facility] Chloride 104 97 - 110 mmol/L [facility] CH CO2 24 22 - 32 mmol/L [facility] Anion gap 9 2 - 15 mmol/L [facility] BUN 20 6 - 25 mg/dL [facility] Creatinine 1.05 0.80 - 1.30 mg/dL [facility] Glucose 149 70 - 199 mg/dL [facility] Comment: Interpretive Data Fasting glucose >/= [...] 2022. Calcium 8.4(L) 8.5 - 10.3 mg/dL [facility] Blood 12/11/2024 2:30 PM CDT 12/11/2024 3:42 PM CDT Rai Reddy NP LAB BLOOD ORDERABLES Final Result Performing Organization Address City/[facility]/ZIP Co de Phone Number [facility] [address] Department [place] [place] [address] * POCT glucose (12/11/2024 11:42 AM CDT) Glucose, POC 135 70 - 199 mg/dL POC Performer [id number] CLARA GRAJEDA Blood 12/11/2024 11:4 2 AM CDT 12/11/2024 11:42 AM CDT Paula Reno MD LAB POCT ORDERABLES - DEVICE F inal Result Performing Organization Address [facility] de Phone Number [facility] [address] Department [place] [address] * ECG 12 lead (12/11/2024 9:31 AM CDT) 12/11/2024 9:31 AM CDT Narrative [facility] - 12/12/2024 10:11 AM CDT Vent Rate: 78 bpm RR Interval: 765 msec TX Interval: 163 msec QRS Duration: 91 msec QT Interval: 374 msec QTC Interval: 407 msec P-R-T Belva: 36 - -10 - -52 degrees IMPRESSION: SINUS RHYTHM MODERATE T-WAVE ABNORMALITY, CONSIDER INFERIOR ISCHEMIA [-0.1+ mV T-WAVE IN II/aVF] ABNORMAL ECG Electronically Signed By: Elke Sosa MD Paula Reno MD ECG ORDERABLES Final Result Performing Organization Address [facility] de Phone Number [facility] [employer] [facility] * Critical Care (12/11/2024 8:33 AM CDT) [...] plan with the ICU team and other medical/change management consultant staff, making frequent assessments and decisions [...] 134 70 - 199 mg/dL POC Performer [id number] CLARA GRAJEDA Blood 12/11/2024 7:32 AM CDT 12/11/2024 7:32 AM CDT Paula Reno MD LAB POCT ORDERABLES - DEVICE F inal Result CLARA [address] Department [place] [address] * XR Chest 1 View - Portable - in AM (12/11/2024 6:10 AM CDT) Anatomical Region Laterality Modality Body, Chest N/A Computed Radiogr aphy 12/11/2024 7:05 AM CDT Impressions 12/11/2024 7:05 AM CDT The heart is normal in size. There are median sternotomy wires. Left thoracotomy tube. [place]-Diane catheter tip is in the right main [...] are median sternotomy wires. Left thoracotomy tube. [place]Diane catheter tip is in the right main [...] MD LAB BLOOD ORDERABLES Final Res ult [facility] [address] [address] Department [place] [address] * (ABNORMAL) Differential, auto (12/11/2024 3:21 AM CDT) Neutrophil abs 6.47 1.50 - 6.50 K/cumm Imm gran abs 0.02 0.00 - 0.10 K/cumm [facility] Lymphocyte abs 2.27 0.80 - 3.30 K/cumm [facility] Monocyte abs 0.83(H) 0.20 - 0.80 K/cumm [facility] Eosinophil abs 0.00 0.00 - 0.50 K/cumm [facility] Basophil abs 0.01 0.00 - 0.10 K/cumm [facility] Neutrophil pct 67.5 % [facility] Comment: Interpretive Data Percent cell count reference ranges are not reported, since discordance with absolute values may lead to misinterpretation of CBC data. Current Interpretive Data was last revised on 2017. Imm gran pct 0.2 % [facility] Comment: Interpretive Data Percent cell count reference ranges are not reported, since discordance with absolute values may lead to misinterpretation of CBC data. Current Interpretive Data was last revised on 2017. Lymphocyte pct 23.6 % [facility] Comment: Interpretive Data Percent cell count reference ranges are not reported, since discordance with absolute values may lead to misinterpretation of CBC data. Current Interpretive Data was last revised on 2017. Monocyte pct 8.6 % [facility] Comment: Interpretive Data Percent cell count reference ranges are not reported, since discordance with absolute values may lead to misinterpretation of CBC data. Current Interpretive Data was last revised on 2017. Eosinophil pct 0.0 % [facility] Comment: Interpretive Data Percent cell count reference ranges are not reported, since discordance with absolute values may lead to misinterpretation of CBC data. Current Interpretive Data was last revised on 2017. Basophil pct 0.1 % [facility] Comment: Interpretive Data Percent cell count reference ranges are not reported, since discordance with absolute values may lead to misinterpretation of CBC data. Current Interpretive Data was last revised on 2017. Blood 12/11/2024 3:21 AM CDT 12/11/2024 3:27 AM CDT Paula Reno MD LAB BLOOD ORDERABLES Final Res ult CLARA GRAJEDA [address] Department [place] [address] * (ABNORMAL) CBC with auto differential (12/11/2024 3:21 AM CDT) WBC 9.60 3.80 - 9.90 K/cumm Hgb 10.5(L) 13.0 - 17.5 g/dL [facility] Hct 31.6(L) 38.9 - 50.3 % [facility] Plt 103(L) 150 - 400 K/cumm [facility] MPV 10.8 9.1 - 12.3 fL [facility] RBC 3.46(L) 4.30 - 5.80 M/cumm [facility] MCV 91.3 81.3 - 96.4 fL [facility] MCH 30.3 27.1 - 33.3 pg [facility] MCHC 33.2 32.3 - 35.7 g/dL [facility] RDW CV 13.2 11.1 - 14.9 % [facility] RDW SD 42.7 35.7 - 48.1 fL [facility] NRBC abs 0.00 0.00 - 0.01 K/cumm [facility] Blood 12/11/2024 3:21 AM CDT 12/11/2024 3:27 AM CDT Paula Reno MD LAB BLOOD ORDERABLES Final Res ult CLARA GRAJEDA [address] Department [place] [address] * Magnesium (12/11/2024 3:21 AM CDT) Magnesium 2.2 1.4 - 2.5 mg/dL Blood 12/11/2024 3:21 AM CDT 12/11/2024 3:27 AM CDT Fred Kaur MD LAB BLOOD ORDERABLES Fin al Result CLARA GRAJEDA [address] [place] [address] * (ABNORMAL) Basic metabolic panel (12/11/2024 3:21 AM CDT) Pathologist [facility] Sodium 137 135 - 145 mmol/L Potassium, pl 4.2 3.3 - 4.9 mmol/L [facility] Chloride 105 97 - 110 mmol/L [facility] CO2 22 22 - 32 mmol/L [facility] Anion gap 10 2 - 15 mmol/L [facility] BUN 14 6 - 25 mg/dL [facility] Creatinine 1.09 0.80 - 1.30 mg/dL [facility] Glucose 143 70 - 199 mg/dL [facility] Comment: Interpretive Data Fasting glucose >/= [...] 2022. Calcium 8.0(L) 8.5 - 10.3 mg/dL [facility] Blood 12/11/2024 3:21 AM CDT 12/11/2024 3:27 AM CDT Paula Reno MD LAB BLOOD ORDERABLES Final Res ult Performing Organization Address [facility] Co de Phone Number CLARA GRAJEDA [address] [employer] [place] [address] * (ABNORMAL) Calcium, ionized, whole blood (12/11/2024 3:20 AM CDT) Ca, ionized, bld 4.47(L) 4.50 - 5.10 mg/dL Blood 12/11/2024 3:20 AM CDT 12/11/2024 3:34 AM CDT us Paula Reno MD LAB BLOOD ORDERABLES Final Res ult Performing Organization Address [facility] Co de Phone Number CLARA GRAJEDA [address] [address] [facility] [employer] [place] [address] * Transfuse platelets (12/11/2024 1:25 AM CDT) Blood Ronaldo Nguyen MD BLOOD TRANSFUSION ORDERABLES Final Result Performing Organization Address [facility] Co de Phone Number DONALDODEYSI [address] [address] Department of [employer] [place] [address] * Transfuse platelets (12/11/2024 12:16 AM CDT) Blood Ronaldo Nguyen MD BLOOD TRANSFUSION ORDERABLES Final Result Performing Organization Address [facility] Co de Phone Number CLARA GRAJEDA [address] [address] Department of [employer] [place] [address] * (ABNORMAL) Blood gas, arterial (12/11/2024 12:06 AM CDT) pH, Art 7.42 7.35 - 7.45 PCO2, Arterial 38 35 - 45 mmHg [facility] PO2, Arterial 170(H) 83 - 108 mmHg [facility] HCO3 Art (Calculated) 25 20 - 30 mmol/L [facility] BE, art 0 mmol/L [facility] Comment: Interpretive Data No Reference Range Established Current Interpretive Data was last revised on 2017 O2 Sat Art (Measured) 97(H) 90 - 95 % [facility] CH Blood 12/11/2024 12:0 6 AM CDT 12/11/2024 12:17 AM CDT Paula Reno MD LAB BLOOD ORDERABLES Final Res ult Performing Organization Address [facility] Co de Phone Number CLARA GRAJEDA [phone] [address] Department of [employer] [place] [address] * Prepare platelets: 2 Units (12/10/2024 8:29 PM CDT) Product code [id number] Unit Number [id number] [facility] CH Product Blood Type OPOS [facility] CH Dispense Status PRESUMED TRANSFUSED [facility] CH Product code [id number] [facility] CH Unit Number [id number] [facility] CH Product Blood Type OPOS [facility] CH Dispense Status PRESUMED TRANSFUSED [facility] CH Blood Venous blood specimen / Unknown 12/10/2024 8:29 PM CDT Narrative [facility] - 12/12/2024 10:15 AM CDT 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 (all products are leukoreduced)->No Date required:-[id number] PLT # of Units:-2-Units Reasons:-Other (Specify)} Ronaldo Nguyen MD BLOOD BANK PRODUCT ORDERABLE S Final Result Performing Organization Address [facility] Co de Phone Number CLARA GRAJEDA [phone] [address] Department of [employer] [place] [address] * POCT glucose (12/10/2024 8:01 PM CDT) Glucose, POC 110 70 - 199 mg/dL POC Performer [id number] [facility] CH Blood 12/10/2024 8:01 PM CDT 12/10/2024 8:01 PM CDT Paula Reno MD LAB POCT ORDERABLES - DEVICE F inal Result Performing Organization Address [facility] Co de Phone Number CLARA GRAJEDA [address] [address] [facility] [employer] [place], [place] [id number] * POCT glucose (12/10/2024 7:02 PM CDT) Glucose, POC 124 70 - 199 mg/dL POC Performer [id number] [facility] Blood 12/10/2024 7:02 PM CDT 12/10/2024 7:02 PM CDT Paula Reno MD LAB POCT ORDERABLES - DEVICE F inal Result Performing Organization Address [facility] Co de Phone Number CLARA [phone] [address] [employer] [place] [address] * (ABNORMAL) Calcium, ionized, whole blood (12/10/2024 6:58 PM CDT) Pathologist [facility] Ca, ionized, bld 4.48(L) 4.50 - 5.10 mg/dL Blood 12/10/2024 6:58 PM CDT 12/10/2024 7:22 PM CDT Paula Reno MD LAB BLOOD ORDERABLES Final Res ult Performing Organization Address [facility] Co de Phone Number CLARA GRAJEDA [address] [address] Department of [employer] [place], [place] [address] * eGFR (12/10/2024 6:58 PM CDT) eGFR [...] MD LAB BLOOD ORDERABLES Final Res ult [facility] [address] [address] Department [place] [address] * (ABNORMAL) Differential, auto (12/10/2024 6:58 PM CDT) Neutrophil abs 6.73(H) 1.50 - 6.50 K/cumm Imm gran abs 0.05 0.00 - 0.10 K/cumm [facility] Lymphocyte abs 2.48 0.80 - 3.30 K/cumm [facility] Monocyte abs 0.81(H) 0.20 - 0.80 K/cumm [facility] Eosinophil abs 0.00 0.00 - 0.50 K/cumm [facility] Basophil abs 0.01 0.00 - 0.10 K/cumm [facility] Neutrophil pct 66.8 % [facility] Comment: Interpretive Data Percent cell count [...] revised on 2017. Lymphocyte pct 24.6 % [facility] Comment: Interpretive Data Percent cell count reference ranges are not reported, since discordance with absolute values may lead to misinterpretation of CBC data. Current Interpretive Data was last revised on 2017. Monocyte pct 8.0 % [facility] Comment: Interpretive Data Percent cell count reference ranges are not reported, since discordance with absolute values may lead to misinterpretation of CBC data. Current Interpretive Data was last revised on 2017. Eosinophil pct 0.0 % [facility] Comment: Interpretive Data Percent cell count reference ranges are not reported, since discordance with absolute values may lead to misinterpretation of CBC data. Current Interpretive Data was last revised on 2017. Basophil pct 0.1 % [facility] Comment: Interpretive Data Percent cell count reference ranges are not reported, since discordance with absolute values may lead to misinterpretation of CBC data. Current Interpretive Data was last revised on 2017. Blood 12/10/2024 6:58 PM CDT 12/10/2024 7:23 PM CDT Paula Reno MD LAB BLOOD ORDERABLES Final Res ult [facility] [address] [address] Department [place] [address] * (ABNORMAL) CBC with auto differential (12/10/2024 6:58 PM CDT) WBC 10.08(H) 3.80 - 9.90 K/cumm Hgb 10.8(L) 13.0 - 17.5 g/dL [facility] Hct 32.8(L) 38.9 - 50.3 % [facility] Plt 77(L) 150 - 400 K/cumm [facility] Comment:No clot detected in sample. MPV 11.5 9.1 - 12.3 fL [facility] RBC 3.64(L) 4.30 - 5.80 M/cumm [facility] MCV 90.1 81.3 - 96.4 fL [facility] MCH 29.7 27.1 - 33.3 pg [facility] MCHC 32.9 32.3 - 35.7 g/dL [facility] RDW CV 12.9 11.1 - 14.9 % [facility] RDW SD 42.3 35.7 - 48.1 fL [facility] NRBC abs 0.00 0.00 - 0.01 K/cumm [facility] Blood 12/10/2024 6:58 PM CDT 12/10/2024 7:23 PM CDT Paula Reno MD LAB BLOOD ORDERABLES Final Res ult Performing Organization Address [facility] de Phone Number DONALDODEYSI GRAJEDA [phone] [address] [facility] [employer] [place] [address] * Magnesium (12/10/2024 6:58 PM CDT) Magnesium 2.2 1.4 - 2.5 mg/dL Blood 12/10/2024 6:58 PM CDT 12/10/2024 7:21 PM CDT Paula Reon MD LAB BLOOD ORDERABLES Final Res ult Performing Organization Address [facility] de Phone Number DONALDODEYSI GRAJEDA [phone] [place] [address] * (ABNORMAL) Blood gas, arterial (12/10/2024 6:58 [...] ORDERABLES Final Res ult Performing Organization Address [facility] Co de Phone Number DONALDODEYSI GRAJEDA [phone] [address] [facility] [employer] [place] [address] * (ABNORMAL) Basic metabolic panel (12/10/2024 6:58 [...] 2022. Calcium 8.1(L) 8.5 - 10.3 mg/dL [facility] Blood 12/10/2024 6:58 PM CDT 12/10/2024 7:21 PM CDT Paula Reno MD LAB BLOOD ORDERABLES Final Res ult CLARA [address] Department [place] [address] * POCT glucose (12/10/2024 5:55 PM CDT) Glucose, POC 89 70 - 199 mg/dL POC Performer [id number] [facility] Blood 12/10/2024 5:55 PM CDT 12/10/2024 5:55 PM CDT Paula Reno MD LAB POCT ORDERABLES - DEVICE F inal Result Performing Organization Address [facility] Co de Phone Number CLARA GRAJEDA [address] [address] Department of [employer] [place] [address] * POCT glucose (12/10/2024 4:50 PM CDT) Glucose, POC 97 70 - 199 mg/dL POC Performer [id number] CLARA Blood 12/10/2024 4:50 PM CDT 12/10/2024 4:50 PM CDT [facility] LAB POCT ORDERABLES - DEVICE F inal Result Performing Organization Address [facility] Co de Phone Number CLARA GRAJEDA [phone] [address] Department of [employer] [place] [address] * XR Chest 1 View - Portable [...] drain in place. The tip of the [place]-Diane catheter is in the proximal right main [...] drain in place. The tip of the [place]-Diane catheter is in the proximal right main [...] LAB BLOOD ORDERABLES Final Res ult CLARA [address] [facility] Department [place] [address] * eGFR (12/10/2024 3:38 PM [...] ORDERABLES Final Res ult Performing Organization Address [facility] Co de Phone Number CLARA [phone] [address] [facility] [employer] [place] [address] * (ABNORMAL) aPTT (12/10/2024 3:38 PM CDT) [...] ORDERABLES Final Res ult Performing Organization Address [facility] de Phone Number CLARA [phone] [address] [facility] [employer] [place] [address] * (ABNORMAL) Protime-INR (12/10/2024 3:38 PM CDT) [...] ORDERABLES Final Res ult Performing Organization Address [facility] Co de Phone Number CLARA GRAJEDA [address] [address] Department of Laboratories [place], [place] [id number] * (ABNORMAL) CBC without differential (12/10/2024 3:38 PM CDT) WBC 12.69(H) 3.80 - 9.90 K/cumm Hgb 11.6(L) 13.0 - 17.5 g/dL [facility] Hct 34.7(L) 38.9 - 50.3 % [facility] Plt 71(L) 150 - 400 K/cumm [facility] Comment:No clot detected in sample. MPV 10.9 9.1 - 12.3 fL [facility] RBC 3.87(L) 4.30 - 5.80 M/cumm [facility] MCV 89.7 81.3 - 96.4 fL [facility] MCH 30.0 27.1 - 33.3 pg [facility] MCHC 33.4 32.3 - 35.7 g/dL [facility] RDW CV 12.8 11.1 - 14.9 % [facility] RDW SD 42.0 35.7 - 48.1 fL [facility] NRBC abs 0.00 0.00 - 0.01 K/cumm [facility] Blood 12/10/2024 3:38 PM CDT 12/10/2024 3:46 PM CDT us Paula Reno MD LAB BLOOD ORDERABLES Final Res ult Performing Organization Address [facility] Co de Phone Number CLARA GRAJEDA [phone] [address] Department [place] [address] * Magnesium (12/10/2024 3:38 PM CDT) Magnesium 2.4 1.4 - 2.5 mg/dL Blood 12/10/2024 3:38 PM CDT 12/10/2024 3:44 PM CDT Paula Reno MD LAB BLOOD ORDERABLES Final Res ult Performing Organization Address [facility] de Phone Number CLARA GRAJEDA [address] Department [place] [address] * (ABNORMAL) Blood gas, arterial (12/10/2024 3:38 [...] ORDERABLES Final Res ult Performing Organization Address [facility] de Phone Number CLARA GRAJEDA [phone] Department [place] [address] * (ABNORMAL) Basic metabolic panel (12/10/2024 3:38 PM CDT) Pathologist [facility] Sodium 138 135 - 145 mmol/L Potassium, pl 4.2 3.3 - 4.9 mmol/L [facility] Chloride 106 97 - 110 mmol/L [facility] CO2 22 22 - 32 mmol/L [facility] Anion gap 10 2 - 15 mmol/L [facility] BUN 14 6 - 25 mg/dL [facility] Creatinine 0.99 0.80 - 1.30 mg/dL [facility] Glucose 129 70 - 199 mg/dL [facility] Comment: Interpretive Data Fasting glucose >/= [...] BLOOD ORDERABLES Final Res ult CLARA GRAJEDA [address] [address] Department [place] [address] * Critical Care (12/10/2024 3:30 PM CDT) [...] plan with the ICU team and other medical/change management consultant staff, making frequent assessments and decisions [...] 129 70 - 199 mg/dL POC Performer [id number] [facility] Blood 12/10/2024 3:14 PM CDT 12/10/2024 3:14 PM CDT Paula Reno MD LAB POCT ORDERABLES - [place] [address] [address] Department [place] [address] * (ABNORMAL) POC Blood Gas and Chemistries, [...] Hb, POC 9.4(L) 13.0 - 17.5 g/dL [facility] Blood 12/10/2024 2:13 PM CDT 12/10/2024 2:13 PM CDT Keyla Bsaurto MD LAB POCT ORDERABLES - DEVIC E Final Result Performing Organization Address [facility] Co de Phone Number CLARA GRAJEDA [phone] [address] Department of [employer] [place] [address] * POC Activated Clotting Time, High Range (12/10/2024 2:10 PM CDT) ACT 137 87 - 138 sec POC Performer [id number] [facility] Blood 12/10/2024 2:10 PM CDT 12/10/2024 2:10 PM CDT Keyla Basurto MD LAB BLOOD ORDERABLES Final Result Performing Organization Address [facility] Co de Phone Number CLARA [phone] [address] Department of [employer] [place], [place] [id number] * Transfuse platelets (12/10/2024 2:00 PM CDT) Blood Primitivo Horne MD BLOOD TRANSFUSION ORDERABLES Fin al Result Performing Organization Address [facility] Co de Phone Number CLARA [phone] [address] Department of [employer] [place] [address] * (ABNORMAL) Platelet count (12/10/2024 1:23 PM CDT) Plt 131(L) 150 - 400 K/cumm Blood 12/10/2024 1:23 PM CDT 12/10/2024 1:30 PM CDT Narrative CLARA - 12/10/2024 1:38 PM CDT Please call ext. [phone] with results Paula Reno MD LAB BLOOD ORDERABLES Final Res ult Performing Organization Address [facility]/ZIP Co de Phone Number CLARA GRAJEDA [address] [address] Department [place] [address] * (ABNORMAL) POC Blood Gas and Chemistries, [...] - DEVIC E Final Result CLARA GRAJEDA [address] [address] Department [place] [address] * (ABNORMAL) POC Activated Clotting Time, High Range (12/10/2024 1:11 PM CDT) ACT 475(H) 87 - 138 sec POC Performer [id number] [facility] Blood 12/10/2024 1:11 PM CDT 12/10/2024 1:11 PM CDT Keyla Basurto MD LAB [place]LOOD [place] [address] [address] Department [place] [address] * (ABNORMAL) POC Blood Gas and Chemistries, [...] DEVIC E Final Result Performing Organization Address [facility] Co de Phone Number CLARA GRAJEDA [address] [address] [facility] [employer] [place] [address] * (ABNORMAL) POC Activated Clotting Time, High Range (12/10/2024 12:20 PM CDT) ACT 530(H) 87 - 138 sec POC Performer [id number] [facility] Blood 12/10/2024 12:2 0 PM CDT 12/10/2024 12:20 PM CDT Keyla Basurto MD LAB BLOOD ORDERABLES Final Result Performing Organization Address [facility] de Phone Number CLARA GRAJEDA [address] [address] Department [employer] [place] [address] * (ABNORMAL) POC Activated Clotting Time, High Range (12/10/2024 11:29 AM CDT) ACT 579(H) 87 - 138 sec POC Performer [id number] [facility] Blood 12/10/2024 11:2 9 AM CDT 12/10/2024 11:29 AM CDT Keyla Basurto MD LAB BLOOD ORDERABLES Final Result Performing Organization Address [facility] Co de Phone Number CLARA GRAJEDA [address] [place] [address] * BW AN SHEATH INTRODUCER PERFORMABLE, PULMONARY [...] MD ANESTHESIA ORDERABLES Final Resu lt * TX AN ELECTIVE ENDOTRACHEAL AIRWAY (12/10/2024 9:55 AM [...] inferior: normal 16- Apical septal: normal 17- Blodgett: normal Valves: Aortic Valve: Annulus: normal Leaflet [...] Hct, POC 41.0 38.9 - 50.3 % [facility] Total Hb, POC 13.7 13.0 - 17.5 g/dL [facility] Blood 12/10/2024 9:51 AM CDT 12/10/2024 9:51 AM CDT Keyla Basurto MD LAB POCT ORDERABLES - DEVIC E Final Result Performing Organization Address City/[facility]/ZIP Co de Phone Number DONALDODEYSI TARAS [address] Department of Laboratories [place] [phone] * POC Activated Clotting Time, High Range (12/10/2024 9:48 AM CDT) ACT 98 87 - 138 sec POC Performer [id number] [facility] Blood 12/10/2024 9:48 AM CDT 12/10/2024 9:48 AM CDT Keyla Basurto MD LAB BLOOD ORDERABLES Final Result Performing Organization Address [facility] Co de Phone Number CLARA GRAJEDA [address] Department of Laboratories [place] [phone] * TRANSTHORACIC ECHO (TTE) COMPLETE W DOPPLER/CF WO CONTRAST (12/10/2024 9:08 AM CDT) Pathologist [facility] LV EF 60 % CONS SCIMAGE Anatomical Region Laterality Modality Ultrasound 12/10/2024 8:26 AM CDT Narrative 12/10/2024 12:32 PM CDT [facility] [id number] [place] [address] Echocardiogram Report Patient Name: KHAI MONAE : 1960 Study Date: 12/10/2024 8:26:19 AM Gender: M Tech: Location: [facility] Ref Provider: RAI REDDY Height(Cm): 188 [...] Procedure Note Jaida Rahman MD - 12/10/2024 [place] [address] Echocardiogram Report Patient Name: KHAI MONAE : 1960 Study Date: 12/10/2024 8:26:19 AM Gender: M Tech: Location: [facility] Provider: RAI REDDY Height(Cm): 188 BSA: 2.14 [...] TEST ORDERAB LES Final Result CLARA GRAJEDA [address] Department [place] [address] * XR Chest 1 Vw [...] Units (12/10/2024 8:00 AM CDT) Product code [id number] [facility] Unit Number [id number] [facility] CH Product Blood Type OPOS CERNER CH Dispense Status PRESUMED TRANSFUSED [facility]ERNER CH Product code T9514O38 Unit Number [id number] [facility] CH Product Blood Type OPOS CERNER CH Dispense Status RETURNED [facility]ERNER CH Product code I3874T40 CERNER CH Unit Number [id number] [facility]ERN[facility] CH Product Blood Type OPOS [...] PRODUCT ORDERABL ES Final Result CLARA GRAJEDA [address] Department of [employer] [place] [address] * Prepare RBC: 4 Units (12/10/2024 8:00 AM CDT) Product code P2444E14 CERNER CH Unit Number [id number] 2-7 [facility]ERN[facility] CH Product Blood Type OPOS CERNER CH Dispense Status RETURNED [facility]ERNER CH Product code [id number] CERNER CH Unit Number [id number] 2-B [facility]ERNER CH Product Blood Type OPOS CERNER CH Dispense Status RETURNED CERNER CH Product code [id number] Unit Number [id number] 1-2 CERNER CH Product Blood Type OPOS CERNER CH Dispense Status RETURNED CERNER CH Product code P3459Q39 CERNER CH Unit Number [id number] 2-F [facility]ERNER CH Product Blood Type OPOS CERNER CH Dispense Status RETURNED [facility]ERN[facility] CH Blood 12/10/2024 8:00 AM CDT [facility]ative [facility] - 12/14/2024 12:29 AM CDT Specify Procedure:->CABG Are special requirements needed? (All products are leukoreduced and CMV- safe)- >No Date required:-[id number] LRRBC # of [id number] Reasons:-Hold for procedure (specify procedure)} Rai Reddy NP BLOOD BANK PRODUCT ORDERABL ES Final Result [facility] [address] Department [place] [address] * (ABNORMAL) aPTT (12/10/2024 6:40 AM CDT) Pathologist [facility] aPTT 71(H) 28 - 38 sec Comment: Interpretive Data Heparin therapeutic range: 66.0 - 100.0 seconds. Range based on correlation with therapeutic heparin activity range of 0.3 - 0.7 Units/mL. Current interpretive data was last revised on 2023. Blood 12/10/2024 6:40 AM CDT 12/10/2024 6:47 AM CDT Isra Romero MD LAB BLOOD ORDERABLES Final R esult Performing Organization Address [facility] Co de Phone Number CLARA GRAJEDA [address] Department [place] [address] * eGFR (12/10/2024 12:12 AM [...] ORDERABLES Final Res ult Performing Organization Address [facility] Co de Phone Number CLARA GRAJEDA [address] Department [place] [address] * (ABNORMAL) Differential, auto (12/10/2024 12:12 AM CDT) Neutrophil abs 4.77 1.50 - 6.50 K/cumm Imm gran abs 0.02 0.00 - 0.10 K/cumm CERNER Lymphocyte abs 3.28 0.80 - 3.30 K/cumm [facility] Monocyte abs 1.38(H) 0.20 - 0.80 K/cumm [facility] Eosinophil abs 0.03 0.00 - 0.50 K/cumm [facility] Basophil abs 0.03 0.00 - 0.10 K/cumm [facility] Neutrophil pct 50.2 % [facility] Comment: Interpretive Data Percent cell [...] revised on 2017. Lymphocyte pct 34.5 % [facility] Comment: Interpretive Data Percent cell count reference ranges are not reported, since discordance with absolute values may lead to misinterpretation of CBC data. Current Interpretive Data was last revised on 2017. Monocyte pct 14.5 % [facility] Comment: Interpretive Data Percent cell count reference ranges are not reported, since discordance with absolute values may lead to misinterpretation of CBC data. Current Interpretive Data was last revised on 2017. Eosinophil pct 0.3 % [facility] Comment: Interpretive Data Percent cell count reference ranges are not reported, since discordance with absolute values may lead to misinterpretation of CBC data. Current Interpretive Data was last revised on 2017. Basophil pct 0.3 % [facility] Comment: Interpretive Data Percent cell count reference ranges are not reported, since discordance with absolute values may lead to misinterpretation of CBC data. Current Interpretive Data was last revised on 2017. Blood 12/10/2024 12:1 2 AM CDT 12/10/2024 12:22 AM CDT us Shannan Segundo NP LAB BLOOD ORDERABLES Final Res ult CLARA GRAJEDA [address] Department [place] [address] * (ABNORMAL) CBC with auto differential (12/10/2024 12:12 AM CDT) WBC 9.51 3.80 - 9.90 K/cumm Hgb 13.4 13.0 - 17.5 g/dL [facility] Hct 40.9 38.9 - 50.3 % [facility] Plt 89(L) 150 - 400 K/cumm [facility] MPV 10.8 9.1 - 12.3 fL [facility] RBC 4.52 4.30 - 5.80 M/cumm [facility] MCV 90.5 81.3 - 96.4 fL [facility] MCH 29.6 27.1 - 33.3 pg [facility] MCHC 32.8 32.3 - 35.7 g/dL [facility] RDW CV 13.0 11.1 - 14.9 % [facility] RDW SD 42.6 35.7 - 48.1 fL [facility] NRBC abs 0.00 0.00 - 0.01 K/cumm [facility] Morphologic Screen Results confirmed by manual morphology review. [facility] Blood 12/10/2024 12:1 2 AM CDT 12/10/2024 12:22 AM CDT Shannan Segundo NP LAB BLOOD ORDERABLES Final Res ult Performing Organization Address [facility] de Phone Number CLARA GRAJEDA [address] Department [employer] [place] [address] * (ABNORMAL) aPTT (12/10/2024 12:12 AM CDT) [...] ORDERABLES Final R esult Performing Organization Address [facility] Co de Phone Number CLARA GRAJEDA [address] Department of [employer] [place] [address] * Magnesium (12/10/2024 12:12 AM CDT) Magnesium 2.0 1.4 - 2.5 mg/dL Blood 12/10/2024 12:1 2 AM CDT 12/10/2024 12:22 AM CDT Shannan Segundo NP LAB BLOOD ORDERABLES Final Res ult Performing Organization Address [facility] de Phone Number [facility] [address] Department of [employer] [place] [address] * Hemoglobin A1c (12/10/2024 12:12 AM CDT) Hgb A1C 5.4 4.0 - 5.6 % Estimated Average Glucose 108 mg/dL [facility] Comment: The ADA recommends reporting an estimated Average Glucose (eAG) with all Hemoglobin A1c results using the equation derived from a study of 507 normal and diabetic adults. Minority populations were underrepresented and children were not included. (Diabetes Care 31:8483-9586, 2008). The eAG is not equivalent to a fasting glucose. Blood 12/10/2024 12:1 2 AM CDT 12/10/2024 12:22 AM CDT Paula Reno MD LAB BLOOD ORDERABLES Final Res ult Performing Organization Address [facility] de Phone Number CLARA TARAS [address] Department [employer] [place] [address] * Basic metabolic panel (12/10/2024 12:12 AM CDT) Sodium 139 135 - 145 mmol/L Potassium, pl 4.4 3.3 - 4.9 mmol/L [facility] Chloride 106 97 - 110 mmol/L [facility] CO2 23 22 - 32 mmol/L [facility] Anion gap 10 2 - 15 mmol/L [facility] BUN 18 6 - 25 mg/dL [facility] Creatinine 1.24 0.80 - 1.30 mg/dL [facility] Glucose 115 70 - 199 mg/dL [facility] Comment: Interpretive Data Fasting glucose >/= [...] ORDERABLES Final Res ult Performing Organization Address [facility] de Phone Number [facility] [address] [place] [address] * Protime-INR (12/09/2024 6:40 PM [...] ORDERABLES Final Res ult Performing Organization Address [facility] de Phone Number [facility] [address] [facility] [employer] [place], [place] [phone] * eGFR (12/09/2024 6:03 PM CDT) eGFR [...] NP LAB BLOOD ORDERABLES Final Res ult [facility] [address] Department [place] [address] * (ABNORMAL) Differential, auto (12/09/2024 6:03 PM CDT) Neutrophil abs 5.76 1.50 - 6.50 K/cumm Imm gran abs 0.02 0.00 - 0.10 K/cumm [facility] Lymphocyte abs 4.92(H) 0.80 - 3.30 K/cumm [facility] Monocyte abs 1.76(H) 0.20 - 0.80 K/cumm [facility] Eosinophil abs 0.05 0.00 - 0.50 K/cumm [facility] Basophil abs 0.03 0.00 - 0.10 K/cumm [facility] Neutrophil pct 46.0 % [facility] Comment: Interpretive Data Percent cell count reference ranges are not reported, since discordance with absolute values may lead to misinterpretation of CBC data. Current Interpretive Data was last revised on 2017. Imm gran pct 0.2 % [facility] Comment: Interpretive Data Percent cell count reference ranges are not reported, since discordance with absolute values may lead to misinterpretation of CBC data. Current Interpretive Data was last revised on 2017. Lymphocyte pct 39.2 % [facility] Comment: Interpretive Data Percent cell count reference ranges are not reported, since discordance with absolute values may lead to misinterpretation of CBC data. Current Interpretive Data was last revised on 2017. Monocyte pct 14.0 % [facility] Comment: Interpretive Data Percent cell count reference ranges are not reported, since discordance with absolute values may lead to misinterpretation of CBC data. Current Interpretive Data was last revised on 2017. Eosinophil pct 0.4 % [facility] Comment: Interpretive Data Percent cell count reference ranges are not reported, since discordance with absolute values may lead to misinterpretation of CBC data. Current Interpretive Data was last revised on 2017. Basophil pct 0.2 % [facility] Comment: Interpretive Data Percent cell count reference ranges are not reported, since discordance with absolute values may lead to misinterpretation of CBC data. Current Interpretive Data was last revised on 2017. Blood 12/09/2024 6:03 PM CDT 12/09/2024 6:41 PM CDT us Shannan Segundo [employer] LAB BLOOD ORDERABLES Final Res ult [facility] [address] Department [place] [address] * (ABNORMAL) CBC with auto differential (12/09/2024 6:03 PM CDT) WBC 12.54(H) 3.80 - 9.90 K/cumm Hgb 13.9 13.0 - 17.5 g/dL [facility] Hct 41.5 38.9 - 50.3 % [facility] Plt 101(L) 150 - 400 K/cumm [facility] Comment:No clot detected in sample. MPV 11.1 9.1 - 12.3 fL [facility] RBC 4.58 4.30 - 5.80 M/cumm [facility] MCV 90.6 81.3 - 96.4 fL [facility] MCH 30.3 27.1 - 33.3 pg [facility] MCHC 33.5 32.3 - 35.7 g/dL [facility] RDW CV 13.2 11.1 - 14.9 % [facility] RDW SD 43.7 35.7 - 48.1 fL [facility] NRBC abs 0.00 0.00 - 0.01 K/cumm [facility] Morphologic Screen Results confirmed by manual morphology review. [facility] Blood 12/09/2024 6:03 PM CDT 12/09/2024 6:41 PM CDT Shannan Segundo [employer] LAB BLOOD ORDERABLES Final Res ult Performing Organization Address [facility] de Phone Number [facility] [address] [place] [place] [address] * (ABNORMAL) aPTT (12/09/2024 6:03 PM CDT) aPTT 53(H) 28 - 38 sec Comment: Interpretive Data Heparin therapeutic range: 66.0 - 100.0 seconds. Range based on correlation with therapeutic heparin activity range of 0.3 - 0.7 Units/mL. Current interpretive data was last revised on 2023. Blood 12/09/2024 6:03 PM CDT 12/09/2024 6:40 PM CDT us Shannan Segundo [employer] LAB BLOOD ORDERABLES Final Res ult Performing Organization Address [facility] Co de Phone Number [facility] [address] [address] [facility] [employer] [place] [address] * Protime-INR (12/09/2024 6:03 PM CDT) PT 11.6 9.7 - 13.0 sec INR 1.07 0.90 - 1.20 [facility] Comment: Interpretive data Oral anticoagulant therapeutic ranges: Venous thromboembolism prophylaxis or treatment: 2.0-3.0 CARDIOLOGY Standard range: 2.0-3.0 High-intensity range: 2.5-3.5 Refer to indication-specific guidelines for appropriate target ranges for prosthetic heart valve replacement. Current interpretive data was last revised on 2019. Blood 12/09/2024 6:03 PM CDT 12/09/2024 6:40 PM CDT Narrative [facility] - 12/09/2024 6:54 PM CDT Baseline prior to heparin initiation Shannan Segundo [employer] LAB BLOOD ORDERABLES Final Res ult Performing Organization Address [facility] Co de Phone Number DONALDODEYSI GRAJEDA [address] Department [employer] [place], [place] [phone] * Magnesium (12/09/2024 6:03 PM CDT) Pathologist [facility] Magnesium 2.0 1.4 - 2.5 mg/dL Blood 12/09/2024 6:03 PM CDT 12/09/2024 6:40 PM CDT Shannan Segundo [employer] LAB BLOOD ORDERABLES Final Res ult Performing Organization Address [facility] de Phone Number [facility] [address] [employer] [place], [place] [id number] * (ABNORMAL) Comprehensive metabolic panel (12/09/2024 6:03 PM CDT) Pathologist [facility] Sodium 137 135 - 145 mmol/L Potassium, pl 4.4 3.3 - 4.9 mmol/L [facility] Chloride 104 97 - 110 mmol/L [facility] CO2 21(L) 22 - 32 mmol/L [facility] Anion gap 12 2 - 15 mmol/L [facility] BUN 15 6 - 25 mg/dL [facility] Creatinine 1.20 0.80 - 1.30 mg/dL [facility] Glucose 99 70 - 199 mg/dL [facility] Comment: Interpretive Data Fasting glucose >/= [...] ORDERABLES Final Res ult Performing Organization Address City/[facility]/ZIP Co de Phone Number CLARA GRAJEDA [address] [employer] [place], [place] [phone] * Calcium, ionized, whole blood (12/09/2024 5:57 PM CDT) Ca, ionized, bld 4.64 4.50 - 5.10 mg/dL Blood 12/09/2024 5:57 PM CDT 12/09/2024 6:52 PM CDT Shannan Segundo NP LAB BLOOD ORDERABLES Final Res ult Performing Organization Address [facility]/ZIP Co de Phone Number CLARA GRAJEDA [address] Department [employer] [place], [place] [phone] * Cardiology Document Scan (12/09/2024 11:37 AM CDT) Anatomical Region Laterality Modality Other Peggy Huitron MD CV CARDIAC SERVICES PROCEDU RES Final Result * Cardiology Document Scan (12/09/2024 11:31 AM CDT) Anatomical Region Laterality Modality Other Peggy Huitron MD CV CARDIAC SERVICES PROCEDU RES Final Result from Last 3 Months Insurance [facility] MEDICAID [facility] MEDICAID [facility] Advance Directives For more information, please contact: [phone] * Full Code (Latest Code Status on File) Date Activated Date Inactivated Comments 12/09/2024 5:47 PM 12/15/2024 9:07 PM Care Teams Machine Operations Supervisor Relationship Specialty Start Date End Date Guillermo Painting MD [facility] [place] [address] PCP - General 11/05/17 Cj Holloway MD [address] [place] [address] Medical Oncologist/Hematologis t Hematology and Oncology 04/17/18 Paula Reno MD [address] [facility] [id number] [place] [address] Surgeon Cardiothoracic Surgery 12/15/24 Miscellaneous, Not In File 12/15/24
--- OUTSIDE RECORDS SUMMARY | 2025-01-30 21:22 | XMS_ITS | Clinical Summary ---
Author Organization [facility] Address [address] [place] [address] Phone Care Team Providers Care Dispatcher Maintenance Service Name Role Phone Guillermo Mcnamara MD Primary Care Provider [phone] Allergies No known active allergies Medications cetirizine [...] Ended) 2025 Insurance [employer] Care Teams Dispatcher Maintenance Service Relationship Specialty Start Date End Date Guillermo Mcnamara MD [address] [phone] PCP - General Family Medicine 11/29/18
--- OUTSIDE RECORDS SUMMARY | 2025-01-30 21:22 | XMS_ITS | Clinical Summary ---
Author Organization 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 Name Role Phone Guillermo Painting MD Primary Care Prov ider Cj Holloway MD Unavailable [phone] Paula Reno MD Unavailable [phone] Miscellaneous, Not In File Unavailable Unava [...] Diagnosed Date Coronary artery disease invo lving [place] coronary artery of [place] heart without angina pectoris 12/10/2024 CAD, multiple vessel 12/09/2024 CKD stage 3a, GFR 45-59 ml/min 12/09/2024 Renal infarct 12/09/2024 Septal myocardial infarction 12/09/2024 Chronic lymphocytic leukemia 04/20/2018 Hyperkalemia 03/18/2018 Resolved Problems Problem Noted Date Diagnosed Date Resolved Date Chronic kidney disease, stage 2 (mild) 03/18/2018 12/09/2024 Encounters Date Type Department Care Team Description 01/14/2025 4:00 PM CDT Home Care Visit [address] [address] [address] [place] [address] Leonora Borjas RN SN OASIS DISCHARGE 01/13/2025 11:30 AM CDT Office Visit [facility] Surgery [address] [place] [phone] Paula Reno MD Coronary artery disease involving [place] coronary artery of [place] heart with unstable angina pectoris (HCC) (Primary Dx) 01/11/2025 Telephone [facility] Medical [facility] Cardiology [address] [place] [address] [address] [place] [phone] Cookie Sykes NP 01/07/2025 1:00 PM CDT Home Care Visit [address] [address] [address] [place] [address] Kayleigh Gay RN SN HOME VISIT 01/07/2025 10:30 AM CDT Office Visit [facility] Cardiology [address] [place] [address] [address] [place] [phone] Cookie Sykes NP Postoperative atrial fibrillation (HCC) (Primary Dx); Coronary artery disease involving [place] coronary artery of [place] heart without angina pectoris; Hx of CABG; Hospital discharge follow-up 01/03/2025 12:00 PM CDT Home Care Visit [address] [place] [address] Kayleigh Gay RN SN HOME VISIT 12/30/2024 12:15 PM CDT Home Care Visit [address] [place] [address] Noris Hicks RN SN HOME VISIT 12/28/2024 [facility] Post Discharge Follow up phone call [facility] [address] [place] [address] Leonardo Nafisafrancia Tate 12/27/2024 10:00 AM CDT Home Care Visit [address] [place] [address] Kayleigh Gay RN SN HOME VISIT 12/24/2024 11:00 AM CDT Home Care Visit [address] [place] [address] Kayleigh Gay RN SN HOME VISIT 12/22/2024 Home Care Visit [address] [place] [address] Kayleigh Gay RN CARE CONFERENCE 12/21/2024 12:00 PM CDT Home Care Visit [address] [place] [address] Kayleigh Gay RN SN HOME VISIT 12/21/2024 11:38 AM CDT - 12/21/2024 11:59 PM CDT Hospital Encounter [facility] [address] [place], [place] [phone] Discharge Disposition: Discharge to home or self care 12/21/2024 Documentation [facility] Surgery [address] [facility] [address] [place] [phone] Rai Reddy NP 12/20/2024 Home Care Visit [address] [place] [address] Nicky Brown, NILES SN TRIAGE ENCOUNTER 12/19/2024 Plan of Care Documentation [address] [place] [address] 12/17/2024 10:00 AM CDT Home Care Visit [address] [place] [address] Tori Gee RN SN OASIS START OF CARE 12/15/2024 Telephone [facility] Home Care Services [address] [place] [address] Gene Hayden MA 12/15/2024 Telephone [facility] Medical Group Cardiology [address] [facility] [address] [place] [address] Shazia Amaya NP 12/15/2024 Orders Only [facility] Medical [facility] Cardiology [address] [place] [address] Peggy Huitron MD 12/10/2024 9:15 AM CDT Anesthesia Event [facility] Operating Room [address] [place] [address] Primitivo Horne MD 12/10/2024 8:30 AM CDT - 12/10/2024 2:40 PM CDT Surgery [facility] Operating Room [id number] [place] [address] Paula Reno MD CORONARY ARTERY BYPASS GRAFT x 4, HIG[place]OTH[place], MARTINEZ AND LEFT RADIAL EVH 12/09/2024 5:41 PM CDT - 12/15/2024 5:02 PM CDT Hospital Encounter [address] [address] Isra Romero MD Myla, Lathamanjari, MD Ray, Shuddhadeb, MD CAD, multiple vessel (Primary Dx); Coronary artery disease involving [place] coronary artery of [place] heart without angina pectoris Discharge Disposition: Discharge [...] materials from doctor or pharmacy Never 01/14/2025 [facility] Utilities Answer Date Recorded In the past 12 months has th e [employer], gas, oil, or water [employer] threatened to shut off services in your [...] often do you attend chur ch or church services? Never 12/14/2024 Do you belong to [...] any time in the past 12 m [facility], were you homeless or living in a detention (including now)? No 12/14/2024 Personal Safety Answer Date Recorded Have you ever been in or are you currently in a harmful physical or emotional relationship or is someone making you feel afraid or unsafe? 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 Gender Identity Male 06/24/2018 12:51 PM CDT [...] 05/25/2021, 03/14/2021 Medical Devices Implanted Type Area Mine Patrol Device Identifier Shelf Expiration Date Model / Serial / Lot [employer] Plate Bone Low Profile 6 Hole O Shape Sternum Ti 115.104.06 - [id number] Implanted:Qty: 1 on 12/10/2024 by Paula Reno MD at [facility] N/A: Chest Wall [employer] 115.104.06 / / [employer] Plate Bone Low Profile 4 Hole Box Sternum Ti 115.103.04 - [id number] Implanted:Qty: 1 on 12/10/2024 by Paula Reno MD at [facility] N/A: Chest Wall [employer] 115.103.04 / / [employer] Plate Bone Low Profile 6 Hole H Shape Sternum Ti 115.102.06 - [id number] Implanted:Qty: 1 on 12/10/2024 by Paula Reno MD at [facility] N/A: Chest Wall [employer] 115.102.06 / / [employer] Screw Bone Slf Drl Full Thread Locking 3.5x20mm Ti 100.035.20 - [id number] Implanted:Qty: 6 on 12/10/2024 by Paula Reno MD at [facility] N/A: Chest Wall [employer] 100.035.20 / / [employer] Screw Bone Slf Drl Full Thread Locking 3.5x18mm Ti 100.035.18 - [id number] Implanted:Qty: 10 on 12/10/2024 by Paula Reno MD at [facility] N/A: Chest Wall [employer] 100.035.18 [...] CAD, multiple vessel Coronary artery disease involving [place] coronary artery of [place] heart without angina pectoris POCT GLUCOSE DEVICE [...] 3:30 PM CDT Coronary artery disease involving [place] coronary artery of [place] heart without angina pectoris POCT GLUCOSE DEVICE [...] LINE PLACEMENT Routine 12/10/2024 9:56 AM CDT AZ AN ELECTIVE ENDOTRACHEAL AIRWAY Routine 12/10/2024 9:55 AM CDT ANESTHESIA CAROL Routine 12/10/2024 9:54 AM CDT POC BLOOD GAS AND CHEMISTRIES, ARTERIAL Routine 12/10/2024 9:51 AM CDT POCT ACTIVATED CLOTTING TIME, HIGH RANGE Routine 12/10/2024 9:48 AM CDT CORONARY ARTERY BYPASS GRAFT - INTERNAL MAMMARY ARTERY/RADIAL ARTERY 12/10/2024 9:15 AM CDT Coronary artery disease involving [place] coronary artery of [place] heart without angina pectoris CORONARY ARTERY BYPASS GRAFT 12/10/2024 9:15 AM CDT Coronary artery disease involving [place] coronary artery of [place] heart without angina pectoris TRANSTHORACIC ECHO (TTE) [...] LAB BLOOD ORDERABLES Final Res ult [facility] Department [place] [address] * (ABNORMAL) CBC with auto differential (12/21/2024 11:38 AM CDT) Pathologist [facility] WBC 10.95(H) 3.80 - 9.90 K/cumm Hgb 12.1(L) 13.0 - 17.5 g/dL [facility] Hct 35.8(L) 38.9 - 50.3 % [facility] Plt 310 150 - 400 K/cumm [facility] MPV 9.9 9.1 - 12.3 fL [facility] RBC 4.01(L) 4.30 - 5.80 M/cumm [facility] MCV 89.3 81.3 - 96.4 fL [facility] MCH 30.2 27.1 - 33.3 pg [facility] MCHC 33.8 32.3 - 35.7 g/dL [facility] RDW CV 13.2 11.1 - 14.9 % [facility] RDW SD 43.3 35.7 - 48.1 fL [facility] NRBC abs 0.00 0.00 - 0.01 K/cumm [facility] Morphologic Screen Results confirmed by manual morphology review. [facility] Blood 12/21/2024 11:3 8 AM CDT 12/21/2024 12:54 PM CDT us Paula Reno MD LAB BLOOD ORDERABLES Edited Re sult - Final [facility] Department [place] [address] * (ABNORMAL) Manual Differential (12/21/2024 11:38 AM CDT) Pathologist [facility] Differential Manual Cells Counted 120 [facility] Neutrophil abs 7.12(H) 1.50 - 6.50 K/cumm [facility] Imm gran abs 0.19(H) 0.00 - 0.10 K/cumm [facility] Lymphocyte abs 3.29 0.80 - 3.30 K/cumm [facility] Monocyte abs 0.36 0.20 - 0.80 K/cumm [facility] Neutrophil pct 65.0 % [facility] Comment: Interpretive Data Percent cell count reference ranges are not reported, since discordance with absolute values may lead to misinterpretation of CBC data. Current Interpretive Data was last revised on 2017. Lymphocyte pct 29.2 % [facility] Comment: Interpretive Data Percent cell count reference ranges are not reported, since discordance with absolute values may lead to misinterpretation of CBC data. Current Interpretive Data was last revised on 2017. Monocyte pct 3.3 % [facility] Comment: Interpretive Data Percent cell count reference ranges are not reported, since discordance with absolute values may lead to misinterpretation of CBC data. Current Interpretive Data was last revised on 2017. Myelocyte pct 1.7(H) 0.0 - 0.0 % [facility] Variant lymph pct 0.8(H) 0.0 - 0.0 % [facility] Blood 12/21/2024 11:3 8 AM CDT 12/21/2024 1:05 PM CDT us Paula Reno MD LAB BLOOD ORDERABLES Final Res ult [facility] Department [place] [address] * (ABNORMAL) Comprehensive metabolic panel (12/21/2024 11:38 AM CDT) Sodium 137 135 - 145 mmol/L Potassium, pl 4.1 3.3 - 4.9 mmol/L [facility] Chloride 101 97 - 110 mmol/L [facility] CO2 23 22 - 32 mmol/L [facility] Anion gap 13 2 - 15 mmol/L [facility] BUN 38(H) 6 - 25 mg/dL [facility] Creatinine 1.54(H) 0.80 - 1.30 mg/dL [facility] Glucose 100 70 - 199 mg/dL [facility] Comment: Interpretive Data Fasting glucose >/= [...] Calcium 9.4 8.5 - 10.3 mg/dL [facility] Bilirubin, total 0.3 0.1 - 1.2 mg/dL [facility] Protein, pl 7.3 6.5 - 8.5 g/dL [facility] Albumin 4.1 3.5 - 5.0 g/dL [facility] Alk phos 123 40 - 130 Units/L [facility] ALT 22 7 - 55 Units/L [facility] AST 20 10 - 50 Units/L [facility] Blood 12/21/2024 11:3 8 AM CDT 12/21/2024 12:54 PM CDT us Paula Reno MD LAB BLOOD ORDERABLES Final Res ult [facility] Department [place] [address] * XR Chest 1 View (12/15/2024 8:55 [...] by: Christian Ann M.D. us Nicolle Oswald PLANT PHYSIOLOGY TEACHER IMG XR PROCEDURES Final Re sult * [...] 12/15/2024 6:27 AM CDT us Rai Reddy PLANT PHYSIOLOGY TEACHER LAB BLOOD ORDERABLES Final Result [facility] [address] Department [place] [address] * (ABNORMAL) CBC without differential [...] CDT 12/15/2024 6:28 AM CDT Rai Reddy PLANT PHYSIOLOGY TEACHER LAB BLOOD ORDERABLES Final Result [facility] [address] Department of Laboratories [place] [phone] * (ABNORMAL) Hepatic function panel (12/15/2024 5:53 [...] LAB BLOOD ORDERABLES Final Result [facility] [address] Department [place] [address] * (ABNORMAL) Basic metabolic panel (12/15/2024 5:53 [...] 2022. Calcium 8.9 8.5 - 10.3 mg/dL [facility] Blood 12/15/2024 5:53 AM CDT 12/15/2024 6:27 AM CDT Rai Reddy NP LAB BLOOD ORDERABLES Final Result [facility] [address] Department [place] [address] * XR Chest PA Lateral 2 Views [...] signed by: Todd Falcon M.D. Rai Reddy PLANT PHYSIOLOGY TEACHER IMG XR PROCEDURES Final Res ult * [...] CDT 12/14/2024 5:14 AM CDT Rai Reddy PLANT PHYSIOLOGY TEACHER LAB BLOOD ORDERABLES Final Result Performing Organization Address [facility] Co de Phone Number [facility] [place] [address] [address] [facility] [place] [address] * (ABNORMAL) aPTT (12/14/2024 4:36 AM CDT) aPTT 26(L) 28 - 38 sec Comment: Interpretive Data Heparin therapeutic range: 66.0 - 100.0 seconds. Range based on correlation with therapeutic heparin activity range of 0.3 - 0.7 Units/mL. Current interpretive data was last revised on 2023. Blood 12/14/2024 4:36 AM CDT 12/14/2024 5:10 AM CDT Rai Reddy PLANT PHYSIOLOGY TEACHER LAB BLOOD ORDERABLES Final Result Performing Organization Address [facility] de Phone Number [facility] [place] [address] [address] [facility] [place] [address] * Protime-INR (12/14/2024 4:36 AM CDT) PT [...] BLOOD ORDERABLES Final Result Performing Organization Address [facility] Co de Phone Number [facility] GRAJED[place] [address] [place] [address] * (ABNORMAL) CBC without differential (12/14/2024 4:36 AM CDT) Pathologist [facility] WBC 9.99(H) 3.80 - 9.90 K/cumm Hgb [...] CV 13.3 11.1 - 14.9 % [facility] CH RDW SD 45.1 35.7 - 48.1 fL [facility] NRBC abs 0.00 0.00 - 0.01 K/cumm [facility] Blood 12/14/2024 4:36 AM CDT 12/14/2024 5:10 AM CDT Rai Reddy NP LAB BLOOD ORDERABLES Final Result [facility] [address] Department [place] [address] * Basic metabolic panel (12/14/2024 4:36 AM CDT) Pathologist [facility] Sodium 137 [...] [facility] Glucose 109 70 - 199 mg/dL [facility] Comment: Interpretive Data Fasting glucose >/= 126 [...] 2022. Calcium 9.1 8.5 - 10.3 mg/dL [facility] Blood 12/14/2024 4:36 AM CDT 12/14/2024 5:14 AM CDT Rai Reddy NP LAB BLOOD ORDERABLES Final Result Performing Organization Address [facility] Co de Phone Number [facility] [place] [address] [address] [place] [address] * POCT glucose (12/13/2024 7:37 AM CDT) Glucose, POC 114 70 - 199 mg/dL POC Performer [id number] [facility] Blood 12/13/2024 7:37 AM CDT 12/13/2024 7:37 AM CDT Paula Reno MD LAB POCT ORDERABLES - DEVICE F inal Result Performing Organization Address City/[facility] Co de Phone Number [facility] [address] [address] [place] [address] * eGFR (12/13/2024 7:27 AM CDT) eGFR [...] Reddy NP LAB BLOOD ORDERABLES Final Result [facility] [address] Department [place] [address] * (ABNORMAL) CBC without differential (12/13/2024 7:27 AM CDT) WBC 9.11 3.80 - 9.90 K/cumm Hgb 10.6(L) 13.0 - 17.5 g/dL [facility] Hct 31.5(L) 38.9 - 50.3 % [facility] Plt 96(L) 150 - 400 K/cumm [facility] MPV 11.4 9.1 - 12.3 fL [facility] RBC 3.41(L) 4.30 - 5.80 M/cumm [facility] MCV 92.4 81.3 - 96.4 fL [facility] MCH 31.1 27.1 - 33.3 pg [facility] MCHC 33.7 32.3 - 35.7 g/dL [facility] RDW CV 13.1 11.1 - 14.9 % [facility] RDW SD 43.4 35.7 - 48.1 fL [facility] NRBC abs 0.00 0.00 - 0.01 K/cumm [facility] Blood 12/13/2024 7:27 AM CDT 12/13/2024 7:48 AM CDT Rai Reddy PLANT PHYSIOLOGY TEACHER LAB BLOOD ORDERABLES Final Result [facility] [address] [address] Department [place] [address] * Basic metabolic panel (12/13/2024 7:27 AM CDT) Sodium 139 135 - 145 mmol/L Potassium, pl 4.1 3.3 - 4.9 mmol/L [facility] Chloride 103 97 - 110 mmol/L [facility] CO2 24 22 - 32 mmol/L [facility] Anion gap 12 2 - 15 mmol/L [facility] BUN 18 6 - 25 mg/dL [facility] Creatinine 1.03 0.80 - 1.30 mg/dL [facility] Glucose 102 70 - 199 mg/dL [facility] Comment: Interpretive Data Fasting glucose [...] 2022. Calcium 8.7 8.5 - 10.3 mg/dL [facility] Blood 12/13/2024 7:27 AM CDT 12/13/2024 7:48 AM CDT us Rai Reddy NP LAB BLOOD ORDERABLES Final Result [facility] [address] Department [place] [address] * XR Chest 1 View - Portable [...] active infiltrate. The tip of a retracted Oglesby-Diane catheter is at the cavoatrial junction. Procedure Note Christian Ann MD - 12/13/2024 EXAMINATION: XR CHEST 1 VIEW HISTORY: The patient is a 64-year-old male who has had cardiac surgery. Comparison made with the previous study dated 12/12/2024 TECHNIQUE: AP portable view of the chest. FINDINGS: Cardiomegaly with aortic atherosclerosis. No failure. No active infiltrate. The tip of a retracted Oglesby-Diane catheter is at the cavoatrial junction. IMPRESSION: No failure Electronically signed by: Christian Ann M.D. Paula Reno MD IMG XR PROCEDURES Final Result * POCT glucose (12/12/2024 8:37 PM CDT) Glucose, POC 142 70 - 199 mg/dL POC Performer [id number] [facility] Blood 12/12/2024 8:37 PM CDT 12/12/2024 8:37 PM CDT Paula Reno MD LAB POCT ORDERABLES - DEVICE F inal Result [facility] [address] Department [place] [address] * POCT glucose (12/12/2024 5:10 PM CDT) Glucose, POC 135 70 - 199 mg/dL POC Performer [id number] [facility] Blood 12/12/2024 5:10 PM CDT 12/12/2024 5:10 PM CDT Paula Reno MD LAB POCT ORDERABLES - DEVICE F inal Result Performing Organization Address [facility] Co de Phone Number [facility] [place]RAJ[facility] [address] [address] [facility] [place] [address] * POCT glucose (12/12/2024 12:56 PM CDT) Glucose, POC 134 70 - 199 mg/dL POC Performer [id number] [facility] Blood 12/12/2024 12:5 6 PM CDT 12/12/2024 12:56 PM CDT Puala Reno MD LAB POCT ORDERABLES - DEVICE F inal Result Performing Organization Address [facility] Co de Phone Number [facility] [place] [address] [place] [address] * POCT glucose (12/12/2024 7:48 AM CDT) Glucose, POC 136 70 - 199 mg/dL POC Performer [id number] [facility] Blood 12/12/2024 7:48 AM CDT 12/12/2024 7:48 AM CDT Paula Reno MD LAB POCT ORDERABLES - DEVICE F inal Result Performing Organization Address [facility] Co de Phone Number CLARA GRAJEAD [address] [address] [facility] [place] [address] * XR Chest 1 View - Portable - in AM (12/12/2024 5:54 AM CDT) Anatomical Region Laterality Modality Body, Chest N/A Computed Radiogr aphy 12/12/2024 7:48 AM CDT Impressions 12/12/2024 7:48 AM CDT Oglesby-Diane tip location is difficult to assess secondary [...] HISTORY: s/p cardiac surg COMPARISON: 12/11/2024. IMPRESSION: Oglesby-Diane tip location is difficult to assess secondary [...] BLOOD ORDERABLES Final Res ult [facility] [address] [address] [place] [address] * Calcium, ionized, whole blood (12/12/2024 3:10 AM CDT) Ca, ionized, bld 4.77 4.50 - 5.10 mg/dL Blood 12/12/2024 3:10 AM CDT 12/12/2024 3:15 AM CDT Rai Reddy PLANT PHYSIOLOGY TEACHER LAB BLOOD ORDERABLES Final Result Performing Organization Address City/[facility] Co de Phone Number CLARA GRAJED[place] [address] Department [place] [address] * eGFR (12/12/2024 3:10 AM CDT) eGFR [...] CDT 12/12/2024 3:17 AM CDT Rai Reddy PLANT PHYSIOLOGY TEACHER LAB BLOOD ORDERABLES Final Result Performing Organization Address City/[facility]/ZIP Co de Phone Number CLARA GRAJED[place] [address] [address] Department of [employer] [place], [place] [id number] * (ABNORMAL) CBC without differential (12/12/2024 3:10 AM CDT) WBC 7.65 3.80 - 9.90 K/cumm Hgb 9.9(L) 13.0 - 17.5 g/dL [facility] Hct 30.2(L) 38.9 - 50.3 % [facility] Plt 74(L) 150 - 400 K/cumm [facility] CH MPV 10.6 9.1 - 12.3 fL [facility] RBC 3.26(L) 4.30 - 5.80 M/cumm [facility] MCV 92.6 81.3 - 96.4 fL [facility] MCH 30.4 27.1 - 33.3 pg [facility] MCHC 32.8 32.3 - 35.7 g/dL [facility] CH RDW CV 13.2 11.1 - 14.9 % [facility] CH RDW SD 44.9 35.7 - 48.1 fL [facility] NRBC abs 0.00 0.00 - 0.01 K/cumm [facility] Blood 12/12/2024 3:10 AM CDT 12/12/2024 3:17 AM CDT Rai Reddy NP LAB BLOOD ORDERABLES Final Result Performing Organization Address [facility] Co de Phone Number [facility] [address] Department [employer] [place], [place] [id number] * Magnesium (12/12/2024 3:10 AM CDT) [facility] Magnesium 2.0 1.4 - 2.5 mg/dL Blood 12/12/2024 3:10 AM CDT 12/12/2024 3:17 AM CDT Fred Kaur MD LAB BLOOD ORDERABLES Fin al Result Performing Organization Address City/[facility]/ZIP Co de Phone Number [facility] [address] Department of [employer] [place], [place] [id number] * (ABNORMAL) Basic metabolic panel (12/12/2024 3:10 AM CDT) Sodium 138 135 - 145 mmol/L Potassium, pl 3.8 3.3 - 4.9 mmol/L [facility] Chloride 104 97 - 110 mmol/L [facility] CO2 24 22 - 32 mmol/L [facility] Anion gap 10 2 - 15 mmol/L [facility] BUN 16 6 - 25 mg/dL [facility] Creatinine 1.02 0.80 - 1.30 mg/dL [facility] Glucose 138 70 - 199 mg/dL [facility] Comment: Interpretive Data Fasting glucose [...] 2022. Calcium 8.4(L) 8.5 - 10.3 mg/dL [facility] Blood 12/12/2024 3:10 AM CDT 12/12/2024 3:17 AM CDT Rai Reddy PLANT PHYSIOLOGY TEACHER LAB BLOOD ORDERABLES Final Result Performing Organization Address City/[facility]/ZIP Co de Phone Number CLARA GRAJEDA [address] [employer] [place], [place] [id number] * POCT glucose (12/12/2024 3:09 AM CDT) Glucose, POC 136 70 - 199 mg/dL POC Performer [id number] [facility] Blood 12/12/2024 3:09 AM CDT 12/12/2024 3:09 AM CDT Paula Reno MD LAB POCT ORDERABLES - DEVICE F inal Result Performing Organization Address City/[facility]/ZIP Co de Phone Number CLARA GRAJEDA [address] Department [place] [address] * POCT glucose (12/11/2024 11:09 PM CDT) Glucose, POC 149 70 - 199 mg/dL POC Performer [id number] CLARA Blood 12/11/2024 11:0 9 PM CDT 12/11/2024 11:09 PM CDT Paula Reno MD LAB POCT ORDERABLES - DEVICE F inal Result Performing Organization Address [facility] Center/[facility]/ZIP Co de Phone Number DONALDODEYSI [address] [place] [address] * POCT glucose (12/11/2024 8:34 PM CDT) Glucose, POC 142 70 - 199 mg/dL POC Performer [id number] [facility] Blood 12/11/2024 8:34 PM CDT 12/11/2024 8:34 PM CDT Paula Reno MD LAB POCT ORDERABLES - DEVICE F inal Result Performing Organization Address [facility] Co de Phone Number DONALDODEYSI [address] [place] [address] * Transfuse platelets (12/11/2024 6:05 PM CDT) Blood Paula Reno MD BLOOD TRANSFUSION ORDERABLES F inal Result Performing Organization Address [facility] Co de Phone Number DONALDODEYSI [address] [place] [address] * POCT glucose (12/11/2024 5:08 PM CDT) Glucose, POC 132 70 - 199 mg/dL POC Performer [id number] [facility] Blood 12/11/2024 5:08 PM CDT 12/11/2024 5:08 PM CDT Paula Reno MD LAB POCT ORDERABLES - DEVICE F inal Result Performing Organization Address City/[facility]/ZIP Co de Phone Number CLARA GRAJEDA [address] [place] [address] * Calcium, ionized, whole blood (12/11/2024 2:30 PM CDT) Ca, ionized, bld 4.51 4.50 - 5.10 mg/dL Blood 12/11/2024 2:30 PM CDT 12/11/2024 2:47 PM CDT Rai Reddy NP LAB BLOOD ORDERABLES Final Result Performing Organization Address [facility] Co de Phone Number CLARA GRAJEDA [address] [facility] [place] [address] * eGFR (12/11/2024 2:30 PM [...] BLOOD ORDERABLES Final Result Performing Organization Address City/[facility]/ZIP Co de Phone Number CLARA GRAJEDA [address] [address] * (ABNORMAL) CBC without differential (12/11/2024 2:30 PM CDT) Pathologist [facility] WBC 8.61 3.80 - 9.90 K/cumm Hgb 10.4(L) 13.0 - 17.5 g/dL [facility] Hct 31.1(L) 38.9 - 50.3 % [facility] Plt 94(L) 150 - 400 K/cumm [facility] MPV 10.7 9.1 - 12.3 fL [facility] RBC 3.44(L) 4.30 - 5.80 M/cumm [facility] CH MCV 90.4 81.3 - 96.4 fL [facility] MCH 30.2 27.1 - 33.3 pg [facility] MCHC 33.4 32.3 - 35.7 g/dL [facility] RDW CV 13.2 11.1 - 14.9 % [facility] RDW SD 43.2 35.7 - 48.1 fL [facility] NRBC abs 0.00 0.00 - 0.01 K/cumm [facility] Blood 12/11/2024 2:30 PM CDT 12/11/2024 2:40 PM CDT Rai Reddy NP LAB BLOOD ORDERABLES Final Result Performing Organization Address [facility] Co de Phone Number [facility] [address] [facility] [place] [address] * Magnesium (12/11/2024 2:30 PM CDT) [facility] Magnesium 2.1 1.4 - 2.5 mg/dL Blood 12/11/2024 2:30 PM CDT 12/11/2024 3:42 PM CDT Rai Reddy NP LAB BLOOD ORDERABLES Final Result Performing Organization Address [facility] Co de Phone Number [facility] [address] [address] [facility] [place] [address] * (ABNORMAL) Basic metabolic panel (12/11/2024 2:30 [...] 2022. Calcium 8.4(L) 8.5 - 10.3 mg/dL [facility] Blood 12/11/2024 2:30 PM CDT 12/11/2024 3:42 PM CDT us Rai Reddy [employer] LAB BLOOD ORDERABLES Final Result Performing Organization Address [facility]/ZIP Co de Phone Number [facility] [address] Department [place] [address] * POCT glucose (12/11/2024 11:42 AM CDT) Glucose, POC 135 70 - 199 mg/dL POC Performer [id number] [facility] Blood 12/11/2024 11:4 2 AM CDT 12/11/2024 11:42 AM CDT Paula Reno MD LAB POCT ORDERABLES - DEVICE F inal Result Performing Organization Address City/[facility] Co de Phone Number CLARA GRAJEDA [address] Department [place] [address] * ECG 12 lead (12/11/2024 9:31 AM CDT) 12/11/2024 9:31 AM CDT Narrative [facility] - 12/12/2024 10:11 AM CDT Vent Rate: 78 bpm RR Interval: 765 msec [place] Interval: 163 msec QRS Duration: 91 msec QT Interval: 374 msec QTC Interval: 407 msec P-R-T Emeigh: 36 - -10 - -52 degrees IMPRESSION: SINUS RHYTHM MODERATE T-WAVE ABNORMALITY, CONSIDER INFERIOR ISCHEMIA [-0.1+ mV T-WAVE IN II/aVF] ABNORMAL ECG Electronically Signed By: Elke Sosa MD us Paula Reno MD ECG ORDERABLES Final Result [facility] [employer] [facility] * Critical Care (12/11/2024 8:33 AM [...] plan with the ICU team and other medical/customer sales consultant staff, making frequent assessments and decisions [...] 134 70 - 199 mg/dL POC Performer [id number] CLARA GRAJEDA Blood 12/11/2024 7:32 AM CDT 12/11/2024 7:32 AM CDT us Paual Reno MD LAB POCT ORDERABLES - DEVICE F inal Result CLARA [address] Department [place] [address] * XR Chest 1 View - Portable - in AM (12/11/2024 6:10 AM CDT) Anatomical Region Laterality Modality Body, Chest N/A Computed Radiogr aphy 12/11/2024 7:05 AM CDT Impressions 12/11/2024 7:05 AM CDT The heart is normal in size. There are median sternotomy wires. Left thoracotomy tube. Oglesby-Diane catheter tip is in the right main [...] are median sternotomy wires. Left thoracotomy tube. Oglesby-Diane catheter tip is in the right main [...] BLOOD ORDERABLES Final Res ult CLARA GRAJEDA [address] Department [place] [address] * (ABNORMAL) Differential, auto (12/11/2024 3:21 AM CDT) Neutrophil abs 6.47 1.50 - 6.50 K/cumm Imm gran abs 0.02 0.00 - 0.10 K/cumm [facility] Lymphocyte abs 2.27 0.80 - 3.30 K/cumm [facility] Monocyte abs 0.83(H) 0.20 - 0.80 K/cumm [facility] Eosinophil abs 0.00 0.00 - 0.50 K/cumm [facility] Basophil abs 0.01 0.00 - 0.10 K/cumm [facility] Neutrophil pct 67.5 % [facility] Comment: Interpretive Data Percent cell [...] revised on 2017. Monocyte pct 8.6 % [facility] Comment: Interpretive Data Percent cell count reference ranges are not reported, since discordance with absolute values may lead to misinterpretation of CBC data. Current Interpretive Data was last revised on 2017. Eosinophil pct 0.0 % [facility] Comment: Interpretive Data Percent cell [...] ORDERABLES Final Res ult Performing Organization Address [facility] Co de Phone Number CLARA GRAJEDA [address] [address] Department [place] [address] * (ABNORMAL) CBC with auto differential (12/11/2024 3:21 AM CDT) WBC 9.60 3.80 - 9.90 K/cumm Hgb 10.5(L) 13.0 - 17.5 g/dL [facility] Hct 31.6(L) 38.9 - 50.3 % [facility] Plt 103(L) 150 - 400 K/cumm [facility] MPV 10.8 9.1 - 12.3 fL [facility] RBC 3.46(L) 4.30 - 5.80 M/cumm [facility] MCV 91.3 81.3 - 96.4 fL [facility] MCH 30.3 27.1 - 33.3 pg [facility] MCHC 33.2 32.3 - 35.7 g/dL [facility] RDW CV 13.2 11.1 - 14.9 % [facility] RDW SD 42.7 35.7 - 48.1 fL [facility] NRBC abs 0.00 0.00 - 0.01 K/cumm [facility] Blood 12/11/2024 3:21 AM CDT 12/11/2024 3:27 AM CDT us Paula Reno MD LAB BLOOD ORDERABLES Final Res ult Performing Organization Address [facility] Co de Phone Number CLARA GRAJEDA [address] [address] Department [place] [address] * Magnesium (12/11/2024 3:21 AM CDT) Magnesium 2.2 1.4 - 2.5 mg/dL Blood 12/11/2024 3:21 AM CDT 12/11/2024 3:27 AM CDT Fred Kaur MD LAB BLOOD ORDERABLES Fin al Result Performing Organization Address [facility] Co de Phone Number CLARA GRAJEDA [address] [address] Department [place] [address] * (ABNORMAL) Basic metabolic panel (12/11/2024 3:21 AM CDT) Sodium 137 135 - 145 mmol/L Potassium, pl 4.2 3.3 - 4.9 mmol/L [facility] Chloride 105 97 - 110 mmol/L [facility] CO2 22 22 - 32 mmol/L [facility] Anion gap 10 2 - 15 mmol/L [facility] BUN 14 6 - 25 mg/dL [facility] Creatinine 1.09 0.80 - 1.30 mg/dL [facility] Glucose 143 70 - 199 mg/dL [facility] Comment: Interpretive Data Fasting glucose [...] 2022. Calcium 8.0(L) 8.5 - 10.3 mg/dL [facility] Blood 12/11/2024 3:21 AM CDT 12/11/2024 3:27 AM CDT Paula Reno MD LAB BLOOD ORDERABLES Final Res ult CLARA GRAJEDA [address] Department [place] [address] * (ABNORMAL) Calcium, ionized, whole blood (12/11/2024 3:20 AM CDT) Pathologist [facility] Ca, ionized, bld 4.47(L) 4.50 - 5.10 mg/dL Blood 12/11/2024 3:20 AM CDT 12/11/2024 3:34 AM CDT Paula Reno MD LAB BLOOD ORDERABLES Final Res ult Performing Organization Address [facility] Co de Phone Number CLARA GRAJEDA [address] [address] [facility] [place] [address] * Transfuse platelets (12/11/2024 1:25 AM CDT) Blood Ronaldo Nguyen MD BLOOD TRANSFUSION ORDERABLES Final Result Performing Organization Address [facility] de Phone Number DONALDODEYSI GRAJEDA [address] [address] [facility] [place] [address] * Transfuse platelets (12/11/2024 12:16 AM CDT) Blood Ronaldo Nguyen MD BLOOD TRANSFUSION ORDERABLES Final Result Performing Organization Address [facility] Phone Number CLARA TARAS [address] [address] * (ABNORMAL) Blood gas, arterial (12/11/2024 12:06 [...] ORDERABLES Final Res ult Performing Organization Address [facility] Co de Phone Number DONALDODEYSI GRAJEDA [address] [address] [facility] [place] [address] * Prepare platelets: 2 Units (12/10/2024 8:29 PM CDT) Product code [id number] Unit Number [id number] [facility] Product Blood Type OPOS [facility] Dispense Status PRESUMED TRANSFUSED [facility] Product code [id number] [facility] Unit Number [id number] [facility] Product Blood Type OPOS [facility] Dispense Status PRESUMED TRANSFUSED [facility] Blood Venous blood specimen / Unknown 12/10/2024 8:29 PM CDT Narrative [facility] - 12/12/2024 10:15 AM CDT 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 (all products are leukoreduced)->No Date required:-[id number] PLT # of Units:-2-Units Reasons:-Other (Specify)} Ronaldo Nguyen MD BLOOD BANK PRODUCT ORDERABLE S Final Result Performing Organization Address [facility]/ZIP Co de Phone Number CLARA GRAJEDA [address] [employer] [place], [place] [id number] * POCT glucose (12/10/2024 8:01 PM CDT) Glucose, POC 110 70 - 199 mg/dL POC Performer [id number] [facility] Blood 12/10/2024 8:01 PM CDT 12/10/2024 8:01 PM CDT us Paula Reno MD LAB POCT ORDERABLES - DEVICE F inal Result CLARA [address] [employer] [place], [place] [address] * POCT glucose (12/10/2024 7:02 PM CDT) Glucose, POC 124 70 - 199 mg/dL POC Performer [id number] [facility] Blood 12/10/2024 7:02 PM CDT 12/10/2024 7:02 PM CDT Paula Reno MD LAB POCT ORDERABLES - DEVICE F inal Result Performing Organization Address City/[facility]/ZIP Co de Phone Number CLARA GRAJEDA [address] Department [place] [address] * (ABNORMAL) Calcium, ionized, whole blood (12/10/2024 6:58 PM CDT) Ca, ionized, bld 4.48(L) 4.50 - 5.10 mg/dL Blood 12/10/2024 6:58 PM CDT 12/10/2024 7:22 PM CDT Paula Reno MD LAB BLOOD ORDERABLES Final Res ult Performing Organization Address [facility] de Phone Number CLARA GRAJEDA [address] [place] [address] * eGFR (12/10/2024 6:58 PM CDT) eGFR [...] MD LAB BLOOD ORDERABLES Final Res ult [facility] [address] Department [place] [address] * (ABNORMAL) Differential, auto (12/10/2024 6:58 PM CDT) Neutrophil abs 6.73(H) 1.50 - 6.50 K/cumm Imm gran abs 0.05 0.00 - 0.10 K/cumm [facility] Lymphocyte abs 2.48 0.80 - 3.30 K/cumm [facility] Monocyte abs 0.81(H) 0.20 - 0.80 K/cumm [facility] Eosinophil abs 0.00 0.00 - 0.50 K/cumm [facility] Basophil abs 0.01 0.00 - 0.10 K/cumm [facility] Neutrophil pct 66.8 % [facility] Comment: Interpretive Data Percent cell count reference ranges are not reported, since discordance with absolute values may lead to misinterpretation of CBC data. Current Interpretive Data was last revised on 2017. Imm gran pct 0.5 % [facility] Comment: Interpretive Data Percent cell count reference ranges are not reported, since discordance with absolute values may lead to misinterpretation of CBC data. Current Interpretive Data was last revised on 2017. Lymphocyte pct 24.6 % [facility] Comment: Interpretive Data Percent cell count reference ranges are not reported, since discordance with absolute values may lead to misinterpretation of CBC data. Current Interpretive Data was last revised on 2017. Monocyte pct 8.0 % [facility] Comment: Interpretive Data Percent cell [...] ORDERABLES Final Res ult Performing Organization Address [facility]/ZIP Co de Phone Number CLARA GRAJEDA [address] [place] [address] * (ABNORMAL) CBC with auto differential (12/10/2024 6:58 PM CDT) WBC 10.08(H) 3.80 - 9.90 K/cumm Hgb 10.8(L) 13.0 - 17.5 g/dL [facility] Hct 32.8(L) 38.9 - 50.3 % [facility] Plt 77(L) 150 - 400 K/cumm [facility] Comment:No clot detected in sample. MPV 11.5 9.1 - 12.3 fL [facility] RBC 3.64(L) 4.30 - 5.80 M/cumm [facility] MCV 90.1 81.3 - 96.4 fL [facility] MCH 29.7 27.1 - 33.3 pg [facility] MCHC 32.9 32.3 - 35.7 g/dL [facility] RDW CV 12.9 11.1 - 14.9 % [facility] RDW SD 42.3 35.7 - 48.1 fL [facility] NRBC abs 0.00 0.00 - 0.01 K/cumm [facility] Blood 12/10/2024 6:58 PM CDT 12/10/2024 7:23 PM CDT Paula Reno MD LAB BLOOD ORDERABLES Final Res ult Performing Organization Address City/[facility]/ZIP Co de Phone Number CLARA GRAJEDA [address] [address] [place] [address] * Magnesium (12/10/2024 6:58 PM CDT) Magnesium 2.2 1.4 - 2.5 mg/dL Blood 12/10/2024 6:58 PM CDT 12/10/2024 7:21 PM CDT Paula Reno MD LAB BLOOD ORDERABLES Final Res ult Performing Organization Address [facility] de Phone Number CLARA [address] [address] Department [place] [address] * (ABNORMAL) Blood gas, arterial (12/10/2024 6:58 [...] ORDERABLES Final Res ult Performing Organization Address [facility] de Phone Number CLARA [phone] [address] [address] * (ABNORMAL) Basic metabolic panel (12/10/2024 6:58 [...] 2022. Calcium 8.1(L) 8.5 - 10.3 mg/dL [facility] Blood 12/10/2024 6:58 PM CDT 12/10/2024 7:21 PM CDT Paula Reno MD LAB BLOOD ORDERABLES Final Res ult Performing Organization Address [facility] Co de Phone Number DONALDODEYSI [address] [place] [address] * POCT glucose (12/10/2024 5:55 PM CDT) Glucose, POC 89 70 - 199 mg/dL POC Performer [id number] [facility] Blood 12/10/2024 5:55 PM CDT 12/10/2024 5:55 PM CDT Paula Reno MD LAB POCT ORDERABLES - DEVICE F inal Result Performing Organization Address City/[facility] Co de Phone Number [facility] [address] [address] [place] [address] * POCT glucose (12/10/2024 4:50 PM CDT) Glucose, POC 97 70 - 199 mg/dL POC Performer [id number] [facility] Blood 12/10/2024 4:50 PM CDT 12/10/2024 4:50 PM CDT Paula Reno MD LAB POCT ORDERABLES - DEVICE F inal Result CLARA [address] [facility] [place] Department [place] [address] * XR Chest 1 View [...] drain in place. The tip of the Oglesby-Diane catheter is in the proximal right main [...] drain in place. The tip of the Oglesby-Diane catheter is in the proximal right main pulmonary artery. The distal tip of the endotracheal tube is approximately 5 cm above the level of rukhsana. Cardiomegaly with aortic atherosclerosis. No failure. No active infiltrate. IMPRESSION: Findings as described above. Electronically signed by: Chrisitan Ann M.D. Paula Reno MD IMG XR PROCEDURES Final Result * Calcium, ionized, whole blood (12/10/2024 3:38 PM CDT) Ca, ionized, bld 4.65 4.50 - 5.10 mg/dL Blood 12/10/2024 3:38 PM CDT 12/10/2024 3:44 PM CDT Paula Reno MD LAB BLOOD ORDERABLES Final Res ult CLARA GRAJEDA [address] [place] [address] * eGFR (12/10/2024 3:38 PM [...] BLOOD ORDERABLES Final Res ult CLARA GRAJEDA [address] [employer] [place], [place] [id number] * (ABNORMAL) aPTT (12/10/2024 3:38 PM CDT) [...] ORDERABLES Final Res ult Performing Organization Address City/[facility] Co de Phone Number [facility] [address] [address] [place] [address] * (ABNORMAL) Protime-INR (12/10/2024 3:38 [...] ORDERABLES Final Res ult Performing Organization Address City/[facility]/ZIP Co de Phone Number CLARA [address] [address] [place] [address] * (ABNORMAL) CBC without differential [...] NRBC abs 0.00 0.00 - 0.01 K/cumm [facility] Blood 12/10/2024 3:38 PM CDT 12/10/2024 3:46 PM CDT Paula Reno MD LAB BLOOD ORDERABLES Final Res ult Performing Organization Address [facility] de Phone Number [facility] [address] [address] [place] [address] * Magnesium (12/10/2024 3:38 PM CDT) Pathologist [facility] Magnesium 2.4 1.4 - 2.5 mg/dL Blood 12/10/2024 3:38 PM CDT 12/10/2024 3:44 PM CDT Paula Reno MD LAB BLOOD ORDERABLES Final Res ult Performing Organization Address [facility] de Phone Number [facility] [address] [address] [place] [address] * (ABNORMAL) Blood gas, arterial (12/10/2024 3:38 PM CDT) pH, Art 7.39 7.35 - 7.45 PCO2, Arterial 37 35 - 45 mmHg [facility] PO2, Arterial 275(H) 83 - 108 mmHg [facility] HCO3 Art (Calculated) 22 20 - 30 mmol/L [facility] BE, art -2 mmol/L [facility] Comment: Interpretive Data No Reference Range Established Current Interpretive Data was last revised on 2017 O2 Sat Art (Measured) 100(H) 90 - 95 % [facility] Blood 12/10/2024 3:38 PM CDT 12/10/2024 3:44 PM CDT Paula Reno MD LAB BLOOD ORDERABLES Final Res ult Performing Organization Address City/[facility] Co de Phone Number [facility] [address] [address] Department [place] [address] * (ABNORMAL) Basic metabolic panel (12/10/2024 3:38 [...] 2022. Calcium 8.3(L) 8.5 - 10.3 mg/dL [facility] Blood 12/10/2024 3:38 PM CDT 12/10/2024 3:44 PM CDT Paula Reno MD LAB BLOOD ORDERABLES Final Res ult Performing Organization Address City/[facility]/ZIP Co de Phone Number [facility] [address] [address] Department [place] [address] * Critical Care (12/10/2024 3:30 PM CDT) [...] plan with the ICU team and other medical/customer sales consultant staff, making frequent assessments and decisions [...] * POCT glucose (12/10/2024 3:14 PM CDT) [facility] Glucose, POC 129 70 - 199 mg/dL POC Performer [id number] [facility] Blood 12/10/2024 3:14 PM CDT 12/10/2024 3:14 PM CDT us Paula Reno MD LAB POCT ORDERABLES - DEVICE F inal Result Performing Organization Address City/[facility]/ZIP Co de Phone Number CLARA GRAJEDA [address] [address] [place] [address] * (ABNORMAL) POC Blood Gas [...] DEVIC E Final Result Performing Organization Address City/[facility]/ZIP Co de Phone Number CLARA GRAJEDA [address] [place] [address] * POC Activated Clotting Time, High Range (12/10/2024 2:10 PM CDT) ACT 137 87 - 138 sec POC Performer [id number] [facility] Blood 12/10/2024 2:10 PM CDT 12/10/2024 2:10 PM CDT Keyla Basurto MD LAB BLOOD ORDERABLES Final Result Performing Organization Address [facility] Co de Phone Number [facility] [address] [address] [place] [address] * Transfuse platelets (12/10/2024 2:00 PM CDT) Blood Primitivo Horne MD BLOOD TRANSFUSION ORDERABLES Fin al Result Performing Organization Address [facility] Co de Phone Number [facility] [address] [address] Department [place] [address] * (ABNORMAL) Platelet count (12/10/2024 1:23 PM CDT) Pathologist [facility] Plt 131(L) 150 - 400 K/cumm Blood 12/10/2024 1:23 PM CDT 12/10/2024 1:30 PM CDT Narrative [facility] - 12/10/2024 1:38 PM CDT Please call ext. [phone] with results Paula Reno MD LAB BLOOD ORDERABLES Final Res ult Performing Organization Address [facility] Co de Phone Number [facility] [address] [address] Department [place] [address] * (ABNORMAL) POC Blood Gas and Chemistries, [...] DEVIC E Final Result Performing Organization Address City/[facility]/ZIP Co de Phone Number CLARA GRAJEDA [address] [place] [address] * (ABNORMAL) POC Activated Clotting Time, High Range (12/10/2024 1:11 PM CDT) ACT 475(H) 87 - 138 sec POC Performer [id number] [facility] Blood 12/10/2024 1:11 PM CDT 12/10/2024 1:11 PM CDT Keyla Basurto MD LAB BLOOD ORDERABLES Final Result CLARA GRAJEDA [address] [address] [place] [address] * (ABNORMAL) POC Blood Gas [...] 90.0 - 95.0 % CERNER CH SO2 (joyn) arterial 100(H) 90 - 95 % CERNER [...] - DEVIC E Final Result CLARA GRAJEDA [address] [address] [place] Department [place] [address] * (ABNORMAL) POC Activated Clotting Time, High Range (12/10/2024 12:20 PM CDT) ACT 530(H) 87 - 138 sec POC Performer [id number] CERNER CH Blood 12/10/2024 12:2 0 PM CDT 12/10/2024 12:20 PM CDT Keyla Basurto MD LAB BLOOD ORDERABLES Final Result Performing Organization Address [facility] Co de Phone Number CLARA GRAJEDA [address] [address] [facility] [place] [address] * (ABNORMAL) POC Activated Clotting Time, High Range (12/10/2024 11:29 AM CDT) ACT 579(H) 87 - 138 sec POC Performer [id number] [facility] Blood 12/10/2024 11:2 9 AM CDT 12/10/2024 11:29 AM CDT Result [facility] Keyla Basurto MD LAB BLOOD ORDERABLES Final Result Performing Organization Address [facility] de Phone Number CLARA [address] [address] [facility] [place] [address] * BW AN SHEATH INTRODUCER PERFORMABLE, PULMONARY [...] MD ANESTHESIA ORDERABLES Final Resu lt * [place] AN ELECTIVE ENDOTRACHEAL AIRWAY (12/10/2024 9:55 AM [...] inferior: normal 16- Apical septal: normal 17- Purdon: normal Valves: Aortic Valve: Annulus: normal Leaflet [...] - [place] [address] [address] [place] [address] * POC Activated Clotting Time, High Range (12/10/2024 9:48 AM CDT) ACT 98 87 - 138 sec POC Performer [id number] CLARA TARAS Blood 12/10/2024 9:48 AM CDT 12/10/2024 9:48 AM CDT us Keyla Basurto MD LAB BLOOD ORDERABLES Final Result CLARA GRAJEDA [id number] [place] [address] [place] [address] * TRANSTHORACIC ECHO (TTE) COMPLETE W DOPPLER/CF WO CONTRAST (12/10/2024 9:08 AM CDT) Pathologist [facility] LV EF 60 % CONS SCIMAGE Anatomical Region Laterality Modality Ultrasound 12/10/2024 8:26 AM CDT Narrative 12/10/2024 12:32 PM CDT [place] [id number] Echocardiogram Report Patient Name: KHAI MONAE : [...] Procedure Note Jaida Rahman MD - 12/10/2024 [place] [address] Echocardiogram Report Patient Name: KHAI MONAE : [...] BLOOD BANK TEST ORDERAB LES Final Result [facility] [address] [address] Department of Laboratories [place] [id number] * XR Chest 1 Vw Portable (12/10/2024 [...] Units (12/10/2024 8:00 AM CDT) Product code F1983I64 CERNER CH Unit Number [id number] CERNER CH Product Blood Type OPOS CERNER CH Dispense Status PRESUMED TRANSFUSED CERNER CH Product code R3741C82 Unit Number [id number] CERNER CH Product Blood Type OPOS CERNER CH Dispense Status RETURNED CERNER CH Product code Q2466H31 CERNER CH Unit Number [id number] CERNER CH Product Blood Type OPOS [...] BLOOD BANK PRODUCT ORDERABL ES Final Result [facility] [address] [address] Department [place] [address] * Prepare RBC: 4 Units (12/10/2024 8:00 AM CDT) Product code M3201L72 CERNER CH Unit Number [id number] 2-7 CERNER CH Product Blood Type OPOS CERNER CH Dispense Status RETURNED CERNER CH Product code E6917R35 CERNER CH Unit Number [id number] 2-B CERNER CH Product Blood Type OPOS CERNER CH Dispense Status RETURNED CERNER CH Product code N9022R68 Unit Number [id number] 1-2 CERNER CH Product Blood Type OPOS CERNER CH Dispense Status RETURNED CERNER CH Product code W1325N98 CERNER CH Unit Number [id number] 2-F CERNER CH Product Blood Type OPOS CERNER CH Dispense Status RETURNED CERNER CH Blood 12/10/2024 8:00 AM CDT Narrative CERNER CH - 12/14/2024 12:29 AM CDT Specify Procedure:->CABG Are special requirements needed? (All products are leukoreduced and CMV- safe)- >No Date required:-[id number] LRRBC # of [id number] Reasons:-Hold for procedure (specify procedure)} Rai Reddy NP BLOOD BANK PRODUCT ORDERABL ES Final Result Performing Organization Address [facility] Co de Phone Number CLARA GRAJEDA [address] [address] [place] Department [employer] [place], [place] [id number] * (ABNORMAL) aPTT (12/10/2024 6:40 AM CDT) [...] BLOOD ORDERABLES Final R esult CLARA GRAJEDA [address] [address] [place] [address] * eGFR (12/10/2024 12:12 AM CDT) Pathologist [facility] eGFR 65 >=60 mL/min/1. 73 m2 Comment: [...] 12/10/2024 12:22 AM CDT us Shannan Segundo PLANT PHYSIOLOGY TEACHER LAB BLOOD ORDERABLES Final Res ult [facility] [address] [address] Department [place] [address] * (ABNORMAL) Differential, auto (12/10/2024 12:12 AM CDT) Neutrophil abs 4.77 1.50 - 6.50 K/cumm Imm gran abs 0.02 0.00 - 0.10 K/cumm [facility] Lymphocyte abs 3.28 0.80 - 3.30 K/cumm [facility] Monocyte abs 1.38(H) 0.20 - 0.80 K/cumm [facility] Eosinophil abs 0.03 0.00 - 0.50 K/cumm [facility] Basophil abs 0.03 0.00 - 0.10 K/cumm [facility] Neutrophil pct 50.2 % [facility] Comment: Interpretive Data Percent cell count reference ranges are not reported, since discordance with absolute values may lead to misinterpretation of CBC data. Current Interpretive Data was last revised on 2017. Imm gran pct 0.2 % [facility] Comment: Interpretive Data Percent cell [...] revised on 2017. Monocyte pct 14.5 % [facility] Comment: Interpretive Data Percent cell count reference ranges are not reported, since discordance with absolute values may lead to misinterpretation of CBC data. Current Interpretive Data was last revised on 2017. Eosinophil pct 0.3 % [facility] Comment: Interpretive Data Percent cell count reference ranges are not reported, since discordance with absolute values may lead to misinterpretation of CBC data. Current Interpretive Data was last revised on 2017. Basophil pct 0.3 % [facility] Comment: Interpretive Data Percent cell count reference ranges are not reported, since discordance with absolute values may lead to misinterpretation of CBC data. Current Interpretive Data was last revised on 2017. Blood 12/10/2024 12:1 2 AM CDT 12/10/2024 12:22 AM CDT us Shannan Segundo PLANT PHYSIOLOGY TEACHER LAB BLOOD ORDERABLES Final Res ult [facility] [address] [address] [place] Department [place] [address] * (ABNORMAL) CBC with auto differential (12/10/2024 12:12 AM CDT) WBC 9.51 3.80 - 9.90 K/cumm Hgb 13.4 13.0 - 17.5 g/dL [facility] Hct 40.9 38.9 - 50.3 % [facility] Plt 89(L) 150 - 400 K/cumm [facility] MPV 10.8 9.1 - 12.3 fL [facility] RBC 4.52 4.30 - 5.80 M/cumm [facility] MCV 90.5 81.3 - 96.4 fL [facility] MCH 29.6 27.1 - 33.3 pg [facility] MCHC 32.8 32.3 - 35.7 g/dL [facility] RDW CV 13.0 11.1 - 14.9 % [facility] RDW SD 42.6 35.7 - 48.1 fL [facility] NRBC abs 0.00 0.00 - 0.01 K/cumm [facility] Morphologic Screen Results confirmed by manual morphology review. [facility] Blood 12/10/2024 12:1 2 AM CDT 12/10/2024 12:22 AM CDT Shannan Segundo PLANT PHYSIOLOGY TEACHER LAB BLOOD ORDERABLES Final Res ult Performing Organization Address [facility] de Phone Number CLARA [address] [address] [place] [address] * (ABNORMAL) aPTT (12/10/2024 12:12 AM CDT) aPTT 70(H) 28 - 38 sec Comment: Interpretive Data Heparin therapeutic range: 66.0 - 100.0 seconds. Range based on correlation with therapeutic heparin activity range of 0.3 - 0.7 Units/mL. Current interpretive data was last revised on 2023. Blood 12/10/2024 12:1 2 AM CDT 12/10/2024 12:22 AM CDT Result [facility] Isra Romero MD LAB BLOOD ORDERABLES Final R esult Performing Organization Address [facility] de Phone Number [facility] [address] [address] [place] [address] * Magnesium (12/10/2024 12:12 AM CDT) Magnesium 2.0 1.4 - 2.5 mg/dL Blood 12/10/2024 12:1 2 AM CDT 12/10/2024 12:22 AM CDT Shannan Segundo PLANT PHYSIOLOGY TEACHER LAB BLOOD ORDERABLES Final Res ult Performing Organization Address [facility] de Phone Number CLARA [address] [address] [place] [address] * Hemoglobin A1c (12/10/2024 12:12 AM CDT) Hgb A1C 5.4 4.0 - 5.6 % Estimated Average Glucose 108 mg/dL [facility] Comment: The ADA recommends reporting an estimated Average Glucose (eAG) with all Hemoglobin A1c results using the equation derived from a study of 507 normal and diabetic adults. Minority populations were underrepresented and children were not included. (Diabetes Care 31:6298-1380, 2008). The eAG is not equivalent to a fasting glucose. Blood 12/10/2024 12:1 2 AM CDT 12/10/2024 12:22 AM CDT Paula Reno MD LAB BLOOD ORDERABLES Final Res ult [facility] [address] [address] Department of Laboratories [place] [phone] * Basic metabolic panel (12/10/2024 12:12 AM CDT) Sodium 139 135 - 145 mmol/L Potassium, pl 4.4 3.3 - 4.9 mmol/L [facility] Chloride 106 97 - 110 mmol/L [facility] CO2 23 22 - 32 mmol/L [facility] Anion gap 10 2 - 15 mmol/L [facility] BUN 18 6 - 25 mg/dL [facility] Creatinine 1.24 0.80 - 1.30 mg/dL [facility] Glucose 115 70 - 199 mg/dL [facility] Comment: Interpretive Data Fasting glucose [...] 2022. Calcium 9.2 8.5 - 10.3 mg/dL [facility] Blood 12/10/2024 12:1 2 AM CDT 12/10/2024 12:22 AM CDT Shannan Segundo PLANT PHYSIOLOGY TEACHER LAB BLOOD ORDERABLES Final Res ult Performing Organization Address [facility] de Phone Number CLARA GRAJEDA [address] [address] [facility] [place] [address] * Protime-INR (12/09/2024 6:40 PM CDT) PT [...] ORDERABLES Final Res ult Performing Organization Address [facility] de Phone Number CLARA GRAJEDA [address] [place] [address] * eGFR (12/09/2024 6:03 PM CDT) eGFR [...] 12/09/2024 6:40 PM CDT us Shannan Segundo PLANT PHYSIOLOGY TEACHER LAB BLOOD ORDERABLES Final Res ult [facility] [address] [address] [place] Department [place] [address] * (ABNORMAL) Differential, auto (12/09/2024 6:03 PM CDT) Neutrophil abs 5.76 1.50 - 6.50 K/cumm Imm gran abs 0.02 0.00 - 0.10 K/cumm [facility] Lymphocyte abs 4.92(H) 0.80 - 3.30 K/cumm [facility] Monocyte abs 1.76(H) 0.20 - 0.80 K/cumm [facility] Eosinophil abs 0.05 0.00 - 0.50 K/cumm [facility] Basophil abs 0.03 0.00 - 0.10 K/cumm [facility] Neutrophil pct 46.0 % [facility] Comment: Interpretive Data Percent cell count reference ranges are not reported, since discordance with absolute values may lead to misinterpretation of CBC data. Current Interpretive Data was last revised on 2017. Imm gran pct 0.2 % [facility] Comment: Interpretive Data Percent cell count reference ranges are not reported, since discordance with absolute values may lead to misinterpretation of CBC data. Current Interpretive Data was last revised on 2017. Lymphocyte pct 39.2 % [facility] Comment: Interpretive Data Percent cell count reference ranges are not reported, since discordance with absolute values may lead to misinterpretation of CBC data. Current Interpretive Data was last revised on 2017. Monocyte pct 14.0 % [facility] Comment: Interpretive Data Percent cell count reference ranges are not reported, since discordance with absolute values may lead to misinterpretation of CBC data. Current Interpretive Data was last revised on 2017. Eosinophil pct 0.4 % [facility] Comment: Interpretive Data Percent cell count reference ranges are not reported, since discordance with absolute values may lead to misinterpretation of CBC data. Current Interpretive Data was last revised on 2017. Basophil pct 0.2 % [facility] Comment: Interpretive Data Percent cell count reference ranges are not reported, since discordance with absolute values may lead to misinterpretation of CBC data. Current Interpretive Data was last revised on 2017. Blood 12/09/2024 6:03 PM CDT 12/09/2024 6:41 PM CDT us Shannan Segundo PLANT PHYSIOLOGY TEACHER LAB BLOOD ORDERABLES Final Res ult [facility] [address] [address] [place] Department [place] [address] * (ABNORMAL) CBC with auto differential (12/09/2024 6:03 PM CDT) WBC 12.54(H) 3.80 - 9.90 K/cumm Hgb 13.9 13.0 - 17.5 g/dL [facility] Hct 41.5 38.9 - 50.3 % [facility] Plt 101(L) 150 - 400 K/cumm [facility] Comment:No clot detected in sample. MPV 11.1 9.1 - 12.3 fL [facility] RBC 4.58 4.30 - 5.80 M/cumm [facility] MCV 90.6 81.3 - 96.4 fL [facility] MCH 30.3 27.1 - 33.3 pg [facility] MCHC 33.5 32.3 - 35.7 g/dL [facility] RDW CV 13.2 11.1 - 14.9 % [facility] RDW SD 43.7 35.7 - 48.1 fL [facility] NRBC abs 0.00 0.00 - 0.01 K/cumm [facility] Morphologic Screen Results confirmed by manual morphology review. [facility] Blood 12/09/2024 6:03 PM CDT 12/09/2024 6:41 PM CDT us Shannan Segundo NP LAB BLOOD ORDERABLES Final Res ult Performing Organization Address [facility] de Phone Number CLARA GRAJEDA [address] [address] [facility] [place] [address] * (ABNORMAL) aPTT (12/09/2024 6:03 PM CDT) [...] ORDERABLES Final Res ult Performing Organization Address [facility] de Phone Number DONALDODEYSI [address] [address] [facility] [place] [address] * Protime-INR (12/09/2024 6:03 PM CDT) PT [...] prior to heparin initiation us Shannan Segundo PLANT PHYSIOLOGY TEACHER LAB BLOOD ORDERABLES Final Res ult Performing Organization Address [facility] de Phone Number CLARA GRAJEDA [address] [address] Department [place] [address] * Magnesium (12/09/2024 6:03 PM CDT) Pathologist [facility] Magnesium 2.0 1.4 - 2.5 mg/dL Blood 12/09/2024 6:03 PM CDT 12/09/2024 6:40 PM CDT Shannan Segundo NP LAB BLOOD ORDERABLES Final Res ult Performing Organization Address [facility] Co de Phone Number CLARA GRAJEDA [address] [address] Department [place] [address] * (ABNORMAL) Comprehensive metabolic panel (12/09/2024 6:03 PM CDT) Pathologist [facility] Sodium 137 135 - 145 mmol/L Potassium, pl 4.4 3.3 - 4.9 mmol/L [facility] Chloride 104 97 - 110 mmol/L [facility] CO2 21(L) 22 - 32 mmol/L [facility] Anion gap 12 2 - 15 mmol/L [facility] BUN 15 6 - 25 mg/dL [facility] Creatinine 1.20 0.80 - 1.30 mg/dL [facility]ER Glucose 99 70 - 199 mg/dL [facility] Comment: Interpretive Data Fasting glucose [...] CDT 12/09/2024 6:40 PM CDT Shannan Segundo PLANT PHYSIOLOG[employer] TEACHER LAB BLOOD ORDERABLES Final Res ult CLARA GRAJEDA [address] [address] Department [place] [address] * Calcium, ionized, whole blood (12/09/2024 5:57 PM CDT) Ca, ionized, bld 4.64 4.50 - 5.10 mg/dL Blood 12/09/2024 5:57 PM CDT 12/09/2024 6:52 PM CDT Shannan Segundo PLANT PHYSIOLOGY TEACHER LAB BLOOD ORDERABLES Final Res ult Performing Organization Address [facility] Co de Phone Number CLARA GRAJEDA [address] [address] [place] [address] * Cardiology Document Scan (12/09/2024 11:37 AM CDT) Anatomical Region Laterality Modality Other us Peggy Huitron MD CV CARDIAC SERVICES PROCEDU RES Final Result * Cardiology Document Scan (12/09/2024 11:31 AM CDT) Anatomical Region Laterality Modality Other us Peggy Huitron MD CV CARDIAC SERVICES PROCEDU RES Final Result from Last 3 Months Insurance [facility] MEDICAID [facility] IDTN [facility] MEDICAID [facility] IDPA Advance Directives For more information, please contact: [phone] * Full Code (Latest Code Status on File) Date Activated Date Inactivated Comments 12/09/2024 5:47 PM 12/15/2024 9:07 PM Care Teams Dielectric Embossing Machine Operator Relationship Specialty Start Date End Date Guillermo Painting MD [address] [place] [address] PCP - General 11/05/17 Cj Holloway MD [address] [place] [address] Medical Oncologist/Hematologis t Hematology and Oncology 04/17/18 Paual Reno MD [address] [facility] [id number] [place] [address] Surgeon Cardiothoracic Surgery 12/15/24 Miscellaneous, Not In File 12/15/24
[2025-01-30 21:31] LABS: Atypical Lymphocytes Present; Platelet Estimate Slightly Decreased (Adequate); Schistocytes None Seen
--- NOTE | 2025-01-30 22:21 | ED_ITS ---
HPI - Fever General Chief Complaint: Fever Stated Complaint: fever, decreased appetite Time Seen by Provider: 01/30/25 20:31 History of Present Illness HPI Narrative: Patient is a 64-year-old male who presents emergency department this evening complaining of fevers at home and decreased appetite. Patient had a recent CABG performed proximally 2 and half months ago at [facility] and does have a history of leukemia. Patient denies any additional symptoms including any chest pain or shortness of breath, any nausea vomiting or abdominal pain, any dysuria or hematuria, any recent illness, any sick contacts at home. States that for the past 1/2 months he has been doing quite and was very happy with the care he received at [facility], stating that the have done a wonderful job with his CABG. No additional symptoms or concerns at this time. Related Data Home Medications ?Medication ?Instructions ?Recorded ?Confirmed ?Last Taken ?Type amiodarone 200 mg tablet 400 mg PO DAILY 01/03/25 01/03/25 Unknown History apixaban 5 mg tablet 5 mg PO BID 01/03/25 01/03/25 Unknown History atorvastatin 20 mg tablet (Lipitor) 20 mg PO DAILY 01/03/25 01/03/25 Unknown History clopidogrel 75 mg tablet 75 mg PO DAILY 01/03/25 01/03/25 Unknown History methocarbamol 500 mg tablet 500 mg PO TID 01/03/25 01/03/25 Unknown History metoprolol succinate 25 mg 25 mg PO BID 01/03/25 01/03/25 Unknown History tablet,extended release 24 hr Allergies Allergy/AdvReac Type Severity Reaction Status Date / Time ciprofloxacin Allergy Intermediate Hives / Verified 01/30/25 18:33 Red Face Sulfa (Sulfonamide Allergy Intermediate Itching Verified 01/30/25 18:33 Antibiotics) Review of Systems 2 Review of Systems: All systems are reviewed and are negative unless stated otherwise in the HPI. 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 He and his raised 2 daughters. One of his daughters lives locally. 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 Balance tears to stay busy. She he is independent in all activities of daily living. Code status: DNR/DNI (the patient reports that he is willing to suspend is DNR an order to have cardiac catheterization procedure if needed) Surrogate decision maker: Juanita (daughter) however he states his other daughter can not make decisions if lower was unavailable. Smoking status: Never smoker Alcohol intake: never Alcohol use details: Social alcohol use Substance use: never Substance use type: does not use Do You Feel Safe in your Home?: Yes Lack of Transportation: No Lack of Food: Never True Current Housing: I Have Housing Concerned About Future Housing: No Difficulty Paying Gas/Electric Bills: No Difficulty Paying for Meds: No Currently Unemployed: No Education: Decline to Answer Difficulty w/ Childcare or Family Care: No Living arrangements: with family Occupation/Education: retired Spiritual care concerns: No Exam 2 Narrative: General: Alert, awake, afebrile, in no acute distress. HEENT: PERRL, no rhinorrhea, no post nasal drip, oropharynx clear. Neck: Trachea midline, no JVD, no lymphadenopathy. Cardiovascular: Regular rate and rhythm, no murmurs, rubs or gallops, no peripheral edema. Respiratory: Clear to auscultation bilaterally, no tachypnea, no wheezing, no rhonchi, no rubs, no respiratory distress. Abdomen: Soft, nontender, nondistended, no rebound, no guarding, no peritoneal signs. Musculoskeletal: No joint swelling or deformity, normal muscle tone. Skin: No rashes or petechia, no signs of infection, midline CABG incision appears to be well healed, no evidence of infection. Psychiatric: Alert and oriented, normal behavior and judgment for situation. Neurological: Alert and oriented to person, place, and time. Follows all commands. No focal deficits, speech is clear and fluent. Course Vital Signs Vital signs: Vital Signs Temperature 99.7 F H 01/30/25 18:30 Temperature 99.2 F 01/30/25 21:08 Pulse Rate 72 01/30/25 21:08 Respiratory Rate 15 01/30/25 21:08 Blood Pressure 134/84 01/30/25 21:08 Pulse Oximetry 97 01/30/25 21:08 MDM - Fever MDM Narrative Medical decision making narrative: The patient was evaluated by myself in the emergency department. History is obtained from patient who is an independent historian and physical exam was performed. External medical records were reviewed at this time. IV was established and pertinent tests were ordered. Patient was administered an oral Tylenol 650 mg for a low-grade fever of 99.7? F and 1 L IV fluid bolus with normal saline. EKG was obtained which revealed sinus rhythm rate of 63 beats per minute, no evidence of acute ischemia. EKG was independently interpreted by me and is currently pending official cardiology read. Laboratory results obtained revealing a leukocytosis of 18.9 otherwise unremarkable. Urinalysis revealed nitrite positive urinary tract infection. At this time patient was administered 1 g of IV Rocephin. Imaging studies obtained included CXR which was independently interpreted by me revealing no acute cardiopulmonary process, which is pending final radiology interpretation. Differential diagnosis considerations include sepsis secondary to infectious process such as pneumonia/UTI, acute viral syndrome, infectious process such as pneumonia. Comorbidities impacting this visit include none. I have evaluated and discussed social determinants of health with the patient that could potentially impact subsequent diagnosis and treatment plans. On repeat assessment of the patient, reevaluation revealed that the patient is doing well and is in no acute distress. Patient symptoms have improved since he arrived to our emergency department. Repeat vital signs were all reviewed and noted to be stable. Differential diagnosis and treatment plan were discussed with the patient at bedside. Patient agrees with discussion and after shared medical decision making agrees with discharge. All questions were answered to the patient's satisfaction. Patient will follow up with his PCP in 3-5 days. Script for cephalexin was sent to patient's pharmacy to take as prescribed. Patient was provided with strict return precautions and instructed to return to the emergency department if any new or worsening symptoms develop. The patient was discharged in stable condition. Lab Data 01/30/25 21:00 01/30/25 21:00 Labs: Lab Results 01/30/25 01/30/25 Range/Units 21:00 22:44 WBC 18.9 H (4.5-10.0) K/mm3 RBC 4.38 L (4.6-6.20) M/mm3 Hgb 13.4 L (14.0-18.0) g/dL Hct 42.8 (42.0-52.0) % MCV 97.7 (80-100) fl MCH 30.6 (26-34) pg MCHC 31.3 L (32-36) g/dl RDW 14.8 H (11.5-14.5) % Plt Count 116 L (150-375) k/mm3 MPV 10.3 (7.4-10.4) fl Immature Gran % (Auto) 0.5 (0-0.5) % Neut % (Auto) 62.8 (45.5-73.1) % Lymph % (Auto) 30.8 (18.3-44.2) % Mccracken % (Auto) 5.5 (2.6-8.5) % Eos % (Auto) 0.0 (0-4.4) % Baso % (Auto) 0.4 (0.2-1.2) % Lymph # (Auto) 5.80 H (0.9-3.2) K/mm3 Mccracken # (Auto) 1.0 H (0.1-0.6) K/mm3 Eos # (Auto) 0.0 (0-0.3) K/mm3 Baso # (Auto) 0.1 (0.0-0.1) K/mm3 Abs Immat Gran (auto) 0.09 H (0.00-0.031) K/mm3 Absolute Neuts (auto) 11.9 H (1.3-6.7) K/mm3 Absolute Nucleated RBC 0.000 (0.0-0.012) K/mm3 Band Neutrophils % Not Reportable Nucleated RBC % 0.0 (0.0-0.2) % Atypical Lymphocytes Present Platelet Estimate Slightly decreased (Adequate) Schistocytes None seen Sodium 134 L (137-145) mmol/L Potassium 4.5 (3.4-5.0) mmol/L Chloride 106 (98-107) mmol/L Carbon Dioxide 18 L (22-30) mmol/L Anion Gap 10 (4-12) mmol/L BUN 20 (9-20) mg/dL Creatinine 1.21 (0.7-1.3) mg/dL Estim Creat Clear Calc 62 ml/min Estimated GFR 60 (59 - ) Glucose 121 H (65-110) mg/dL Lactic Acid 1.3 (0.7-2.0) mmol/L Calcium 9.2 (8.4-10.2) mg/dL Magnesium 1.9 (1.6-2.3) mg/dL Total Bilirubin 1.2 (0.2-1.3) mg/dL AST 30 (17-59) U/L ALT 28 (6-50) U/L Alkaline Phosphatase 78 (38-126) U/L Total Protein 6.9 (6.3-8.2) g/dL Albumin 4.2 (3.5-5.1) g/dL Urine Color Yellow (Yellow) Urine Appearance Clear (Clear) Urine pH 5.0 (5.0-9.0) Ur Specific [place] 1.015 (1.001-1.035) Urine Protein Negative (Negative) mg/dL Urine Glucose (UA) Negative (Negative) mg/dL Urine Ketones Negative (Negative) mg/dL Ur Blood (Man) 1+ H (Negative) Urine Nitrate Positive H (Negative) Urine Bilirubin Negative (Negative) Urine Urobilinogen 0.2 (<2.0) mg/dL Leukocyte Esterase Rfl 2+ H (Negative) SILVERIO/UL Urine RBC 0-2 (0-2) /hpf Urine WBC 21-50 H (0-3) /hpf Ur Squamous Epith Cells None seen (Few) /hpf Urine Bacteria 4+ H /hpf Urine Casts 0-2 Influenza A (RT-PCR) Negative (Negative) Influenza B (RT-PCR) Negative (Negative) RSV (RT-PCR) Negative (Negative) SARS-CoV-2 RNA (RT-PCR) Negative (Negative) Discharge Plan Discharge Clinical Impression: Acute UTI (urinary tract infection) Patient Disposition: Home Condition: Improved Instructions: Antibiotic Form, Urinary Tract Infection in Men (ED) Additional Instructions: Please follow-up with the family doctor within the next 3-5 days. Take the prescribed antibiotic as instructed for your UTI. Return to emergency department if any new or worsening symptoms develop. Patient Language: Khmer Prescriptions: New cephalexin 500 mg capsule 500 mg PO Q6H 10 Days Qty: 40 0RF No Action apixaban 5 mg tablet 5 mg PO BID atorvastatin [Lipitor] 20 mg tablet 20 mg PO DAILY clopidogrel 75 mg tablet 75 mg PO DAILY methocarbamol 500 mg tablet 500 mg PO TID metoprolol succinate 25 mg tablet extended release 24 hr 25 mg PO BID amiodarone 200 mg tablet 400 mg PO DAILY Follow-up/Referrals: Guillermo Painting MD [Primary Care Provider] - 3 Days Time of Disposition: 23:21
--- NOTE | 2025-01-30 22:32 | ECG_ITS ---
Test Date: 2025-01-30 22:50:59 Measurements Intervals [place] Rate: 63 P: 49 NV: 184 QRS: -9 QRSD: 114 T: 30 QT: 420 QTc: 432 Interpretive Statements SINUS RHYTHM INTRAVENTRICULAR CONDUCTION DELAY CANNOT R/O SEPTAL INFARCT, AGE INDETERMINATE NONSPECIFIC ST & T-WAVE ABNORMALITY- INF/LAT LEADS BASELINE ARTIFACT- I, II, III, AVR, AVL, AVF ABNORMAL ECG Compared to ECG 12/09/2024 03:00:44 HEART RATE HAS INCREASED Intraventricular conduction delay now present ST-T wave abnormality now present Electronically Signed On 01-31-2025 09:25:46 CDT by Johnny Barnes D.O.
[2025-01-30 23:03] LABS: Add Urine Microscopic? YES; Appearance Urine Clear (Clear); Bacteria Urine 4+ /hpf; Bilirubin Urine Negative (Negative); Blood Urine 1+ (Negative); Color Urine Yellow (Yellow); Glucose Urine UA Negative (Negative); Ketones Urine Negative (Negative); Leukocyte Esterase Ur 2+ LEU/UL (Negative); Nitrate Urine Positive (Negative); Non Pathogenic Casts 0-2; Protein Urine Negative (Negative); RBC Urine 0-2 /hpf (0-2); Specific Grav Ur 1.015 (1.001-1.035); Squamous Epithelial Cell Urine None Seen /hpf (Few); Urobilinogen Urine 0.2 mg/dL (<2.0); WBC Urine 21-50 /hpf (0-3)
[2025-01-30 23:12] LABS: Influenza A QL RT-PCR Negative (Negative); Influenza B QL RT-PCR Negative (Negative); RSV RNA, RT-PCR Negative (Negative); SARS-CoV-2 RNA PCR Negative (Negative)
[2025-01-30] MEDS: SODIUM CHLORIDE 0.9% IV 1,000 ML 999 ML IV CONT (23:32)
[2025-01-31 00:01] VITALS: BP 112/75; PULSE 62; RESP 22; O2SAT 96
[2025-01-31 01:18] VITALS: BP 124/73; PULSE 67; RESP 16; TEMP 36.8; O2SAT 100
== END 2025-01-31 01:05 | disposition home or self-care (01) ==
PROVIDERS: Emergency Provider Emergency Medicine; PCP Family Medicine Adolescent Medicine
DX: N39.0 Urinary tract infection, site not specified (principal); Z95.1 Presence of aortocoronary bypass graft; Z85.6 Personal history of leukemia; Z20.822 Contact with and (suspected) exposure to COVID-19
CPT/HCPCS: 36415; 71045; 80053; 81001; 83605; 83735; 85025; 87040; 87086; 87186; 87637; 93005; 96361; 96365; 99284; A9270; J0696; J7030

== ENCOUNTER 2025-02-24 11:07 | Emergency (ER) | payer MEDICARE, MEDICAID, SELFPAY ==
--- NOTE | 2025-02-24 11:10 | ED.MALEGU ---
HPI - Male Genitourinary General Chief complaint: Urogenital-Male Stated complaint: UTI Time Seen by Provider: 02/24/25 11:17 Source: patient, RN notes reviewed and old records reviewed Mode of arrival: ambulatory Limitations: no limitations History of Present Illness HPI Narrative: 65-year-old male presents to the [facility] with concerns for UTI. Per medical record was treated on January 30, 1 month ago for UTI. Microbiology report shows positive E coli Patient 3 day history of a strong smell. Has been increasing water intake. Denies any chances of STIs Onset (ago): day(s) (3) Related Data Home Medications ?Medication ?Instructions ?Recorded ?Confirmed ?Last Taken ?Type atorvastatin 20 mg tablet (Lipitor) 20 mg PO DAILY 01/03/25 02/24/25 Unknown History clopidogrel 75 mg tablet 75 mg PO DAILY 01/03/25 02/24/25 Unknown History metoprolol succinate 25 mg 25 mg PO BID 01/03/25 02/24/25 Unknown History tablet,extended release 24 hr aspirin 02/24/25 Unknown History Allergies Allergy/AdvReac Type Severity Reaction Status Date / Time ciprofloxacin Allergy Intermediate Hives / Verified 02/24/25 11:15 Red Face Sulfa (Sulfonamide Allergy Intermediate Itching Verified 02/24/25 11:15 Antibiotics) Review of Systems Review of Systems: All systems reviewed & are unremarkable except as noted in HPI and below Constitutional: Constitutional: Reports no additional constitutional complaints Gastrointestinal: Gastrointestinal: Reports no additional gastrointestinal complaints Genitourinary: Genitourinary: Reports as per HPI and Reports dysuria Musculoskeletal: Musculoskeletal: Reports no additional musculoskeletal complaints [facility] Past Medical History Medical History Non-STEMI (non-ST elevated myocardial infarction) (11/2024) Thrombocytopenia 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 Surgical History Surgical History 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 He and his raised 2 daughters. One of his daughters lives locally. 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 Balance tears to stay busy. She he is independent in all activities of daily living. Code status: DNR/DNI (the patient reports that he is willing to suspend is DNR an order to have cardiac catheterization procedure if needed) Surrogate decision maker: Juanita (daughter) however he states his other daughter can not make decisions if lower was unavailable. Smoking status: Never smoker Alcohol intake: never Alcohol use details: Social alcohol use Substance use: never Substance use type: does not use Do You Feel Safe in your Home?: Yes Lack of Transportation: No Lack of Food: Never True Current Housing: I Have Housing Concerned About Future Housing: No Difficulty Paying Gas/Electric Bills: No Difficulty Paying for Meds: No Currently Unemployed: No Education: Decline to Answer Difficulty w/ Childcare or Family Care: No Living arrangements: with family Occupation/Education: retired Spiritual care concerns: No Comments At the time of my signature, I reviewed and agree with the nursing past medical, surgical, social, and family history. There is no relevant family history pertinent to the patient complaint. Exam Const: General: cooperative, healthy appearing, comfortable, no acute distress, well developed, alert and well nourished Nutritional Appearance: well nourished Orientation/consciousness: patient oriented x3 Limitations: no limitations HENMT: Head: normal to inspection Eyes: General: appearance normal, both eyes and all related structures Alignment and Position: alignment normal Neck: Neck: normal visual inspection, full ROM, no lymphadenopathy and no meningeal signs Chest: Chest palpation & inspection: normal inspection of the chest Resp: Effort & Inspection: normal respiratory effort and able to speak in complete sentences Auscultation: clear to auscultation bilaterally, no crackles, no rales, no rhonchi and no wheezes Cardio: Rate: regular rate GI: GI Palp: No abdominal tenderness : General: Yes no CVA tenderness Skin: General skin exam: normal color and no rashes or lesions noted Neuro: General: patient oriented x3, gait normal, moves all extremities and no meningeal signs Cognition (Neuro): normal cognition Speech: normal speech Gait exam (Neuro): Normal gait present Extrem: General: normal to inspection, full ROM, capillary refill normal and normal gait Psych: Appearance: grossly normal and well kempt Mental Status: mental status grossly normal Speech and movement: Normal speech and movement present and Clear speech present Affect: normal affect Attitude: cooperative Course Course Level of Care: Express Care Visit Vital Signs Vital signs: Vital Signs Temperature 98.1 F 02/24/25 11:19 Pulse Rate 72 02/24/25 11:19 Respiratory Rate 16 02/24/25 11:19 Blood Pressure 121/78 02/24/25 11:19 Pulse Oximetry 100 02/24/25 11:19 Oxygen Delivery Room Air 02/24/25 11:19 Temperature 98.1 F 02/24/25 11:19 Pulse Rate 72 02/24/25 11:19 Respiratory Rate 16 02/24/25 11:19 Blood Pressure 121/78 02/24/25 11:19 Pulse Oximetry 100 02/24/25 11:19 Oxygen Delivery Room Air 02/24/25 11:19 Reviewed MDM - Male Genitourinary MDM Narrative Medical decision making narrative: Patient sitting in exam room. Patient is nontoxic, vitals are stable. Patient presents with concerns for a UTI. Recently had 1 approximately 1 month ago. Patient positive for nitrites and leukocytes. Will treat with antibiotic, Augmentin. Will send for culture Patient her for outpatient treatment with close follow-up Discharge instructions reviewed with patient, as well as provided in writing per nursing staff. The instructions also include specific and strict return/GO TO THE ER as well as f/u information. All questions have been answered, and the patient deny any further questions with discharge and discharge plan. Some parts of this dictation were generated by voice recognition software and may contain typographical and/or grammatical inaccuracies. Differential Diagnosis Differential diagnosis: Likely urinary tract infection and urethritis Lab Data Labs: Lab Results 02/24/25 02/24/25 Range/Units 11:32 11:51 POC Urine Color Yellow Dark POC Urine Clarity Cloudy Cloudy POC Urine pH 5.0 6.0 POC Ur Specif [place] 1.025 1.020 POC Urine Protein 3+ 3+ (Negative) POC Ur Glucose (UA) Negative Negative (Negative) POC Urine Ketones Trace Trace (Negative) POC Urine Blood 2+ 1+ (Negative) POC Urine Nitrite Positive Positive (Negative) POC Urine Bilirubin 1+ 1+ (Negative) POC Urine Urobilinogen 1.0 0.2 POC U Leukocyte Esteras Trace 2+ (Negative) Reviewed Critical Care Time Critical Care Time Critical Care Time: No Discharge Plan Discharge Clinical Impression: Urinary tract infection Qualifiers: Urinary tract infection type: site unspecified Hematuria presence: with hematuria Qualified Code(s): N39.0 - Urinary tract infection, site not specified; R31.9 - Hematuria, unspecified Patient Disposition: Home Condition: Stable Instructions: Antibiotic Form, Urinary Tract Infection in Men (DC) Additional Instructions: Increased water intake Take Tylenol as needed for pain Take antibiotic as prescribed While on an antibiotic it is important that you eat a yogurt a day or take a probiotic. Today your urine dip showed a probability of a UTI. You have been prescribed an antibiotic. Your urine will be sent to our lab for a culture. If at that time a bacteria grows that is not covered by the antibiotic prescribed you will be notified. Follow-up with primary care For new or worsening symptoms go directly to the emergency room Patient Language: Argentine Prescriptions: New amoxicillin-pot clavulanate 875-125 mg tablet 1 tablet PO Q12H Qty: 10 0RF No Action aspirin atorvastatin [Lipitor] 20 mg tablet 20 mg PO DAILY clopidogrel 75 mg tablet 75 mg PO DAILY metoprolol succinate 25 mg tablet extended release 24 hr 25 mg PO BID Follow-up/Referrals: Guillermo Painting MD [Primary Care Provider] - 1 Week (express care follow up ) Time of Disposition: 11:55
[2025-02-24 11:19] VITALS: BP 121/78; PULSE 72; RESP 16; TEMP 36.7; O2SAT 100
[2025-02-24 11:49] LABS: EDUAAPPEAR Cloudy; EDUABILI 1+ (Negative); EDUABLOOD 2+ (Negative); EDUACOLOR1 Yellow; EDUAGLUCOSE Negative (Negative); EDUAKETONE Trace (Negative); EDUALEUKO Trace (Negative); EDUANITRATE Positive (Negative); EDUAPH 5.0; EDUAPROTEIN 3+ (Negative); EDUASPGRAVITY 1.025; EDUAUROBILI 1.0
[2025-02-24 11:54] LABS: EDUAAPPEAR Cloudy; EDUABILI 1+ (Negative); EDUABLOOD 1+ (Negative); EDUACOLOR1 Dark; EDUAGLUCOSE Negative (Negative); EDUAKETONE Trace (Negative); EDUALEUKO 2+ (Negative); EDUANITRATE Positive (Negative); EDUAPH 6.0; EDUAPROTEIN 3+ (Negative); EDUASPGRAVITY 1.020; EDUAUROBILI 0.2
== END 2025-02-24 11:57 | disposition home or self-care (01) ==
PROVIDERS: Emergency Provider Nurse Practitioner; PCP Family Medicine Adolescent Medicine
DX: N39.0 Urinary tract infection, site not specified (principal); R31.9 Hematuria, unspecified; C91.10 Chronic lymphocytic leukemia of B-cell type not having achieved remission; D69.6 Thrombocytopenia, unspecified; I25.2 Old myocardial infarction; Z95.1 Presence of aortocoronary bypass graft
CPT/HCPCS: 81003; 87086; 87186; 99213; G0463

== ENCOUNTER 2025-03-23 12:30 | Outpatient (RCR) | payer MEDICARE, MEDICAID, SELFPAY | END 2025-03-23 13:39 | disposition home or self-care (01) | LOC: ANHCPREHAB 12:30 | PROVIDERS: PCP Family Medicine Adolescent Medicine; Visit Provider Internal Medicine Cardiovascular Disease | DX: Z95.1 Presence of aortocoronary bypass graft (principal) | CPT/HCPCS: 93798 ==